=== PATIENT | male | born 1970 | race Two or more races ===

== ENCOUNTER 2019-05-13 14:01 | Inpatient (IN) | payer OTHER ==
[2019-05-13] MEDS ORDERED: VANCOMYCIN HCL INJ 1000 MG VIAL IV ONE (14:52)
[2019-05-13] MEDS ORDERED: AZTREONAM INJ 1 GM VIAL IV ONE (14:54)
--- NOTE | 2019-05-13 14:55 | ER Document Report ---
ED Medical Screen (RME) - General Chief Complaint: Foot Pain Stated Complaint: FOOT PAIN Notes: Patient is a 48-year-old male who presents to the emergency department with a chief complaint of right foot pain. He states that he has had pain for the past week. He is a diabetic and he has been walking on his foot. He noticed that he had black to his first and second digit of his right foot this morning. He is currently on not on any diabetic medications. Exam: Eschar noted to 1st and second digit I have greeted and performed a rapid initial assessment of this patient. A comprehensive ED assessment and evaluation of the patient, analysis of test results and completion of medical decision making process will be conducted by an additional ED providers. TRAVEL OUTSIDE OF THE [place] IN LAST 30 DAYS: No - Related Data Allergies/Adverse Reactions: No Known Allergies Allergy (Verified 05/13/19 14:40) Past Medical History - Social History Chew tobacco use (# tins/day): No Frequency of alcohol use: Heavy Drug Abuse: None Pulmonary Medical History: Reports: Hx Asthma, Hx Bronchitis Denies: Hx Tuberculosis Psychiatric Medical History: Reports: Hx Depression - no support system Traumatic Medical History: Reports: Hx Fractures Past Surgical History: Denies: Hx Pacemaker - Immunizations Hx Diphtheria, Pertussis, Tetanus Vaccination: Yes Physical Exam - Vital signs Vitals: Temp Pulse Resp BP Pulse Ox 98.0 F 115 H 18 158/110 H 96 05/13/19 14:17 05/13/19 14:17 05/13/19 14:17 05/13/19 14:17 05/13/19 14:17 Course - Vital Signs Vital signs: Temp Pulse Resp BP Pulse Ox 98.2 F 106 H 17 165/85 H 100 05/14/19 07:50 05/14/19 07:50 05/14/19 07:50 05/14/19 07:50 05/14/19 07:50 - Laboratory Result Diagrams: 05/14/19 04:46 05/13/19 18:00 Laboratory results interpreted by me: 05/13/19 05/13/19 15:00 15:00 WBC 16.0 H RBC 2.79 L Hgb 10.3 L Hct 29.0 L MCV 104 H MCH 37.0 H Plt Count 507 H Lymph % (Auto) 7.3 L Absolute Neuts (auto) 13.7 H Seg Neutrophils % 85.4 H Sodium 124.3 L Potassium 5.4 H Chloride 89 L Carbon Dioxide 20 L Glucose 216 H Albumin 3.4 L Doctor's Discharge - Discharge Clinical Impression: Diabetic ulcer of toe Condition: Stable Disposition: ADMITTED INPATIENT
--- NOTE | 2019-05-13 14:56 | ER Document Report ---
ED General - General Chief Complaint: Foot Pain Stated Complaint: FOOT PAIN Notes: Patient is a 48-year-old male who presents to the emergency department with a chief complaint of right foot pain. He states that he has had pain for the past week. He is a diabetic and he has been walking on his foot. He noticed that he had black to his first and second digit of his right foot this morning. He is currently on not on any diabetic medications. Denies any fevers, body aches, or chills. Patient has a history of a left BKA. TRAVEL OUTSIDE OF THE [place] IN LAST 30 DAYS: No - Related Data Allergies/Adverse Reactions: No Known Allergies Allergy (Verified 05/13/19 14:40) Past Medical History - Social History Smoking Status: Never Smoker Chew tobacco use (# tins/day): No Frequency of alcohol use: Heavy Drug Abuse: None Family History: Reviewed & Not Pertinent Patient has suicidal ideation: No Patient has homicidal ideation: No Pulmonary Medical History: Reports: Hx Asthma, Hx Bronchitis Denies: Hx Tuberculosis Psychiatric Medical History: Reports: Hx Depression - no support system Traumatic Medical History: Reports: Hx Fractures Past Surgical History: Denies: Hx Pacemaker - Immunizations Hx Diphtheria, Pertussis, Tetanus Vaccination: Yes Review of Systems - Review of Systems Notes: REVIEW OF SYSTEMS: CONSTITUTIONAL : Denies recent illness. Denies recent unintentional weight loss. Denies fever, chills, or sweats. EENT: Denies eye, ear, throat, or mouth pain, discharge, or symptoms. Denies nasal or sinus congestion. CARDIOVASCULAR: Denies chest pain. RESPIRATORY: Denies shortness of breath, cough, congestion, difficulty breathing, or wheezing. GASTROINTESTINAL: Denies nausea, vomiting, and diarrhea. Denies abdominal pain. Denies constipation. GENITOURINARY: Denies difficulty urinating, burning, blood in urine, urgency or frequency. MUSCULOSKELETAL: See HPI. SKIN: Denies rash, itchiness, or lesions HEMATOLOGIC : Denies easy bruising or bleeding. LYMPHATIC: Denies swollen, painful, enlarged glands. NEUROLOGICAL: Denies no numbness or tingling denies weakness. Denies headache. Denies altered mental status. Denies alteration in speech. PSYCHIATRIC: Denies stress, anxiety, alteration in sleep patterns, or depression. All other systems reviewed and negative. Physical Exam - Vital signs Vitals: Temp Pulse Resp BP Pulse Ox 98.0 F 115 H 18 158/110 H 96 05/13/19 14:17 05/13/19 14:17 05/13/19 14:17 05/13/19 14:17 05/13/19 14:17 - Notes Notes: PHYSICAL EXAMINATION: GENERAL: Appears older than stated age, well-nourished, no acute distress. HEAD: Normocephalic, atraumatic. EYES: PERRL, conjunctiva normal, all extraocular movements intact, sclera nonicteric ENT: Moist mucous membranes. NECK: Supple, no noticeable swelling, redness, rash. Normal range of motion. LUNGS: Equal breath sounds bilaterally and clear to auscultation. No wheezes rales or rhonchi. CARDIOVASCULAR: S1-S2, regular rate, regular rhythm. Radial pulses 2+, normal. ABDOMEN: Normoactive bowel sounds. Soft, nontender, no guarding, no rebound tenderness, and no masses palpated. EXTREMITIES: Normal strength and range of motion. 2+ pitting edema noted to right foot with eschar noted to first and second digits on right foot. Surrounding erythema noted. NEUROLOGICAL: Moves all extremities upon command. Strength 5/5 in all extremities. PSYCH: Normal mood, normal affect. SKIN: Warm, dry. No rash, lesions, ulcerations noted. Normal skin turgor. Course - Re-evaluation Re-evalutation: 05/13/19 16:57 X-ray of the foot shows soft tissue swelling as per the radiologist. I suspect there is more than just soft tissue swelling, as the patient has extra are noted to his first and second digits of his right toe. Patient's hematology shows a leukocytosis of 16,000. There is a shift to the left. He is mildly anemic with a hemoglobin of 10.3 and hematocrit of 29. Chemistries show hyponatremia with a sodium of 124. His potassium is 5.4. His glucose is 216. These will be treated with IV fluids. Patient also received antibiotics. I spoke with Dr. Sena, the surgicalist. He will evaluate the patient. 05/13/19 17:07 Spoke with SHAMEKA Bond. Patient will be admitted to the surgical floor. - Vital Signs Vital signs: Temp Pulse Resp BP Pulse Ox 98.2 F 106 H 17 165/85 H 100 05/14/19 07:50 05/14/19 07:50 05/14/19 07:50 05/14/19 07:50 05/14/19 07:50 - Laboratory Result Diagrams: 05/14/19 04:46 05/13/19 18:00 Laboratory results interpreted by me: 05/13/19 05/13/19 15:00 15:00 WBC 16.0 H RBC 2.79 L Hgb 10.3 L Hct 29.0 L MCV 104 H MCH 37.0 H Plt Count 507 H Lymph % (Auto) 7.3 L Absolute Neuts (auto) 13.7 H Seg Neutrophils % 85.4 H Sodium 124.3 L Potassium 5.4 H Chloride 89 L Carbon Dioxide 20 L Glucose 216 H Albumin 3.4 L Discharge - Discharge Clinical Impression: Patient noncompliance Diabetic ulcer of toe Qualifiers: Diabetes mellitus type: type 2 Laterality: right Non-pressure ulcer stage: with other severity Qualified Code(s): E11.621 - Type 2 diabetes mellitus with foot ulcer; L97.518 - Non-pressure chronic ulcer of other part of right foot with other specified severity Diabetes Qualifiers: Diabetes mellitus type: type 2 Diabetes mellitus senior care insulin use: without technician terminal and repeater use Diabetes mellitus complication status: with other specified complication Qualified Code(s): E11.69 - Type 2 diabetes mellitus with other specified complication Condition: Stable Disposition: ADMITTED INPATIENT Admitting Provider: Osmany (Hospitalist) Unit Admitted: Surgical Floor
[2019-05-13 15:37] LABS: ABSOLUTE BASOPHILS # (AUTO) 0.1 10^3/uL (0.0-0.2); ABSOLUTE EOSINOPHILS # (AUTO) 0.2 10^3/uL (0.0-0.6); ABSOLUTE LYMPHOCYTES (AUTO) 1.2 10^3/uL (0.5-4.7); ABSOLUTE MONOCYTES (AUTO) 0.9 10^3/uL (0.1-1.4); ABSOLUTE NEUT (AUTO) 13.7 10^3/uL (1.7-8.2); BASOPHILS % (AUTO) 0.8 % (0-2); EOSINOPHILS % (AUTO) 1.2 % (0-6); HEMOGLOBIN 10.3 g/dL (13.5-17.0); LYMPHOCYTES % (AUTO) 7.3 % (13-45); MEAN CORPUSCULAR HGB CONC 35.6 g/dL (32.0-36.0); MEAN CORPUSCULAR VOLUME 104 fl (80-97); MONOCYTES % (AUTO) 5.3 % (3-13); PLATELET COUNT 507 10^3/uL (150-450); RED BLOOD COUNT 2.79 10^6/uL (4.35-5.55); RED CELL DISTRIBUTION WIDTH 13.2 % (11.5-14.0); SEGMENTED NEUTROPHILS % (AUTO) 85.4 % (42-78); TOTAL CELLS COUNTED % (AUTO) 100 %
[2019-05-13 15:43] LABS: INTERNATIONAL RATION (INR) 0.99; PROTHROMBIN TIME 13.1 SEC (11.4-15.4)
[2019-05-13 15:44] LABS: PARTIAL THROMBOPLASTIN TIME 32.9 SEC (23.5-35.8)
--- NOTE | 2019-05-13 15:47 | RADIOLOGY REPORT (SQ) ---
EXAM DESCRIPTION: FOOT RIGHT COMPLETE COMPLETED DATE/TIME: 05/13/2019 3:29 pm REASON FOR STUDY: eval osteomylitis COMPARISON: None. EXAM PARAMETERS: NUMBER OF VIEWS: Three views. TECHNIQUE: AP, lateral and oblique radiographic images acquired of the right foot. LIMITATIONS: 2nd toe in flexion on all projections FINDINGS: MINERALIZATION: Normal. BONES: No acute fracture or dislocation. No worrisome bone lesions. JOINTS: No effusion. SOFT TISSUES: 1st and 2nd digit distal soft tissue swelling. No radiopaque foreign body. OTHER: No other significant finding. IMPRESSION: No acute fracture or dislocation. No worrisome bone lesions identified. TECHNICAL DOCUMENTATION: JOB ID: [id number] [place]-72 2010 [employer]- All Rights Reserved Reading location - IP/workstation name: [email or web address]
[2019-05-13 16:03] LABS: ALBUMIN 3.4 g/dL (3.5-5.0); ALKALINE PHOSPHATASE 123 U/L (38-126); ANION GAP 15 (5-19); ASPARTATE AMINO TRANSFERASE 35 U/L (17-59); BILIRUBIN,DIRECT 0.4 mg/dL (0.0-0.4); BILIRUBIN,TOTAL 0.6 mg/dL (0.2-1.3); BLOOD UREA NITROGEN 10 mg/dL (7-20); CALCIUM 8.7 mg/dL (8.4-10.2); CARBON DIOXIDE 20 mmol/L (22-30); CHLORIDE 89 mmol/L (98-107); GLUCOSE 216 mg/dL (75-110); POTASSIUM 5.4 mmol/L (3.6-5.0); TOTAL PROTEIN 7.6 g/dL (6.3-8.2)
[2019-05-13] MEDS ORDERED: NORMAL SALINE 1000 ML 1,000 ML IV ONE (16:06)
[2019-05-13] MEDS ORDERED: ONDANSETRON HCL INJ/PF 4 MG/2 ML SDV IV PRN (17:33)
[2019-05-13] MEDS ORDERED: MAG HYDROX/AL HYDROX/SIMETH SUSP 30 ML UDCUP PO PRN (17:33)
[2019-05-13] MEDS ORDERED: ONDANSETRON 4 MG TAB.RAPDIS PO PRN (17:33)
[2019-05-13] MEDS ORDERED: ZOLPIDEM TARTRATE 5 MG TABLET PO PRN (17:33)
[2019-05-13] MEDS ORDERED: DEXTROSE 50%-WATER 25 GM/50 ML DISP.SYRIN IV PRN ×2 (17:40)
[2019-05-13] MEDS ORDERED: DEXTROSE 40% GEL 15 GM TUBE PO PRN ×2 (17:40)
[2019-05-13] MEDS ORDERED: GLUCAGON,HUMAN RECOMB 1 MG INJ IM PRN (17:40)
[2019-05-13] MEDS ORDERED: VANCOMYCIN HCL 0 MG in DEXTROSE 5%-WATER 250 ML IV NR (17:45)
--- NOTE | 2019-05-13 18:02 | PDOC H&P ---
History of Present Illness Admission Date/PCP: 05/13/19 17:22 NO LOCALOH History of Present Illness: MELVI ABDALLA is a 48 year old male, [place] male comes in with pain in the right great toe. Patient is somewhat vague on his history but says for between 1 to 2 months now he has noticed that his right foot had an infection of the great toe. Over just in the last few days has the great toe turned black and become somewhat tender to walk on. Patient states that he has been out of his blood pressure medicine and his medicine for diabetes for several months.. Patient had a previous below the knee amputation on the left leg secondary to diabetes.. It was approximately 1 year ago when he is done well from that and has a prosthesis. 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 She states he has no other medical problems besides diabetes and high blood pressure.. Patient states he has been on insulin in the past as well as pills , he states he lives alone.. No known drug allergies. Plain film of the right foot shows no evidence of osteomyelitis.. General surgery, Dr. Sena, as recommended MRI scan of the right lower extremity with and without contrast. Making the patient n.p.o. after midnight. Starting broad-spectrum antibiotics. Even the right foot elevated.. She will be reevaluated following the MRI scan of the right lower extremity. Patient was told that a decision will be made concerning surgery following formerly [facility] later [facility] diagnostic studies. Past Medical History Cardiac Medical History: Reports: Hypertension Pulmonary Medical History: Reports: Asthma, Bronchitis Denies: Tuberculosis Endocrine Medical History: Reports: Diabetes Mellitus Type 1 Psychiatric Medical History: Reports: Depression - no support system Past Surgical History Past Surgical History: Reports: Other - Left below the knee amputation Denies: Pacemaker Social History Smoking Status: Never Smoker Electronic Cigarette use?: No Hx Recreational Drug Use: No Hx Prescription Drug Abuse: No - Advance Directive Resuscitation Status: Full Code Family History Parental Family History Reviewed: No Children Family History Reviewed: No Sibling(s) Family History Reviewed.: No Medication/Allergy Home Medications: No Home Medications 06/07/11 Cipro 500 mg Tablet 500 mg PO BID 06/14/11 Coumadin 10 mg PO DAILY 06/14/11 Coumadin 7.5 mg Tablet 7.5 mg PO DAILY 06/14/11 Humalog 1 unit ACHS 06/14/11 Novolin Inj 70-30 (100 Unit/1 ml) 10 ml Vial 25 unit SUBCUT BID 06/14/11 Allergies/Adverse Reactions: No Known Allergies Allergy (Verified 05/13/19 14:40) Review of Systems Constitutional: ABSENT: chills, fever(s), headache(s), weight gain, weight loss Respiratory: ABSENT: cough, hemoptysis Gastrointestinal: ABSENT: abdominal pain, constipation, diarrhea, hematemesis, hematochezia, nausea, vomiting Integumentary: PRESENT: wounds - First and second toe on the right foot Neurological: ABSENT: abnormal gait, abnormal speech, confusion, dizziness, focal weakness, syncope Psychiatric: ABSENT: anxiety, depression, homidical ideation, suicidal ideation Physical Exam Vital Signs: Temp Pulse Resp BP Pulse Ox 98.0 F 115 H 18 158/110 H 96 05/13/19 14:17 05/13/19 14:17 05/13/19 14:17 05/13/19 14:17 05/13/19 14:17 Intake & Output 05/12/19 05/13/19 05/14/19 06:59 06:59 06:59 Intake Total 1000 Balance 1000 Weight 79 kg General appearance: PRESENT: no acute distress, well-developed, well-nourished Respiratory exam: PRESENT: clear to auscultation clarke. ABSENT: rales, rhonchi, wheezes Cardiovascular exam: PRESENT: RRR. ABSENT: diastolic murmur, rubs, systolic murmur Vascular exam: PRESENT: other - Ulcers are difficult to locate in the right lower extremity, may be secondary to edema, or vascular disease Extremities exam: PRESENT: +1 edema, other - Right lower extremity from about the lim down to the right foot less edema as well as redness Great toe appears to be gangrenous with a black eschar on the pedal aspect of the great toe Also to a lesser degree on the second toe on the right foot Foot itself is pink to red. No obvious sign of decreased arterial flow to the foot superficially Results Laboratory Results: 05/13/19 15:00 05/13/19 15:00 05/13/19 05/13/19 05/13/19 15:00 15:00 15:00 WBC 16.0 H RBC 2.79 L Hgb 10.3 L Hct 29.0 L MCV 104 H MCH 37.0 H MCHC 35.6 RDW 13.2 Plt Count 507 H Seg Neutrophils % 85.4 H Sodium 124.3 L Potassium 5.4 H Chloride 89 L Carbon Dioxide 20 L Anion Gap 15 BUN 10 Creatinine 1.16 Est GFR ( Amer) > 60 Glucose 216 H Lactic Acid 1.4 Calcium 8.7 Total Bilirubin 0.6 AST 35 Alkaline Phosphatase 123 Total Protein 7.6 Albumin 3.4 L Impressions: Foot X-Ray 05/13/19 14:45 IMPRESSION: No acute fracture or dislocation. No worrisome bone lesions identified. Assessment and Plan - Diagnosis (1) Diabetes Is this a current diagnosis for this admission?: Yes (2) Hypertension Is this a current diagnosis for this admission?: Yes (3) Patient noncompliance Is this a current diagnosis for this admission?: Yes (4) Cellulitis Is this a current diagnosis for this admission?: Yes (5) Diabetic ulcer of toe Qualifiers: Diabetes mellitus type: type 2 Laterality: right Non-pressure ulcer stage: with other severity Qualified Code(s): E11.621 - Type 2 diabetes melli tus with foot ulcer; L97.518 - Non-pressure chronic ulcer of other part of right foot with other specified severity Is this a current diagnosis for this admission?: Yes - Plan Summary Summary: 05/13/2019 Will be admitted to the hospital for IV fluids, sliding scale of insulin, RI with and without IV contrast to the right lower extremity, patient will be n.p.o. after midnight, surgery will reevaluate the patient in the morning following review of studies. He will be put on broad-spectrum antibiotics as well He is medically stable for admission - Time Time Spent with patient: 35 or more minutes
[2019-05-13 18:24] LABS: ANION GAP 15 (5-19); BLOOD UREA NITROGEN 9 mg/dL (7-20); CALCIUM 8.1 mg/dL (8.4-10.2); CARBON DIOXIDE 19 mmol/L (22-30); CHLORIDE 91 mmol/L (98-107); CREATINE KINASE 164 U/L (55-170); GLUCOSE 216 mg/dL (75-110)
[2019-05-13] MEDS ORDERED: INFLUENZA QUAD (6MOS+) 2019-20 VAC 0.5 ML SYR IM ONE (18:34)
[2019-05-13 18:40] LABS: APPEARANCE,URINE CLEAR; BILIRUBIN,URINE NEGATIVE (NEGATIVE); COLOR,URINE STRAW; GLUCOSE, URINE 50 mg/dL (NEGATIVE); KETONES,URINE NEGATIVE (NEGATIVE); LEUKOCYTE ESTERASE,URINE NEGATIVE (NEGATIVE); NITRITE,URINE NEGATIVE (NEGATIVE); PROTEIN,URINE 30 mg/dL (NEGATIVE); URINE SPECIFIC GRAVITY 1.004; UROBILINOGEN,URINE NEGATIVE mg/dL (<2.0)
--- NOTE | 2019-05-13 18:40 | PDOC CONSULTATION ---
Consultation Consult Date: 05/13/19 Provider Consulted: ARMOND PAN Consult reason:: right great and second toe gangrene History of Present Illness Admission Date/PCP: 05/13/19 17:22 NO LOCALMD History of Present Illness: MELVI ABDALLA is a 48 year old male type 2 diabetes, with a history of left BKA, who presents to the hospital with a necrotic right distal great toe and right second toe. The patient states that he has been on taking his diabetic medications for nonspecific reason, most likely poor compliance. Past Medical History Pulmonary Medical History: Reports: Asthma, Bronchitis Denies: Tuberculosis Psychiatric Medical History: Reports: Depression - no support system Past Surgical History Past Surgical History: Denies: Pacemaker Social History Smoking Status: Never Smoker Electronic Cigarette use?: No Hx Recreational Drug Use: No Hx Prescription Drug Abuse: No Family History Parental Family History Reviewed: No Children Family History Reviewed: No Sibling(s) Family History Reviewed.: No Medication/Allergy Home Medications: No Home Medications 06/07/11 Cipro 500 mg Tablet 500 mg PO BID 06/14/11 Coumadin 10 mg PO DAILY 06/14/11 Coumadin 7.5 mg Tablet 7.5 mg PO DAILY 06/14/11 Humalog 1 unit ACHS 06/14/11 Novolin Inj 70-30 (100 Unit/1 ml) 10 ml Vial 25 unit SUBCUT BID 06/14/11 Allergies/Adverse Reactions: No Known Allergies Allergy (Verified 05/13/19 14:40) Physical Exam Vital Signs: Temp Pulse Resp BP Pulse Ox 98.0 F 115 H 18 158/110 H 96 05/13/19 14:17 05/13/19 14:17 05/13/19 14:17 05/13/19 14:17 05/13/19 14:17 Intake & Output 05/12/19 05/13/19 05/14/19 06:59 06:59 06:59 Weight 79 kg General appearance: PRESENT: no acute distress, obese, well-developed, well- nourished Eye exam: PRESENT: EOMI Mouth exam: PRESENT: moist, neck supple Teeth exam: PRESENT: poor dentation Respiratory exam: PRESENT: clear to auscultation clarke Cardiovascular exam: PRESENT: RRR GI/Abdominal exam: PRESENT: soft Rectal exam: PRESENT: deferred Extremities exam: PRESENT: full ROM, other - Right lower extremity = edema from calf down to toes, erythema covering the entire forefoot, black discoloration of distal great toe and entire second toe, skin warm, sensation maintained, normal motor function, nonpalpable pulses Left lower extremity = well-healed BKA Musculoskeletal exam: PRESENT: full ROM Neurological exam: PRESENT: alert, awake Skin exam: PRESENT: warm Results Laboratory Results: 05/13/19 15:00 05/13/19 15:00 05/13/19 05/13/19 05/13/19 15:00 15:00 15:00 WBC 16.0 H RBC 2.79 L Hgb 10.3 L Hct 29.0 L MCV 104 H MCH 37.0 H MCHC 35.6 RDW 13.2 Plt Count 507 H Seg Neutrophils % 85.4 H Sodium 124.3 L Potassium 5.4 H Chloride 89 L Carbon Dioxide 20 L Anion Gap 15 BUN 10 Creatinine 1.16 Est GFR ( Amer) > 60 Glucose 216 H Lactic Acid 1.4 Calcium 8.7 Total Bilirubin 0.6 AST 35 Alkaline Phosphatase 123 Total Protein 7.6 Albumin 3.4 L Impressions: Foot X-Ray 05/13/19 14:45 IMPRESSION: No acute fracture or dislocation. No worrisome bone lesions identified. Assessment & Plan - Diagnosis (1) Cellulitis Is this a current diagnosis for this admission?: Yes (2) Diabetes Is this a current diagnosis for this admission?: Yes (3) Diabetic ulcer of toe Qualifiers: Diabetes mellitus type: type 2 Laterality: right Non-pressure ulcer stage: with other severity Qualified Code(s): E11.621 - Type 2 diabetes mellitus with foot ulcer; L97.518 - Non-pressure chronic ulcer of other part of right foot with other specified severity Is this a current diagnosis for this admission?: Yes - Plan Summary Plan Summary: Assessment: Right foot great toe and second toe gangrene Edema, erythema of the right foot Nonpalpable dorsalis pedis posterior tibialis of the right foot Close post left BKA Type 2 diabetes, patient half his medications for the past 2 months most likely due to poor compliance Leukocytosis (white blood cell count of 16,000) Hyponatremia (sodium 124) Plan: I recommended to obtain an MRI with IV contrast of the right lower extremity N.p.o. after midnight IV fluids, use normal saline due to the patient hyponatremia Start the patient on broad-spectrum IV antibiotics such as Rocephin and clindamycin Strict bedrest with right lower extremity elevation to decrease the edema A decision on the type of surgery will be made after completion of the right lower extremity MRI: This this could be great and second toe amputations versus BKA; the patient's wishes will be also taken into account
--- NOTE | 2019-05-13 19:31 | EKG REPORT ---
SEVERITY:- OTHERWISE NORMAL ECG - SINUS TACHYCARDIA BORDERLINE LEFT AXIS DEVIATION : Confirmed by: Shyanne Almonte MD 13-May-2019 19:30:18
[2019-05-13] MEDS ORDERED: SODIUM POLYSTYRENE SULFONATE 15 GM/60 ML PO ONE (20:00)
[2019-05-13] MEDS: INSULIN LISPRO 100 UNIT/ML 3 ML VIAL SUBCUT SCH ×2 (20:22→21:05)
[2019-05-13] MEDS: ACETAMINOPHEN 325 MG TABLET PO PRN (21:04)
[2019-05-13] MEDS: FAMOTIDINE 20 MG TABLET PO SCH (21:04)
[2019-05-13] MEDS: HYDRALAZINE HCL INJ/PF 20 MG/1 ML SDV IV PRN (21:05)
[2019-05-13] MEDS: CEFTRIAXONE 2 GM/D5W RTU 2 GM/50 ML RTUPB IV SCH (21:05)
[2019-05-13] MEDS: NORMAL SALINE 1000 ML 1,000 ML IV PRN (21:05)
--- NOTE | 2019-05-13 21:25 | RADIOLOGY REPORT (SQ) ---
EXAM DESCRIPTION: MR LOWER EXTREMITY WITHOUT THEN WITH IV CONTRAST COMPLETED DATE/TME: 05/13/2019 00:00 CLINICAL HISTORY: gangrene toe, cellulitis, COMPARISON: None TECHNIQUE: Multiplanar images of the foot were obtained with and without the administration of intravenous contrast FINDINGS: Study is markedly degraded by patient motion There is skin thickening over the first and second digits as well as over the dorsal surface of the foot with subcutaneous edema. On the postcontrast imaging there is enhancement along the first and second digits as well as the lung segments of the dorsum of the foot suggesting cellulitis. There is an area of ulceration along the inferior margin of the great toe extending to the plantar surface of the distal phalanx. There is abnormal signal involving the first distal phalanx with areas of cortical destruction consistent with osteomyelitis. There also appears to be some involvement of the distal aspect of the proximal phalanx. There is also abnormal signal involving the proximal phalanx of the second digit. There appears to be a fluid collection extending along the second digit with enhancement suggesting abscess.. A component of the fluid collection appears to extend along the head of the first and second metatarsal as well as along the lateral margin of the second MTP joint. There is a small amount of abnormal signal also involving the head of the metatarsal of the second digit suspect that this may represent reactive marrow edema. Early osteomyelitis is not entirely excluded. IMPRESSION: OSTEOMYELITIS INVOLVING THE DISTAL PHALANX OF THE FIRST DIGIT AND THE ADJACENT DISTAL ASPECT OF THE FIRST PROXIMAL PHALANX CELLULITIS OVER THE DORSUM OF THE FOOT AND OVER THE SECOND AND FIRST DIGIT WITH ABSCESS FORMATION ALONG THE SECOND DIGIT WHICH ALSO EXTENDS ALONG THE MEDIAL AND LATERAL MARGINS OF THE head of the second METATARSAL ABNORMAL SIGNAL AND ENHANCEMENT INVOLVING THE SECOND PROXIMAL PHALANX CONCERNING FOR OSTEOMYELITIS SMALL AMOUNT OF ABNORMAL SIGNAL IN THE HEAD OF THE SECOND METATARSAL WHICH MAY BE REACTIVE IN NATURE. RECOMMEND CONTINUED FOLLOW-UP TO EXCLUDE EARLY OSTEOMYELITIS.
--- NOTE | 2019-05-14 01:42 | RADIOLOGY REPORT (SQ) ---
EXAM DESCRIPTION: XR CHEST 1 VIEW COMPLETED DATE/TME: 05/13/2019 17:38 CLINICAL HISTORY: 48 years, Male, htn COMPARISON: 06/07/2011 chest NUMBER OF VIEWS: 1 TECHNIQUE: Portable chest LIMITATIONS: None. FINDINGS: The heart size is normal. Mild atheromatous change of the thoracic aorta. Artifact projects over the upper abdomen. Chronic appearing interstitial change bilaterally. No pneumothorax IMPRESSION: Chronic interstitial changes. No acute cardiopulmonary process copyright 2010 [employer]- All Rights Reserved
[2019-05-14] MEDS: NORMAL SALINE 1000 ML 1,000 ML IV PRN ×2 (05:16→15:35)
[2019-05-14 05:33] LABS: ABSOLUTE BASOPHILS # (AUTO) 0.1 10^3/uL (0.0-0.2); ABSOLUTE EOSINOPHILS # (AUTO) 0.1 10^3/uL (0.0-0.6); ABSOLUTE LYMPHOCYTES (AUTO) 1.1 10^3/uL (0.5-4.7); ABSOLUTE MONOCYTES (AUTO) 1.1 10^3/uL (0.1-1.4); ABSOLUTE NEUT (AUTO) 11.9 10^3/uL (1.7-8.2); BASOPHILS % (AUTO) 0.7 % (0-2); HEMATOCRIT 29.4 % (37.9-51.0); HEMOGLOBIN 10.3 g/dL (13.5-17.0); LYMPHOCYTES % (AUTO) 7.4 % (13-45); MEAN CORPUSCULAR HEMOGLOBIN 36.3 pg (27.0-33.4); MEAN CORPUSCULAR VOLUME 104 fl (80-97); MONOCYTES % (AUTO) 7.4 % (3-13); PLATELET COUNT 474 10^3/uL (150-450); RED BLOOD COUNT 2.83 10^6/uL (4.35-5.55); RED CELL DISTRIBUTION WIDTH 13.3 % (11.5-14.0); SEGMENTED NEUTROPHILS % (AUTO) 83.5 % (42-78); TOTAL CELLS COUNTED % (AUTO) 100 %; WHITE BLOOD COUNT 14.2 10^3/uL (4.0-10.5)
[2019-05-14 05:45] LABS: INTERNATIONAL RATION (INR) 1.03; PROTHROMBIN TIME 13.5 SEC (11.4-15.4)
[2019-05-14] MEDS: INSULIN LISPRO 100 UNIT/ML 3 ML VIAL SUBCUT SCH ×3 (07:42→16:53)
[2019-05-14] MEDS: ACETAMINOPHEN 325 MG TABLET PO PRN ×2 (08:32→22:17)
[2019-05-14] MEDS: DOCUSATE SODIUM 100 MG CAPSULE PO SCH (09:03)
[2019-05-14] MEDS: FAMOTIDINE 20 MG TABLET PO SCH ×2 (09:04→22:19)
[2019-05-14] MEDS: VANCOMYCIN HCL 750 MG in DEXTROSE 5%-WATER 250 ML IV SCH ×2 (09:18→22:17)
--- NOTE | 2019-05-14 12:10 | PDOC PROGRESS REPORT ---
Subjective Progress Note for:: 05/14/19 Reason For Visit: DIABETES,HYPERTENSION,CELLULITIS, Patient complaining of right foot pain. Physical Exam Vital Signs: Temp Pulse Resp BP Pulse Ox 98.1 F 108 H 16 163/98 H 99 05/14/19 11:18 05/14/19 11:18 05/14/19 11:18 05/14/19 11:18 05/14/19 11:18 Intake & Output 05/13/19 05/14/19 05/15/19 06:59 06:59 06:59 Intake Total 2108 Output Total 1600 Balance 508 Weight 59.7 kg Musculoskeletal exam: PRESENT: other - Right leg examined. Strong readily palpable popliteal pulse. The right foot is swollen, but less so compared to yesterday. Toes 1 and 2 have dry eschar, focal edema, deformity with foul smell. Results Laboratory Results: 05/14/19 04:46 05/13/19 18:00 05/13/19 05/13/19 05/13/19 15:00 15:00 15:00 WBC 16.0 H RBC 2.79 L Hgb 10.3 L Hct 29.0 L MCV 104 H MCH 37.0 H MCHC 35.6 RDW 13.2 Plt Count 507 H Seg Neutrophils % 85.4 H Sodium 124.3 L Potassium 5.4 H Chloride 89 L Carbon Dioxide 20 L Anion Gap 15 BUN 10 Creatinine 1.16 Est GFR ( Amer) > 60 Glucose 216 H Lactic Acid 1.4 Calcium 8.7 Magnesium Total Bilirubin 0.6 AST 35 Alkaline Phosphatase 123 Total Protein 7.6 Albumin 3.4 L Urine Color Urine Appearance Urine pH Ur Specific [place] Urine Protein Urine Glucose (UA) Urine Ketones Urine Blood Urine Nitrite Ur Leukocyte Esterase Urine WBC (Auto) Urine RBC (Auto) 05/13/19 05/13/19 05/13/19 17:25 18:00 18:26 WBC RBC Hgb Hct MCV MCH MCHC RDW Plt Count Seg Neutrophils % Sodium 124.5 L Potassium 4.0 D Chloride 91 L Carbon Dioxide 19 L Anion Gap 15 BUN 9 Creatinine 1.06 Est GFR ( Amer) > 60 Glucose 216 H Lactic Acid 1.3 Calcium 8.1 L Magnesium Total Bilirubin AST Alkaline Phosphatase Total Protein Albumin Urine Color STRAW Urine Appearance CLEAR Urine pH 5.0 Ur Specific [place] 1.004 Urine Protein 30 H Urine Glucose (UA) 50 H Urine Ketones NEGATIVE Urine Blood MODERATE H Urine Nitrite NEGATIVE Ur Leukocyte Esterase NEGATIVE Urine WBC (Auto) 1 Urine RBC (Auto) 10 05/13/19 05/14/19 05/14/19 21:12 04:46 04:46 WBC 14.2 H RBC 2.83 L Hgb 10.3 L Hct 29.4 L MCV 104 H MCH 36.3 H MCHC 35.0 RDW 13.3 Plt Count 474 H Seg Neutrophils % 83.5 H Sodium Potassium Chloride Carbon Dioxide Anion Gap BUN Creatinine Est GFR ( Amer) Glucose Lactic Acid 1.0 Calcium Magnesium 1.7 Total Bilirubin AST Alkaline Phosphatase Total Protein Albumin Urine Color Urine Appearance Urine pH Ur Specific [place] Urine Protein Urine Glucose (UA) Urine Ketones Urine Blood Urine Nitrite Ur Leukocyte Esterase Urine WBC (Auto) Urine RBC (Auto) 05/13/19 18:00 Creatine Kinase 164 Impressions: Lower Extremity MRI 05/13/19 00:00 IMPRESSION: OSTEOMYELITIS INVOLVING THE DISTAL PHALANX OF THE FIRST DIGIT AND THE ADJACENT DISTAL ASPECT OF THE FIRST PROXIMAL PHALANX CELLULITIS OVER THE DORSUM OF THE FOOT AND OVER THE SECOND AND FIRST DIGIT WITH ABSCESS FORMATION ALONG THE SECOND DIGIT WHICH ALSO EXTENDS ALONG THE MEDIAL AND LATERAL MARGINS OF THE head of the second METATARSAL ABNORMAL SIGNAL AND ENHANCEMENT INVOLVING THE SECOND PROXIMAL PHALANX CONCERNING FOR OSTEOMYELITIS SMALL AMOUNT OF ABNORMAL SIGNAL IN THE HEAD OF THE SECOND METATARSAL WHICH MAY BE REACTIVE IN NATURE. RECOMMEND CONTINUED FOLLOW-UP TO EXCLUDE EARLY OSTEOMYELITIS. Foot X-Ray 05/13/19 14:45 IMPRESSION: No acute fracture or dislocation. No worrisome bone lesions identified. Chest X-Ray 05/13/19 17:38 IMPRESSION: Chronic interstitial changes. No acute cardiopulmonary process copyright 2011 [employer]- All Rights Reserved Assessment & Plan - Diagnosis (1) Osteomyelitis of right foot Is this a current diagnosis for this admission?: Yes Plan: Impression: Septic right foot with MRI evidence of osteomyelitis of the first and second phalanx and metatarsal heads with nonsalvageable toes in brittle diabetic with a previous left below the knee amputation Recommendations: 1. Patient needs to be taken to the operating room for damage control resection of right first and second toes including metatarsal heads. Intraoperative cultures will be obtained. 2. Pending sepsis source control, and tissue viability, patient may be able to salvage the remaining foot. This was explained to the patient today. He is quite tearful. (2) History of left below knee amputation Is this a current diagnosis for this admission?: Yes (3) Diabetes Qualifiers: Diabetes mellitus type: type 2 Diabetes mellitus supervisor intermediates insulin use: without shelter use Diabetes mellitus complication status: with other specified complication Qualified Code(s): E11.69 - Type 2 diabetes mellitus with other specified complication Is this a current diagnosis for this admission?: Yes - Time Time Spent with patient: 15-24 minutes Medications reviewed and adjusted accordingly: Yes Anticipated discharge: Home
[2019-05-14] MEDS ORDERED: LIDOCAINE 1% INJ-PF (10 MG/ML) 30 ML SDV ONE (15:38)
[2019-05-14] MEDS ORDERED: MIDAZOLAM 2 MG/2 ML INJ ONE (15:50)
[2019-05-14] MEDS ORDERED: LIDOCAINE 2% INJ-PF (20 MG/ML) 10 ML AMPUL ONE (15:50)
[2019-05-14] MEDS ORDERED: FENTANYL CITRATE INJ/PF 100 MCG/2 ML AMPUL ONE (15:50)
[2019-05-14] MEDS ORDERED: DEXMEDETOMIDINE INJ 80 MCG/20 ML VIAL IV ONE (15:50)
[2019-05-14] MEDS ORDERED: PROPOFOL INJ 200 MG/20 ML VIAL IV ONE (15:50)
[2019-05-14] MEDS ORDERED: FENTANYL CITRATE INJ/PF 100 MCG/2 ML AMPUL IV PRN ×3 (17:04)
[2019-05-14] MEDS ORDERED: PROMETHAZINE HCL INJ 25 MG/1 ML VIAL IV PRN ×2 (17:04)
[2019-05-14] MEDS ORDERED: DIPHENHYDRAMINE HCL 50 MG/ML VIAL IV PRN (17:04)
[2019-05-14] MEDS ORDERED: OXYCODONE-ACETAMINOPHEN 5-325 MG TABLET PO PRN ×2 (17:04)
[2019-05-14] MEDS ORDERED: MEPERIDINE HCL/PF INJ 25 MG/1 ML DISP.SYRIN IV PRN (17:04)
[2019-05-14] MEDS ORDERED: ONDANSETRON HCL INJ/PF 4 MG/2 ML SDV IV PRN (17:04)
--- NOTE | 2019-05-14 17:42 | Operative Report ---
Operative Report DATE OF SURGERY: 05/14/19 PREOPERATIVE DIAGNOSIS: Septic right foot with osteomyelitis involving first and second toes and metatarsal heads in diabetic male POSTOPERATIVE DIAGNOSIS: Same OPERATION: Open amputation of the first and second toes including metatarsal heads right foot SURGEON: MARIA GUADALUPE RECINOS ANESTHESIA: LMAC TISSUE REMOVED OR ALTERED: First and second toes, skin, metatarsal heads 1 and 2 COMPLICATIONS: None ESTIMATED BLOOD LOSS: 30 cc INTRAOPERATIVE FINDINGS: See below PROCEDURE: The patient was taken the preop holding her to the main operating room where LMAC anesthesia was induced. Right foot was prepped and draped in sterile fashion Surgical plan surgical timeout were conducted. The findings were significant for chronically infected right first and second toes with diabetic pressure ulcers multiple locations on the dorsal surfaces. Marking was made on the skin for first and second toe including metatarsal head amputation. A #10 blade was used to incise the skin, subcutaneous tissue divided with knife. Tendons divided with blade as well. First and second toes were amputated with rib cutters. Metatarsal heads were removed using a rongeur. 2 digital arteries were oversewed with a 3-0 Vicryl suture. Other small bleeding sites were cauterized. Wound culture sent for Gram stain, culture and sensitivity. There was no evidence of pus or ischemia to the foot at the point of transection of the first and second toes. Irrigated the wound copiously with saline, removed any residual soft tissue debrided with scissors, placed small pieces of bone wax in the exposed metatarsal heads, then placed Surgicel in the recesses of the wound, Betadine soaked gauze, 4 x 4's applied. Kerlix and Damian wrap applied. Patient tolerated the procedure well, the recovery room in stable condition. Plan: 1. Keep leg elevated 2. Check wound tomorrow. Wound may be considered for closure in 24 to 48 hours pending patient of tissue wound cultures etc.
[2019-05-14] MEDS: CEFTRIAXONE 2 GM/D5W RTU 2 GM/50 ML RTUPB IV SCH (22:17)
[2019-05-15] MEDS: INSULIN LISPRO 100 UNIT/ML 3 ML VIAL SUBCUT SCH ×5 (02:07→22:27)
[2019-05-15 05:07] LABS: ABSOLUTE BASOPHILS # (AUTO) 0.1 10^3/uL (0.0-0.2); ABSOLUTE EOSINOPHILS # (AUTO) 0.2 10^3/uL (0.0-0.6); ABSOLUTE LYMPHOCYTES (AUTO) 1.5 10^3/uL (0.5-4.7); ABSOLUTE MONOCYTES (AUTO) 0.8 10^3/uL (0.1-1.4); ABSOLUTE NEUT (AUTO) 8.5 10^3/uL (1.7-8.2); BASOPHILS % (AUTO) 0.7 % (0-2); EOSINOPHILS % (AUTO) 1.6 % (0-6); HEMATOCRIT 26.8 % (37.9-51.0); HEMOGLOBIN 9.6 g/dL (13.5-17.0); LYMPHOCYTES % (AUTO) 13.4 % (13-45); MEAN CORPUSCULAR HEMOGLOBIN 37.5 pg (27.0-33.4); MEAN CORPUSCULAR HGB CONC 35.7 g/dL (32.0-36.0); MEAN CORPUSCULAR VOLUME 105 fl (80-97); MONOCYTES % (AUTO) 7.2 % (3-13); PLATELET COUNT 457 10^3/uL (150-450); RED BLOOD COUNT 2.55 10^6/uL (4.35-5.55); RED CELL DISTRIBUTION WIDTH 13.3 % (11.5-14.0); SEGMENTED NEUTROPHILS % (AUTO) 77.1 % (42-78); TOTAL CELLS COUNTED % (AUTO) 100 %; WHITE BLOOD COUNT 11.1 10^3/uL (4.0-10.5)
[2019-05-15] MEDS: ACETAMINOPHEN 325 MG TABLET PO PRN (08:10)
--- NOTE | 2019-05-15 09:35 | PDOC PROGRESS REPORT ---
Subjective Progress Note for:: 05/15/19 Subjective:: feels ok Reason For Visit: DIABETES,HYPERTENSION,CELLULITIS, Physical Exam Vital Signs: Temp Pulse Resp BP Pulse Ox 98.2 F 114 H 15 160/85 H 100 05/15/19 08:04 05/15/19 08:04 05/15/19 08:04 05/15/19 08:04 05/15/19 08:04 Intake & Output 05/14/19 05/15/19 05/16/19 06:59 06:59 06:59 Intake Total 2108 4851 Output Total 1600 1645 Balance 508 3206 Weight 59.7 kg 59.7 kg General appearance: PRESENT: no acute distress Head exam: PRESENT: normocephalic Eye exam: PRESENT: EOMI Ear exam: PRESENT: normal external ear exam Mouth exam: PRESENT: moist Neck exam: PRESENT: full ROM Respiratory exam: PRESENT: clear to auscultation clarke Cardiovascular exam: PRESENT: RRR Pulses: PRESENT: normal radial pulses, normal femoral pulses Vascular exam: PRESENT: normal capillary refill GI/Abdominal exam: PRESENT: soft Rectal exam: PRESENT: deferred Extremities exam: PRESENT: full ROM Musculoskeletal exam: PRESENT: full ROM Neurological exam: PRESENT: alert, awake, oriented to person, oriented to place Psychiatric exam: PRESENT: appropriate affect Skin exam: PRESENT: dry Results Laboratory Results: 05/15/19 03:46 05/13/19 18:00 05/15/19 03:46 WBC 11.1 H RBC 2.55 L Hgb 9.6 L Hct 26.8 L MCV 105 H MCH 37.5 H MCHC 35.7 RDW 13.3 Plt Count 457 H Seg Neutrophils % 77.1 05/13/19 18:00 Creatine Kinase 164 Impressions: Lower Extremity MRI 05/13/19 00:00 IMPRESSION: OSTEOMYELITIS INVOLVING THE DISTAL PHALANX OF THE FIRST DIGIT AND THE ADJACENT DISTAL ASPECT OF THE FIRST PROXIMAL PHALANX CELLULITIS OVER THE DORSUM OF THE FOOT AND OVER THE SECOND AND FIRST DIGIT WITH ABSCESS FORMATION ALONG THE SECOND DIGIT WHICH ALSO EXTENDS ALONG THE MEDIAL AND LATERAL MARGINS OF THE head of the second METATARSAL ABNORMAL SIGNAL AND ENHANCEMENT INVOLVING THE SECOND PROXIMAL PHALANX CONCERNING FOR OSTEOMYELITIS SMALL AMOUNT OF ABNORMAL SIGNAL IN THE HEAD OF THE SECOND METATARSAL WHICH MAY BE REACTIVE IN NATURE. RECOMMEND CONTINUED FOLLOW-UP TO EXCLUDE EARLY OSTEOMYELITIS. Foot X-Ray 05/13/19 14:45 IMPRESSION: No acute fracture or dislocation. No worrisome bone lesions identified. Chest X-Ray 05/13/19 17:38 IMPRESSION: Chronic interstitial changes. No acute cardiopulmonary process copyright 2011 [employer]- All Rights Reserved Assessment & Plan - Time Time Spent with patient: 25-34 minutes - Plan Summary Plan Summary: rt foot wound clean, no evidence of residual necrosis or purulence will start tid drasssing changes.
[2019-05-15] MEDS: VANCOMYCIN HCL 750 MG in DEXTROSE 5%-WATER 250 ML IV SCH ×2 (10:16→22:27)
[2019-05-15] MEDS: FAMOTIDINE 20 MG TABLET PO SCH ×2 (10:16→22:27)
[2019-05-15] MEDS: DOCUSATE SODIUM 100 MG CAPSULE PO SCH (10:16)
[2019-05-15 12:40] LABS: ANION GAP 7 (5-19); BLOOD UREA NITROGEN 9 mg/dL (7-20); CALCIUM 8.5 mg/dL (8.4-10.2); CARBON DIOXIDE 24 mmol/L (22-30); CHLORIDE 100 mmol/L (98-107); GLUCOSE 202 mg/dL (75-110); POTASSIUM 4.3 mmol/L (3.6-5.0)
[2019-05-15] MEDS: OXYCODONE-ACETAMINOPHEN 5-325 MG TABLET PO PRN ×2 (14:24→23:24)
--- NOTE | 2019-05-15 17:27 | PDOC PROGRESS REPORT ---
Subjective Progress Note for:: 05/15/19 Subjective:: This is a 48-year-old male who was admitted with right foot osteomyelitis. Patient started on IV antibiotics. He underwent open amputation of the first and second toes yesterday 05/14/2019. No acute event overnight. He denies acute complaint aside from localized pain in the surgical site. Denies chest pain or shortness of breath. Reason For Visit: DIABETES,HYPERTENSION,CELLULITIS, Physical Exam Vital Signs: Temp Pulse Resp BP Pulse Ox 99.3 F 100 16 172/84 H 98 05/15/19 15:24 05/15/19 15:24 05/15/19 15:24 05/15/19 15:24 05/15/19 15:24 Intake & Output 05/14/19 05/15/19 05/16/19 06:59 06:59 06:59 Intake Total 2108 4851 610 Output Total 1600 1645 Balance 508 3206 610 Weight 131 lb 9.855 oz 131 lb 9.855 oz General appearance: PRESENT: no acute distress, well-developed, well-nourished Head exam: PRESENT: atraumatic, normocephalic Eye exam: PRESENT: conjunctiva pink, EOMI, PERRLA. ABSENT: scleral icterus Mouth exam: PRESENT: moist, tongue midline Neck exam: ABSENT: carotid bruit, JVD, lymphadenopathy, thyromegaly Respiratory exam: PRESENT: clear to auscultation clarke. ABSENT: rales, rhonchi, wheezes Cardiovascular exam: PRESENT: RRR. ABSENT: diastolic murmur, rubs, systolic murmur Pulses: PRESENT: normal dorsalis pedis pul GI/Abdominal exam: PRESENT: normal bowel sounds, soft. ABSENT: distended, guarding, mass, organolmegaly, rebound, tenderness Rectal exam: PRESENT: deferred Neurological exam: PRESENT: alert, awake, oriented to person, oriented to place, oriented to time, oriented to situation, CN II-XII grossly intact. ABSENT: motor sensory deficit Results Laboratory Results: 05/15/19 03:46 05/15/19 11:52 05/15/19 05/15/19 03:46 11:52 WBC 11.1 H RBC 2.55 L Hgb 9.6 L Hct 26.8 L MCV 105 H MCH 37.5 H MCHC 35.7 RDW 13.3 Plt Count 457 H Seg Neutrophils % 77.1 Sodium 131.4 L Potassium 4.3 Chloride 100 Carbon Dioxide 24 Anion Gap 7 BUN 9 Creatinine 0.96 Est GFR ( Amer) > 60 Glucose 202 H Calcium 8.5 05/13/19 18:00 Creatine Kinase 164 Impressions: Lower Extremity MRI 05/13/19 00:00 IMPRESSION: OSTEOMYELITIS INVOLVING THE DISTAL PHALANX OF THE FIRST DIGIT AND THE ADJACENT DISTAL ASPECT OF THE FIRST PROXIMAL PHALANX CELLULITIS OVER THE DORSUM OF THE FOOT AND OVER THE SECOND AND FIRST DIGIT WITH ABSCESS FORMATION ALONG THE SECOND DIGIT WHICH ALSO EXTENDS ALONG THE MEDIAL AND LATERAL MARGINS OF THE head of the second METATARSAL ABNORMAL SIGNAL AND ENHANCEMENT INVOLVING THE SECOND PROXIMAL PHALANX CONCERNING FOR OSTEOMYELITIS SMALL AMOUNT OF ABNORMAL SIGNAL IN THE HEAD OF THE SECOND METATARSAL WHICH MAY BE REACTIVE IN NATURE. RECOMMEND CONTINUED FOLLOW-UP TO EXCLUDE EARLY OSTEOMYELITIS. Foot X-Ray 05/13/19 14:45 IMPRESSION: No acute fracture or dislocation. No worrisome bone lesions identified. Chest X-Ray 05/13/19 17:38 IMPRESSION: Chronic interstitial changes. No acute cardiopulmonary process copyright 2011 [employer]- All Rights Reserved Assessment and Plan - Diagnosis (1) Osteomyelitis of right foot Is this a current diagnosis for this admission?: Yes Plan: He underwent open amputation of the first and second toes yesterday 05/14/2019. Wound cultures pending. Continue antibiotics. (2) Hypertension Is this a current diagnosis for this admission?: Yes Plan: He is not taking any antihypertensive at home. Continue IV hydralazine PRN. Will start patient on losartan 50 mg daily. Will adjust based on subsequent blood pressures. (3) DM type 2 (diabetes mellitus, type 2) Is this a current diagnosis for this admission?: Yes Plan: Check A1c. - Plan Summary Summary: 05/13/2019 Will be admitted to the hospital for IV fluids, sliding scale of insulin, RI with and without IV contrast to the right lower extremity, patient will be n.p.o. after midnight, surgery will reevaluate the patient in the morning following review of studies. He will be put on broad-spectrum antibiotics as well He is medically stable for admission
[2019-05-15] MEDS: LOSARTAN POTASSIUM 50 MG TABLET PO SCH (18:41)
[2019-05-15] MEDS: CEFTRIAXONE 2 GM/D5W RTU 2 GM/50 ML RTUPB IV SCH (22:26)
[2019-05-15] MEDS: NORMAL SALINE 1000 ML 1,000 ML IV PRN (22:30)
[2019-05-16 07:15] LABS: ABSOLUTE BASOPHILS # (AUTO) 0.1 10^3/uL (0.0-0.2); ABSOLUTE EOSINOPHILS # (AUTO) 0.3 10^3/uL (0.0-0.6); ABSOLUTE LYMPHOCYTES (AUTO) 1.3 10^3/uL (0.5-4.7); ABSOLUTE MONOCYTES (AUTO) 0.8 10^3/uL (0.1-1.4); ABSOLUTE NEUT (AUTO) 5.6 10^3/uL (1.7-8.2); EOSINOPHILS % (AUTO) 3.7 % (0-6); HEMATOCRIT 26.1 % (37.9-51.0); HEMOGLOBIN 9.3 g/dL (13.5-17.0); LYMPHOCYTES % (AUTO) 16.6 % (13-45); MEAN CORPUSCULAR HEMOGLOBIN 37.4 pg (27.0-33.4); MEAN CORPUSCULAR HGB CONC 35.8 g/dL (32.0-36.0); MEAN CORPUSCULAR VOLUME 104 fl (80-97); MONOCYTES % (AUTO) 9.3 % (3-13); PLATELET COUNT 398 10^3/uL (150-450); RED CELL DISTRIBUTION WIDTH 12.9 % (11.5-14.0); SEGMENTED NEUTROPHILS % (AUTO) 69.4 % (42-78); TOTAL CELLS COUNTED % (AUTO) 100 %; WHITE BLOOD COUNT 8.1 10^3/uL (4.0-10.5)
[2019-05-16] MEDS: INSULIN LISPRO 100 UNIT/ML 3 ML VIAL SUBCUT SCH ×4 (08:40→22:33)
[2019-05-16] MEDS: OXYCODONE-ACETAMINOPHEN 5-325 MG TABLET PO PRN (08:45)
[2019-05-16] MEDS: FAMOTIDINE 20 MG TABLET PO SCH ×2 (09:22→21:17)
[2019-05-16] MEDS: LOSARTAN POTASSIUM 50 MG TABLET PO SCH (09:22)
[2019-05-16] MEDS: DOCUSATE SODIUM 100 MG CAPSULE PO SCH (09:22)
[2019-05-16] MEDS: VANCOMYCIN HCL 750 MG in DEXTROSE 5%-WATER 250 ML IV SCH ×2 (09:22→22:36)
[2019-05-16 10:06] LABS: VANCOMYCIN,TROUGH 12.4 ug/mL (5.0-20.0)
--- NOTE | 2019-05-16 12:56 | PDOC PROGRESS REPORT ---
Subjective Progress Note for:: 05/16/19 Subjective:: Less pains Reason For Visit: DIABETES,HYPERTENSION,CELLULITIS, Physical Exam Vital Signs: Temp Pulse Resp BP Pulse Ox 98.0 F 100 17 158/83 H 100 05/16/19 12:00 05/16/19 12:00 05/16/19 12:00 05/16/19 12:00 05/16/19 12:00 Intake & Output 05/15/19 05/16/19 05/17/19 06:59 06:59 06:59 Intake Total 4851 1147 360 Output Total 1645 1675 1000 Balance 3206 -528 -640 Weight 59.7 kg 56.3 kg Exam: Amputation site on the right foot appears to be fairly clean and dry. There is a palpable right dorsalis pedis artery pulse and the right foot is warm. Results Laboratory Results: 05/16/19 06:34 05/16/19 09:22 05/16/19 05/16/19 06:34 09:22 WBC 8.1 RBC 2.50 L Hgb 9.3 L Hct 26.1 L MCV 104 H MCH 37.4 H MCHC 35.8 RDW 12.9 Plt Count 398 Seg Neutrophils % 69.4 Creatinine 1.08 Est GFR ( Amer) > 60 05/13/19 18:00 Creatine Kinase 164 Impressions: Lower Extremity MRI 05/13/19 00:00 IMPRESSION: OSTEOMYELITIS INVOLVING THE DISTAL PHALANX OF THE FIRST DIGIT AND THE ADJACENT DISTAL ASPECT OF THE FIRST PROXIMAL PHALANX CELLULITIS OVER THE DORSUM OF THE FOOT AND OVER THE SECOND AND FIRST DIGIT WITH ABSCESS FORMATION ALONG THE SECOND DIGIT WHICH ALSO EXTENDS ALONG THE MEDIAL AND LATERAL MARGINS OF THE head of the second METATARSAL ABNORMAL SIGNAL AND ENHANCEMENT INVOLVING THE SECOND PROXIMAL PHALANX CONCERNING FOR OSTEOMYELITIS SMALL AMOUNT OF ABNORMAL SIGNAL IN THE HEAD OF THE SECOND METATARSAL WHICH MAY BE REACTIVE IN NATURE. RECOMMEND CONTINUED FOLLOW-UP TO EXCLUDE EARLY OSTEOMYELITIS. Foot X-Ray 05/13/19 14:45 IMPRESSION: No acute fracture or dislocation. No worrisome bone lesions identified. Chest X-Ray 05/13/19 17:38 IMPRESSION: Chronic interstitial changes. No acute cardiopulmonary process copyright 2010 [employer]- All Rights Reserved Assessment & Plan - Diagnosis (1) DM type 2 (diabetes mellitus, type 2) Is this a current diagnosis for this admission?: Yes (2) Osteomyelitis of right foot Is this a current diagnosis for this admission?: Yes - Time Time Spent with patient: 15-24 minutes - Inpatient Certification Medical Necessity: Need for IV Antibiotics, Risk of Complication if Not Cared For in Hospital - Plan Summary Plan Summary: Postop day #2 for ray amputations of the right first and second toes. Is fairly good blood supply with a palpable right dorsalis pedis artery pulse. Plan is to start wound VAC today and possibly close the wound primarily after a few days with when there is better granulation tissue noted. Continue IV antibiotics
--- NOTE | 2019-05-16 16:00 | PDOC PROGRESS REPORT ---
Subjective Progress Note for:: 05/16/19 Subjective:: This is a 48-year-old male who was admitted with right foot osteomyelitis. Patient started on IV antibiotics. He underwent open amputation of the first and second toes yesterday 05/14/2019. 05/15: He denies acute complaint aside from localized pain in the surgical site. Denies chest pain or shortness of breath. 05/16: No acute event overnight. Denies acute complaints. Pain is well controlled. Blood pressures are a little better. Surgery is planning to place a wound VAC. Reason For Visit: DIABETES,HYPERTENSION,CELLULITIS, Physical Exam Vital Signs: Temp Pulse Resp BP Pulse Ox 98.0 F 100 17 158/83 H 100 05/16/19 12:00 05/16/19 12:00 05/16/19 12:00 05/16/19 12:00 05/16/19 12:00 Intake & Output 05/15/19 05/16/19 05/17/19 06:59 06:59 06:59 Intake Total 4851 1147 360 Output Total 1645 1675 1000 Balance 3206 -528 -640 Weight 131 lb 9.855 oz 124 lb 1.924 oz General appearance: PRESENT: no acute distress, well-developed, well-nourished Head exam: PRESENT: atraumatic, normocephalic Eye exam: PRESENT: conjunctiva pink, EOMI, PERRLA. ABSENT: scleral icterus Ear exam: PRESENT: normal external ear exam Mouth exam: PRESENT: moist, tongue midline Neck exam: ABSENT: carotid bruit, JVD, lymphadenopathy, thyromegaly Respiratory exam: PRESENT: clear to auscultation clarke. ABSENT: rales, rhonchi, wheezes Cardiovascular exam: PRESENT: RRR. ABSENT: diastolic murmur, rubs, systolic murmur Pulses: PRESENT: normal dorsalis pedis pul GI/Abdominal exam: PRESENT: normal bowel sounds, soft. ABSENT: distended, guarding, mass, organolmegaly, rebound, tenderness Rectal exam: PRESENT: deferred Musculoskeletal exam: PRESENT: other - note of left AKA stump Neurological exam: PRESENT: alert, awake, oriented to person, oriented to place, oriented to time, oriented to situation, CN II-XII grossly intact. ABSENT: motor sensory deficit Results Laboratory Results: 05/16/19 06:34 05/16/19 09:22 05/16/19 05/16/19 06:34 09:22 WBC 8.1 RBC 2.50 L Hgb 9.3 L Hct 26.1 L MCV 104 H MCH 37.4 H MCHC 35.8 RDW 12.9 Plt Count 398 Seg Neutrophils % 69.4 Creatinine 1.08 Est GFR ( Amer) > 60 05/13/19 18:00 Creatine Kinase 164 Impressions: Lower Extremity MRI 05/13/19 00:00 IMPRESSION: OSTEOMYELITIS INVOLVING THE DISTAL PHALANX OF THE FIRST DIGIT AND THE ADJACENT DISTAL ASPECT OF THE FIRST PROXIMAL PHALANX CELLULITIS OVER THE DORSUM OF THE FOOT AND OVER THE SECOND AND FIRST DIGIT WITH ABSCESS FORMATION ALONG THE SECOND DIGIT WHICH ALSO EXTENDS ALONG THE MEDIAL AND LATERAL MARGINS OF THE head of the second METATARSAL ABNORMAL SIGNAL AND ENHANCEMENT INVOLVING THE SECOND PROXIMAL PHALANX CONCERNING FOR OSTEOMYELITIS SMALL AMOUNT OF ABNORMAL SIGNAL IN THE HEAD OF THE SECOND METATARSAL WHICH MAY BE REACTIVE IN NATURE. RECOMMEND CONTINUED FOLLOW-UP TO EXCLUDE EARLY OSTEOMYELITIS. Foot X-Ray 05/13/19 14:45 IMPRESSION: No acute fracture or dislocation. No worrisome bone lesions identified. Chest X-Ray 05/13/19 17:38 IMPRESSION: Chronic interstitial changes. No acute cardiopulmonary process copyright 2011 [employer]- All Rights Reserved Assessment and Plan - Diagnosis (1) Osteomyelitis of right foot Is this a current diagnosis for this admission?: Yes Plan: 05/15: He underwent open amputation of the first and second toes on 05/14/2019. Wound cultures pending. Continue antibiotics. 05/16: Surgery is planning to place a wound VAC then primary closure later. (2) Hypertension Is this a current diagnosis for this admission?: Yes Plan: 05/15: He is not taking any antihypertensive at home. Continue IV hydralazine PRN. Will start patient on losartan 50 mg daily. Will adjust based on subsequent blood pressures. 05/16: Continue losartan. (3) DM type 2 (diabetes mellitus, type 2) Is this a current diagnosis for this admission?: Yes Plan: A1c at 7.1. He is unable to recall the diabetic medications he is supposed to be on. Will start him on metformin. - Plan Summary Summary: 05/13/2019 Will be admitted to the hospital for IV fluids, sliding scale of insulin, RI with and without IV contrast to the right lower extremity, patient will be n.p .o. after midnight, surgery will reevaluate the patient in the morning following review of studies. He will be put on broad-spectrum antibiotics as well He is medically stable for admission - Time Time Spent with patient: 25-34 minutes
[2019-05-16] MEDS: CEFTRIAXONE 2 GM/D5W RTU 2 GM/50 ML RTUPB IV SCH (21:17)
[2019-05-16] MEDS: NORMAL SALINE 1000 ML 1,000 ML IV PRN (21:21)
[2019-05-17] MEDS: OXYCODONE-ACETAMINOPHEN 5-325 MG TABLET PO PRN ×3 (06:15→22:20)
[2019-05-17] MEDS: INSULIN LISPRO 100 UNIT/ML 3 ML VIAL SUBCUT SCH ×4 (07:48→21:52)
[2019-05-17] MEDS: METFORMIN HCL 500 MG TABLET PO SCH ×2 (08:03→17:32)
[2019-05-17] MEDS: DOCUSATE SODIUM 100 MG CAPSULE PO SCH (09:08)
[2019-05-17] MEDS: LOSARTAN POTASSIUM 50 MG TABLET PO SCH (09:08)
[2019-05-17] MEDS: FAMOTIDINE 20 MG TABLET PO SCH ×2 (09:08→21:52)
[2019-05-17] MEDS: VANCOMYCIN HCL 750 MG in DEXTROSE 5%-WATER 250 ML IV SCH ×2 (09:09→22:21)
[2019-05-17] MEDS ORDERED: MAGNESIUM CITRATE 296 ML BOTTLE PO PRN (10:11)
[2019-05-17] MEDS: POLYETHYLENE GLYCOL 3350 POWDER 17 GM/1 PACKET PO SCH (13:31)
--- NOTE | 2019-05-17 14:42 | PDOC PROGRESS REPORT ---
Subjective Progress Note for:: 05/17/19 Subjective:: This is a 48-year-old male who was admitted with right foot osteomyelitis. Patient started on IV antibiotics. He underwent open amputation of the first and second toes yesterday 05/14/2019. 05/15: He denies acute complaint aside from localized pain in the surgical site. Denies chest pain or shortness of breath. 05/16: Denies acute complaints. Pain is well controlled. Blood pressures are a little better. Surgery is planning to place a wound VAC. 05/17: No acute event overnight. He had wound vac placement yesterday. He denies acute complaints. Pain remains well controlled. Blood pressures are close to goal. Surgery plans to replace wound VAC tomorrow and anticipate wound closure later. Reason For Visit: DIABETES,HYPERTENSION,CELLULITIS, Physical Exam Vital Signs: Temp Pulse Resp BP Pulse Ox 97.9 F 98 16 148/85 H 100 05/17/19 11:08 05/17/19 11:08 05/17/19 11:08 05/17/19 11:08 05/17/19 11:08 Intake & Output 05/16/19 05/17/19 05/18/19 06:59 06:59 06:59 Intake Total 1147 2810 2198 Output Total 1675 1950 Balance -888 443 3951 Weight 124 lb 1.924 oz 107 lb 12.897 oz General appearance: PRESENT: no acute distress, well-developed, well-nourished Head exam: PRESENT: atraumatic, normocephalic Eye exam: PRESENT: conjunctiva pink, EOMI, PERRLA. ABSENT: scleral icterus Ear exam: PRESENT: normal external ear exam Mouth exam: PRESENT: moist, tongue midline Neck exam: ABSENT: carotid bruit, JVD, lymphadenopathy, thyromegaly Respiratory exam: PRESENT: clear to auscultation clarke. ABSENT: rales, rhonchi, wheezes Cardiovascular exam: PRESENT: RRR. ABSENT: diastolic murmur, rubs, systolic murmur Pulses: PRESENT: normal dorsalis pedis pul GI/Abdominal exam: PRESENT: normal bowel sounds, soft. ABSENT: distended, guarding, mass, organolmegaly, rebound, tenderness Rectal exam: PRESENT: deferred Extremities exam: PRESENT: other - wound vac in place Neurological exam: PRESENT: alert, awake, oriented to person, oriented to place, oriented to time, oriented to situation, CN II-XII grossly intact. ABSENT: motor sensory deficit Results Laboratory Results: 05/16/19 06:34 05/16/19 09:22 05/13/19 18:00 Creatine Kinase 164 Impressions: Lower Extremity MRI 05/13/19 00:00 IMPRESSION: OSTEOMYELITIS INVOLVING THE DISTAL PHALANX OF THE FIRST DIGIT AND THE ADJACENT DISTAL ASPECT OF THE FIRST PROXIMAL PHALANX CELLULITIS OVER THE DORSUM OF THE FOOT AND OVER THE SECOND AND FIRST DIGIT WITH ABSCESS FORMATION ALONG THE SECOND DIGIT WHICH ALSO EXTENDS ALONG THE MEDIAL AND LATERAL MARGINS OF THE head of the second METATARSAL ABNORMAL SIGNAL AND ENHANCEMENT INVOLVING THE SECOND PROXIMAL PHALANX CONCERNING FOR OSTEOMYELITIS SMALL AMOUNT OF ABNORMAL SIGNAL IN THE HEAD OF THE SECOND METATARSAL WHICH MAY BE REACTIVE IN NATURE. RECOMMEND CONTINUED FOLLOW-UP TO EXCLUDE EARLY OSTEOMYELITIS. Foot X-Ray 05/13/19 14:45 IMPRESSION: No acute fracture or dislocation. No worrisome bone lesions identified. Chest X-Ray 05/13/19 17:38 IMPRESSION: Chronic interstitial changes. No acute cardiopulmonary process copyright 2011 [employer]- All Rights Reserved Assessment and Plan - Diagnosis (1) Osteomyelitis of right foot Is this a current diagnosis for this admission?: Yes Plan: 05/15: He underwent open amputation of the first and second toes on 05/14/2019. Wound cultures pending. Continue antibiotics. 05/16: Surgery is planning to place a wound VAC then primary closure later. 05/17: He had wound vac placement yesterday. Surgery plans to replace wound VAC tomorrow and anticipate wound closure later. Wound culture growing GPC and group C beta strep. (2) Hypertension Is this a current diagnosis for this admission?: Yes Plan: 05/15: He is not taking any antihypertensive at home. Continue IV hydralazine PRN. Will start patient on losartan 50 mg daily. Will adjust based on subsequent blood pressures. 2: BP close to goal. Continue losartan. (3) DM type 2 (diabetes mellitus, type 2) Is this a current diagnosis for this admission?: Yes Plan: A1c at 7.1. He is unable to recall the diabetic medications he is supposed to be on. Will start him on metformin. 05/17: Continue metformin. - Plan Summary Summary: 05/13/2019 Will be admitted to the hospital for IV fluids, sliding scale of insulin, RI with and without IV contrast to the right lower extremity, patient will be n.p.o. after midnight, surgery will reevaluate the patient in the morning following review of studies. He will be put on broad-spectrum antibiotics as well He is medically stable for admission - Time Time Spent with patient: 25-34 minutes
--- NOTE | 2019-05-17 16:58 | PDOC PROGRESS REPORT ---
Subjective Progress Note for:: 05/17/19 Subjective:: less pains right foot op site Reason For Visit: DIABETES,HYPERTENSION,CELLULITIS, Physical Exam Vital Signs: Temp Pulse Resp BP Pulse Ox 97.5 F 92 16 178/94 H 100 05/17/19 15:13 05/17/19 15:13 05/17/19 15:13 05/17/19 15:13 05/17/19 15:13 Intake & Output 05/16/19 05/17/19 05/18/19 06:59 06:59 06:59 Intake Total 1147 2810 2198 Output Total 1675 1950 Balance -131 057 4177 Weight 56.3 kg 48.9 kg Exam: wound vac to right foot in place. Mild edema of foot Results Laboratory Results: 05/16/19 06:34 05/16/19 09:22 05/13/19 18:00 Creatine Kinase 164 Impressions: Lower Extremity MRI 05/13/19 00:00 IMPRESSION: OSTEOMYELITIS INVOLVING THE DISTAL PHALANX OF THE FIRST DIGIT AND THE ADJACENT DISTAL ASPECT OF THE FIRST PROXIMAL PHALANX CELLULITIS OVER THE DORSUM OF THE FOOT AND OVER THE SECOND AND FIRST DIGIT WITH ABSCESS FORMATION ALONG THE SECOND DIGIT WHICH ALSO EXTENDS ALONG THE MEDIAL AND LATERAL MARGINS OF THE head of the second METATARSAL ABNORMAL SIGNAL AND ENHANCEMENT INVOLVING THE SECOND PROXIMAL PHALANX CONCERNING FOR OSTEOMYELITIS SMALL AMOUNT OF ABNORMAL SIGNAL IN THE HEAD OF THE SECOND METATARSAL WHICH MAY BE REACTIVE IN NATURE. RECOMMEND CONTINUED FOLLOW-UP TO EXCLUDE EARLY OSTEOMYELITIS. Foot X-Ray 05/13/19 14:45 IMPRESSION: No acute fracture or dislocation. No worrisome bone lesions identified. Chest X-Ray 05/13/19 17:38 IMPRESSION: Chronic interstitial changes. No acute cardiopulmonary process copyright 2011 [employer]- All Rights Reserved Assessment & Plan - Diagnosis (1) DM type 2 (diabetes mellitus, type 2) Is this a current diagnosis for this admission?: Yes (2) Osteomyelitis of right foot Is this a current diagnosis for this admission?: Yes - Time Time Spent with patient: Less than 15 minutes - Inpatient Certification Medical Necessity: Need for IV Antibiotics, Need for Surgery - Plan Summary Plan Summary: POD #5 post amputation right 1st and 2nd toes with MT heads.Wound left open Started wound vac placement yesterday For re-evaluation of wound with wound vac change in 24-48 htrs. Keep right foot elevated while on bed to keep edema down
[2019-05-17] MEDS: CEFTRIAXONE 2 GM/D5W RTU 2 GM/50 ML RTUPB IV SCH (21:52)
[2019-05-18] MEDS: INSULIN LISPRO 100 UNIT/ML 3 ML VIAL SUBCUT SCH ×4 (07:49→21:26)
[2019-05-18] MEDS: METFORMIN HCL 500 MG TABLET PO SCH ×2 (07:49→16:26)
[2019-05-18] MEDS: OXYCODONE-ACETAMINOPHEN 5-325 MG TABLET PO PRN ×2 (07:52→16:26)
[2019-05-18 08:49] LABS: ANION GAP 10 (5-19); BLOOD UREA NITROGEN 10 mg/dL (7-20); CALCIUM 9.1 mg/dL (8.4-10.2); CARBON DIOXIDE 20 mmol/L (22-30); CHLORIDE 103 mmol/L (98-107); GLUCOSE 138 mg/dL (75-110); POTASSIUM 4.8 mmol/L (3.6-5.0)
--- NOTE | 2019-05-18 08:59 | PDOC PROGRESS REPORT ---
Subjective Progress Note for:: 05/18/19 Reason For Visit: DIABETES,HYPERTENSION,CELLULITIS, Physical Exam Vital Signs: Temp Pulse Resp BP Pulse Ox 98.1 F 93 16 146/82 H 99 05/18/19 07:29 05/18/19 07:29 05/18/19 07:29 05/18/19 07:29 05/18/19 07:29 Intake & Output 05/17/19 05/18/19 05/19/19 06:59 06:59 06:59 Intake Total 2810 3874 Output Total 1950 Balance 860 3874 Weight 48.9 kg 57.9 kg General appearance: PRESENT: no acute distress Eye exam: PRESENT: EOMI Ear exam: PRESENT: normal external ear exam Mouth exam: PRESENT: moist Neck exam: PRESENT: full ROM Respiratory exam: PRESENT: clear to auscultation clarke Cardiovascular exam: PRESENT: RRR Pulses: PRESENT: normal radial pulses, normal femoral pulses Breast: PRESENT: Normal GI/Abdominal exam: PRESENT: soft Rectal exam: PRESENT: deferred Gentrourinary exam: PRESENT: other Extremities exam: PRESENT: other - right amputation site clean howerver pale when wound vac removed weak popliteal pulse, 2+ femoral pulse no pt or dp Neurological exam: PRESENT: alert Psychiatric exam: PRESENT: appropriate affect Skin exam: PRESENT: dry Results Laboratory Results: 05/16/19 06:34 05/13/19 18:00 Creatine Kinase 164 Impressions: Lower Extremity MRI 05/13/19 00:00 IMPRESSION: OSTEOMYELITIS INVOLVING THE DISTAL PHALANX OF THE FIRST DIGIT AND THE ADJACENT DISTAL ASPECT OF THE FIRST PROXIMAL PHALANX CELLULITIS OVER THE DORSUM OF THE FOOT AND OVER THE SECOND AND FIRST DIGIT WITH ABSCESS FORMATION ALONG THE SECOND DIGIT WHICH ALSO EXTENDS ALONG THE MEDIAL AND LATERAL MARGINS OF THE head of the second METATARSAL ABNORMAL SIGNAL AND ENHANCEMENT INVOLVING THE SECOND PROXIMAL PHALANX CONCERNING FOR OSTEOMYELITIS SMALL AMOUNT OF ABNORMAL SIGNAL IN THE HEAD OF THE SECOND METATARSAL WHICH MAY BE REACTIVE IN NATURE. RECOMMEND CONTINUED FOLLOW-UP TO EXCLUDE EARLY OSTEOMYELITIS. Foot X-Ray 05/13/19 14:45 IMPRESSION: No acute fracture or dislocation. No worrisome bone lesions identified. Chest X-Ray 05/13/19 17:38 IMPRESSION: Chronic interstitial changes. No acute cardiopulmonary process copyright 2011 [employer]- All Rights Reserved Assessment & Plan - Time Time Spent with patient: 35 or more minutes - Plan Summary Plan Summary: s/p amputation rt fist and second toes wound vac removed would clean but pale no dp or pt weak pop 2+ femoral pulse will order non invasive studies.
[2019-05-18] MEDS ORDERED: POLYETHYLENE GLYCOL 3350 POWDER 17 GM/1 PACKET PO SCH (10:00)
[2019-05-18] MEDS: VANCOMYCIN HCL 750 MG in DEXTROSE 5%-WATER 250 ML IV SCH (10:26)
[2019-05-18] MEDS: DOCUSATE SODIUM 100 MG CAPSULE PO SCH (10:26)
[2019-05-18] MEDS: LOSARTAN POTASSIUM 50 MG TABLET PO SCH (10:26)
[2019-05-18] MEDS: POLYETHYLENE GLYCOL 3350 POWDER 17 GM/1 PACKET PO SCH (10:27)
[2019-05-18] MEDS: FAMOTIDINE 20 MG TABLET PO SCH ×2 (10:27→21:26)
--- NOTE | 2019-05-18 15:42 | XCELERA REPORT ---
[address] [address] Lower Extremity Arterial Evaluation Name: MELVI ABDALLA Age: 48 yrs Gender: Male : 1970 Patient Status: Inpatient Patient Location: [address] [place] [address] Study Date: 05/18/2019 11:42 AM Procedure: A color flow and duplex scan of the lower extremity arteries was performed on the right with velocity and waveform anaylsis. Reason For Study: right leg Ordering Physician: CHALRIE DAVE Performed By: Crystal Carvalho Measurements and Calculations Right Left [employer] PSV 113.9 cm/sec Prox PFA PSV -77.7 cm/sec Prox Pop A PSV 92.3 cm/sec Dist Pop A PSV -171.3 cm/sec Prox STORM PSV 150.1 cm/sec Dist [employer]DER PSV 107.5 cm/sec Edwin Pedis PSV -207.2 cm/sec Right Side Arterial Evaluation Normal velocity and triphasic waveforms noted from the Common Femoral artery to the Femoral. Biphasic with normal velocity,mild spectral broadening from Popliteal to infrageniculate vessels . Ankle Brachial index not done. Interpretation Summary Mild hemodynamically significant lesions in the right lower extremity only, on duplex imaging, at rest. : CHARLIE DAVE > Jarred Gerardo
--- NOTE | 2019-05-18 16:40 | PDOC PROGRESS REPORT ---
Subjective Progress Note for:: 05/18/19 Subjective:: This is a 48-year-old male who was admitted with right foot osteomyelitis. Patient started on IV antibiotics. He underwent open amputation of the first and second toes yesterday 05/14/2019. 05/15: He denies acute complaint aside from localized pain in the surgical site. Denies chest pain or shortness of breath. 05/16: Denies acute complaints. Pain is well controlled. Blood pressures are a little better. Surgery is planning to place a wound VAC. 05/17: He had wound vac placement yesterday. He denies acute complaints. Pain remains well controlled. Blood pressures are close to goal. Surgery plans to replace wound VAC tomorrow and anticipate wound closure later. 05/18: No acute event overnight. Denies acute complaints. Denies pain. Wound VAC replaced today. Final culture results noted. Will de-escalate antibiotics. Reason For Visit: DIABETES,HYPERTENSION,CELLULITIS, Physical Exam Vital Signs: Temp Pulse Resp BP Pulse Ox 97.9 F 84 16 154/90 H 99 05/18/19 11:29 05/18/19 16:13 05/18/19 16:13 05/18/19 16:13 05/18/19 16:13 Intake & Output 05/17/19 05/18/19 05/19/19 06:59 06:59 06:59 Intake Total 2810 3874 430 Output Total 1950 900 Balance 860 3874 -470 Weight 107 lb 12.897 oz 127 lb 10.362 oz General appearance: PRESENT: no acute distress, well-developed, well-nourished Head exam: PRESENT: atraumatic, normocephalic Eye exam: PRESENT: conjunctiva pink, EOMI, PERRLA. ABSENT: scleral icterus Ear exam: PRESENT: normal external ear exam Mouth exam: PRESENT: moist, tongue midline Neck exam: ABSENT: carotid bruit, JVD, lymphadenopathy, thyromegaly Respiratory exam: PRESENT: clear to auscultation clarke. ABSENT: rales, rhonchi, wheezes Cardiovascular exam: PRESENT: RRR. ABSENT: diastolic murmur, rubs, systolic murmur Pulses: PRESENT: normal dorsalis pedis pul GI/Abdominal exam: PRESENT: normal bowel sounds, soft. ABSENT: distended, guarding, mass, organolmegaly, rebound, tenderness Rectal exam: PRESENT: deferred Neurological exam: PRESENT: alert, awake, oriented to person, oriented to place, oriented to time, oriented to situation, CN II-XII grossly intact. ABSENT: motor sensory deficit Results Laboratory Results: 05/16/19 06:34 05/18/19 07:52 05/18/19 07:52 Sodium 132.9 L Potassium 4.8 Chloride 103 Carbon Dioxide 20 L Anion Gap 10 BUN 10 Creatinine 1.14 Est GFR ( Amer) > 60 Glucose 138 H Calcium 9.1 05/13/19 15:00 Blood Blood Culture - Final NO GROWTH IN 5 DAYS 05/13/19 15:00 Blood Blood Culture - Final NO GROWTH IN 5 DAYS 05/14/19 17:22 Toe - Right Gram Stain - Final 05/14/19 17:22 Toe - Right Wound Culture - Final Enterococcus Faecalis(Group D) Group C Beta Streptococcus Prevotella Species 05/13/19 18:00 Creatine Kinase 164 Impressions: Lower Extremity MRI 05/13/19 00:00 IMPRESSION: OSTEOMYELITIS INVOLVING THE DISTAL PHALANX OF THE FIRST DIGIT AND THE ADJACENT DISTAL ASPECT OF THE FIRST PROXIMAL PHALANX CELLULITIS OVER THE DORSUM OF THE FOOT AND OVER THE SECOND AND FIRST DIGIT WITH ABSCESS FORMATION ALONG THE SECOND DIGIT WHICH ALSO EXTENDS ALONG THE MEDIAL AND LATERAL MARGINS OF THE head of the second METATARSAL ABNORMAL SIGNAL AND ENHANCEMENT INVOLVING THE SECOND PROXIMAL PHALANX CONCERNING FOR OSTEOMYELITIS SMALL AMOUNT OF ABNORMAL SIGNAL IN THE HEAD OF THE SECOND METATARSAL WHICH MAY BE REACTIVE IN NATURE. RECOMMEND CONTINUED FOLLOW-UP TO EXCLUDE EARLY OSTEOMYELITIS. Foot X-Ray 05/13/19 14:45 IMPRESSION: No acute fracture or dislocation. No worrisome bone lesions identified. Chest X-Ray 05/13/19 17:38 IMPRESSION: Chronic interstitial changes. No acute cardiopulmonary process copyright 2010 [employer]- All Rights Reserved Assessment and Plan - Diagnosis (1) Osteomyelitis of right foot Is this a current diagnosis for this admission?: Yes Plan: 05/15: He underwent open amputation of the first and second toes on 05/14/2019. Wound cultures pending. Continue antibiotics. 05/16: Surgery is planning to place a wound VAC then primary closure later. 05/17: He had wound vac placement yesterday. Surgery plans to replace wound VAC tomorrow and anticipate wound closure later. Wound culture growing GPC and group C beta strep. 05/18: Wound VAC replaced today. Final culture results noted. Will de-escalate antibiotics. (2) Hypertension Is this a current diagnosis for this admission?: Yes Plan: 05/15: He is not taking any antihypertensive at home. Continue IV hydralazine PRN. Will start patient on losartan 50 mg daily. Will adjust based on subsequent blood pressures. 05/17: BP close to goal. Continue losartan. 05/18: Increase losartan to 100 mg daily. (3) DM type 2 (diabetes mellitus, type 2) Is this a current diagnosis for this admission?: Yes Plan: A1c at 7.1. He is unable to recall the diabetic medications he is supposed to be on. Will start him on metformin. 05/17: Continue metformin. 05/18: Blood sugars at goal. - Plan Summary Summary: 05/13/2019 Will be admitted to the hospital for IV fluids, sliding scale of insulin, RI with and without IV contrast to the right lower extremity, patient will be n.p.o. after midnight, surgery will reevaluate the patient in the morning following review of studies. He will be put on broad-spectrum antibiotics as well He is medically stable for admission - Time Time Spent with patient: 25-34 minutes
[2019-05-18] MEDS ORDERED: AMPICILLIN SOD INJ 1 GM VIAL IV SCH (16:45)
[2019-05-18] MEDS: AMPICILLIN SODIUM 1 GM in NORMAL SALINE 50 ML IV SCH ×2 (17:42→23:25)
[2019-05-19] MEDS: AMPICILLIN SODIUM 1 GM in NORMAL SALINE 50 ML IV SCH ×3 (06:36→17:58)
[2019-05-19] MEDS: OXYCODONE-ACETAMINOPHEN 5-325 MG TABLET PO PRN ×2 (06:38→18:02)
[2019-05-19] MEDS: INSULIN LISPRO 100 UNIT/ML 3 ML VIAL SUBCUT SCH ×4 (08:48→22:00)
[2019-05-19] MEDS: METFORMIN HCL 500 MG TABLET PO SCH ×2 (08:51→18:03)
[2019-05-19] MEDS: POLYETHYLENE GLYCOL 3350 POWDER 17 GM/1 PACKET PO SCH (10:27)
[2019-05-19] MEDS: FAMOTIDINE 20 MG TABLET PO SCH (10:27)
[2019-05-19] MEDS: DOCUSATE SODIUM 100 MG CAPSULE PO SCH (10:27)
[2019-05-19] MEDS: LOSARTAN POTASSIUM 50 MG TABLET PO SCH (10:31)
--- NOTE | 2019-05-19 11:04 | PDOC PROGRESS REPORT ---
Subjective Progress Note for:: 05/19/19 Subjective:: minimal pains at amp site Reason For Visit: DIABETES,HYPERTENSION,CELLULITIS, Physical Exam Vital Signs: Temp Pulse Resp BP Pulse Ox 98.2 F 92 12 167/79 H 96 05/19/19 08:00 05/19/19 08:00 05/19/19 08:00 05/19/19 08:00 05/19/19 08:00 Intake & Output 05/18/19 05/19/19 05/20/19 06:59 06:59 06:59 Intake Total 3874 1260 50 Output Total 1400 Balance 3874 -140 50 Weight 57.9 kg 58.1 kg Exam: wound vac in place with less edema I could feel a faint dorsalis pedis artery pulse Results Laboratory Results: 05/16/19 06:34 05/18/19 07:52 05/13/19 15:00 Blood Blood Culture - Final NO GROWTH IN 5 DAYS 05/13/19 15:00 Blood Blood Culture - Final NO GROWTH IN 5 DAYS 05/14/19 17:22 Toe - Right Gram Stain - Final 05/14/19 17:22 Toe - Right Wound Culture - Final Enterococcus Faecalis(Group D) Group C Beta Streptococcus Prevotella Species 05/13/19 18:00 Creatine Kinase 164 Impressions: Lower Extremity MRI 05/13/19 00:00 IMPRESSION: OSTEOMYELITIS INVOLVING THE DISTAL PHALANX OF THE FIRST DIGIT AND THE ADJACENT DISTAL ASPECT OF THE FIRST PROXIMAL PHALANX CELLULITIS OVER THE DORSUM OF THE FOOT AND OVER THE SECOND AND FIRST DIGIT WITH ABSCESS FORMATION ALONG THE SECOND DIGIT WHICH ALSO EXTENDS ALONG THE MEDIAL AND LATERAL MARGINS OF THE head of the second METATARSAL ABNORMAL SIGNAL AND ENHANCEMENT INVOLVING THE SECOND PROXIMAL PHALANX CONCERNING FOR OSTEOMYELITIS SMALL AMOUNT OF ABNORMAL SIGNAL IN THE HEAD OF THE SECOND METATARSAL WHICH MAY BE REACTIVE IN NATURE. RECOMMEND CONTINUED FOLLOW-UP TO EXCLUDE EARLY OSTEOMYELITIS. Foot X-Ray 05/13/19 14:45 IMPRESSION: No acute fracture or dislocation. No worrisome bone lesions i dentified. Chest X-Ray 05/13/19 17:38 IMPRESSION: Chronic interstitial changes. 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 Patient started on wound VAC 3 days ago. The wound was examined by Dr. Kent yesterday after the wound VAC was removed and change the wound appears to have fair amount of blood flow. A arterial Doppler was ordered and showed mild significant arterial obstruction to the right foot. Patient has a faint right dorsalis pedis artery pulse on examination. Plans: Continue with wound VAC. Continue IV antibiotics. We will reevaluate the wound on Tuesday and discuss Doppler studies with Dr. Gerardo about the need for vascular intervention if the wound does not show any significant improvement
--- NOTE | 2019-05-19 15:21 | PDOC PROGRESS REPORT ---
Subjective Progress Note for:: 05/19/19 Subjective:: This is a 48-year-old male who was admitted with right foot osteomyelitis. Patient started on IV antibiotics. He underwent open amputation of the first and second toes yesterday 05/14/2019. 05/15: He denies acute complaint aside from localized pain in the surgical site. Denies chest pain or shortness of breath. 05/16: Denies acute complaints. Pain is well controlled. Blood pressures are a little better. Surgery is planning to place a wound VAC. 05/17: He had wound vac placement yesterday. He denies acute complaints. Pain remains well controlled. Blood pressures are close to goal. Surgery plans to replace wound VAC tomorrow and anticipate wound closure later. 05/18: Denies acute complaints. Denies pain. Wound VAC replaced today. Final culture results noted. Will de-escalate antibiotics. 05/19: No acute event overnight. No acute complaints. Arterial duplex showed a hemodynamically significant lesion in the right lower extremity. Surgery plans to discuss with Dr. Gerardo on Tuesday prior to considering wound closure. Reason For Visit: DIABETES,HYPERTENSION,CELLULITIS, Physical Exam Vital Signs: Temp Pulse Resp BP Pulse Ox 97.8 F 81 12 160/78 H 100 05/19/19 11:14 05/19/19 11:14 05/19/19 11:14 05/19/19 11:14 05/19/19 11:14 Intake & Output 05/18/19 05/19/19 05/20/19 06:59 06:59 06:59 Intake Total 3874 1260 440 Output Total 1400 Balance 3874 -140 440 Weight 127 lb 10.362 oz 128 lb 1.417 oz General appearance: PRESENT: no acute distress, well-developed, well-nourished Head exam: PRESENT: atraumatic, normocephalic Eye exam: PRESENT: conjunctiva pink, EOMI, PERRLA. ABSENT: scleral icterus Ear exam: PRESENT: normal external ear exam Mouth exam: PRESENT: moist, tongue midline Neck exam: ABSENT: carotid bruit, JVD, lymphadenopathy, thyromegaly Respiratory exam: PRESENT: clear to auscultation clarke. ABSENT: rales, rhonchi, wheezes Cardiovascular exam: PRESENT: RRR. ABSENT: diastolic murmur, rubs, systolic murmur Pulses: PRESENT: normal dorsalis pedis pul GI/Abdominal exam: PRESENT: normal bowel sounds, soft. ABSENT: distended, guarding, mass, organolmegaly, rebound, tenderness Rectal exam: PRESENT: deferred Neurological exam: PRESENT: alert, awake, oriented to person, oriented to place, oriented to time, oriented to situation, CN II-XII grossly intact. ABSENT: motor sensory deficit Results Laboratory Results: 05/16/19 06:34 05/18/19 07:52 05/13/19 15:00 Blood Blood Culture - Final NO GROWTH IN 5 DAYS 05/13/19 15:00 Blood Blood Culture - Final NO GROWTH IN 5 DAYS 05/14/19 17:22 Toe - Right Gram Stain - Final 05/14/19 17:22 Toe - Right Wound Culture - Final Enterococcus Faecalis(Group D) Group C Beta Streptococcus Prevotella Species 05/13/19 18:00 Creatine Kinase 164 Impressions: Lower Extremity MRI 05/13/19 00:00 IMPRESSION: OSTEOMYELITIS INVOLVING THE DISTAL PHALANX OF THE FIRST DIGIT AND THE ADJACENT DISTAL ASPECT OF THE FIRST PROXIMAL PHALANX CELLULITIS OVER THE DORSUM OF THE FOOT AND OVER THE SECOND AND FIRST DIGIT WITH ABSCESS FORMATION ALONG THE SECOND DIGIT WHICH ALSO EXTENDS ALONG THE MEDIAL AND LATERAL MARGINS OF THE head of the second METATARSAL ABNORMAL SIGNAL AND ENHANCEMENT INVOLVING THE SECOND PROXIMAL PHALANX CONCERNING FOR OSTEOMYELITIS SMALL AMOUNT OF ABNORMAL SIGNAL IN THE HEAD OF THE SECOND METATARSAL WHICH MAY BE REACTIVE IN NATURE. RECOMMEND CONTINUED FOLLOW-UP TO EXCLUDE EARLY OSTEOMYELITIS. Foot X-Ray 05/13/19 14:45 IMPRESSION: No acute fracture or dislocation. No worrisome bone lesions identified. Chest X-Ray 05/13/19 17:38 IMPRESSION: Chronic interstitial changes. No acute cardiopulmonary process copyright 2010 [employer]- All Rights Reserved Assessment and Plan - Diagnosis (1) Osteomyelitis of right foot Is this a current diagnosis for this admission?: Yes Plan: 05/15: He underwent open amputation of the first and second toes on 05/14/2019. Wound cultures pending. Continue antibiotics. 05/16: Surgery is planning to place a wound VAC then primary closure later. 05/17: He had wound vac placement yesterday. Surgery plans to replace wound VAC tomorrow and anticipate wound closure later. Wound culture growing GPC and group C beta strep. 05/18: Wound VAC replaced today. Final culture results noted. Will de-escalate antibiotics. 05/19: Arterial duplex showed a hemodynamically significant lesion in the right lower extremity. Surgery plans to discuss with Dr. Gerardo on Tuesday prior to considering wound closure. (2) Hypertension Is this a current diagnosis for this admission?: Yes Plan: 05/15: He is not taking any antihypertensive at home. Continue IV hydralazine PRN. Will start patient on losartan 50 mg daily. Will adjust based on subsequent blood pressures. 05/17: BP close to goal. Continue losartan. 05/18: Increase losartan to 100 mg daily. (3) DM type 2 (diabetes mellitus, type 2) Is this a current diagnosis for this admission?: Yes Plan: A1c at 7.1. He is unable to recall the diabetic medications he is supposed to be on. Will start him on metformin. 05/17: Continue metformin. 05/18: Blood sugars at goal. - Plan Summary Summary: 05/13/2019 Will be admitted to the hospital for IV fluids, sliding scale of insulin, RI with and without IV contrast to the right lower extremity, patient will be n.p.o. after midnight, surgery will reevaluate the patient in the morning following review of studies. He will be put on broad-spectrum antibiotics as well He is medically stable for admission - Time Time Spent with patient: 25-34 minutes
[2019-05-20] MEDS: FAMOTIDINE 20 MG TABLET PO SCH ×3 (00:16→21:30)
[2019-05-20] MEDS: OXYCODONE-ACETAMINOPHEN 5-325 MG TABLET PO PRN ×3 (00:16→21:30)
[2019-05-20] MEDS: AMPICILLIN SODIUM 1 GM in NORMAL SALINE 50 ML IV SCH ×5 (00:16→23:55)
[2019-05-20] MEDS: INSULIN LISPRO 100 UNIT/ML 3 ML VIAL SUBCUT SCH ×4 (08:37→21:31)
[2019-05-20] MEDS: METFORMIN HCL 500 MG TABLET PO SCH ×2 (08:38→16:31)
--- NOTE | 2019-05-20 10:14 | PDOC PROGRESS REPORT ---
Subjective Progress Note for:: 05/20/19 Subjective:: Patient has no complaints, getting about with his wound VAC on the right foot and left below the knee prosthesis Reason For Visit: DIABETES,HYPERTENSION,CELLULITIS, Physical Exam Vital Signs: Temp Pulse Resp BP Pulse Ox 98.5 F 85 16 143/93 H 99 05/20/19 00:09 05/20/19 07:30 05/20/19 07:30 05/20/19 07:30 05/20/19 07:30 Intake & Output 05/19/19 05/20/19 05/21/19 06:59 06:59 06:59 Intake Total 1260 2375 50 Output Total 1400 2170 Balance -140 205 50 Weight 58.1 kg 58.2 kg General appearance: PRESENT: no acute distress Musculoskeletal exam: PRESENT: other - VAC removed; surrounding skin medial side of the foot is somewhat macerated. Granulation tissue covering 50% of the open wound; no foul smell or drainage. Results Laboratory Results: 05/16/19 06:34 05/18/19 07:52 05/13/19 18:00 Creatine Kinase 164 Impressions: Lower Extremity MRI 05/13/19 00:00 IMPRESSION: OSTEOMYELITIS INVOLVING THE DISTAL PHALANX OF THE FIRST DIGIT AND THE ADJACENT DISTAL ASPECT OF THE FIRST PROXIMAL PHALANX CELLULITIS OVER THE DORSUM OF THE FOOT AND OVER THE SECOND AND FIRST DIGIT WITH ABSCESS FORMATION ALONG THE SECOND DIGIT WHICH ALSO EXTENDS ALONG THE MEDIAL AND LATERAL MARGINS OF THE head of the second METATARSAL ABNORMAL SIGNAL AND ENHANCEMENT INVOLVING THE SECOND PROXIMAL PHALANX CONCERNING FOR OSTEOMYELITIS SMALL AMOUNT OF ABNORMAL SIGNAL IN THE HEAD OF THE SECOND METATARSAL WHICH MAY BE REACTIVE IN NATURE. RECOMMEND CONTINUED FOLLOW-UP TO EXCLUDE EARLY OSTEOMYELITIS. Foot X-Ray 05/13/19 14:45 IMPRESSION: No acute fracture or dislocation. No worrisome bone lesions identified. Chest X-Ray 05/13/19 17:38 IMPRESSION: Chronic interstitial changes. No acute cardiopulmonary process copyright 2011 [employer]- All Rights Reserved Assessment & Plan - Diagnosis (1) Osteomyelitis of right foot Is this a current diagnosis for this admission?: Yes Plan: Impression: Patient is 6 days post right great toe in metatarsal head amputation, growing multiple organisms including Enterococcus faecalis, Pre votella group C beta hemolytic strep, sensitive to ampicillin, making satisfactory progress with wound granulating in with VAC therapy Recommendations: 1. No indication for further surgical debridement; suggest continuing current therapy 2. Foot is warm, and an intermittent dorsalis pedis pulse cannot be palpated. 3. If satisfactory progress continues, patient may be managed on an outpatient basis in the next few days. (2) History of left below knee amputation Is this a current diagnosis for this admission?: Yes (3) Diabetes Qualifiers: Diabetes mellitus type: type 2 Diabetes mellitus applications support specialist insulin use: without applications support specialist use Diabetes mellitus complication status: with other specified complication Qualified Code(s): E11.69 - Type 2 diabetes mellitus with other specified complication Is this a current diagnosis for this admission?: Yes - Time Time Spent with patient: 15-24 minutes Medications reviewed and adjusted accordingly: Yes Anticipated discharge: Home
[2019-05-20] MEDS: DOCUSATE SODIUM 100 MG CAPSULE PO SCH (10:54)
[2019-05-20] MEDS: POLYETHYLENE GLYCOL 3350 POWDER 17 GM/1 PACKET PO SCH (10:54)
[2019-05-20] MEDS: LOSARTAN POTASSIUM 50 MG TABLET PO SCH (10:54)
--- NOTE | 2019-05-20 14:10 | PDOC PROGRESS REPORT ---
Subjective Progress Note for:: 05/20/19 Subjective:: This is a 48-year-old male who was admitted with right foot osteomyelitis. Patient started on IV antibiotics. He underwent open amputation of the first and second toes yesterday 05/14/2019. 05/15: He denies acute complaint aside from localized pain in the surgical site. Denies chest pain or shortness of breath. 05/16: Denies acute complaints. Pain is well controlled. Blood pressures are a little better. Surgery is planning to place a wound VAC. 05/17: He had wound vac placement yesterday. He denies acute complaints. Pain remains well controlled. Blood pressures are close to goal. Surgery plans to replace wound VAC tomorrow and anticipate wound closure later. 05/18: Denies acute complaints. Denies pain. Wound VAC replaced today. Final culture results noted. Will de-escalate antibiotics. 05/19: No acute complaints. Arterial duplex showed a hemodynamically significant lesion in the right lower extremity. Surgery plans to discuss with Dr. Gerardo on Tuesday prior to considering wound closure. 05/20: No acute event overnight. Pain is well controlled. Wound vac replaced. Await final recommendations from surgery. Reason For Visit: DIABETES,HYPERTENSION,CELLULITIS, Physical Exam Vital Signs: Temp Pulse Resp BP Pulse Ox 97.8 F 87 16 174/82 H 97 05/20/19 12:00 05/20/19 12:00 05/20/19 12:00 05/20/19 12:00 05/20/19 12:00 Intake & Output 05/19/19 05/20/19 05/21/19 06:59 06:59 06:59 Intake Total 1260 2375 170 Output Total 1400 2170 Balance -140 205 170 Weight 128 lb 1.417 oz 128 lb 4.944 oz General appearance: PRESENT: no acute distress, well-developed, well-nourished Head exam: PRESENT: atraumatic, normocephalic Eye exam: PRESENT: conjunctiva pink, EOMI, PERRLA. ABSENT: scleral icterus Ear exam: PRESENT: normal external ear exam Mouth exam: PRESENT: moist, tongue midline Neck exam: ABSENT: carotid bruit, JVD, lymphadenopathy, thyromegaly Respiratory exam: PRESENT: clear to auscultation clarke. ABSENT: rales, rhonchi, wheezes Cardiovascular exam: PRESENT: RRR. ABSENT: diastolic murmur, rubs, systolic murmur Pulses: PRESENT: normal dorsalis pedis pul GI/Abdominal exam: PRESENT: normal bowel sounds, soft. ABSENT: distended, guarding, mass, organolmegaly, rebound, tenderness Rectal exam: PRESENT: deferred Extremities exam: PRESENT: other - wound vac in place Neurological exam: PRESENT: alert, awake, oriented to person, oriented to place, oriented to time, oriented to situation, CN II-XII grossly intact. ABSENT: motor sensory deficit Results Laboratory Results: 05/16/19 06:34 05/18/19 07:52 05/13/19 18:00 Creatine Kinase 164 Impressions: Lower Extremity MRI 05/13/19 00:00 IMPRESSION: OSTEOMYELITIS INVOLVING THE DISTAL PHALANX OF THE FIRST DIGIT AND THE ADJACENT DISTAL ASPECT OF THE FIRST PROXIMAL PHALANX CELLULITIS OVER THE DORSUM OF THE FOOT AND OVER THE SECOND AND FIRST DIGIT WITH ABSCESS FORMATION ALONG THE SECOND DIGIT WHICH ALSO EXTENDS ALONG THE MEDIAL AND LATERAL MARGINS OF THE head of the second METATARSAL ABNORMAL SIGNAL AND ENHANCEMENT INVOLVING THE SECOND PROXIMAL PHALANX CONCERNING FOR OSTEOMYELITIS SMALL AMOUNT OF ABNORMAL SIGNAL IN THE HEAD OF THE SECOND METATARSAL WHICH MAY BE REACTIVE IN NATURE. RECOMMEND CONTINUED FOLLOW-UP TO EXCLUDE EARLY OSTEOMYELITIS. Foot X-Ray 05/13/19 14:45 IMPRESSION: No acute fracture or dislocation. No worrisome bone lesions identified. Chest X-Ray 05/13/19 17:38 IMPRESSION: Chronic interstitial changes. No acute cardiopulmonary process copyright 2011 [employer]- All Rights Reserved Assessment and Plan - Diagnosis (1) Osteomyelitis of right foot Is this a current diagnosis for this admission?: Yes Plan: 05/15: He underwent open amputation of the first and second toes on 05/14/2019. Wound cultures pending. Continue antibiotics. 05/16: Surgery is planning to place a wound VAC then primary closure later. 05/17: He had wound vac placement yesterday. Surgery plans to replace wound VAC tomorrow and anticipate wound closure later. Wound culture growing GPC and group C beta strep. 05/18: Wound VAC replaced today. Final culture results noted. Will de-escalate antibiotics. 05/19: Arterial duplex showed a hemodynamically significant lesion in the right lower extremity. Surgery plans to discuss with Dr. Gerardo on Tuesday prior to considering wound closure. 05/20: Wound vac replaced. Await final recommendations from surgery. (2) Hypertension Is this a current diagnosis for this admission?: Yes Plan: 05/15: He is not taking any antihypertensive at home. Continue IV hydralazine PRN. Will start patient on losartan 50 mg daily. Will adjust based on subsequent blood pressures. 05/17: BP close to goal. Continue losartan. 05/18: Increase losartan to 100 mg daily. (3) DM type 2 (diabetes mellitus, type 2) Is this a current diagnosis for this admission?: Yes Plan: A1c at 7.1. He is unable to recall the diabetic medications he is supposed to be on. Will start him on metformin. 05/17: Continue metformin. 05/18: Blood sugars at goal. - Plan Summary Summary: 05/13/2019 Will be admitted to the hospital for IV fluids, sliding scale of insulin, RI with and without IV contrast to the right lower extremity, patient will be n.p.o. after midnight, surgery will reevaluate the patient in the morning following review of studies. He will be put on broad-spectrum antibiotics as well He is medically stable for admission - Time Time Spent with patient: 25-34 minutes
[2019-05-21] MEDS: AMPICILLIN SODIUM 1 GM in NORMAL SALINE 50 ML IV SCH ×3 (05:35→18:30)
[2019-05-21] MEDS: POLYETHYLENE GLYCOL 3350 POWDER 17 GM/1 PACKET PO SCH (09:24)
[2019-05-21] MEDS: FAMOTIDINE 20 MG TABLET PO SCH ×2 (09:25→22:04)
[2019-05-21] MEDS: LOSARTAN POTASSIUM 50 MG TABLET PO SCH (09:25)
[2019-05-21] MEDS: INSULIN LISPRO 100 UNIT/ML 3 ML VIAL SUBCUT SCH ×4 (09:25→21:57)
[2019-05-21] MEDS: DOCUSATE SODIUM 100 MG CAPSULE PO SCH (09:25)
[2019-05-21] MEDS: METFORMIN HCL 500 MG TABLET PO SCH ×2 (09:25→15:57)
[2019-05-21] MEDS: OXYCODONE-ACETAMINOPHEN 5-325 MG TABLET PO PRN ×2 (09:30→15:55)
--- NOTE | 2019-05-21 11:35 | PDOC PROGRESS REPORT ---
Subjective Progress Note for:: 05/21/19 Subjective:: less pains right foot amputation site Reason For Visit: DIABETES,HYPERTENSION,CELLULITIS, Physical Exam Vital Signs: Temp Pulse Resp BP Pulse Ox 98.5 F 94 12 137/85 H 99 05/21/19 08:00 05/21/19 08:00 05/21/19 08:00 05/21/19 08:00 05/21/19 08:00 Intake & Output 05/20/19 05/21/19 05/22/19 06:59 06:59 06:59 Intake Total 2375 800 Output Total 2170 Balance 205 800 Weight 58.2 kg 57.3 kg Exam: Wound VAC in place and the edema appears to have decreased. Wound was checked yesterday by Dr. Noriega with changes of dressing and appears to be slightly improving but suggested continuing the wound VAC Results Laboratory Results: 05/16/19 06:34 05/18/19 07:52 05/13/19 18:00 Creatine Kinase 164 Impressions: Lower Extremity MRI 05/13/19 00:00 IMPRESSION: OSTEOMYELITIS INVOLVING THE DISTAL PHALANX OF THE FIRST DIGIT AND THE ADJACENT DISTAL ASPECT OF THE FIRST PROXIMAL PHALANX CELLULITIS OVER THE DORSUM OF THE FOOT AND OVER THE SECOND AND FIRST DIGIT WITH ABSCESS FORMATION ALONG THE SECOND DIGIT WHICH ALSO EXTENDS ALONG THE MEDIAL AND LATERAL MARGINS OF THE head of the second METATARSAL ABNORMAL SIGNAL AND ENHANCEMENT INVOLVING THE SECOND PROXIMAL PHALANX CONCERNING FOR OSTEOMYELITIS SMALL AMOUNT OF ABNORMAL SIGNAL IN THE HEAD OF THE SECOND METATARSAL WHICH MAY BE REACTIVE IN NATURE. RECOMMEND CONTINUED FOLLOW-UP TO EXCLUDE EARLY OSTEOMYELITIS. Foot X-Ray 05/13/19 14:45 IMPRESSION: No acute fracture or dislocation. No worrisome bone lesions identified. Chest X-Ray 05/13/19 17:38 IMPRESSION: Chronic interstitial changes. No acute cardiopulmonary process copyright 2011 [employer]- All Rights Reserved Assessment & Plan - Diagnosis (1) DM type 2 (diabetes mellitus, type 2) Is this a current diagnosis for this admission?: Yes (2) Osteomyelitis of right foot Is this a current diagnosis for this admission?: Yes - Time Time Spent with patient: 15-24 minutes - Inpatient Certification Medical Necessity: Need for IV Antibiotics, Risk of Complication if Not Cared For in Hospital - Plan Summary Plan Summary: Plans: Continue with wound VAC. Continue IV antibiotics We will reevaluate wound with wound VAC change in 24 to 48 hours
[2019-05-21] MEDS ORDERED: ONDANSETRON HCL INJ/PF 4 MG/2 ML SDV IV PRN (14:30)
[2019-05-21] MEDS ORDERED: ONDANSETRON 4 MG TAB.RAPDIS PO PRN (14:30)
--- NOTE | 2019-05-21 15:12 | PDOC PROGRESS REPORT ---
Subjective Progress Note for:: 05/21/19 Subjective:: This is a 48-year-old male who was admitted with right foot osteomyelitis. Patient started on IV antibiotics. He underwent open amputation of the first and second toes yesterday 05/14/2019. 05/15: He denies acute complaint aside from localized pain in the surgical site. Denies chest pain or shortness of breath. 05/16: Denies acute complaints. Pain is well controlled. Blood pressures are a little better. Surgery is planning to place a wound VAC. 05/17: He had wound vac placement yesterday. He denies acute complaints. Pain remains well controlled. Blood pressures are close to goal. Surgery plans to replace wound VAC tomorrow and anticipate wound closure later. 05/18: Denies acute complaints. Denies pain. Wound VAC replaced today. Final culture results noted. Will de-escalate antibiotics. 05/19: No acute complaints. Arterial duplex showed a hemodynamically significant lesion in the right lower extremity. Surgery plans to discuss with Dr. Gerardo on Tuesday prior to considering wound closure. 05/20: Pain is well controlled. Wound vac replaced. Await final recommendations from surgery. 05/21: No acute event overnight. Denies acute complaints. Surgery recommends to continue wound vac and reassess wound in the next 24-48 hrs. Reason For Visit: DIABETES,HYPERTENSION,CELLULITIS, Physical Exam Vital Signs: Temp Pulse Resp BP Pulse Ox 98.0 F 91 12 143/86 H 98 05/21/19 11:02 05/21/19 11:02 05/21/19 11:02 05/21/19 11:02 05/21/19 11:02 Intake & Output 05/20/19 05/21/19 05/22/19 06:59 06:59 06:59 Intake Total 2375 850 Output Total 2170 Balance 205 850 Weight 128 lb 4.944 oz 126 lb 5.198 oz 126 lb 5.198 oz General appearance: PRESENT: no acute distress, well-developed, well-nourished Head exam: PRESENT: atraumatic, normocephalic Eye exam: PRESENT: conjunctiva pink, EOMI, PERRLA. ABSENT: scleral icterus Ear exam: PRESENT: normal external ear exam Mouth exam: PRESENT: moist, tongue midline Neck exam: ABSENT: carotid bruit, JVD, lymphadenopathy, thyromegaly Respiratory exam: PRESENT: clear to auscultation clarke. ABSENT: rales, rhonchi, wheezes Cardiovascular exam: PRESENT: RRR. ABSENT: diastolic murmur, rubs, systolic murmur Pulses: PRESENT: normal dorsalis pedis pul GI/Abdominal exam: PRESENT: normal bowel sounds, soft. ABSENT: distended, gu arding, mass, organolmegaly, rebound, tenderness Rectal exam: PRESENT: deferred Neurological exam: PRESENT: alert, awake, oriented to person, oriented to place, oriented to time, oriented to situation, CN II-XII grossly intact. ABSENT: motor sensory deficit Results Laboratory Results: 05/16/19 06:34 05/18/19 07:52 05/13/19 18:00 Creatine Kinase 164 Impressions: Lower Extremity MRI 05/13/19 00:00 IMPRESSION: OSTEOMYELITIS INVOLVING THE DISTAL PHALANX OF THE FIRST DIGIT AND THE ADJACENT DISTAL ASPECT OF THE FIRST PROXIMAL PHALANX CELLULITIS OVER THE DORSUM OF THE FOOT AND OVER THE SECOND AND FIRST DIGIT WITH ABSCESS FORMATION ALONG THE SECOND DIGIT WHICH ALSO EXTENDS ALONG THE MEDIAL AND LATERAL MARGINS OF THE head of the second METATARSAL ABNORMAL SIGNAL AND ENHANCEMENT INVOLVING THE SECOND PROXIMAL PHALANX CONCERNING FOR OSTEOMYELITIS SMALL AMOUNT OF ABNORMAL SIGNAL IN THE HEAD OF THE SECOND METATARSAL WHICH MAY BE REACTIVE IN NATURE. RECOMMEND CONTINUED FOLLOW-UP TO EXCLUDE EARLY OSTEOMYELITIS. Foot X-Ray 05/13/19 14:45 IMPRESSION: No acute fracture or dislocation. No worrisome bone lesions identified. Chest X-Ray 05/13/19 17:38 IMPRESSION: Chronic interstitial changes. No acute cardiopulmonary process copyright 2011 [employer]- All Rights Reserved Assessment and Plan - Diagnosis (1) Osteomyelitis of right foot Is this a current diagnosis for this admission?: Yes Plan: 05/15: He underwent open amputation of the first and second toes on 05/14/2019. Wound cultures pending. Continue antibiotics. 05/16: Surgery is planning to place a wound VAC then primary closure later. 05/17: He had wound vac placement yesterday. Surgery plans to replace wound VAC tomorrow and anticipate wound closure later. Wound culture growing GPC and group C beta strep. 05/18: Wound VAC replaced today. Final culture results noted. Will de-escalate antibiotics. 05/19: Arterial duplex showed a hemodynamically significant lesion in the right lower extremity. Surgery plans to discuss with Dr. Gerardo on Tuesday prior to considering wound closure. 05/20: Wound vac replaced. Await final recommendations from surgery. 05/21: Surgery recommends to continue wound vac and reassess wound in the next 24- 48 hrs. (2) Hypertension Is this a current diagnosis for this admission?: Yes Plan: 05/15: He is not taking any antihypertensive at home. Continue IV hydralazine PRN. Will start patient on losartan 50 mg daily. Will adjust based on subsequent blood pressures. 05/17: BP close to goal. Continue losartan. 05/18: Increase losartan to 100 mg daily. (3) DM type 2 (diabetes mellitus, type 2) Is this a current diagnosis for this admission?: Yes Plan: A1c at 7.1. He is unable to recall the diabetic medications he is supposed to be on. Will start him on metformin. 05/17: Continue metformin. 05/18: Blood sugars at goal. - Plan Summary Summary: 05/13/2019 Will be admitted to the hospital for IV fluids, sliding scale of insulin, RI with and without IV contrast to the right lower extremity, patient will be n.p.o. after midnight, surgery will reevaluate the patient in the morning follow ing review of studies. He will be put on broad-spectrum antibiotics as well He is medically stable for admission - Time Time Spent with patient: 25-34 minutes
[2019-05-22] MEDS: AMPICILLIN SODIUM 1 GM in NORMAL SALINE 50 ML IV SCH ×4 (00:11→18:51)
[2019-05-22] MEDS: OXYCODONE-ACETAMINOPHEN 5-325 MG TABLET PO PRN ×3 (05:34→18:53)
[2019-05-22] MEDS: METFORMIN HCL 500 MG TABLET PO SCH ×2 (08:58→18:47)
[2019-05-22] MEDS: POLYETHYLENE GLYCOL 3350 POWDER 17 GM/1 PACKET PO SCH (08:59)
[2019-05-22] MEDS: DOCUSATE SODIUM 100 MG CAPSULE PO SCH (09:00)
[2019-05-22] MEDS: LOSARTAN POTASSIUM 50 MG TABLET PO SCH (09:00)
[2019-05-22] MEDS: FAMOTIDINE 20 MG TABLET PO SCH ×2 (09:00→21:07)
[2019-05-22] MEDS: INSULIN LISPRO 100 UNIT/ML 3 ML VIAL SUBCUT SCH ×4 (09:01→21:07)
--- NOTE | 2019-05-22 11:45 | PDOC PROGRESS REPORT ---
Subjective Progress Note for:: 05/22/19 Subjective:: Mild pains along the amputation site Reason For Visit: DIABETES,HYPERTENSION,CELLULITIS, Physical Exam Vital Signs: Temp Pulse Resp BP Pulse Ox 98.8 F 94 17 158/87 H 97 05/22/19 07:45 05/22/19 07:45 05/22/19 07:45 05/22/19 07:45 05/22/19 07:45 Intake & Output 05/21/19 05/22/19 05/23/19 06:59 06:59 06:59 Intake Total 850 1352 50 Balance 850 1352 50 Weight 57.3 kg 57.3 kg Exam: Wound VAC removed and amputation site examined. There is starting to have granulation tissue on the anterior aspect of the amputation site. Posteriorly however appears to have minimal granulation tissue. Results Laboratory Results: 05/16/19 06:34 05/18/19 07:52 05/13/19 18:00 Creatine Kinase 164 Impressions: Lower Extremity MRI 05/13/19 00:00 IMPRESSION: OSTEOMYELITIS INVOLVING THE DISTAL PHALANX OF THE FIRST DIGIT AND THE ADJACENT DISTAL ASPECT OF THE FIRST PROXIMAL PHALANX CELLULITIS OVER THE DORSUM OF THE FOOT AND OVER THE SECOND AND FIRST DIGIT WITH ABSCESS FORMATION ALONG THE SECOND DIGIT WHICH ALSO EXTENDS ALONG THE MEDIAL AND LATERAL MARGINS OF THE head of the second METATARSAL ABNORMAL SIGNAL AND ENHANCEMENT INVOLVING THE SECOND PROXIMAL PHALANX CONCERNING FOR OSTEOMYELITIS SMALL AMOUNT OF ABNORMAL SIGNAL IN THE HEAD OF THE SECOND METATARSAL WHICH MAY BE REACTIVE IN NATURE. RECOMMEND CONTINUED FOLLOW-UP TO EXCLUDE EARLY OSTEOMYELITIS. Foot X-Ray 05/13/19 14:45 IMPRESSION: No acute fracture or dislocation. No worrisome bone lesions identified. Chest X-Ray 05/13/19 17:38 IMPRESSION: Chronic interstitial changes. No acute cardiopulmonary process copyright 2011 [employer]- All Rights Reserved Assessment & Plan - Diagnosis (1) DM type 2 (diabetes mellitus, type 2) Is this a current diagnosis for this admission?: Yes (2) Osteomyelitis of right foot Is this a current diagnosis for this admission?: Yes - Time Time Spent with patient: 15-24 minutes - Inpatient Certification Medical Necessity: Significant Comorbidiites Make Outpatient Treatment Too Risky, Need for IV Antibiotics - Plan Summary Plan Summary: Postop day #8 post amputation of the right big toe. Postop day 7 with wound VAC placement. Plans: Continue with IV antibiotics and wound VAC. Anticipate wound VAC placement for the next few days.
--- NOTE | 2019-05-22 19:46 | PDOC PROGRESS REPORT ---
Subjective Progress Note for:: 05/22/19 Subjective:: 48-year-old male being evaluated daily by general surgery service for lower extremity wound and right toe amputation due to diabetes mellitus. Reason For Visit: DIABETES,HYPERTENSION,CELLULITIS, Physical Exam Vital Signs: Temp Pulse Resp BP Pulse Ox 97.7 F 93 17 138/75 H 97 05/22/19 16:00 05/22/19 16:00 05/22/19 16:00 05/22/19 16:00 05/22/19 16:00 Intake & Output 05/21/19 05/22/19 05/23/19 06:59 06:59 06:59 Intake Total 850 1352 1346 Output Total 275 Balance 850 1352 1071 Weight 57.3 kg 57.3 kg General appearance: PRESENT: no acute distress, cooperative Head exam: PRESENT: atraumatic, normocephalic Eye exam: PRESENT: conjunctiva pink Mouth exam: PRESENT: moist Respiratory exam: PRESENT: clear to auscultation clarke, unlabored. ABSENT: crackles, decreased breath sounds, rales, wheezes Cardiovascular exam: PRESENT: RRR, +S1, +S2. ABSENT: diastolic murmur, gallop, rubs, systolic murmur GI/Abdominal exam: PRESENT: normal bowel sounds, soft. ABSENT: tenderness Extremities exam: PRESENT: other - Left BKA with prosthetic. Right great toe amputation with healing wound and wound VAC in place. Neurological exam: PRESENT: alert, awake, oriented to person, oriented to place, oriented to time, oriented to situation Psychiatric exam: PRESENT: appropriate affect, normal mood Results Laboratory Results: 05/16/19 06:34 05/18/19 07:52 05/13/19 18:00 Creatine Kinase 164 Impressions: Lower Extremity MRI 05/13/19 00:00 IMPRESSION: OSTEOMYELITIS INVOLVING THE DISTAL PHALANX OF THE FIRST DIGIT AND THE ADJACENT DISTAL ASPECT OF THE FIRST PROXIMAL PHALANX CELLULITIS OVER THE DORSUM OF THE FOOT AND OVER THE SECOND AND FIRST DIGIT WITH ABSCESS FORMATION ALONG THE SECOND DIGIT WHICH ALSO EXTENDS ALONG THE MEDIAL AND LATERAL MARGINS OF THE head of the second METATARSAL ABNORMAL SIGNAL AND ENHANCEMENT INVOLVING THE SECOND PROXIMAL PHALANX CONCERNING FOR OSTEOMYELITIS SMALL AMOUNT OF ABNORMAL SIGNAL IN THE HEAD OF THE SECOND METATARSAL WHICH MAY BE REACTIVE IN NATURE. RECOMMEND CONTINUED FOLLOW-UP TO EXCLUDE EARLY OSTEOMYELITIS. Foot X-Ray 05/13/19 14:45 IMPRESSION: No acute fracture or dislocation. No worrisome bone lesions identified. Chest X-Ray 05/13/19 17:38 IMPRESSION: Chronic interstitial changes. 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 He is unable to recall the diabetic medications he is supposed to be on. Will start him on metformin. 05/17: Continue metformin. 05/18: Blood sugars at goal. 05/22: Continue current diabetes medication regimen. Patient admits that he simply needs better compliance with his medications. (3) Diabetic ulcer of toe Qualifiers: Diabetes mellitus type: type 2 Laterality: right Non-pressure ulcer stage: with other severity Qualified Code(s): E11.621 - Type 2 diabetes mellitus with foot ulcer; L97.518 - Non-pressure chronic ulcer of other part of right foot with other specified severity Is this a current diagnosis for this admission?: Yes Plan: General surgery following for wound care. Wound VAC continued per them. Antibiotics. (4) Hypertension Is this a current diagnosis for this admission?: Yes Plan: Trend BP. Adjust medications as necessary. - Plan Summary Summary: 05/13/2019 Will be admitted to the hospital for IV fluids, sliding scale of insulin, RI with and without IV contrast to the right lower extremity, patient will be n.p.o. after midnight, surgery will reevaluate the patient in the morning following review of studies. He will be put on broad-spectrum antibiotics as well He is medically stable for admission - Time Time Spent with patient: 15-24 minutes Medications reviewed and adjusted accordingly: Yes Anticipated discharge: Home with Homehealth Within: within 72 hours - Inpatient Certification Medical Necessity: Need for IV Antibiotics, Risk of Diagnosis Which Will Require Inpatient Eval/Care/Monitoring
[2019-05-23] MEDS: AMPICILLIN SODIUM 1 GM in NORMAL SALINE 50 ML IV SCH ×4 (00:12→17:17)
[2019-05-23] MEDS: OXYCODONE-ACETAMINOPHEN 5-325 MG TABLET PO PRN (04:43)
[2019-05-23] MEDS: INSULIN LISPRO 100 UNIT/ML 3 ML VIAL SUBCUT SCH ×4 (08:00→21:57)
--- NOTE | 2019-05-23 08:11 | PDOC PROGRESS REPORT ---
Subjective Progress Note for:: 05/23/19 Subjective:: Denies any pains from the wound VAC area Reason For Visit: DIABETES,HYPERTENSION,CELLULITIS, Physical Exam Vital Signs: Temp Pulse Resp BP Pulse Ox 98.2 F 98 18 132/86 H 98 05/23/19 00:09 05/23/19 00:09 05/23/19 00:09 05/23/19 00:09 05/23/19 00:09 Intake & Output 05/22/19 05/23/19 05/24/19 06:59 06:59 06:59 Intake Total 1352 1766 Output Total 875 Balance 1352 891 Weight 57.3 kg 57.8 kg Exam: Wound VAC intact. Appears the posterior part of the wound is not encompassed by the phone and the wound VAC. We will replace the wound VAC dressing in a.m. Results Laboratory Results: 05/16/19 06:34 05/18/19 07:52 05/23/19 04:51 Vitamin B12 657.0 05/13/19 18:00 Creatine Kinase 164 Impressions: Lower Extremity MRI 05/13/19 00:00 IMPRESSION: OSTEOMYELITIS INVOLVING THE DISTAL PHALANX OF THE FIRST DIGIT AND THE ADJACENT DISTAL ASPECT OF THE FIRST PROXIMAL PHALANX CELLULITIS OVER THE DORSUM OF THE FOOT AND OVER THE SECOND AND FIRST DIGIT WITH ABSCESS FORMATION ALONG THE SECOND DIGIT WHICH ALSO EXTENDS ALONG THE MEDIAL AND LATERAL MARGINS OF THE head of the second METATARSAL ABNORMAL SIGNAL AND ENHANCEMENT INVOLVING THE SECOND PROXIMAL PHALANX CONCERNING FOR OSTEOMYELITIS SMALL AMOUNT OF ABNORMAL SIGNAL IN THE HEAD OF THE SECOND METATARSAL WHICH MAY BE REACTIVE IN NATURE. RECOMMEND CONTINUED FOLLOW-UP TO EXCLUDE EARLY OSTEOMYELITIS. Foot X-Ray 05/13/19 14:45 IMPRESSION: No acute fracture or dislocation. No worrisome bone lesions danie ntified. Chest X-Ray 05/13/19 17:38 IMPRESSION: Chronic interstitial changes. No acute cardiopulmonary process copyright 2011 [employer]- All Rights Reserved Assessment & Plan - Diagnosis (1) DM type 2 (diabetes mellitus, type 2) Qualifiers: Diabetes mellitus prison insulin use: with intermission coordinator use Diabetes mellitus complication status: with skin complications Diabetes mellitus complication detail: with foot ulcer Qualified Code(s): E11.621 - Type 2 diabetes mellitus with foot ulcer; L97.509 - Non-pressure chronic ulcer of other part of unspecified foot with unspecified severity; Z79.4 - alf (current) use of insulin Is this a current diagnosis for this admission?: Yes (2) Osteomyelitis of right foot Is this a current diagnosis for this admission?: Yes - Time Time Spent with patient: 15-24 minutes - Inpatient Certification Medical Necessity: Need for IV Antibiotics, Risk of Complication if Not Cared For in Hospital - Plan Summary Plan Summary: Nurses tells me that patient has been taking his Percocet almost every 46 hours. Of the foot itself is has diabetic neuropathy so he should not have as much pain. I told the patient to that I will stop giving the Percocet and just put him on Toradol on a as needed basis. Continue with with wound VAC. And IV antibiotics
[2019-05-23] MEDS: METFORMIN HCL 500 MG TABLET PO SCH ×2 (11:39→17:16)
[2019-05-23] MEDS: KETOROLAC TROMETHAMINE 10 MG TABLET PO PRN ×2 (11:40→18:41)
[2019-05-23] MEDS: POLYETHYLENE GLYCOL 3350 POWDER 17 GM/1 PACKET PO SCH (11:40)
[2019-05-23] MEDS: LOSARTAN POTASSIUM 50 MG TABLET PO SCH (11:40)
[2019-05-23] MEDS: FAMOTIDINE 20 MG TABLET PO SCH ×2 (11:40→21:59)
[2019-05-23] MEDS: DOCUSATE SODIUM 100 MG CAPSULE PO SCH (11:40)
--- NOTE | 2019-05-23 15:18 | PDOC PROGRESS REPORT ---
Subjective Progress Note for:: 05/23/19 Subjective:: 48-year-old male being evaluated daily by general surgery service for lower extremity wound and right toe amputation due to diabetes mellitus. 05/23: Surgery service stopped patient's narcotics as he was possibly misusing these. Patient states he is not in any significant pain today despite narcotics being stopped. He has no new complaints. Patient disposition when surgery feels wound is appropriate for outpatient care Reason For Visit: DIABETES,HYPERTENSION,CELLULITIS, Physical Exam Vital Signs: Temp Pulse Resp BP Pulse Ox 98.0 F 83 16 138/87 H 99 05/23/19 11:19 05/23/19 11:19 05/23/19 11:19 05/23/19 11:19 05/23/19 11:19 Intake & Output 05/22/19 05/23/19 05/24/19 06:59 06:59 06:59 Intake Total 1352 1816 1000 Output Total 875 Balance 6744 328 2996 Weight 57.3 kg 57.8 kg General appearance: PRESENT: no acute distress, well-developed, well-nourished Head exam: PRESENT: atraumatic, normocephalic Eye exam: PRESENT: conjunctiva pink Respiratory exam: PRESENT: clear to auscultation clarke. ABSENT: rales, rhonchi, wheezes Cardiovascular exam: PRESENT: RRR. ABSENT: diastolic murmur, rubs, systolic murmur GI/Abdominal exam: PRESENT: normal bowel sounds, soft. ABSENT: distended, guarding, mass, organolmegaly, rebound, tenderness Neurological exam: PRESENT: alert, awake Psychiatric exam: PRESENT: appropriate affect, normal mood Skin exam: PRESENT: other - Right great toe amputation site appears to be slowly healing, wound VAC in place Results Laboratory Results: 05/16/19 06:34 05/18/19 07:52 05/23/19 04:51 Vitamin B12 657.0 05/13/19 18:00 Creatine Kinase 164 Impressions: Lower Extremity MRI 05/13/19 00:00 IMPRESSION: OSTEOMYELITIS INVOLVING THE DISTAL PHALANX OF THE FIRST DIGIT AND THE ADJACENT DISTAL ASPECT OF THE FIRST PROXIMAL PHALANX CELLULITIS OVER THE DORSUM OF THE FOOT AND OVER THE SECOND AND FIRST DIGIT WITH ABSCESS FORMATION ALONG THE SECOND DIGIT WHICH ALSO EXTENDS ALONG THE MEDIAL AND LATERAL MARGINS OF THE head of the second METATARSAL ABNORMAL SIGNAL AND ENHANCEMENT INVOLVING THE SECOND PROXIMAL PHALANX CONCERNING FOR OSTEOMYELITIS SMALL AMOUNT OF ABNORMAL SIGNAL IN THE HEAD OF THE SECOND METATARSAL WHICH MAY BE REACTIVE IN NATURE. RECOMMEND CONTINUED FOLLOW-UP TO EXCLUDE EARLY OSTEOMYELITIS. Foot X-Ray 05/13/19 14:45 IMPRESSION: No acute fracture or dislocation. No worrisome bone lesions identified. Chest X-Ray 05/13/19 17:38 IMPRESSION: Chronic interstitial changes. No acute cardiopulmonary process copyright 2010 [employer]- All Rights Reserved Assessment and Plan - Diagnosis (1) Macrocytic anemia Is this a current diagnosis for this admission?: Yes Plan: -B12 level normal (2) DM type 2 (diabetes mellitus, type 2) Qualifiers: Diabetes mellitus fdc insulin use: with terminal gauger use Diabetes mellitus complication status: with skin complications Diabetes mellitus complication detail: with foot ulcer Qualified Code(s): E11.621 - Type 2 diabetes mellitus with foot ulcer; L97.509 - Non-pressure chronic ulcer of other part of unspecified foot with unspecified severity; Z79.4 - exterminator helper termite (current) use of insulin Is this a current diagnosis for this admission?: Yes (3) Diabetic ulcer of toe Qualifiers: Diabetes mellitus type: type 2 Laterality: right Non-pressure ulcer stage: with other severity Qualified Code(s): E11.621 - Type 2 diabetes mellitus with foot ulcer; L97.518 - Non-pressure chronic ulcer of other part of right foot with other specified severity Is this a current diagnosis for this admission?: Yes (4) Hypertension Is this a current diagnosis for this admission?: Yes - Plan Summary Summary: 05/13/2019 was admitted to the hospital for IV fluids, sliding scale of insulin, RI with and without IV contrast to the right lower extremity, patient will be n.p.o. after midnight, surgery will reevaluate the patient in the morning following review of studies. put on broad-spectrum antibiotics as well admission - Time Time Spent with patient: 15-24 minutes - Inpatient Certification Based on my medical assessment, after consideration of the patient's comorbidities, presenting symptoms, or acuity I expect that the services needed warrant INPATIENT care.: Yes I certify that my determination is in accordance with my understanding of Medicare's requirements for reasonable and necessary INPATIENT services [42 CFR 412.3e].: Yes Medical Necessity: Need for IV Antibiotics
[2019-05-23] MEDS: HYDRALAZINE HCL INJ/PF 20 MG/1 ML SDV IV PRN (19:34)
[2019-05-24] MEDS: AMPICILLIN SODIUM 1 GM in NORMAL SALINE 50 ML IV SCH ×4 (00:27→17:50)
[2019-05-24] MEDS: KETOROLAC TROMETHAMINE 10 MG TABLET PO PRN ×2 (06:44→14:13)
[2019-05-24] MEDS: INSULIN LISPRO 100 UNIT/ML 3 ML VIAL SUBCUT SCH ×4 (07:26→21:27)
[2019-05-24] MEDS: METFORMIN HCL 500 MG TABLET PO SCH ×2 (07:38→17:50)
[2019-05-24 11:06] LABS: ANION GAP 8 (5-19); BLOOD UREA NITROGEN 19 mg/dL (7-20); CALCIUM 9.3 mg/dL (8.4-10.2); CARBON DIOXIDE 24 mmol/L (22-30); CHLORIDE 106 mmol/L (98-107); GLUCOSE 124 mg/dL (75-110); POTASSIUM 5.1 mmol/L (3.6-5.0)
[2019-05-24] MEDS: DOCUSATE SODIUM 100 MG CAPSULE PO SCH (11:21)
[2019-05-24] MEDS: LOSARTAN POTASSIUM 50 MG TABLET PO SCH (11:21)
[2019-05-24] MEDS: FAMOTIDINE 20 MG TABLET PO SCH ×2 (11:21→21:27)
[2019-05-24] MEDS: POLYETHYLENE GLYCOL 3350 POWDER 17 GM/1 PACKET PO SCH (11:22)
[2019-05-24] MEDS: HEPARIN SOD (PORCINE) 5,000 UNIT/ML 1 ML VIAL SUBCUT SCH ×2 (11:22→21:26)
--- NOTE | 2019-05-24 14:40 | Operative Report ---
Operative Report DATE OF SURGERY: 05/24/19 PREOPERATIVE DIAGNOSIS: Small amount of necrotic tissue on the surface the post erior part of the wound POSTOPERATIVE DIAGNOSIS: Same OPERATION: Debridement of the posterior part of the wound SURGEON: OLAYINKA MUÑOZ TISSUE REMOVED OR ALTERED: Necrotic tissue COMPLICATIONS: None INTRAOPERATIVE FINDINGS: After the wound VAC was removed there appears to have some superficial necrotic tissue on the posterior aspect of the wound. There is also a small part of the form on the wound. PROCEDURE: The wound wound was inspected after removal of the wound VAC. The upper part of the wound appears to have fair granulation tissue but small area of granulation tissue in the posterior area. There was some superficial necrotic areas on the surface of the muscle that was then sharply debrided together with the part of the foam from the wound vac that was also removed with the use of scissors. A wound VAC will be replaced by the nurses. Patient tolerated procedure well.
--- NOTE | 2019-05-24 16:14 | PDOC PROGRESS REPORT ---
Subjective Progress Note for:: 05/24/19 Subjective:: 48-year-old male being evaluated daily by general surgery service for lower extremity wound and right toe amputation due to diabetes mellitus. 05/23: Surgery service stopped patient's narcotics as he was possibly misusing these. Patient states he is not in any significant pain today despite narcotics being stopped. He has no new complaints. Patient disposition when surgery feels wound is appropriate for outpatient care 05/24: Seems that patient has previously been taken off pharmacologic DVT prophylaxis. I presume this was due to a trip to the OR and just was not restarted. I have restarted subcu heparin today. Patient does not have any new complaints today only mild right foot pain. Reason For Visit: DIABETES,HYPERTENSION,CELLULITIS, Physical Exam Vital Signs: Temp Pulse Resp BP Pulse Ox 98.3 F 81 17 178/90 H 100 05/24/19 11:52 05/24/19 11:52 05/24/19 11:52 05/24/19 11:52 05/24/19 11:52 Intake & Output 05/23/19 05/24/19 05/25/19 06:59 06:59 06:59 Intake Total 1816 1720 Output Total 875 540 Balance 941 1180 Weight 57.8 kg 57.5 kg General appearance: PRESENT: no acute distress, well-developed, well-nourished Head exam: PRESENT: atraumatic, normocephalic Respiratory exam: PRESENT: clear to auscultation clarke. ABSENT: rales, rhonchi, wheezes Cardiovascular exam: PRESENT: RRR. ABSENT: diastolic murmur, rubs, systolic murmur GI/Abdominal exam: PRESENT: normal bowel sounds, soft. ABSENT: distended, guarding, mass, organolmegaly, rebound, tenderness Neurological exam: PRESENT: alert, awake Skin exam: PRESENT: warm. ABSENT: cyanosis, rash Additional comments: Right foot wound with wound VAC in place draining some serosanguineous fluid and to vacuum canister Results Laboratory Results: 05/16/19 06:34 05/24/19 10:18 05/24/19 10:18 Sodium 137.8 Potassium 5.1 H Chloride 106 Carbon Dioxide 24 Anion Gap 8 BUN 19 Creatinine 2.01 H Est GFR ( Amer) 43 L Glucose 124 H Calcium 9.3 05/13/19 18:00 Creatine Kinase 164 Impressions: Lower Extremity MRI 05/13/19 00:00 IMPRESSION: OSTEOMYELITIS INVOLVING THE DISTAL PHALANX OF THE FIRST DIGIT AND THE ADJACENT DISTAL ASPECT OF THE FIRST PROXIMAL PHALANX CELLULITIS OVER THE DORSUM OF THE FOOT AND OVER THE SECOND AND FIRST DIGIT WITH ABSCESS FORMATION ALONG THE SECOND DIGIT WHICH ALSO EXTENDS ALONG THE MEDIAL AND LATERAL MARGINS OF THE head of the second METATARSAL ABNORMAL SIGNAL AND ENHANCEMENT INVOLVING THE SECOND PROXIMAL PHALANX CONCERNING FOR OSTEOMYELITIS SMALL AMOUNT OF ABNORMAL SIGNAL IN THE HEAD OF THE SECOND METATARSAL WHICH MAY BE REACTIVE IN NATURE. RECOMMEND CONTINUED FOLLOW-UP TO EXCLUDE EARLY OSTEOMYELITIS. Foot X-Ray 05/13/19 14:45 IMPRESSION: No acute fracture or dislocation. No worrisome bone lesions identified. Chest X-Ray 05/13/19 17:38 IMPRESSION: Chronic interstitial changes. 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 He is unable to recall the diabetic medications he is supposed to be on. Will start him on metformin. 05/17: Continue metformin. 05/18: Blood sugars at goal. 05/22: Continue current diabetes medication regimen. Patient admits that he simply needs better compliance with his medications. 05/23: reiterated necessity of DM med compliance when he leaves (3) Diabetic ulcer of toe Qualifiers: Diabetes mellitus type: type 2 Laterality: right Non-pressure ulcer stage: with other severity Qualified Code(s): E11.621 - Type 2 diabetes mellitus with foot ulcer; L97.518 - Non-pressure chronic ulcer of other part of right foot with other specified severity Is this a current diagnosis for this admission?: Yes Plan: General surgery following for wound care. Wound VAC continued per them. Antibiotics. General surgery reevaluated wound in OR 05/24 and noted some granulation tissue and necrotic tissue, wound VAC replaced by nursing (4) Hypertension Is this a current diagnosis for this admission?: Yes - Plan Summary Summary: 05/13/2019 was admitted to the hospital for IV fluids, sliding scale of insulin, RI with and without IV contrast to the right lower extremity, patient will be n.p.o. after midnight, surgery will reevaluate the patient in the morning following review of studies. put on broad-spectrum antibiotics as well admission - Time Time Spent with patient: 15-24 minutes - Inpatient Certification Medical Necessity: Significant Comorbidiites Make Outpatient Treatment Too Risky, Need for Surgery
[2019-05-24] MEDS ORDERED: HYDRALAZINE HCL INJ/PF 20 MG/1 ML SDV IV PRN (20:56)
[2019-05-25] MEDS: AMPICILLIN SODIUM 1 GM in NORMAL SALINE 50 ML IV SCH ×3 (00:33→13:06)
[2019-05-25] MEDS: KETOROLAC TROMETHAMINE 10 MG TABLET PO PRN (05:54)
[2019-05-25] MEDS: INSULIN LISPRO 100 UNIT/ML 3 ML VIAL SUBCUT SCH ×4 (07:41→23:57)
[2019-05-25] MEDS: METFORMIN HCL 500 MG TABLET PO SCH ×2 (08:15→16:44)
[2019-05-25] MEDS: ACETAMINOPHEN 325 MG TABLET PO PRN ×2 (08:20→16:44)
[2019-05-25] MEDS: POLYETHYLENE GLYCOL 3350 POWDER 17 GM/1 PACKET PO SCH (09:53)
[2019-05-25] MEDS: NIFEDIPINE 30 MG TAB.ER.24 PO SCH (09:53)
[2019-05-25] MEDS: METOPROLOL TARTRATE 25 MG TABLET PO SCH (09:54)
[2019-05-25] MEDS: FAMOTIDINE 20 MG TABLET PO SCH ×2 (09:54→22:00)
[2019-05-25] MEDS: DOCUSATE SODIUM 100 MG CAPSULE PO SCH (09:54)
[2019-05-25] MEDS: HEPARIN SOD (PORCINE) 5,000 UNIT/ML 1 ML VIAL SUBCUT SCH ×2 (09:55→22:00)
--- NOTE | 2019-05-25 16:23 | PDOC PROGRESS REPORT ---
Subjective Progress Note for:: 05/25/19 Subjective:: Denies any pains Reason For Visit: DIABETES,HYPERTENSION,CELLULITIS, Physical Exam Vital Signs: Temp Pulse Resp BP Pulse Ox 97.6 F 83 17 128/73 H 100 05/25/19 12:24 05/25/19 12:24 05/25/19 12:24 05/25/19 12:24 05/25/19 12:24 Intake & Output 05/24/19 05/25/19 05/26/19 06:59 06:59 06:59 Intake Total 1720 1780 50 Output Total 540 1750 Balance 1180 30 50 Weight 57.5 kg 57.6 kg Exam: Wound VAC in place encompassing the whole wound. Results Laboratory Results: 05/16/19 06:34 05/24/19 10:18 05/13/19 18:00 Creatine Kinase 164 Impressions: Lower Extremity MRI 05/13/19 00:00 IMPRESSION: OSTEOMYELITIS INVOLVING THE DISTAL PHALANX OF THE FIRST DIGIT AND THE ADJACENT DISTAL ASPECT OF THE FIRST PROXIMAL PHALANX CELLULITIS OVER THE DORSUM OF THE FOOT AND OVER THE SECOND AND FIRST DIGIT WITH ABSCESS FORMATION ALONG THE SECOND DIGIT WHICH ALSO EXTENDS ALONG THE MEDIAL AND LATERAL MARGINS OF THE head of the second METATARSAL ABNORMAL SIGNAL AND ENHANCEMENT INVOLVING THE SECOND PROXIMAL PHALANX CONCERNING FOR OSTEOMYELITIS SMALL AMOUNT OF ABNORMAL SIGNAL IN THE HEAD OF THE SECOND METATARSAL WHICH MAY BE REACTIVE IN NATURE. RECOMMEND CONTINUED FOLLOW-UP TO EXCLUDE EARLY OSTEOMYELITIS. Foot X-Ray 05/13/19 14:45 IMPRESSION: No acute fracture or dislocation. No worrisome bone lesions i dentified. Chest X-Ray 05/13/19 17:38 IMPRESSION: Chronic interstitial changes. No acute cardiopulmonary process copyright 2011 [employer] All Rights Reserved Assessment & Plan - Diagnosis (1) DM type 2 (diabetes mellitus, type 2) Qualifiers: Diabetes mellitus retirement insulin use: with retirement use Diabetes mellitus complication status: with skin complications Diabetes mellitus complication detail: with foot ulcer Qualified Code(s): E11.621 - Type 2 diabetes mellitus with foot ulcer; L97.509 - Non-pressure chronic ulcer of other part of unspecified foot with unspecified severity; Z79.4 - terminal carman (current) use of insulin Is this a current diagnosis for this admission?: Yes (2) Osteomyelitis of right foot Is this a current diagnosis for this admission?: Yes - Time Time Spent with patient: Less than 15 minutes - Inpatient Certification Medical Necessity: Need for IV Antibiotics, Risk of Complication if Not Cared For in Hospital - Plan Summary Plan Summary: Continue wound VAC. Continue IV antibiotics next few days. Reevaluate in a few days to see if it could be close to primarily
[2019-05-25] MEDS: BUTALB/ACETAMINOPHEN/CAFFEINE 1 TAB EACH PO PRN (18:08)
--- NOTE | 2019-05-25 18:08 | PDOC PROGRESS REPORT ---
Subjective Progress Note for:: 05/25/19 Subjective:: 48-year-old male being evaluated daily by general surgery service for lower extremity wound and right toe amputation due to diabetes mellitus. 05/23: Surgery service stopped patient's narcotics as he was possibly misusing these. Patient states he is not in any significant pain today despite narcotics being stopped. He has no new complaints. Patient disposition when surgery feels wound is appropriate for outpatient care 05/24: Seems that patient has previously been taken off pharmacologic DVT prophylaxis. I presume this was due to a trip to the OR and just was not restarted. I have restarted subcu heparin today. Patient does not have any new complaints today only mild right foot pain. 05/25: Creatinine elevated to 2 from baseline of 1.1 today. Toradol stopped, Cozaar stopped. Started metoprolol and nifedipine instead. Patient having headache today otherwise no new complaints Reason For Visit: DIABETES,HYPERTENSION,CELLULITIS, Physical Exam Vital Signs: Temp Pulse Resp BP Pulse Ox 97.7 F 88 18 143/79 H 100 05/25/19 15:19 05/25/19 15:19 05/25/19 15:19 05/25/19 15:19 05/25/19 15:19 Intake & Output 05/24/19 05/25/19 05/26/19 06:59 06:59 06:59 Intake Total 1720 1780 50 Output Total 540 1750 Balance 1180 30 50 Weight 57.5 kg 57.6 kg General appearance: PRESENT: no acute distress, well-developed, well-nourished Head exam: PRESENT: atraumatic, normocephalic Eye exam: PRESENT: conjunctiva pink Respiratory exam: PRESENT: clear to auscultation clarke. ABSENT: rales, rhonchi, wheezes Cardiovascular exam: PRESENT: RRR. ABSENT: diastolic murmur, rubs, systolic murmur GI/Abdominal exam: PRESENT: normal bowel sounds, soft. ABSENT: distended, guarding, mass, organolmegaly, rebound, tenderness Musculoskeletal exam: PRESENT: ambulatory Neurological exam: PRESENT: alert, awake Skin exam: PRESENT: dry, warm Additional comments: Right foot with healing surgical wound with wound VAC in place Results Laboratory Results: 05/16/19 06:34 05/24/19 10:18 05/13/19 18:00 Creatine Kinase 164 Impressions: Lower Extremity MRI 05/13/19 00:00 IMPRESSION: OSTEOMYELITIS INVOLVING THE DISTAL PHALANX OF THE FIRST DIGIT AND THE ADJACENT DISTAL ASPECT OF THE FIRST PROXIMAL PHALANX CELLULITIS OVER THE DORSUM OF THE FOOT AND OVER THE SECOND AND FIRST DIGIT WITH ABSCESS FORMATION ALONG THE SECOND DIGIT WHICH ALSO EXTENDS ALONG THE MEDIAL AND LATERAL MARGINS OF THE head of the second METATARSAL ABNORMAL SIGNAL AND ENHANCEMENT INVOLVING THE SECOND PROXIMAL PHALANX CONCERNING FOR OSTEOMYELITIS SMALL AMOUNT OF ABNORMAL SIGNAL IN THE HEAD OF THE SECOND METATARSAL WHICH MAY BE REACTIVE IN NATURE. RECOMMEND CONTINUED FOLLOW-UP TO EXCLUDE EARLY OSTEOMYELITIS. Foot X-Ray 05/13/19 14:45 IMPRESSION: No acute fracture or dislocation. No worrisome bone lesions identified. Chest X-Ray 05/13/19 17:38 IMPRESSION: Chronic interstitial changes. 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 Diabetes mellitus complication status: with skin complications Diabetes mellitus complication detail: with foot ulcer Qualified Code(s): E11.621 - Type 2 diabetes mellitus with foot ulcer; L97.509 - Non-pressure chronic ulcer of other part of unspecified foot with unspecified severity; Z79.4 - continuous churn buttermaker (current) use of insulin Is this a current diagnosis for this admission?: Yes (3) Diabetic ulcer of toe Qualifiers: Diabetes mellitus type: type 2 Laterality: right Non-pressure ulcer stage: with other severity Qualified Code(s): E11.621 - Type 2 diabetes mellitus with foot ulcer; L97.518 - Non-pressure chronic ulcer of other part of right foot with other specified severity Is this a current diagnosis for this admission?: Yes (4) Hypertension Is this a current diagnosis for this admission?: Yes (5) Headache Is this a current diagnosis for this admission?: Yes Plan: Tylenol or Fioricet available - Plan Summary Summary: 05/13/2019 was admitted to the hospital for IV fluids, sliding scale of insulin, RI with and without IV contrast to the right lower extremity, patient will be n.p.o. after midnight, surgery will reevaluate the patient in the morning following review of studies. put on broad-spectrum antibiotics as well admission - Time Time Spent with patient: 25-34 minutes - Inpatient Certification Medical Necessity: Need for IV Antibiotics
[2019-05-26] MEDS: METOPROLOL TARTRATE 25 MG TABLET PO SCH ×3 (00:14→22:22)
[2019-05-26] MEDS: BUTALB/ACETAMINOPHEN/CAFFEINE 1 TAB EACH PO PRN ×3 (06:58→22:23)
[2019-05-26] MEDS: INSULIN LISPRO 100 UNIT/ML 3 ML VIAL SUBCUT SCH ×4 (08:35→22:23)
[2019-05-26] MEDS: METFORMIN HCL 500 MG TABLET PO SCH ×2 (08:37→16:57)
--- NOTE | 2019-05-26 09:19 | PDOC PROGRESS REPORT ---
Subjective Progress Note for:: 05/26/19 Subjective:: feels well Reason For Visit: DIABETES,HYPERTENSION,CELLULITIS, Physical Exam Vital Signs: Temp Pulse Resp BP Pulse Ox 98.2 F 90 18 146/81 H 100 05/26/19 08:05 05/26/19 08:05 05/26/19 08:05 05/26/19 08:05 05/26/19 08:05 Intake & Output 05/25/19 05/26/19 05/27/19 06:59 06:59 06:59 Intake Total 1780 1570 Output Total 1750 4 Balance 30 1566 Weight 57.6 kg 57.6 kg General appearance: PRESENT: no acute distress Head exam: PRESENT: normocephalic Eye exam: PRESENT: EOMI Ear exam: PRESENT: normal external ear exam Mouth exam: PRESENT: moist Neck exam: PRESENT: full ROM Respiratory exam: PRESENT: clear to auscultation clarke Cardiovascular exam: PRESENT: RRR Pulses: PRESENT: normal radial pulses, normal femoral pulses Vascular exam: PRESENT: pallor GI/Abdominal exam: PRESENT: soft Rectal exam: PRESENT: deferred Extremities exam: PRESENT: full ROM, other - rt foot 1,2 toes with wound vac in place, fair cap refill, no cellulitlis Neurological exam: PRESENT: alert, awake, oriented to person, oriented to place Psychiatric exam: PRESENT: appropriate affect Skin exam: PRESENT: dry Results Laboratory Results: 05/16/19 06:34 05/24/19 10:18 05/13/19 18:00 Creatine Kinase 164 Impressions: Lower Extremity MRI 05/13/19 00:00 IMPRESSION: OSTEOMYELITIS INVOLVING THE DISTAL PHALANX OF THE FIRST DIGIT AND THE ADJACENT DISTAL ASPECT OF THE FIRST PROXIMAL PHALANX CELLULITIS OVER THE DORSUM OF THE FOOT AND OVER THE SECOND AND FIRST DIGIT WITH ABSCESS FORMATION ALONG THE SECOND DIGIT WHICH ALSO EXTENDS ALONG THE MEDIAL AND LATERAL MARGINS OF THE head of the second METATARSAL ABNORMAL SIGNAL AND ENHANCEMENT INVOLVING THE SECOND PROXIMAL PHALANX CONCERNING FOR OSTEOMYELITIS SMALL AMOUNT OF ABNORMAL SIGNAL IN THE HEAD OF THE SECOND METATARSAL WHICH MAY BE REACTIVE IN NATURE. RECOMMEND CONTINUED FOLLOW-UP TO EXCLUDE EARLY OSTEOMYELITIS. Foot X-Ray 05/13/19 14:45 IMPRESSION: No acute fracture or dislocation. No worrisome bone lesions identified. Chest X-Ray 05/13/19 17:38 IMPRESSION: Chronic interstitial changes. No acute cardiopulmonary process copyright 2010 [employer]- All Rights Reserved Assessment & Plan - Time Time Spent with patient: 25-34 minutes - Plan Summary Plan Summary: rt foot infection s/p redebridement yesterdayt now with wound vac in place will change in am.
[2019-05-26] MEDS: NIFEDIPINE 30 MG TAB.ER.24 PO SCH (09:54)
[2019-05-26] MEDS: DOCUSATE SODIUM 100 MG CAPSULE PO SCH (09:54)
[2019-05-26] MEDS: HEPARIN SOD (PORCINE) 5,000 UNIT/ML 1 ML VIAL SUBCUT SCH ×2 (09:55→22:23)
[2019-05-26] MEDS: POLYETHYLENE GLYCOL 3350 POWDER 17 GM/1 PACKET PO SCH (09:55)
[2019-05-26] MEDS: FAMOTIDINE 20 MG TABLET PO SCH ×2 (09:55→22:24)
[2019-05-26 09:59] LABS: ANION GAP 13 (5-19); BLOOD UREA NITROGEN 15 mg/dL (7-20); CALCIUM 9.5 mg/dL (8.4-10.2); CARBON DIOXIDE 21 mmol/L (22-30); CHLORIDE 103 mmol/L (98-107); GLUCOSE 154 mg/dL (75-110); POTASSIUM 4.9 mmol/L (3.6-5.0)
[2019-05-26] MEDS: ACETAMINOPHEN 325 MG TABLET PO PRN (10:02)
--- NOTE | 2019-05-26 13:37 | PDOC PROGRESS REPORT ---
Subjective Subjective:: 48-year-old male being evaluated daily by general surgery service for lower extremity wound and right toe amputation due to diabetes mellitus. 05/23: Surgery service stopped patient's narcotics as he was possibly misusing these. Patient states he is not in any significant pain today despite narcotics being stopped. He has no new complaints. Patient disposition when surgery feels wound is appropriate for outpatient care 05/24: Seems that patient has previously been taken off pharmacologic DVT prophylaxis. I presume this was due to a trip to the OR and just was not restarted. I have restarted subcu heparin today. Patient does not have any new complaints today only mild right foot pain. 05/25: Creatinine elevated to 2 from baseline of 1.1 today. Toradol stopped, Cozaar stopped. Started metoprolol and nifedipine instead. Patient having headache today otherwise no new complaints 05/26: Patient complaining of increasing neuropathic pain in lower extremities not controlled by Tylenol, requesting increase in pain medication regimen. Intermittent headaches which are well controlled by Fioricet per patient. No other new complaints Reason For Visit: DIABETES,HYPERTENSION,CELLULITIS, Physical Exam Vital Signs: Temp Pulse Resp BP Pulse Ox 98.2 F 90 18 146/81 H 100 05/26/19 08:05 05/26/19 08:05 05/26/19 08:05 05/26/19 08:05 05/26/19 08:05 Intake & Output 05/25/19 05/26/19 05/27/19 06:59 06:59 06:59 Intake Total 1780 1570 Output Total 1750 4 Balance 30 1566 Weight 57.6 kg 57.6 kg General appearance: PRESENT: no acute distress, well-developed, well-nourished Head exam: PRESENT: atraumatic, normocephalic Eye exam: PRESENT: conjunctiva pink Respiratory exam: PRESENT: clear to auscultation clarke. ABSENT: rales, rhonchi, wheezes Cardiovascular exam: PRESENT: RRR. ABSENT: diastolic murmur, rubs, systolic murmur GI/Abdominal exam: PRESENT: normal bowel sounds, soft. ABSENT: distended, guarding, mass, organolmegaly, rebound, tenderness Musculoskeletal exam: PRESENT: ambulatory Neurological exam: PRESENT: alert, awake Psychiatric exam: PRESENT: appropriate affect, normal mood Skin exam: PRESENT: dry, warm, other - Right great toe amputation wound with wound VAC attached, healing slowly but steadily Results Laboratory Results: 05/16/19 06:34 05/26/19 09:14 05/26/19 09:14 Sodium 136.5 L Potassium 4.9 Chloride 103 Carbon Dioxide 21 L Anion Gap 13 BUN 15 Creatinine 1.54 H Est GFR ( Amer) 59 L Glucose 154 H Calcium 9.5 05/13/19 18:00 Creatine Kinase 164 Impressions: Lower Extremity MRI 05/13/19 00:00 IMPRESSION: OSTEOMYELITIS INVOLVING THE DISTAL PHALANX OF THE FIRST DIGIT AND THE ADJACENT DISTAL ASPECT OF THE FIRST PROXIMAL PHALANX CELLULITIS OVER THE DORSUM OF THE FOOT AND OVER THE SECOND AND FIRST DIGIT WITH ABSCESS FORMATION ALONG THE SECOND DIGIT WHICH ALSO EXTENDS ALONG THE MEDIAL AND LATERAL MARGINS OF THE head of the second METATARSAL ABNORMAL SIGNAL AND ENHANCEMENT INVOLVING THE SECOND PROXIMAL PHALANX CONCERNING FOR OSTEOMYELITIS SMALL AMOUNT OF ABNORMAL SIGNAL IN THE HEAD OF THE SECOND METATARSAL WHICH MAY BE REACTIVE IN NATURE. RECOMMEND CONTINUED FOLLOW-UP TO EXCLUDE EARLY OSTEOMYELITIS. Foot X-Ray 05/13/19 14:45 IMPRESSION: No acute fracture or dislocation. No worrisome bone lesions i dentified. Chest X-Ray 05/13/19 17:38 IMPRESSION: Chronic interstitial changes. No acute cardiopulmonary process copyright 2011 [employer]- All Rights Reserved Assessment and Plan - Diagnosis (1) Diabetic ulcer of toe Qualifiers: Diabetes mellitus type: type 2 Laterality: right Non-pressure ulcer stage: with other severity Qualified Code(s): E11.621 - Type 2 diabetes mellitus with foot ulcer; L97.518 - Non-pressure chronic ulcer of other part of right foot with other specified severity Is this a current diagnosis for this admission?: Yes Plan: General surgery following for wound care. Wound VAC continued per them. Antibiotics. 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 Diabetes mellitus complication status: with skin complications Diabetes mellitus complication detail: with foot ulcer Qualified Code(s): E11.621 - Type 2 diabetes mellitus with foot ulcer; L97.509 - Non-pressure chronic ulcer of other part of unspecified foot with unspecified severity; Z79.4 - [facility] (current) use of insulin Is this a current diagnosis for this admission?: Yes (4) Hypertension Is this a current diagnosis for this admission?: Yes (5) Headache Is this a current diagnosis for this admission?: Yes - Plan Summary Summary: 05/13/2019 was admitted to the hospital for IV fluids, sliding scale of insulin, RI with and without IV contrast to the right lower extremity, patient will be n.p.o. after midnight, surgery will reevaluate the patient in the morning following review of studies. put on broad-spectrum antibiotics as well admission - Time Time Spent with patient: 15-24 minutes - Inpatient Certification Medical Necessity: Need for IV Antibiotics, Risk of Complication if Not Cared For in Hospital
[2019-05-26] MEDS: GABAPENTIN 100 MG CAPSULE PO SCH ×2 (15:11→22:22)
[2019-05-27] MEDS: GABAPENTIN 100 MG CAPSULE PO SCH ×3 (05:32→22:17)
[2019-05-27] MEDS: BUTALB/ACETAMINOPHEN/CAFFEINE 1 TAB EACH PO PRN ×3 (05:34→22:59)
[2019-05-27] MEDS: INSULIN LISPRO 100 UNIT/ML 3 ML VIAL SUBCUT SCH ×4 (07:26→22:17)
[2019-05-27] MEDS: METFORMIN HCL 500 MG TABLET PO SCH ×2 (07:28→16:11)
--- NOTE | 2019-05-27 09:22 | PDOC PROGRESS REPORT ---
Subjective Progress Note for:: 05/27/19 Subjective:: feels ok, no pain Reason For Visit: DIABETES,HYPERTENSION,CELLULITIS, Physical Exam Vital Signs: Temp Pulse Resp BP Pulse Ox 97.4 F 93 15 133/76 H 100 05/27/19 07:59 05/27/19 07:59 05/27/19 07:59 05/27/19 07:59 05/27/19 07:59 Intake & Output 05/26/19 05/27/19 05/28/19 06:59 06:59 06:59 Intake Total 1570 720 Output Total 4 1120 Balance 1566 -400 Weight 57.6 kg 54.4 kg General appearance: PRESENT: no acute distress Head exam: PRESENT: normocephalic Eye exam: PRESENT: EOMI Ear exam: PRESENT: normal external ear exam Mouth exam: PRESENT: moist Neck exam: PRESENT: full ROM Respiratory exam: PRESENT: clear to auscultation clarke Cardiovascular exam: PRESENT: RRR Pulses: PRESENT: other - weak popliteal pulse, 2+ femoral pt and dp not palp good cap refill, rt foot. Breast: PRESENT: Normal GI/Abdominal exam: PRESENT: soft Rectal exam: PRESENT: deferred Extremities exam: PRESENT: other - wound vac removed post flap pale wound debrided at bedside with some bleeding. Neurological exam: PRESENT: alert, awake, oriented to person, oriented to place Psychiatric exam: PRESENT: appropriate affect Skin exam: PRESENT: dry Results Laboratory Results: 05/16/19 06:34 05/26/19 09:14 05/26/19 09:14 Sodium 136.5 L Potassium 4.9 Chloride 103 Carbon Dioxide 21 L Anion Gap 13 BUN 15 Creatinine 1.54 H Est GFR ( Amer) 59 L Glucose 154 H Calcium 9.5 05/13/19 18:00 Creatine Kinase 164 Impressions: Lower Extremity MRI 05/13/19 00:00 IMPRESSION: OSTEOMYELITIS INVOLVING THE DISTAL PHALANX OF THE FIRST DIGIT AND THE ADJACENT DISTAL ASPECT OF THE FIRST PROXIMAL PHALANX CELLULITIS OVER THE DORSUM OF THE FOOT AND OVER THE SECOND AND FIRST DIGIT WITH ABSCESS FORMATION ALONG THE SECOND DIGIT WHICH ALSO EXTENDS ALONG THE MEDIAL AND LATERAL MARGINS OF THE head of the second METATARSAL ABNORMAL SIGNAL AND ENHANCEMENT INVOLVING THE SECOND PROXIMAL PHALANX CONCERNING FOR OSTEOMYELITIS SMALL AMOUNT OF ABNORMAL SIGNAL IN THE HEAD OF THE SECOND METATARSAL WHICH MAY BE REACTIVE IN NATURE. RECOMMEND CONTINUED FOLLOW-UP TO EXCLUDE EARLY OSTEOMYELITIS. Foot X-Ray 05/13/19 14:45 IMPRESSION: No acute fracture or dislocation. No worrisome bone lesions iden tified. Chest X-Ray 05/13/19 17:38 IMPRESSION: Chronic interstitial changes. No acute cardiopulmonary process copyright 2011 [employer]- All Rights Reserved Assessment & Plan - Time Time Spent with patient: 35 or more minutes - Plan Summary Plan Summary: rt forefoot infection s/p 1 and second toe amputation had wound vac in place, now removed no pus, but poor blood flow will dc wound vac will review doppler studies with vascular.
[2019-05-27] MEDS: NIFEDIPINE 30 MG TAB.ER.24 PO SCH (09:39)
[2019-05-27] MEDS: POLYETHYLENE GLYCOL 3350 POWDER 17 GM/1 PACKET PO SCH (09:40)
[2019-05-27] MEDS: DOCUSATE SODIUM 100 MG CAPSULE PO SCH (09:40)
[2019-05-27] MEDS: HEPARIN SOD (PORCINE) 5,000 UNIT/ML 1 ML VIAL SUBCUT SCH ×2 (09:40→22:17)
[2019-05-27] MEDS: FAMOTIDINE 20 MG TABLET PO SCH ×2 (09:40→22:18)
[2019-05-27] MEDS: METOPROLOL TARTRATE 25 MG TABLET PO SCH ×2 (09:40→22:17)
--- NOTE | 2019-05-27 14:58 | PDOC PROGRESS REPORT ---
Subjective Subjective:: 48-year-old male being evaluated daily by general surgery service for lower extremity wound and right toe amputation due to diabetes mellitus. 05/23: Surgery service stopped patient's narcotics as he was possibly misusing these. Patient states he is not in any significant pain today despite narcotics being stopped. He has no new complaints. Patient disposition when surgery feels wound is appropriate for outpatient care 05/24: Seems that patient has previously been taken off pharmacologic DVT prophylaxis. I presume this was due to a trip to the OR and just was not restarted. I have restarted subcu heparin today. Patient does not have any new complaints today only mild right foot pain. 05/25: Creatinine elevated to 2 from baseline of 1.1 today. Toradol stopped, Cozaar stopped. Started metoprolol and nifedipine instead. Patient having headache today otherwise no new complaints 05/26: Patient complaining of increasing neuropathic pain in lower extremities not controlled by Tylenol, requesting increase in pain medication regimen. Intermittent headaches which are well controlled by Fioricet per patient. No other new complaints 05/27: Patient seen walk around the unit looking at the window. He seems upset today because he states the general surgeon told him he might need additional surgery if he has vascular insufficiency. He is worried that he would need to be transferred to another facility if this were the case. His pain is well controlled and he has no new complaints otherwise. Reason For Visit: DIABETES,HYPERTENSION,CELLULITIS, Physical Exam Vital Signs: Temp Pulse Resp BP Pulse Ox 97.7 F 80 19 129/82 H 100 05/27/19 11:45 05/27/19 11:45 05/27/19 11:45 05/27/19 11:45 05/27/19 11:45 Intake & Output 05/26/19 05/27/19 05/28/19 06:59 06:59 06:59 Intake Total 1570 720 938 Output Total 4 1120 Balance 1566 -400 938 Weight 57.6 kg 54.4 kg General appearance: PRESENT: no acute distress, well-developed, well-nourished Head exam: PRESENT: atraumatic, normocephalic Eye exam: PRESENT: conjunctiva pink Mouth exam: PRESENT: moist Respiratory exam: PRESENT: clear to auscultation clarke. ABSENT: rales, rhonchi, wheezes Cardiovascular exam: PRESENT: RRR. ABSENT: diastolic murmur, rubs, systolic murmur GI/Abdominal exam: PRESENT: normal bowel sounds, soft. ABSENT: distended, gu arding, mass, organolmegaly, rebound, tenderness Musculoskeletal exam: PRESENT: ambulatory Neurological exam: PRESENT: alert, awake Psychiatric exam: PRESENT: appropriate affect, normal mood Skin exam: PRESENT: warm, other - Wound healing very slowly, some additional serosanguineous fluid on bandages today Results Laboratory Results: 05/16/19 06:34 05/26/19 09:14 05/13/19 18:00 Creatine Kinase 164 Impressions: Lower Extremity MRI 05/13/19 00:00 IMPRESSION: OSTEOMYELITIS INVOLVING THE DISTAL PHALANX OF THE FIRST DIGIT AND THE ADJACENT DISTAL ASPECT OF THE FIRST PROXIMAL PHALANX CELLULITIS OVER THE DORSUM OF THE FOOT AND OVER THE SECOND AND FIRST DIGIT WITH ABSCESS FORMATION ALONG THE SECOND DIGIT WHICH ALSO EXTENDS ALONG THE MEDIAL AND LATERAL MARGINS OF THE head of the second METATARSAL ABNORMAL SIGNAL AND ENHANCEMENT INVOLVING THE SECOND PROXIMAL PHALANX CONCERNING FOR OSTEOMYELITIS SMALL AMOUNT OF ABNORMAL SIGNAL IN THE HEAD OF THE SECOND METATARSAL WHICH MAY BE REACTIVE IN NATURE. RECOMMEND CONTINUED FOLLOW-UP TO EXCLUDE EARLY OSTEOMYELITIS. Foot X-Ray 05/13/19 14:45 IMPRESSION: No acute fracture or dislocation. No worrisome bone lesions identified. Chest X-Ray 05/13/19 17:38 IMPRESSION: Chronic interstitial changes. No acute cardiopulmonary process copyright 2010 [employer]- All Rights Reserved Assessment and Plan - Diagnosis (1) Diabetic ulcer of toe Qualifiers: Diabetes mellitus type: type 2 Laterality: right Non-pressure ulcer stage: with other severity Qualified Code(s): E11.621 - Type 2 diabetes mellitus with foot ulcer; L97.518 - Non-pressure chronic ulcer of other part of right foot with other specified severity Is this a current diagnosis for this admission?: Yes Plan: General surgery following for wound care. Wound VAC continued per them. Antibiotics. 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 Diabetes mellitus complication status: with skin complications Diabetes mellitus complication detail: with foot ulcer Qualified Code(s): E11.621 - Type 2 diabetes mellitus with foot ulcer; L97.509 - Non-pressure chronic ulcer of other part of unspecified foot with unspecified severity; 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 after midnight, surgery will reevaluate the patient in the morning following review of studies. put on broad-spectrum antibiotics as well admission - Time Time Spent with patient: 15-24 minutes Anticipated discharge: Home - Inpatient Certification Medical Necessity: Significant Comorbidiites Make Outpatient Treatment Too Risky , Need Close Monitoring Due to Risk of Patient Decompensation, Need for IV Antibiotics
[2019-05-28] MEDS: GABAPENTIN 100 MG CAPSULE PO SCH (05:59)
[2019-05-28] MEDS: BUTALB/ACETAMINOPHEN/CAFFEINE 1 TAB EACH PO PRN (06:03)
[2019-05-28] MEDS: INSULIN LISPRO 100 UNIT/ML 3 ML VIAL SUBCUT SCH ×2 (07:40→11:39)
[2019-05-28] MEDS: METFORMIN HCL 500 MG TABLET PO SCH (07:54)
[2019-05-28] MEDS: FAMOTIDINE 20 MG TABLET PO SCH (09:38)
[2019-05-28] MEDS: NIFEDIPINE 30 MG TAB.ER.24 PO SCH (09:44)
[2019-05-28] MEDS: METOPROLOL TARTRATE 25 MG TABLET PO SCH (09:44)
[2019-05-28] MEDS: DOCUSATE SODIUM 100 MG CAPSULE PO SCH (09:45)
[2019-05-28] MEDS: HEPARIN SOD (PORCINE) 5,000 UNIT/ML 1 ML VIAL SUBCUT SCH (09:45)
[2019-05-28] MEDS: POLYETHYLENE GLYCOL 3350 POWDER 17 GM/1 PACKET PO SCH (09:45)
[2019-05-28 10:22] LABS: ABSOLUTE BASOPHILS # (AUTO) 0.1 10^3/uL (0.0-0.2); ABSOLUTE EOSINOPHILS # (AUTO) 0.3 10^3/uL (0.0-0.6); ABSOLUTE LYMPHOCYTES (AUTO) 1.5 10^3/uL (0.5-4.7); ABSOLUTE MONOCYTES (AUTO) 0.6 10^3/uL (0.1-1.4); ABSOLUTE NEUT (AUTO) 5.7 10^3/uL (1.7-8.2); BASOPHILS % (AUTO) 1.6 % (0-2); EOSINOPHILS % (AUTO) 3.5 % (0-6); HEMATOCRIT 29.3 % (37.9-51.0); HEMOGLOBIN 10.1 g/dL (13.5-17.0); LYMPHOCYTES % (AUTO) 18.6 % (13-45); MEAN CORPUSCULAR HEMOGLOBIN 35.9 pg (27.0-33.4); MEAN CORPUSCULAR HGB CONC 34.5 g/dL (32.0-36.0); MEAN CORPUSCULAR VOLUME 104 fl (80-97); MONOCYTES % (AUTO) 7.7 % (3-13); PLATELET COUNT 414 10^3/uL (150-450); RED BLOOD COUNT 2.82 10^6/uL (4.35-5.55); RED CELL DISTRIBUTION WIDTH 12.8 % (11.5-14.0); SEGMENTED NEUTROPHILS % (AUTO) 68.6 % (42-78); TOTAL CELLS COUNTED % (AUTO) 100 %; WHITE BLOOD COUNT 8.3 10^3/uL (4.0-10.5)
[2019-05-28 10:50] LABS: ANION GAP 9 (5-19); BLOOD UREA NITROGEN 18 mg/dL (7-20); CALCIUM 9.4 mg/dL (8.4-10.2); CARBON DIOXIDE 21 mmol/L (22-30); CHLORIDE 109 mmol/L (98-107); GLUCOSE 178 mg/dL (75-110); POTASSIUM 5.1 mmol/L (3.6-5.0)
--- NOTE | 2019-05-28 11:17 | PDOC PROGRESS REPORT ---
Subjective Progress Note for:: 05/28/19 Subjective:: Patient is no complaints; no drainage. Wound VAC discontinued; wet-to-dry dressings. Reason For Visit: DIABETES,HYPERTENSION,CELLULITIS, Physical Exam Vital Signs: Temp Pulse Resp BP Pulse Ox 98.1 F 88 18 151/83 H 100 05/28/19 07:54 05/28/19 07:54 05/28/19 07:54 05/28/19 07:54 05/28/19 07:54 Intake & Output 05/27/19 05/28/19 05/29/19 06:59 06:59 06:59 Intake Total 720 938 Output Total 1120 Balance -400 938 Weight 54.4 kg General appearance: PRESENT: no acute distress Extremities exam: PRESENT: other - Right foot examined. Wound granulating 70%. No foul smell, drainage; surrounding epithelium and tacked, edematous Results Laboratory Results: 05/28/19 10:04 05/28/19 10:04 05/28/19 05/28/19 10:04 10:04 WBC 8.3 RBC 2.82 L Hgb 10.1 L Hct 29.3 L MCV 104 H MCH 35.9 H MCHC 34.5 RDW 12.8 Plt Count 414 Seg Neutrophils % 68.6 Sodium 139.4 Potassium 5.1 H Chloride 109 H Carbon Dioxide 21 L Anion Gap 9 BUN 18 Creatinine 1.74 H Est GFR ( Amer) 51 L Glucose 178 H Calcium 9.4 05/13/19 18:00 Creatine Kinase 164 Impressions: Lower Extremity MRI 05/13/19 00:00 IMPRESSION: OSTEOMYELITIS INVOLVING THE DISTAL PHALANX OF THE FIRST DIGIT AND THE ADJACENT DISTAL ASPECT OF THE FIRST PROXIMAL PHALANX CELLULITIS OVER THE DORSUM OF THE FOOT AND OVER THE SECOND AND FIRST DIGIT WITH ABSCESS FORMATION ALONG THE SECOND DIGIT WHICH ALSO EXTENDS ALONG THE MEDIAL AND LATERAL MARGINS OF THE head of the second METATARSAL ABNORMAL SIGNAL AND ENHANCEMENT INVOLVING THE SECOND PROXIMAL PHALANX CONCERNING FOR OSTEOMYELITIS SMALL AMOUNT OF ABNORMAL SIGNAL IN THE HEAD OF THE SECOND METATARSAL WHICH MAY BE REACTIVE IN NATURE. RECOMMEND CONTINUED FOLLOW-UP TO EXCLUDE EARLY OSTEOMYELITIS. Foot X-Ray 05/13/19 14:45 IMPRESSION: No acute fracture or dislocation. No worrisome bone lesions identified. Chest X-Ray 05/13/19 17:38 IMPRESSION: Chronic interstitial changes. No acute cardiopulmonary process copyright 2011 [employer]- All Rights Reserved Assessment & Plan - Diagnosis (1) Osteomyelitis of right foot Is this a current diagnosis for this admission?: Yes Plan: Impression: Right open first ray amputation site granulating reasonably well. Occasion for further debridement. Off antibiotics. No residual infection. Wound healing likely delayed due to peripheral vascular disease diabetes mellitus Recommendations: 1. Can manage on an outpatient basis, local wound care with wet-to-dry dressings. 2. Leg elevation when at rest; no driving; limited ambulation only with surgical boot 3. Patient [facility] on , May [facility], and 330. 4. Discussed the above with hospitalist, and patient. 5. Will sign off at this time, reconsult surgery if indicated. (2) History of left below knee amputation Is this a current diagnosis for this admission?: Yes (3) Diabetes Qualifiers: Diabetes mellitus type: type 2 Diabetes mellitus terminal make up operator insulin use: without terminal make up operator use Diabetes mellitus complication status: with other specified complication Qualified Code(s): E11.69 - Type 2 diabetes mellitus with other specified complication Is this a current diagnosis for this admission?: Yes - Time Time Spent with patient: 15-24 minutes Medications reviewed and adjusted accordingly: Yes Anticipated discharge: Home
--- NOTE | 2019-05-28 12:21 | PDOC DISCHARGE SUMMARY ---
Impression - Admit/DC Date/PCP Admission Date/Primary Care Provider: 05/13/19 17:22 Discharge Date: 05/28/19 - Discharge Diagnosis (1) Osteomyelitis of right foot Is this a current diagnosis for this admission?: Yes (2) Diabetic ulcer of toe Is this a current diagnosis for this admission?: Yes (3) DM type 2 (diabetes mellitus, type 2) Is this a current diagnosis for this admission?: Yes (4) Hypertension Is this a current diagnosis for this admission?: Yes (5) Macrocytic anemia Is this a current diagnosis for this admission?: Yes - Assessment Summary: Patient has had an extended stay in the hospital. Patient had presented with worsening infection in his right lower extremity involving his right toes. MRI done in the ER revealed osteomyelitis of his right first toe as well as abscess extending into his right second toe. Patient was started on IV antibiotics for broad-spectrum coverage and surgery was consulted. On 05/14/2019, patient was taken to the OR for an amputation of his right first and second digits along with the metatarsal heads. Antibiotics were continued subsequently. Wound cultures grew enterococcus, group C streptococcus and Prevotella species. Wound VAC was placed for A few days. Further debridement was done on 05/24/2019. Antibiotics were later discontinued and surgery recommends that is okay for patient to stay off antibiotics at this point as source has been adequately controlled. Patient has been afebrile and off antibiotics for the past few days. Patient has been cleared for discharge from a surgical perspective regarding patient's wound and has been set up to follow-up in the surgical clinic for further wound care on , 05/31/2019 at 330 p.m. Patient also has significant history of noncompliance regarding his diabetes and hypertension. During this hospitalization he has been started on metformin with adequate blood sugar control and also nifedipine and Lopressor for his hypertension. As this has been patient's regimen for most of patient's stay, will discharge patient with prescriptions of these. Also given gabapentin for diabetic neuropathy. Patient has been instructed clearly to continue wet-to-dry dressings every day for his lower extremity wounds as recommended by surgery and to ensure follow-up with his wound care clinic. - Additional Information Resuscitation Status: Full Code Discharge Diet: As Tolerated Discharge Activity: Activity As Tolerated Referrals: MARIA GUADALUPE RECINOS MD [ACTIVE STAFF] - 06/04/19 1:00 pm (12/30 S/P AMPUTATION OF 1ST AND 2ND TOES RIGHT FOOT F/U IN 7-10 DAYS) [facility] [Provider Group] - 05/31/19 3:30 pm Prescriptions: Metformin HCl [Glucophage 500 mg Tablet] 500 mg PO BIDACBS #60 tablet Metoprolol Tartrate [Lopressor 25 mg Tablet] 12.5 mg PO Q12 #30 tablet Polyethylene Glycol 3350 [Miralax Powder 17 gm/Packet] 17 gm PO DAILYP PRN #500 g PRN Reason: Gabapentin [Neurontin 100 mg Capsule] 100 mg PO Q8 30 Days #90 capsule Nifedipine [Procardia XL 30 mg Tablet] 30 mg PO DAILY #30 tab.er.24 Home Medications: Acetaminophen [Tylenol 325 mg Tablet] 650 mg PO Q4HP PRN tablet 05/28/19 Gabapentin [Neurontin 100 mg Capsule] 100 mg PO Q8 30 Days #90 capsule 05/28/19 Metformin HCl [Glucophage 500 mg Tablet] 500 mg PO BIDACBS #60 tablet 05/28/19 Metoprolol Tartrate [Lopressor 25 mg Tablet] 12.5 mg PO Q12 #30 tablet 05/28/19 Nifedipine [Procardia XL 30 mg Tablet] 30 mg PO DAILY #30 tab.er.24 05/28/19 Polyethylene Glycol 3350 [Miralax Powder 17 gm/Packet] 17 gm PO DAILYP PRN #500 g 05/28/19 History of Present Illiness History of Present Illness: MELVI ABDALLA is a 48 year old male [place] male comes in with pain in the right great toe. Patient is somewhat vague on his history but says for between 1 to 2 months now he has noticed that his right foot had an infection of the great toe. Over just in the last few days has the great toe turned black and become somewhat tender to walk on. Patient states that he has been out of his blood pressure medicine and his medicine for diabetes for several months.. Patient had a previous below the knee amputation on the left leg secondary to diabetes.. It was approximately 1 year ago when he is done well from that and has a prosthesis. 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 She states he has no other medical problems besides diabetes and high blood pressure.. Patient states he has been on insulin in the past as well as pills , he states he lives alone.. No known drug allergies. Plain film of the right foot shows no evidence of osteomyelitis.. General surgery, Dr. Sena, as recommended MRI scan of the right lower extremity with and without contrast. Making the patient n.p.o. after midnight. Starting broad-spectrum antibiotics. Even the right foot elevated.. He will be reevaluated following the MRI scan of the right lower extremity. Patient was told that a decision will be made concerning surgery following further diagnostic studies. Physical Exam Vital Signs: Temp Pulse Resp BP Pulse Ox 98.1 F 88 18 151/83 H 100 05/28/19 07:54 05/28/19 07:54 05/28/19 07:54 05/28/19 07:54 05/28/19 07:54 Intake & Output 05/27/19 05/28/19 05/29/19 06:59 06:59 06:59 Intake Total 720 938 Output Total 1120 Balance -400 938 Weight 54.4 kg General appearance: PRESENT: no acute distress, cooperative Neck exam: ABSENT: JVD Respiratory exam: PRESENT: clear to auscultation clarke Cardiovascular exam: PRESENT: +S1, +S2 Extremities exam: PRESENT: other - Right first digit wound and second digit Results Laboratory Results: WBC 8.3 10^3/uL (4.0-10.5) 05/28/19 10:04 RBC 2.82 10^6/uL (4.35-5.55) L 05/28/19 10:04 Hgb 10.1 g/dL (13.5-17.0) L 05/28/19 10:04 Hct 29.3 % (37.9-51.0) L 05/28/19 10:04 MCV 104 fl (80-97) H 05/28/19 10:04 MCH 35.9 pg (27.0-33.4) H 05/28/19 10:04 MCHC 34.5 g/dL (32.0-36.0) 05/28/19 10:04 RDW 12.8 % (11.5-14.0) 05/28/19 10:04 Plt Count 414 10^3/uL (150-450) 05/28/19 10:04 Lymph % (Auto) 18.6 % (13-45) 05/28/19 10:04 [place] % (Auto) 7.7 % (3-13) 05/28/19 10:04 Eos % (Auto) 3.5 % (0-6) 05/28/19 10:04 Baso % (Auto) 1.6 % (0-2) 05/28/19 10:04 Absolute Neuts (auto) 5.7 10^3/uL (1.7-8.2) 05/28/19 10:04 Absolute Lymphs (auto) 1.5 10^3/uL (0.5-4.7) 05/28/19 10:04 Absolute Monos (auto) 0.6 10^3/uL (0.1-1.4) 05/28/19 10:04 Absolute Eos (auto) 0.3 10^3/uL (0.0-0.6) 05/28/19 10:04 Absolute Basos (auto) 0.1 10^3/uL (0.0-0.2) 05/28/19 10:04 Seg Neutrophils % 68.6 % (42-78) 05/28/19 10:04 PT 13.5 SEC (11.4-15.4) 05/14/19 04:46 INR 1.03 05/14/19 04:46 APTT 32.9 SEC (23.5-35.8) 05/13/19 15:00 Sodium 139.4 mmol/L (137-145) 05/28/19 10:04 Potassium 5.1 mmol/L (3.6-5.0) H 05/28/19 10:04 Chloride 109 mmol/L (98-107) H 05/28/19 10:04 Carbon Dioxide 21 mmol/L (22-30) L 05/28/19 10:04 Anion Gap 9 (5-19) 05/28/19 10:04 BUN 18 mg/dL (7-20) 05/28/19 10:04 Creatinine 1.74 mg/dL (0.52-1.25) H 05/28/19 10:04 Est GFR ( Amer) 51 (>60) L 05/28/19 10:04 Est GFR (MDRD) Non-Af 42 (>60) L 05/28/19 10:04 Glucose 178 mg/dL (75-110) H 05/28/19 10:04 POC Glucose 183 mg/dL (70-110) H 05/28/19 11:20 Hemoglobin A1c % 7.2 % (4.7-6.0) H 05/15/19 11:52 Lactic Acid 1.0 mmol/L (0.7-2.1) 05/13/19 21:12 Calcium 9.4 mg/dL (8.4-10.2) 05/28/19 10:04 Magnesium 1.7 mg/dL (1.6-2.3) 05/14/19 04:46 Total Bilirubin 0.6 mg/dL (0.2-1.3) 05/13/19 15:00 Direct Bilirubin 0.4 mg/dL (0.0-0.4) 05/13/19 15:00 Neonat Total Bilirubin Not Reportable 05/13/19 15:00 Neonat Direct Bilirubin Not Reportable 05/13/19 15:00 Neonat Indirect Bili Not Reportable 05/13/19 15:00 AST 35 U/L (17-59) 05/13/19 15:00 ALT 22 U/L (<50) 05/13/19 15:00 Alkaline Phosphatase 123 U/L (38-126) 05/13/19 15:00 Creatine Kinase 164 U/L (55-170) 05/13/19 18:00 Total Protein 7.6 g/dL (6.3-8.2) 05/13/19 15:00 Albumin 3.4 g/dL (3.5-5.0) L 05/13/19 15:00 Vitamin B12 657.0 pg/mL (239-931) 05/23/19 04:51 Urine Color STRAW 05/13/19 18:26 Urine Appearance CLEAR 05/13/19 18:26 Urine pH 5.0 (5.0-9.0) 05/13/19 18:26 Ur Specific [place] 1.004 05/13/19 18:26 Urine Protein 30 mg/dL (NEGATIVE) H 05/13/19 18:26 Urine Glucose (UA) 50 mg/dL (NEGATIVE) H 05/13/19 18:26 Urine Ketones NEGATIVE mg/dL (NEGATIVE) 05/13/19 18:26 Urine Blood MODERATE (NEGATIVE) H 05/13/19 18:26 Urine Nitrite NEGATIVE (NEGATIVE) 05/13/19 18:26 Urine Bilirubin NEGATIVE (NEGATIVE) 05/13/19 18:26 Urine Urobilinogen NEGATIVE mg/dL (<2.0) 05/13/19 18:26 Ur Leukocyte Esterase NEGATIVE (NEGATIVE) 05/13/19 18:26 Urine WBC (Auto) 1 /HPF 05/13/19 18:26 Urine RBC (Auto) 10 /HPF 05/13/19 18:26 Urine Mucus (Auto) RARE /LPF 05/13/19 18:26 Urine Ascorbic Acid NEGATIVE (NEGATIVE) 05/13/19 18:26 Time Trough Drawn 92105/16/19 09:22 Vancomycin Trough 12.4 ug/mL (5.0-20.0) 05/16/19 09:22 Impressions: Lower Extremity MRI 05/13/19 00:00 IMPRESSION: OSTEOMYELITIS INVOLVING THE DISTAL PHALANX OF THE FIRST DIGIT AND THE ADJACENT DISTAL ASPECT OF THE FIRST PROXIMAL PHALANX CELLULITIS OVER THE DORSUM OF THE FOOT AND OVER THE SECOND AND FIRST DIGIT WITH ABSCESS FORMATION ALONG THE SECOND DIGIT WHICH ALSO EXTENDS ALONG THE MEDIAL AND LATERAL MARGINS OF THE head of the second METATARSAL ABNORMAL SIGNAL AND ENHANCEMENT INVOLVING THE SECOND PROXIMAL PHALANX CONCERNING FOR OSTEOMYELITIS SMALL AMOUNT OF ABNORMAL SIGNAL IN THE HEAD OF THE SECOND METATARSAL WHICH MAY BE REACTIVE IN NATURE. RECOMMEND CONTINUED FOLLOW-UP TO EXCLUDE EARLY OSTEOMYELITIS. Foot X-Ray 05/13/19 14:45 IMPRESSION: No acute fracture or dislocation. No worrisome bone lesions identified. Chest X-Ray 05/13/19 17:38 IMPRESSION: Chronic interstitial changes. No acute cardiopulmonary process copyright 2011 [employer]- All Rights Reserved Plan Time Spent: Less than 30 Minutes Stroke Is this a Stroke Patient?: No Acute Heart Failure - Is this a Heart Failure Patient?: No
[2019-05-28 13:23] VITALS: BP 159/91
== END 2019-05-28 13:30 | disposition home or self-care (01) | DRG 617 ==
LOC: EDBD → ER 14:01 → EH 17:22 → 4N 18:10
PROVIDERS: ADMIT Surgery; ATTEND Hospitalist
PROC: 0Y6M0ZB Detachment at Right Foot, Partial 2nd Ray, Open Approach (ICD-10-PCS; 2019-05-14)
PROC: 0Y6M0Z9 Detachment at Right Foot, Partial 1st Ray, Open Approach (ICD-10-PCS; principal; 2019-05-14 16:45)
PROC: 0KBV0ZZ Excision of Right Foot Muscle, Open Approach (ICD-10-PCS; 2019-05-24)
DX: E11.621 Type 2 diabetes mellitus with foot ulcer (principal); M86.171 Other acute osteomyelitis, right ankle and foot; L97.518 Non-pressure chronic ulcer of other part of right foot with other specified severity; E87.1 Hypo-osmolality and hyponatremia; N17.9 Acute kidney failure, unspecified; E11.40 Type 2 diabetes mellitus with diabetic neuropathy, unspecified; B95.2 Enterococcus as the cause of diseases classified elsewhere; B95.4 Other streptococcus as the cause of diseases classified elsewhere; E11.69 Type 2 diabetes mellitus with other specified complication; I10 Essential (primary) hypertension; D53.9 Nutritional anemia, unspecified; B96.89 Other specified bacterial agents as the cause of diseases classified elsewhere; E87.5 Hyperkalemia; J45.909 Unspecified asthma, uncomplicated; F32.9 Major depressive disorder, single episode, unspecified; E66.9 Obesity, unspecified; R51 Headache; Z91.14 Patient's other noncompliance with medication regimen; Z79.84 Long term (current) use of oral hypoglycemic drugs; Z89.512 Acquired absence of left leg below knee; Z79.01 Long term (current) use of anticoagulants
CPT/HCPCS: 01480; 36415; 71045; 80048; 80053; 80202; 81001; 82550; 82565; 82607; 82962; 83036; 83605; 83735; 85025; 85610; 85730; 87040; 87070; 87075; 87077; 87186; 87205; 88305; 88311; 93005; 93010; 93926; 96361; 96365; 96368; 99285; A9576; J0290; J0360; J0696; J1644; J1815; J2250; J2704; J3010; J3370; J3490; J7030; J7060

== ENCOUNTER 2019-06-08 14:25 | Inpatient (IN) | payer OTHER ==
[2019-06-08] MEDS ORDERED: NORMAL SALINE 1000 ML 1,000 ML IV ONE (14:59)
[2019-06-08] MEDS ORDERED: ACETAMINOPHEN 325 MG TABLET PO ONE (15:01)
--- NOTE | 2019-06-08 15:01 | ER Document Report ---
ED Medical Screen (RME) - General Chief Complaint: Wound Infection Stated Complaint: TOE PAIN Time Seen by Provider: 06/08/19 14:53 Primary Care Provider: RANJAN ROSE [Primary Care Provider] - Follow up as needed Information source: Patient Notes: Patient was sent here from the wound care clinic for concern about infected surgical wound. Patient recently had his first and second toes of the right foot amputated. Patient reports that wound appeared to start getting infected yesterday. Patient with fever here today. Patient with malodorous drainage saturating his bandage to the right foot. Patient does have a history of a previous BKA on the left. I have greeted and performed a rapid initial assessment of this patient. A comprehensive ED assessment and evaluation of the patient, analysis of test results and completion of the medical decision making process will be conducted by additional ED providers. TRAVEL OUTSIDE OF THE [place] IN LAST 30 DAYS: No - Related Data Allergies/Adverse Reactions: No Known Allergies Allergy (Verified 06/08/19 14:59) Past Medical History - Past Medical History Cardiac Medical History: Reports: Hx Hypertension Denies: Hx Atrial Fibrillation, Hx Congestive Heart Failure, Hx Coronary Artery Disease, Hx Heart Attack, Hx Hypercholesterolemia, Hx Peripheral Vascular Disease, Hx Pulmonary Embolism, Hx Heart Murmur Pulmonary Medical History: Denies: Hx Asthma, Hx Bronchitis, Hx COPD, Hx Pneumonia, Hx Respiratory Failure, Hx Sleep Apnea, Hx Tuberculosis Neurological Medical History: Denies: Hx Cerebrovascular Accident, Hx Seizures, Hx Parkinson's Disease Endocrine Medical History: Reports: Hx Diabetes Mellitus Type 1, Hx Diabetes Mellitus Type 2. Denies: Hx Graves' Disease, Hx Hyperthyroidism, Hx Hypothyroidism Renal/ Medical History: Denies: Hx Benign Prostatic Hyperplasia, Hx End Stage Renal Disease, Hx Kidney Stones, Hx Peritoneal Dialysis Malignancy Medical History: Denies Hx Leukemia, Denies Hx Lung Cancer GI Medical History: Denies: Hx Crohn's Disease, Hx Gastroesophageal Reflux Disease, Hx Hiatal Hernia, Hx Irritable Bowel, Hx Liver Failure, Hx Pancreatitis, Hx Ulcer Musculoskeltal Medical History: Denies Hx Arthritis, Denies Hx Fibromyalgia, Denies Hx Multiple Sclerosis, Denies Hx Muscular Dystrophy, Denies Hx Systemic Lupus Erythematosus Psychiatric Medical History: Denies: Hx Dementia, Hx Depression Traumatic Medical History: Denies: Hx Fractures Infectious Medical History: Denies: Hx HIV Past Surgical History: Reports: Other - Left below the knee amputation. Denies: Hx Appendectomy, Hx Bowel Surgery, Hx Cholecystectomy, Hx Colostomy, Hx Coronary Artery Bypass Graft, Hx Gastric Bypass Surgery, Hx Herniorrhaphy, Hx Pacemaker, Hx Tonsillectomy - Immunizations Hx Diphtheria, Pertussis, Tetanus Vaccination: Yes Physical Exam - Vital signs Vitals: Temp Pulse Resp BP Pulse Ox 100.5 F H 113 H 16 128/66 H 97 06/08/19 14:47 06/08/19 14:47 06/08/19 14:47 06/08/19 14:47 06/08/19 14:47 - General General appearance: Alert Notes: Malodorous drainage saturating dressing to the right foot Course - Vital Signs Vital signs: Temp Pulse Resp BP Pulse Ox 100.5 F H 113 H 16 128/66 H 97 06/08/19 14:47 06/08/19 14:47 06/08/19 14:47 06/08/19 14:47 06/08/19 14:47 Doctor's Discharge - Discharge Referrals: LOCALMD,NO [Primary Care Provider] - Follow up as needed
[2019-06-08] MEDS ORDERED: ONDANSETRON HCL INJ/PF 4 MG/2 ML SDV IV ONE (15:25)
[2019-06-08 16:04] LABS: INTERNATIONAL RATION (INR) 1.11; PROTHROMBIN TIME 14.3 SEC (11.4-15.4)
[2019-06-08 16:05] LABS: VENOUS BLOOD HCO3 24.5 mmol/L (20-32); VENOUS BLOOD PCO2 38.9 mmHg (35-63); VENOUS BLOOD PH 7.42 (7.30-7.42)
--- NOTE | 2019-06-08 16:13 | RADIOLOGY REPORT (SQ) ---
EXAM DESCRIPTION: CHEST 2 VIEWS COMPLETED DATE/TIME: 06/08/2019 3:55 pm REASON FOR STUDY: fever COMPARISON: AP view of the chest from 05/13/2019 EXAM PARAMETERS: NUMBER OF VIEWS: two views TECHNIQUE: PA and lateral views of the chest were obtained. RADIATION DOSE: NA LIMITATIONS: none FINDINGS: LUNGS AND PLEURA: Chronic diffuse interstitial opacities without a superimposed consolidat ion, pleural effusion or pneumothorax. MEDIASTINUM AND HILAR STRUCTURES: No mediastinal or hilar contour abnormality. HEART AND VASCULAR STRUCTURES: The cardiac silhouette and pulmonary vasculature are within normal chavarria its. BONES: No acute findings. HARDWARE: None in the chest. OTHER: No other finding. IMPRESSION: Chronic diffuse interstitial opacities without a superimposed acute cardiopulmonary proc ess. TECHNICAL DOCUMENTATION: JOB ID: [id number] [employer]- All Rights Reserved Reading location - IP/workstation name: [email or web address]
--- NOTE | 2019-06-08 16:18 | RADIOLOGY REPORT (SQ) ---
EXAM DESCRIPTION: FOOT RIGHT COMPLETE COMPLETED DATE/TIME: 06/08/2019 3:55 pm REASON FOR STUDY: diabetic foot wound, recent amputation COMPARISON: AP, lateral, and oblique views of the right foot from 05/13/2019 NUMBER OF VIEWS: Three views. TECHNIQUE: AP, lateral and oblique views of the right foot were obtained. LIMITATIONS: None. FINDINGS: MINERALIZATION: Osteopenia. BONES: Status post transmetatarsal amputation of the 1st and 2nd toes. The margins of the amputated metatarsals are irregular. There are displaced fractures of the distal 3rd and 4th metatarsals. JOINTS: Soft tissue defect and subcutaneous emphysema in the forefoot. SOFT TISSUES: Soft tissue defect and subcutaneous emphysema in the forefoot. OTHER: Diffuse soft tissue swelling and vascular calcifications. IMPRESSION: Soft tissue defect and subcutaneous emphysema in the forefoot. The margins of the amput ated 1st and 2nd metatarsals are regular. There are displaced fractures of the distal 3rd and 4th me tatarsals. Consider correlation with MRI to exclude a superimposed osteomyelitis. TECHNICAL DOCUMENTATION: JOB ID: [id number] [employer]- All Rights Reserved Reading location - IP/workstation name: [email or web address]
[2019-06-08 16:22] LABS: ALBUMIN 3.3 g/dL (3.5-5.0); ALKALINE PHOSPHATASE 174 U/L (38-126); ANION GAP 18 (5-19); ASPARTATE AMINO TRANSFERASE 35 U/L (17-59); BILIRUBIN,DIRECT 0.5 mg/dL (0.0-0.4); BILIRUBIN,TOTAL 0.5 mg/dL (0.2-1.3); BLOOD UREA NITROGEN 57 mg/dL (7-20); CARBON DIOXIDE 24 mmol/L (22-30); CHLORIDE 86 mmol/L (98-107); GLUCOSE 248 mg/dL (75-110); POTASSIUM 4.9 mmol/L (3.6-5.0); TOTAL PROTEIN 7.5 g/dL (6.3-8.2)
[2019-06-08] MEDS ORDERED: VANCOMYCIN HCL INJ 1000 MG VIAL IV ONE (16:34)
[2019-06-08] MEDS ORDERED: RINGERS SOLUTION,LACTATED 1,000 ML IV ONE (17:20)
--- NOTE | 2019-06-08 17:44 | EKG REPORT ---
SEVERITY:- OTHERWISE NORMAL ECG - SINUS TACHYCARDIA BORDERLINE LEFT AXIS DEVIATION : Confirmed by: Cricket Cee MD 08-Jun-2019 17:43:02
[2019-06-08 19:25] LABS: HEMATOCRIT 21.2 % (37.9-51.0); MEAN CORPUSCULAR HEMOGLOBIN 34.5 pg (27.0-33.4); MEAN CORPUSCULAR HGB CONC 34.7 g/dL (32.0-36.0); PLATELET COUNT 241 10^3/uL (150-450); RED BLOOD COUNT 2.13 10^6/uL (4.35-5.55); RED CELL DISTRIBUTION WIDTH 13.8 % (11.5-14.0); WHITE BLOOD COUNT 17.9 10^3/uL (4.0-10.5)
[2019-06-08 19:33] LABS: HEMOGLOBIN 7.3 g/dL (13.5-17.0)
[2019-06-08 19:34] LABS: MEAN CORPUSCULAR VOLUME 100 fl (80-97)
[2019-06-08] MEDS ORDERED: PANTOPRAZOLE SODIUM 40 MG VIAL IV ONE (20:08)
[2019-06-08 20:23] LABS: ABSOLUTE LYMPHOCYTES# (MANUAL) 0.4 10^3/uL (0.5-4.7); ABSOLUTE MONOCYTES # (MANUAL) 0.9 10^3/uL (0.1-1.4); BASOPHILS % (MANUAL) 0 % (0-2); EOSINOPHILS % (MANUAL) 0 % (0-6); LYMPHOCYTES % (MANUAL) 2 % (13-45); MONOCYTES % (MANUAL) 5 % (3-13); RBC MORPHOLOGY COMMENT NORMO-CYTIC/CHROMIC; SEGMENTED NEUTROPHILS % (MAN) 93 % (42-78); TOTAL CELLS COUNTED 100
[2019-06-08] MEDS ORDERED: DIPHENHYDRAMINE HCL 50 MG/ML VIAL IV ONE (20:23)
[2019-06-08] MEDS ORDERED: METOCLOPRAMIDE HCL INJ/PF 10 MG/2 ML SDV IV ONE (20:23)
[2019-06-08] MEDS ORDERED: CEFEPIME 2 GM/D5W RTU 2 GM/50 ML RTUPB IV ONE (20:24)
[2019-06-08 20:25] LABS: PLATELET COMMENT ADEQUATE
--- NOTE | 2019-06-08 20:29 | ER Document Report ---
ED General - General Chief Complaint: Wound Infection Stated Complaint: TOE PAIN Time Seen by Provider: 06/08/19 14:53 Notes: Patient is a 48-year-old male that comes to the emergency department for chief complaint of fever, pain and purulent drainage from an open ulcer on his right foot, patient states he went to the wound care clinic today and they told him he was too sick so he was sent to the emergency department. Patient also admits th at he has been vomiting for the past 3 days persistently, he states that he has started to see dark in his vomit but he denies anna blood in his vomit. He denies bloody stools. Patient does have a history of alcoholism but denies alcohol over the past week. Patient also has a history of insulin-dependent type 2 diabetes, hypertension, left BKA. TRAVEL OUTSIDE OF THE [place] IN LAST 30 DAYS: No - Related Data Allergies/Adverse Reactions: No Known Allergies Allergy (Verified 06/08/19 14:59) Past Medical History - General Information source: Patient - Social History Smoking Status: Never Smoker Frequency of alcohol use: Heavy Drug Abuse: None Lives with: Alone Family History: Reviewed & Not Pertinent Patient has suicidal ideation: No Patient has homicidal ideation: No - Past Medical History Cardiac Medical History: Reports: Hx Hypertension Denies: Hx Atrial Fibrillation, Hx Congestive Heart Failure, Hx Coronary Artery Disease, Hx Heart Attack, Hx Hypercholesterolemia, Hx Peripheral Vascular Disease, Hx Pulmonary Embolism, Hx Heart Murmur Pulmonary Medical History: Denies: Hx Asthma, Hx Bronchitis, Hx COPD, Hx Pneumonia, Hx Respiratory Failure, Hx Sleep Apnea, Hx Tuberculosis Neurological Medical History: Denies: Hx Cerebrovascular Accident, Hx Seizures, Hx Parkinson's Disease Endocrine Medical History: Reports: Hx Diabetes Mellitus Type 2. Denies: Hx Graves' Disease, Hx Hyperthyroidism, Hx Hypothyroidism Renal/ Medical History: Denies: Hx Benign Prostatic Hyperplasia, Hx End Stage Renal Disease, Hx Kidney Stones, Hx Peritoneal Dialysis Malignancy Medical History: Denies Hx Leukemia, Denies Hx Lung Cancer GI Medical History: Denies: Hx Crohn's Disease, Hx Gastroesophageal Reflux Disease, Hx Hiatal Hernia, Hx Irritable Bowel, Hx Liver Failure, Hx Pa ncreatitis, Hx Ulcer Musculoskeletal Medical History: Denies Hx Arthritis, Denies Hx Fibromyalgia, Denies Hx Multiple Sclerosis, Denies Hx Muscular Dystrophy, Denies Hx Systemic Lupus Erythematosus Psychiatric Medical History: Denies: Hx Dementia, Hx Depression Traumatic Medical History: Denies: Hx Fractures Infectious Medical History: Denies: Hx HIV Past Surgical History: Reports: Other - Left below the knee amputation. Denies: Hx Appendectomy, Hx Bowel Surgery, Hx Cholecystectomy, Hx Colostomy, Hx Coronary Artery Bypass Graft, Hx Gastric Bypass Surgery, Hx Herniorrhaphy, Hx Pacemaker, Hx Tonsillectomy - Immunizations Hx Diphtheria, Pertussis, Tetanus Vaccination: Yes Review of Systems - Review of Systems Constitutional: See HPI EENT: No symptoms reported Cardiovascular: No symptoms reported Respiratory: No symptoms reported Gastrointestinal: See HPI Genitourinary: No symptoms reported Male Genitourinary: No symptoms reported Musculoskeletal: See HPI Skin: See HPI Hematologic/Lymphatic: No symptoms reported Neurological/Psychological: No symptoms reported Physical Exam - Vital signs Vitals: Temp Pulse Resp BP Pulse Ox 100.5 F H 113 H 16 128/66 H 97 06/08/19 14:47 06/08/19 14:47 06/08/19 14:47 06/08/19 14:47 06/08/19 14:47 - Notes Notes: GENERAL: Patient slightly pale, ill-appearing HEAD: Normocephalic, atraumatic. EYES: Pupils equal, round, and reactive to light. Extraocular movements intact. ENT: Oral mucosa dry, tongue midline. Oropharynx unremarkable. Airway patent. NECK: Full range of motion. Supple. Trachea midline. LUNGS: Clear to auscultation bilaterally, no wheezes, rales, or rhonchi. No respiratory distress. HEART: Regular rate and rhythm. No murmur ABDOMEN: Soft, non-tender. Non-distended. Bowel sounds present in all 4 quadrants. GENITOURINARY: No swelling, tenderness, or concerning findings noted RECTAL: Small amount of dark stool. Nontender. No other concerning findings. EXTREMITIES: Left BKA noted. Right foot with a wide area of excision with first and second toes missing over the end of the foot, the area of missing toes has a large open sore with tissue necrosis down to the bone, there is foul-smelling purulent drainage from the area, there is surrounding erythema and swelling. There is a dusky appearance to the third and fourth toes next to this. BACK: no cervical, thoracic, lumbar midline tenderness. No saddle anesthesia, normal distal neurovascular exam. Moves all extremities in full range of motion. NEUROLOGICAL: Alert and oriented x3. Normal speech. Cranial nerves II through XII grossly intact. PSYCH: Normal affect, normal mood. SKIN: Somewhat pale Course - Re-evaluation Re-evalutation: Patient ill-appearing, initially had a low-grade fever, has purulent drainage from large sore where first and second digits of the right foot are missing with foul odor and swelling to the area. Dusky appearance of third and fourth digits as well. There is subcutaneous air on x-ray as well. Patient is on vancomycin and cefepime, will consult general surgery. Patient had just vomited when I entered the room. This was not grossly bloody but was blood-tinged, Gastroccult is positive. I did check patient rectally and there was no gross bleeding but there was a small amount of dark stool which was also Hemoccult positive. Patient is on Protonix bolus and drip now, type and screen has been performed, blood transfusion will be given. Patient is a heavy alcoholic, last alcohol was 2 days ago. Patient is not tremulous or tachycardic at this time, he denies history of withdrawals. Because he is not vomiting gross blood I suspect this is alcoholic gastritis with upper GI bleed but lower suspicion of esophageal varices. Blood pressure is normal. CBC shows leukocytosis at greater than 17,000, hemoglobin is 7.6 with previous being around 10 just over a week ago. Acute renal failure noted with creatinine of 3.6 (previous 1.7). Initial lactic acid was 2.4 BUN is 57 which is suggestive of upper GI bleed but patient also has been vomiting and has dehydration. Patient has 2 [address]. Discussed with Dr. Myrick. I spoke with Dr. Noriega, general surgery, he evaluated the patient at bedside, he states he will be available for surgery for the foot and for endoscopy if needed but he recommends admission to the ICU/tabulating supervisor. I spoke with Dashawn Sarmiento NP telephone supervisor for the tabulating supervisor, he states that he will come evaluate the patient. 06/08/19 21:36 Patient had become mildly hypotensive and then we could not get any additional vascular access after losing the left-sided peripheral IV. Because he only had 1 good access and we need antibiotics, blood transfusion, Protonix, etc. central line will be placed. I placed a right IJ. 06/08/19 22:07 Spoke with Dashawn Sarmiento NP. He requests trended hemoglobin/CBC to help determine which inpatient unit patient should be in. 06/08/19 CBC down trended to hemoglobin of 6.7. Patient has been evaluated by Dashawn Sarmiento NP and is accepted to the ICU under Dr. Stafford. - Vital Signs Vital signs: Temp Pulse Resp BP Pulse Ox 98.2 F 98 23 H 113/71 98 06/09/19 01:25 06/09/19 01:24 06/09/19 04:00 06/09/19 03:50 06/09/19 04:00 - Laboratory Result Diagrams: 06/08/19 22:32 06/09/19 02:03 Laboratory results interpreted by me: 06/08/19 06/08/19 06/08/19 15:35 15:35 19:04 WBC 17.9 H RBC 2.13 L Hgb 7.3 L Hct 21.2 L MCV 100 H D MCH 34.5 H Lymph % (Auto) Absolute Neuts (auto) Absolute Monos (auto) Seg Neutrophils % Seg Neuts % (Manual) 93 H Lymphocytes % (Manual) 2 L Abs Neuts (Manual) 16.6 H Abs Lymphs (Manual) 0.4 L APTT Sodium 127.5 L Chloride 86 L BUN 57 H Creatinine 3.64 H Est GFR ( Amer) 22 L Est GFR (MDRD) Non-Af 18 L Glucose 248 H Lactic Acid 2.4 H Direct Bilirubin 0.5 H Alkaline Phosphatase 174 H Albumin 3.3 L Crossmatch 06/08/19 06/08/19 06/08/19 20:07 21:05 22:32 WBC 16.3 H RBC 1.96 L Hgb 6.7 L Hct 19.5 L MCV 100 H MCH 34.3 H Lymph % (Auto) 7.1 L Absolute Neuts (auto) 13.3 H Absolute Monos (auto) 1.7 H Seg Neutrophils % 81.7 H Seg Neuts % (Manual) Lymphocytes % (Manual) Abs Neuts (Manual) Abs Lymphs (Manual) APTT 40.5 H Sodium Chloride BUN Creatinine Est GFR ( Amer) Est GFR (MDRD) Non-Af Glucose Lactic Acid Direct Bilirubin Alkaline Phosphatase Albumin Crossmatch See Detail Procedures - Central Line right IJ Consent obtained: Yes - verbal Central line pre-insertion: Sterile PPE donned, Chloraprep applied, Sterile d rapes applied Central line lumen type: Triple Anesthetic type: 1% Lidocaine mL's of anesthesia: 4 Ultrasound guided: Yes Line secured with sutures: Yes Central line post-insertion: Blood return from lumens, Biopatch applied, Sutured, Sterile dressing applied, Position confirmed w/ CXR Number of attempts: 1 Complications: No Critical Care Note - Critical Care Note Total time excluding time spent on procedures (mins): 45 - Upper GI bleed, diabetic foot infection, anemia requiring transfusion Comments: Please allow 45 minutes of critical care time excluding time spent on procedures for evaluation and management of very ill patient requiring blood transfusion and Protonix for upper GI bleed, IV fluid resuscitation, and antibiotics for diabetic foot wound with suspected sepsis. Time spent consulting surgeon and discussing with tabulating supervisor services. Time spent admitting to the ICU. Discharge - Discharge Clinical Impression: Upper GI bleed, Anemia requiring transfusions, Alcohol abuse Diabetic foot ulcer Qualifiers: Diabetic foot ulcer location: unspecified part of foot Diabetes mellitus type: type 2 Laterality: right Non-pressure ulcer stage: with necrosis of muscle Qualified Code(s): E11.621 - Type 2 diabetes mellitus with foot ulcer Fever Qualifiers: Fever type: unspecified Qualified Code(s): R50.9 - Fever, unspecified Hypotension Qualifiers: Hypotension type: unspecified hypotension type Qualified Code(s): I95.9 - Hypotension, unspecified Acute renal failure Qualifiers: Acute renal failure type: unspecified Qualified Code(s): N17.9 - Acute kidney failure, unspecified Condition: Serious Disposition: ADMITTED INPATIENT Admitting Provider: Nydia (Administrative Aide) - Dashawn Sarmiento NP Unit Admitted: ICU
[2019-06-08] MEDS ORDERED: NORMAL SALINE 250 ML IV PRN ×2 (20:36)
[2019-06-08] MEDS: PANTOPRAZOLE SODIUM 40 MG VIAL IV PRN (20:38)
[2019-06-08 20:47] LABS: ALCOHOL < 10 mg/dL (NONE DETECTED)
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
--- NOTE | 2019-06-08 22:01 | RADIOLOGY REPORT (SQ) ---
EXAM DESCRIPTION: XR CHEST 1 VIEW COMPLETED DATE/TME: 06/08/2019 21:34 CLINICAL HISTORY: 48 years, Male, post central line COMPARISON: 05/13/2019 chest NUMBER OF VIEWS: 1 TECHNIQUE: Portable chest LIMITATIONS: None. FINDINGS: Heart size is stable. Central venous catheter with the tip likely in the cavoatrial junction, possibly proximal right atrium. No pneumothorax. Minor fibrotic change bilaterally IMPRESSION: Tip of the central line likely in the cavoatrial junction or proximal right atrium. copyright 2010 [employer]- All Rights Reserved
[2019-06-08 22:47] LABS: ABSOLUTE BASOPHILS # (AUTO) 0.1 10^3/uL (0.0-0.2); ABSOLUTE LYMPHOCYTES (AUTO) 1.2 10^3/uL (0.5-4.7); ABSOLUTE MONOCYTES (AUTO) 1.7 10^3/uL (0.1-1.4); ABSOLUTE NEUT (AUTO) 13.3 10^3/uL (1.7-8.2); BASOPHILS % (AUTO) 0.5 % (0-2); EOSINOPHILS % (AUTO) 0.1 % (0-6); HEMATOCRIT 19.5 % (37.9-51.0); LYMPHOCYTES % (AUTO) 7.1 % (13-45); MEAN CORPUSCULAR HEMOGLOBIN 34.3 pg (27.0-33.4); MEAN CORPUSCULAR HGB CONC 34.5 g/dL (32.0-36.0); MEAN CORPUSCULAR VOLUME 100 fl (80-97); MONOCYTES % (AUTO) 10.6 % (3-13); PLATELET COUNT 228 10^3/uL (150-450); RED BLOOD COUNT 1.96 10^6/uL (4.35-5.55); RED CELL DISTRIBUTION WIDTH 13.5 % (11.5-14.0); SEGMENTED NEUTROPHILS % (AUTO) 81.7 % (42-78); TOTAL CELLS COUNTED % (AUTO) 100 %; WHITE BLOOD COUNT 16.3 10^3/uL (4.0-10.5)
[2019-06-08 22:51] LABS: HEMOGLOBIN 6.7 g/dL (13.5-17.0)
[2019-06-08] MEDS ORDERED: DEXTROSE 40% GEL 15 GM TUBE PO PRN ×2 (23:08)
[2019-06-08] MEDS ORDERED: DEXTROSE 50%-WATER 25 GM/50 ML DISP.SYRIN IV PRN ×2 (23:08)
[2019-06-08] MEDS ORDERED: GLUCAGON,HUMAN RECOMB 1 MG INJ IM PRN (23:08)
[2019-06-08] MEDS ORDERED: NORMAL SALINE INJ/PF 0.9% 10 ML SDV IV PRN (23:33)
[2019-06-09] MEDS ORDERED: INFLUENZA QUAD (6MOS+) 2019-20 VAC 0.5 ML SYR IM ONE (01:58)
[2019-06-09] MEDS: NORMAL SALINE 1000 ML 1,000 ML IV PRN ×2 (02:14→11:47)
[2019-06-09 02:27] LABS: ANION GAP 10 (5-19); BLOOD UREA NITROGEN 57 mg/dL (7-20); CARBON DIOXIDE 23 mmol/L (22-30); CHLORIDE 96 mmol/L (98-107); CREATINE KINASE 36 U/L (55-170); GLUCOSE 160 mg/dL (75-110); PHOSPHORUS 4.4 mg/dL (2.5-4.5)
[2019-06-09] MEDS: INSULIN REG, HUMAN 100 UNIT/ML 3 ML VIAL (PYX) SUBCUT SCH ×7 (02:54→21:45)
[2019-06-09] MEDS: PANTOPRAZOLE SODIUM 40 MG VIAL IV PRN ×2 (04:00→17:36)
[2019-06-09] MEDS ORDERED: CEFEPIME 1 GM/D5W RTU 1 GM/50 ML RTUPB IV ONE (04:30)
[2019-06-09] MEDS: CLINDAMYCIN 900 MG/D5W RTU 900 MG/50 ML RTUPB IV SCH ×3 (06:48→21:44)
[2019-06-09 07:07] LABS: HEMATOCRIT 26.8 % (37.9-51.0); MEAN CORPUSCULAR HEMOGLOBIN 32.2 pg (27.0-33.4); MEAN CORPUSCULAR HGB CONC 34.6 g/dL (32.0-36.0); PLATELET COUNT 247 10^3/uL (150-450); RED BLOOD COUNT 2.88 10^6/uL (4.35-5.55); RED CELL DISTRIBUTION WIDTH 18.9 % (11.5-14.0); WHITE BLOOD COUNT 18.1 10^3/uL (4.0-10.5)
[2019-06-09 07:10] LABS: HEMOGLOBIN 9.3 g/dL (13.5-17.0); MEAN CORPUSCULAR VOLUME 93 fl (80-97)
[2019-06-09] MEDS ORDERED: BUPIVACAINE HCL 0.25 % INJ/PF (2.5 MG/1 ML) 30 ML VIAL ONE (09:14)
[2019-06-09] MEDS ORDERED: KETAMINE HCL INJ 500 MG/10 ML VIAL ONE (09:14)
[2019-06-09] MEDS ORDERED: FENTANYL CITRATE INJ/PF 100 MCG/2 ML AMPUL ONE (09:14)
[2019-06-09] MEDS ORDERED: PROPOFOL INJ 200 MG/20 ML VIAL IV ONE (09:15)
[2019-06-09] MEDS ORDERED: MIDAZOLAM 2 MG/2 ML INJ ONE (09:15)
--- NOTE | 2019-06-09 09:23 | PDOC PROGRESS REPORT ---
Subjective Progress Note for:: 06/09/19 Subjective:: This is a 48-year-old male with a severe diabetic foot infection of the right foot. He has a history of alcoholism, and anemia. Patient has persistent elevation of his white count. He has necrotic tissue extending from the midfoot, to approximately the heel. There is purulent material emanating from the foot.. The patient is febrile, and complains of pain in the foot. He denies chest pain, shortness of breath. Currently he is experiencing acute renal insufficiency, likely due to his sepsis. His glucose appears to be under control. He is hyponatremic as well. Reason For Visit: GASTROINTESTINAL BLEEDING, SEPSIS Physical Exam Vital Signs: Temp Pulse Resp BP Pulse Ox 101.2 F H 108 H 20 126/61 H 99 06/09/19 08:52 06/09/19 08:52 06/09/19 08:52 06/09/19 08:52 06/09/19 08:52 Intake & Output 06/08/19 06/09/19 06/10/19 06:59 06:59 06:59 Intake Total 2820 Output Total 800 120 Balance 2019 Weight 75.6 kg General appearance: PRESENT: cooperative, disheveled Head exam: PRESENT: atraumatic, normocephalic Eye exam: PRESENT: EOMI, PERRLA. ABSENT: scleral icterus Mouth exam: PRESENT: neck supple Neck exam: ABSENT: meningismus, tenderness, thyromegaly, tracheal deviation Respiratory exam: PRESENT: unlabored. ABSENT: tachypnea, wheezes Cardiovascular exam: PRESENT: tachycardia GI/Abdominal exam: PRESENT: soft. ABSENT: distended, firm, rebound, tenderness Rectal exam: PRESENT: deferred Extremities exam: PRESENT: other - Left BKA present. Right foot with necrotic tissue, open wound, purulent material emanating from the wound, and necrosis of the skin of the plantar aspect of the foot, to the heel. Neurological exam: PRESENT: alert, awake, oriented to person, oriented to place, oriented to time, oriented to situation Psychiatric exam: PRESENT: anxious. ABSENT: agitated, depressed Focused psych exam: ABSENT: delusional Skin exam: ABSENT: cyanosis, erythema, jaundice Results Laboratory Results: 06/09/19 06:08 06/08/19 06/08/19 06/08/19 15:35 15:35 15:35 WBC Cancelled RBC Cancelled Hgb Cancelled Hct Cancelled MCV Cancelled MCH Cancelled MCHC Cancelled RDW Cancelled Plt Count Cancelled Seg Neutrophils % Cancelled VBG pH 7.42 VBG pCO2 38.9 VBG HCO3 24.5 VBG Base Excess 0 Sodium 127.5 L Potassium 4.9 Chloride 86 L Carbon Dioxide 24 Anion Gap 18 BUN 57 H Creatinine 3.64 H Est GFR ( Amer) 22 L Glucose 248 H Lactic Acid Calcium 9.0 Phosphorus Magnesium Total Bilirubin 0.5 AST 35 Alkaline Phosphatase 174 H Total Protein 7.5 Albumin 3.3 L Lipase Blood Type Antibody Screen 06/08/19 06/08/19 06/08/19 15:35 19:04 19:04 WBC 17.9 H RBC 2.13 L Hgb 7.3 L Hct 21.2 L MCV 100 H D MCH 34.5 H MCHC 34.7 RDW 13.8 Plt Count 241 Seg Neutrophils % Not Reportable VBG pH VBG pCO2 VBG HCO3 VBG Base Excess Sodium Potassium Chloride Carbon Dioxide Anion Gap BUN Creatinine Est GFR ( Amer) Glucose Lactic Acid 2.4 H 1.0 Calcium Phosphorus Magnesium Total Bilirubin AST Alkaline Phosphatase Total Protein Albumin Lipase Blood Type Antibody Screen 06/08/19 06/08/19 06/08/19 19:54 20:07 21:05 WBC RBC Hgb Hct MCV MCH MCHC RDW Plt Count Seg Neutrophils % VBG pH VBG pCO2 VBG HCO3 VBG Base Excess Sodium Potassium Chloride Carbon Dioxide Anion Gap BUN Creatinine Est GFR ( Amer) Glucose Lactic Acid 1.0 Calcium Phosphorus Magnesium Total Bilirubin AST Alkaline Phosphatase Total Protein Albumin Lipase 113.3 Blood Type O POSITIVE Antibody Screen NEGATIVE 06/08/19 06/09/19 06/09/19 22:32 02:03 06:08 WBC 16.3 H 18.1 H RBC 1.96 L 2.88 L Hgb 6.7 L 9.3 L D Hct 19.5 L 26.8 L MCV 100 H 93 D MCH 34.3 H 32.2 MCHC 34.5 34.6 RDW 13.5 18.9 H Plt Count 228 247 Seg Neutrophils % 81.7 H VBG pH VBG pCO2 VBG HCO3 VBG Base Excess Sodium 128.9 L Potassium 4.0 Chloride 96 L Carbon Dioxide 23 Anion Gap 10 BUN 57 H Creatinine 3.32 H Est GFR ( Amer) 24 L Glucose 160 H Lactic Acid Calcium 8.0 L Phosphorus 4.4 Magnesium 2.2 Total Bilirubin AST Alkaline Phosphatase Total Protein Albumin Lipase Blood Type Antibody Screen 06/08/19 15:35 Blood Blood Culture (PCR) - Final Streptococcus Species Staphylococcus Aureus 06/09/19 02:03 Creatine Kinase 36 L Impressions: Foot X-Ray 06/08/19 14:59 IMPRESSION: Soft tissue defect and subcutaneous emphysema in the forefoot. The margins of the amputated 1st and 2nd metatarsals are regular. There are displaced fractures of the distal 3rd and 4th metatarsals. Consider correlation with MRI to exclude a superimposed osteomyelitis. Chest X-Ray 06/08/19 21:34 IMPRESSION: Tip of the central line likely in the cavoatrial junction or proximal right atrium. copyright 2011 [employer]- All Rights Reserved Assessment & Plan - Diagnosis (1) Foot abscess, right Is this a current diagnosis for this admission?: Yes (2) Sepsis due to undetermined organism Is this a current diagnosis for this admission?: Yes (3) Uncontrolled diabetes mellitus Qualifiers: Diabetes mellitus type: type 2 Is this a current diagnosis for this admission?: Yes - Time Time Spent with patient: Less than 15 minutes - Plan Summary Plan Summary: This is a 48-year-old male with a severe diabetic foot infection, history of alcoholism, acute renal insufficiency (likely due to sepsis), hyponatremia, acute on chronic anemia. The patient has a severely septic foot, causing systemic sepsis. I do not believe there is any way to salvage the foot. I have recommended amputation of the foot for source control. After source control has been obtained, and his medical status has improved, he will require formalization of his below-knee amputation. This has been discussed with the patient. I have given him several options, including medical treatment with antibiotics and watchful waiting. I discussed the risks and benefits of all of these options. The patient is requesting amputation be performed, to relieve his sepsis, and improve his overall clinical status. Informed consent was obtained from the patient, and all of his questions were answered. Patient was offered a pharmacy intake coordinator, but declined.
[2019-06-09 09:24] LABS: ANION GAP 15 (5-19); BLOOD UREA NITROGEN 52 mg/dL (7-20); CALCIUM 7.9 mg/dL (8.4-10.2); CARBON DIOXIDE 20 mmol/L (22-30); CHLORIDE 98 mmol/L (98-107); GLUCOSE 130 mg/dL (75-110); POTASSIUM 4.3 mmol/L (3.6-5.0)
[2019-06-09] MEDS ORDERED: METOCLOPRAMIDE HCL INJ/PF 10 MG/2 ML SDV ONE (09:27)
--- NOTE | 2019-06-09 09:27 | CRITICAL CARE ADMISSION REPORT ---
HPI Date:: 06/08/19 Time:: 21:50 Reason for ICU Reason:: Sepsis, Gastrointestinal bleeding HPI: Mr Hendrix is a 48 year-old male with a past medical history of hypert ension, type 2 diabetes, left BKA last year, and a right diabetic foot wound for which she is 1 month status post debridement noting polymicrobial infection and osteomyelitis which was reportedly managed on an outpatient basis. Patient presented to [facility] complaining of fever, pain, and malodorous purulent drainage from his right foot wound for which he was referred to the hospital from his wound care clinic today. Patient endorses that he has had nausea with vomiting during the daytime for the past 3 days, denying any bloody or coffee-ground appearance, making it a point to inform me that he was able to sleep at night. He reports he vomits any food or liquids he attempts to drink. He denies dark tarry stools or bright red blood per rectum, also denying a change in bowel habits. To note, patient has a history of alcoholism and reports his last drink being 2 days prior to being seen in the ER overnight. Mr. Hendrix was started on a Protonix infusion in the emergency department as he was witnessed to have an episode of blood-tinged emesis by the ER physician with a positive Gastroccult, as well as being Hemoccult positive. Notable labs indicate leukocytosis with a lactatemia, anemia, and CAROLIN on CKD. Patient will be admitted to the ICU monitoring for ongoing gastrointestinal bleeding, receive a blood transfusion and IV fluids for hydration in attempt to improve CAROLIN, and will likely go for surgery later today for right BKA +/- endoscopy per surgery consultation. History obtained from:: Patient, ER physician, medical record - Diagnosis/Plan (1) Sepsis due to undetermined organism Is this a current diagnosis for this admission?: Yes Plan: Start empiric antibiotics to include vancomycin, cefepime, clindamycin for right diabetic foot wound with gangrene, cellulitis, and possible osteomyelitis. F/U blood Cx's; narrow Abx as able based on Cx's obtained intraop as well as BC's. Hydration with IV fluids. (2) Diabetic foot ulcer associated with type 2 diabetes mellitus Qualifiers: Diabetic foot ulcer location: unspecified part of foot Laterality: right Is this a current diagnosis for this admission?: Yes Plan: OR later today for BKA. Empiric Abx as above for now. (3) Uncontrolled diabetes mellitus with hyperglycemia Qualifiers: Diabetes mellitus type: type 2 Qualified Code(s): E11.65 - Type 2 diabetes mellitus with hyperglycemia Is this a current diagnosis for this admission?: Yes Plan: Start ISS to keep capillary glucose <180. Check HgbA1c (4) Acute kidney injury superimposed on CKD Is this a current diagnosis for this admission?: Yes Plan: Likely due to ATN from nausea/vomiting and poor PO intake for several days. Hydration with IV fluids and 2 PRBC's. Trend serum BUN/Cr prn; monitor UOP. Will place indwelling urinary catheter if markers continue to increase; will likely return from OR with escalante later otherwise. Strict I&O (5) Alcoholism /alcohol abuse Is this a current diagnosis for this admission?: Yes Plan: Start Thiamine/Folate; monitor for Wernicke's encephalopathy. Monitor need for CIWA. Provide cessation counseling prior to discharge. (6) Anemia Qualifiers: Anemia type: unspecified type Qualified Code(s): D64.9 - Anemia, unspecified Plan: Repeat H&H post transfusion; check Hgb prn monitoring for ongoing GI bleeding. (7) Hyponatremia Is this a current diagnosis for this admission?: Yes Plan: Multifactorial from alcoholism, dehydration, as well as bacterial infection of right foot with subcutaneous gas on x-ray. Slowly correct with hydration, monitor serum Na+ to ensure hyponatremia not worsening which could indicate a worsening/ascending bacterial infection of the foot. (8) Hypochloremia Is this a current diagnosis for this admission?: Yes Plan: Likely from dehydration. (9) Leukocytosis Qualifiers: Leukocytosis type: bandemia Qualified Code(s): D72.825 - Bandemia Is this a current diagnosis for this admission?: Yes Plan: as above (10) Fever Qualifiers: Fever type: unspecified Qualified Code(s): R50.9 - Fever, unspecified Is this a current diagnosis for this admission?: Yes Past Medical History Cardiac Medical History: Reports: Hypertension Denies: Atrial Fibrillation, Congestive Heart Failure, Coronary Artery Disease, Myocardial Infarction, Hyperlipidema, Peripheral Vascular Disease, Pulmonary Embolism, Heart Murmur Pulmonary Medical History: Denies: Asthma, Bronchitis, Chronic Obstructive Pulmonary Disease (COPD), Pneumonia, Respiratory Failure, Sleep Apnea, Tuberculosis EENT Medical History: Reports: None Neurological Medical History: Reports: None Endocrine Medical History: Reports: Diabetes Mellitus Type 2 Denies: Hyperthyroidism, Hypothyroidism Renal/ Medical History: Reports: Chronic Kidney Disease Denies: End Stage Renal Disease Malignancy Medical History: Reports: None GI Medical History: Denies: Cirrhosis, Crohn's Disease, Diverticulitis, Gastroesophageal Reflux Disease, Hepatitis, Hiatal Hernia, Peptic Ulcer Disease, Ulcerative Colitis Musculoskeltal Medical History: Denies: Arthritis, Fibromyalgia Skin Medical History: Reports: Other - diabetic foot ulcers Psychiatric Medical History: Reports: Alcohol Dependency Denies: Dementia, Depression Traumatic Medical History: Reports: None Hematology: Reports: Anemia Denies: Hemophilia, Sickle Cell Disease Infectious Medical History: Denies: Hepatitis B, Hepatitis C, HIV Past Surgical History Past Surgical History: Reports: Other - Left BKA. Right foot debridement with 1st/2nd toe amputation. Denies: Appendectomy, Cholecystectomy, Colostomy, Coronary Artery Bypass Graft, Gastric Bypass Surgery, Herniorrhaphy, Pacemaker, Tonsillectomy Social/Family History - Social History Occupation: Drives a tractor Lives with: Alone Smoking Status: Unknown if Ever Smoked Frequency of Alcohol Use: Heavy - drinks beer daily but somehow thinks he is not an alcoholic given he no longer drinks liquor. Last Alcohol Use: 06/07/19 Hx Recreational Drug Use: No Drugs: None Hx Prescription Drug Abuse: No - Family History Family History: DM, Hypertension - Medication/Allergies Allergies/Adverse Reactions: No Known Allergies Allergy (Verified 06/08/19 14:59) Review of Systems Constitutional: PRESENT: fever(s), other - "just don't feel well". ABSENT: chills, fatigue, headache(s) Eyes: ABSENT: visual disturbances Ears: ABSENT: hearing changes Nose, Mouth, and Throat: ABSENT: mouth pain, sore throat Cardiovascular: ABSENT: chest pain, dyspnea on exertion, palpitations Respiratory: ABSENT: cough, dyspnea, hemoptysis, sputum Gastrointestinal: PRESENT: as per HPI Genitourinary: ABSENT: dysuria, hematuria Integumentary: PRESENT: wounds - "right foot pain and smells" Neurological: ABSENT: confusion, dizziness, syncope, vertigo Psychiatric: ABSENT: anxiety, depression, hallucinations Endocrine: ABSENT: cold intolerance, heat intolerance Hematologic/Lymphatic: ABSENT: lymphadenopathy Physical Exam Vital Signs: Temp Pulse Resp BP Pulse Ox 98.4 F 113 H 20 99/62 L 97 06/08/19 20:13 06/08/19 14:47 06/08/19 19:00 06/08/19 21:00 06/08/19 21:01 Intake & Output 06/07/19 06/08/19 06/09/19 06:59 06:59 06:59 Intake Total 2049 Balance 2049 Weight 76.1 kg Weight/Height Weight 76.1 kg Height 5 ft 3 in General appearance: PRESENT: no acute distress, cooperative, well-nourished Head exam: PRESENT: atraumatic, normocephalic Eye exam: PRESENT: conjunctiva pink, EOMI, PERRLA. ABSENT: scleral icterus Ear exam: PRESENT: normal external ear exam. ABSENT: drainage Mouth exam: PRESENT: moist, neck supple, tongue midline Throat exam: ABSENT: post pharyngeal erythema Neck exam: PRESENT: full ROM. ABSENT: JVD, lymphadenopathy, tenderness, tracheal deviation Respiratory exam: PRESENT: clear to auscultation clarke, unlabored. ABSENT: accessory muscle use, wheezes Cardiovascular exam: PRESENT: RRR, +S1, +S2. ABSENT: gallop, rubs, systolic murmur Pulses: PRESENT: normal carotid pulses, normal radial pulses, normal femoral pulses Vascular exam: PRESENT: normal capillary refill - with exception of gangrenous R 3rd/4th toes GI/Abdominal exam: PRESENT: normal bowel sounds, soft. ABSENT: distended, guarding, Bautista's sign, rebound, tenderness Rectal exam: PRESENT: deferred Extremities exam: PRESENT: joint swelling - right foot, pedal edema - right foot, tenderness - right foot, other - right foot erythematous. ABSENT: clubbing Neurological exam: PRESENT: alert, awake, oriented to person, oriented to place, oriented to time, oriented to situation, CN II-XII grossly intact Psychiatric exam: PRESENT: appropriate affect Skin exam: PRESENT: warm, other - normal skin with exception of R foot which is erythematous with wet gangrene to foot wound and dry gangrene to 3rd/4th digits Tubes/Lines: PRESENT: Central Line - placed 06/08/2019 in ED Laboratory/Radiographs Laboratory Results: 06/08/19 22:32 06/08/19 15:35 06/08/19 06/08/19 06/08/19 15:35 15:35 15:35 WBC Cancelled RBC Cancelled Hgb Cancelled Hct Cancelled MCV Cancelled MCH Cancelled MCHC Cancelled RDW Cancelled Plt Count Cancelled Seg Neutrophils % Cancelled VBG pH 7.42 VBG pCO2 38.9 VBG HCO3 24.5 VBG Base Excess 0 Sodium 127.5 L Potassium 4.9 Chloride 86 L Carbon Dioxide 24 Anion Gap 18 BUN 57 H Creatinine 3.64 H Est GFR ( Amer) 22 L Glucose 248 H Lactic Acid Calcium 9.0 Total Bilirubin 0.5 AST 35 Alkaline Phosphatase 174 H Total Protein 7.5 Albumin 3.3 L Lipase Blood Type Antibody Screen 06/08/19 06/08/19 06/08/19 15:35 19:04 19:04 WBC 17.9 H RBC 2.13 L Hgb 7.3 L Hct 21.2 L MCV 100 H D MCH 34.5 H MCHC 34.7 RDW 13.8 Plt Count 241 Seg Neutrophils % Not Reportable VBG pH VBG pCO2 VBG HCO3 VBG Base Excess Sodium Potassium Chloride Carbon Dioxide Anion Gap BUN Creatinine Est GFR ( Amer) Glucose Lactic Acid 2.4 H 1.0 Calcium Total Bilirubin AST Alkaline Phosphatase Total Protein Albumin Lipase Blood Type Antibody Screen 06/08/19 06/08/19 06/08/19 19:54 20:07 21:05 WBC RBC Hgb Hct MCV MCH MCHC RDW Plt Count Seg Neutrophils % VBG pH VBG pCO2 VBG HCO3 VBG Base Excess Sodium Potassium Chloride Carbon Dioxide Anion Gap BUN Creatinine Est GFR ( Amer) Glucose Lactic Acid 1.0 Calcium Total Bilirubin AST Alkaline Phosphatase Total Protein Albumin Lipase 113.3 Blood Type O POSITIVE Antibody Screen NEGATIVE 06/08/19 22:32 WBC 16.3 H RBC 1.96 L Hgb 6.7 L Hct 19.5 L MCV 100 H MCH 34.3 H MCHC 34.5 RDW 13.5 Plt Count 228 Seg Neutrophils % 81.7 H VBG pH VBG pCO2 VBG HCO3 VBG Base Excess Sodium Potassium Chloride Carbon Dioxide Anion Gap BUN Creatinine Est GFR ( Amer) Glucose Lactic Acid Calcium Total Bilirubin AST Alkaline Phosphatase Total Protein Albumin Lipase Blood Type Antibody Screen Impressions: Foot X-Ray 06/08/19 14:59 IMPRESSION: Soft tissue defect and subcutaneous emphysema in the forefoot. The margins of the amputated 1st and 2nd metatarsals are regular. There are displaced fractures of the distal 3rd and 4th metatarsals. Consider correlation with MRI to exclude a superimposed osteomyelitis. Chest X-Ray 06/08/19 21:34 IMPRESSION: Tip of the central line likely in the cavoatrial junction or proximal right atrium. copyright 2011 [employer]- All Rights Reserved EKG: sinus tachycardia without evidence of cardiac ischemia/infarction All labs, radiographs, diagnostic studies and EKGs were personally reviewed: Yes Critical Time Critical Time (minutes): 60 -: The care of a critically ill patient is dynamic. This note represents a static moment in the admission process. Orders and treatments may be given simultaneously and urgently, and time is not sales representative womens health of the treatment process. This patient requires Critical Care secondary to life threatening organ or limb dysfunction. Without Critical Care services, the patient is at risk for increased mortality and morbidity.
[2019-06-09] MEDS ORDERED: FENTANYL CITRATE INJ/PF 100 MCG/2 ML AMPUL IV PRN ×3 (09:43)
[2019-06-09] MEDS ORDERED: MEPERIDINE HCL/PF INJ 25 MG/1 ML DISP.SYRIN IV PRN (09:43)
[2019-06-09] MEDS ORDERED: DIPHENHYDRAMINE HCL 50 MG/ML VIAL IV PRN (09:43)
[2019-06-09] MEDS ORDERED: PROMETHAZINE HCL INJ 25 MG/1 ML VIAL IV PRN (09:43)
[2019-06-09] MEDS ORDERED: MORPHINE SULFATE 10 MG/ML INJ IV PRN (09:43)
[2019-06-09] MEDS ORDERED: FOLIC ACID INJ 5 MG/1 ML 10 ML VIAL IV SCH (10:00)
[2019-06-09] MEDS ORDERED: ACETAMINOPHEN 1,000 MG/100 ML RTUPB IV ONE (10:28)
[2019-06-09] MEDS ORDERED: POLYETHYLENE GLYCOL 119 GM PO PRN (10:56)
[2019-06-09] MEDS: CEFEPIME 1 GM/D5W RTU 1 GM/50 ML RTUPB IV SCH ×3 (11:45→20:23)
[2019-06-09] MEDS ORDERED: POLYETHYLENE GLYCOL 3350 POWDER 17 GM/1 PACKET PO PRN (12:00)
[2019-06-09] MEDS: FOLIC ACID 1 MG in NORMAL SALINE 50 ML IV SCH (12:51)
[2019-06-09] MEDS: THIAMINE HCL 100 MG in NORMAL SALINE 50 ML IV SCH ×2 (12:51→17:15)
[2019-06-09 13:07] LABS: HEMATOCRIT 23.6 % (37.9-51.0); HEMOGLOBIN 8.1 g/dL (13.5-17.0); MEAN CORPUSCULAR HEMOGLOBIN 31.9 pg (27.0-33.4); MEAN CORPUSCULAR HGB CONC 34.3 g/dL (32.0-36.0); MEAN CORPUSCULAR VOLUME 93 fl (80-97); PLATELET COUNT 230 10^3/uL (150-450); RED BLOOD COUNT 2.53 10^6/uL (4.35-5.55); RED CELL DISTRIBUTION WIDTH 18.7 % (11.5-14.0); WHITE BLOOD COUNT 14.6 10^3/uL (4.0-10.5)
--- NOTE | 2019-06-09 13:36 | PDOC CRITICAL CARE PROG REPORT ---
General Date:: 06/09/19 ICU Day:: 2 Hospital Day:: 2 Resuscitation Status: Full Code Events in the past 12 to 24 Hours:: Taken to OR for guillotin amputation of R foot. Review of systems relevant to events:: CV, GI Reason for ICU Addmission:: Sepsis, Gastrointestinal bleeding - Medications: Medications reviewed and adjusted accordingly: Yes Vasopressors:: None Sedation:: None Physical Exam Vital Signs: Temp Pulse Resp BP Pulse Ox 98.1 F 93 17 105/65 99 06/09/19 12:00 06/09/19 12:00 06/09/19 12:00 06/09/19 12:00 06/09/19 12:00 Intake & Output 06/08/19 06/09/19 06/10/19 06:59 06:59 06:59 Intake Total 2820 1500 Output Total 800 120 Balance 2019 1380 Weight 75.6 kg Weight/Height Weight 75.6 kg Height 5 ft 6 in General appearance: PRESENT: cooperative Head exam: PRESENT: atraumatic, normocephalic Eye exam: PRESENT: conjunctiva pink, EOMI, PERRLA. ABSENT: scleral icterus Ear exam: PRESENT: normal external ear exam Mouth exam: PRESENT: moist, tongue midline Respiratory exam: PRESENT: clear to auscultation clarke. ABSENT: rales, rhonchi, wheezes Cardiovascular exam: PRESENT: tachycardia GI/Abdominal exam: PRESENT: normal bowel sounds, soft. ABSENT: distended, guarding, mass, organolmegaly, rebound, tenderness Rectal exam: PRESENT: deferred Extremities exam: PRESENT: other - L old BKA. R with obviously infected toes. Great toe missing, base draining. Erythema on sole and up 50% of side of foot. Neurological exam: PRESENT: alert, awake, oriented to person, oriented to place, oriented to time, oriented to situation, CN II-XII grossly intact. ABSENT: motor sensory deficit Skin exam: PRESENT: dry, intact, warm. ABSENT: cyanosis, rash Laboratory/Radiographs Laboratory Results: 06/09/19 06:08 06/09/19 08:43 06/08/19 06/08/19 06/08/19 15:35 15:35 15:35 WBC Cancelled RBC Cancelled Hgb Cancelled Hct Cancelled MCV Cancelled MCH Cancelled MCHC Cancelled RDW Cancelled Plt Count Cancelled Seg Neutrophils % Cancelled VBG pH 7.42 VBG pCO2 38.9 VBG HCO3 24.5 VBG Base Excess 0 Sodium 127.5 L Potassium 4.9 Chloride 86 L Carbon Dioxide 24 Anion Gap 18 BUN 57 H Creatinine 3.64 H Est GFR ( Amer) 22 L Glucose 248 H Lactic Acid Calcium 9.0 Phosphorus Magnesium Total Bilirubin 0.5 AST 35 Alkaline Phosphatase 174 H Total Protein 7.5 Albumin 3.3 L Lipase Blood Type Antibody Screen 06/08/19 06/08/19 06/08/19 15:35 19:04 19:04 WBC 17.9 H RBC 2.13 L Hgb 7.3 L Hct 21.2 L MCV 100 H D MCH 34.5 H MCHC 34.7 RDW 13.8 Plt Count 241 Seg Neutrophils % Not Reportable VBG pH VBG pCO2 VBG HCO3 VBG Base Excess Sodium Potassium Chloride Carbon Dioxide Anion Gap BUN Creatinine Est GFR ( Amer) Glucose Lactic Acid 2.4 H 1.0 Calcium Phosphorus Magnesium Total Bilirubin AST Alkaline Phosphatase Total Protein Albumin Lipase Blood Type Antibody Screen 06/08/19 06/08/19 06/08/19 19:54 20:07 21:05 WBC RBC Hgb Hct MCV MCH MCHC RDW Plt Count Seg Neutrophils % VBG pH VBG pCO2 VBG HCO3 VBG Base Excess Sodium Potassium Chloride Carbon Dioxide Anion Gap BUN Creatinine Est GFR ( Amer) Glucose Lactic Acid 1.0 Calcium Phosphorus Magnesium Total Bilirubin AST Alkaline Phosphatase Total Protein Albumin Lipase 113.3 Blood Type O POSITIVE Antibody Screen NEGATIVE 06/08/19 06/09/19 06/09/19 22:32 02:03 06:08 WBC 16.3 H 18.1 H RBC 1.96 L 2.88 L Hgb 6.7 L 9.3 L D Hct 19.5 L 26.8 L MCV 100 H 93 D MCH 34.3 H 32.2 MCHC 34.5 34.6 RDW 13.5 18.9 H Plt Count 228 247 Seg Neutrophils % 81.7 H VBG pH VBG pCO2 VBG HCO3 VBG Base Excess Sodium 128.9 L Potassium 4.0 Chloride 96 L Carbon Dioxide 23 Anion Gap 10 BUN 57 H Creatinine 3.32 H Est GFR ( Amer) 24 L Glucose 160 H Lactic Acid Calcium 8.0 L Phosphorus 4.4 Magnesium 2.2 Total Bilirubin AST Alkaline Phosphatase Total Protein Albumin Lipase Blood Type Antibody Screen 06/09/19 08:43 WBC RBC Hgb Hct MCV MCH MCHC RDW Plt Count Seg Neutrophils % VBG pH VBG pCO2 VBG HCO3 VBG Base Excess Sodium 132.5 L Potassium 4.3 Chloride 98 Carbon Dioxide 20 L Anion Gap 15 BUN 52 H Creatinine 3.30 H Est GFR ( Amer) 24 L Glucose 130 H Lactic Acid Calcium 7.9 L Phosphorus Magnesium Total Bilirubin AST Alkaline Phosphatase Total Protein Albumin Lipase Blood Type Antibody Screen 06/08/19 15:35 Blood Blood Culture (PCR) - Final Streptococcus Species Staphylococcus Aureus 06/09/19 02:03 Creatine Kinase 36 L Impressions: Foot X-Ray 06/08/19 14:59 IMPRESSION: Soft tissue defect and subcutaneous emphysema in the forefoot. The margins of the amputated 1st and 2nd metatarsals are regular. There are displaced fractures of the distal 3rd and 4th metatarsals. Consider correlation with MRI to exclude a superimposed osteomyelitis. Chest X-Ray 06/08/19 21:34 IMPRESSION: Tip of the central line likely in the cavoatrial junction or proximal right atrium. copyright 2011 [employer]- All Rights Reserved All labs, radiographs, diagnostic studies and EKGs were personally reviewed: Yes In addition, reports of radiographic and diagnostic studies were read: Yes Assessment and Plan - Diagnosis (1) Diabetic foot ulcer associated with type 2 diabetes mellitus Qualifiers: Diabetic foot ulcer location: unspecified part of foot Laterality: right Is this a current diagnosis for this admission?: Yes Plan: Large, non healing, infected and needs deridement and amputation in OR. Dr. German to take this AM. (2) Fever Qualifiers: Fever type: unspecified Qualified Code(s): R50.9 - Fever, unspecified Is this a current diagnosis for this admission?: Yes Plan: Secondary to foot infection, bacteremia and sepsis. (3) Upper GI bleed Is this a current diagnosis for this admission?: Yes Plan: Hemoglobin still dropping even after 2 units of RBCs. no obvious bleeding, pt on a protonix drip. Re check CBC at 4P today. (4) CAROLIN (acute kidney injury) Is this a current diagnosis for this admission?: Yes Plan: Continue hydration. Cr 3.3. Baseline about 1. Sepsis, anemia and infection also likely contributor. Treat infection and rehydrate. Avoid nephrotoxic medications and recheck labs in AM (5) Anemia Qualifiers: Anemia type: unspecified type Qualified Code(s): D64.9 - Anemia, unspecified Is this a current diagnosis for this admission?: Yes Plan: Seems to be blood loss possibly from a GI bleed. (6) History of left below knee amputation Is this a current diagnosis for this admission?: Yes Plan: With an amputation now on the R his ability to drive, his job, is definitely in question. (7) Osteomyelitis of right foot Qualifiers: Osteomyelitis type: other chronic Qualified Code(s): M86.671 - Other chronic osteomyelitis, right ankle and foot Is this a current diagnosis for this admission?: Yes Plan: From his diabetes. (8) Sepsis Qualifiers: Sepsis type: methicillin resistant Staphylococcus aureus Sepsis acute organ dysfunction status: with acute organ dysfunction Severe sepsis acute organ dysfunction type: acute renal failure Acute renal failure type: with acute renal cortical necrosis Severe sepsis shock status: without septic shock Qualified Code(s): A41.02 - Sepsis due to Methicillin resistant Staphylococcus aureus; R65.20 - Severe sepsis without septic shock; N17.1 - Acute kidney failure with acute cortical necrosis Is this a current diagnosis for this admission?: Yes Plan: With HR 113 and temp of 100.8, WBC of 17 on admission he qualifies for SIRS. With an obvious infection in R foot this is sepsis. Organ dysfunction with Cr 3.3, lactate over 2.0, is severe sepsis. Treat with debridement/amputation and antibiotics and fluid (9) Bacteremia Is this a current diagnosis for this admission?: Yes Plan: Same as for sepsis. Plan Summary: To OR for debridement/amputation. Critical Time Critical Time (minutes): 40 Level of Care: ICU Anticipated discharge: Home Within: Other - Too soon to say. -: 1. The care of a critical patient is a dynamic process. This note is a sales development representative synopsis but static in nature. The timeframe for treatments given in order is not necessarily the actual time these treatments may have been done. 2. This patient requires critical care secondary to ongoing requirements for therapy not offered or safe outside the critical care environment. Transfer to a lower level of care will result in altered life or limb morbidity and mortality. 3. Multidisciplinary rounds completed. 4. ABCDE bundle addressed.
[2019-06-09] MEDS: GABAPENTIN 300 MG CAPSULE PO SCH ×2 (14:08→21:45)
[2019-06-09] MEDS: MORPHINE SULFATE 10 MG/ML INJ IV PRN ×2 (14:09→20:23)
--- NOTE | 2019-06-09 14:46 | Operative Report ---
Nonrecallable Operative Report DATE OF SURGERY: 06/09/19 PREOPERATIVE DIAGNOSIS: 1. severe diabetic foot infection on right. 2. uncontrolled diabetes. 3. severe sepsis POSTOPERATIVE DIAGNOSIS: same as above OPERATION: Guillotine amputation of the right foot and ankle SURGEON: NATHALIA ANTONIO ANESTHESIA: LMAC TISSUE REMOVED OR ALTERED: Right foot and ankle COMPLICATIONS: None apparent ESTIMATED BLOOD LOSS: 200 cc PROCEDURE: Drains/implants: 4 x 4 gauze soaked in Betadine packed into the distal wound. Procedure in detail: After informed consent was obtained, the patient was brought to the operating room and laid in the supine position. The area of the right foot, ankle, and calf were prepped and draped in a normal sterile fashion. An incision was created over the dorsum of the right foot. Dissection was carried all the way down to the bone, sharply. The dorsalis pedis artery was transected. It was suture ligated using 0 silk suture. Skin flap was then created proximally to expose the distal tibia and fibula, above the ankle. A similar posterior flap was also created. The posterior tibial artery was encountered during this dissection, and ligated with 0 silk suture. Once the skin flaps were raised, the distal tibia and fibula, above the ankle was transected using a reciprocating bone saw. The foot and ankle were then passed off the field. Hemostasis was ensured using electrocautery. A 4 x 4 soaked in Betadine was then packed into the wound. The skin was loosely approximated over the 4 x 4 gauze using 0 silk suture in [id number] fashion. Next, a pressure dressing was created using gauze, Kerlix, and Coban. At this time, the procedure was concluded. All sponge, instrument, and needle counts were correct X2. Condition: Fair.
[2019-06-09] MEDS ORDERED: VANCOMYCIN HCL 1,500 MG in DEXTROSE 5%-WATER 250 ML IV SCH (18:00)
[2019-06-09 19:00] LABS: HEMATOCRIT 21.5 % (37.9-51.0); MEAN CORPUSCULAR HEMOGLOBIN 32.1 pg (27.0-33.4); MEAN CORPUSCULAR HGB CONC 34.2 g/dL (32.0-36.0); MEAN CORPUSCULAR VOLUME 94 fl (80-97); PLATELET COUNT 225 10^3/uL (150-450); RED BLOOD COUNT 2.29 10^6/uL (4.35-5.55); WHITE BLOOD COUNT 12.2 10^3/uL (4.0-10.5)
[2019-06-09 19:03] LABS: HEMOGLOBIN 7.4 g/dL (13.5-17.0)
[2019-06-09] MEDS ORDERED: NORMAL SALINE 1000 ML 1,000 ML IV PRN (20:10)
[2019-06-10] MEDS: INSULIN REG, HUMAN 100 UNIT/ML 3 ML VIAL (PYX) SUBCUT SCH ×6 (01:34→22:06)
[2019-06-10] MEDS: THIAMINE HCL 100 MG in NORMAL SALINE 50 ML IV SCH ×3 (01:34→19:51)
[2019-06-10] MEDS: CEFEPIME 1 GM/D5W RTU 1 GM/50 ML RTUPB IV SCH ×4 (02:44→22:05)
[2019-06-10] MEDS: PANTOPRAZOLE SODIUM 40 MG VIAL IV PRN (02:45)
[2019-06-10] MEDS ORDERED: PANTOPRAZOLE SODIUM 40 MG VIAL IV PRN (03:00)
[2019-06-10 03:03] LABS: ABSOLUTE EOSINOPHILS # (AUTO) 0.3 10^3/uL (0.0-0.6); ABSOLUTE LYMPHOCYTES (AUTO) 0.9 10^3/uL (0.5-4.7); ABSOLUTE MONOCYTES (AUTO) 1.2 10^3/uL (0.1-1.4); ABSOLUTE NEUT (AUTO) 9.1 10^3/uL (1.7-8.2); BASOPHILS % (AUTO) 0.3 % (0-2); EOSINOPHILS % (AUTO) 2.3 % (0-6); HEMATOCRIT 21.5 % (37.9-51.0); LYMPHOCYTES % (AUTO) 7.7 % (13-45); MEAN CORPUSCULAR HGB CONC 34.1 g/dL (32.0-36.0); MEAN CORPUSCULAR VOLUME 94 fl (80-97); MONOCYTES % (AUTO) 10.2 % (3-13); PLATELET COUNT 224 10^3/uL (150-450); RED BLOOD COUNT 2.29 10^6/uL (4.35-5.55); RED CELL DISTRIBUTION WIDTH 19.1 % (11.5-14.0); SEGMENTED NEUTROPHILS % (AUTO) 79.5 % (42-78); TOTAL CELLS COUNTED % (AUTO) 100 %; WHITE BLOOD COUNT 11.4 10^3/uL (4.0-10.5)
[2019-06-10 03:07] LABS: HEMOGLOBIN 7.3 g/dL (13.5-17.0)
[2019-06-10 03:17] LABS: ANION GAP 8 (5-19); BLOOD UREA NITROGEN 44 mg/dL (7-20); CALCIUM 7.4 mg/dL (8.4-10.2); CARBON DIOXIDE 22 mmol/L (22-30); CHLORIDE 105 mmol/L (98-107); GLUCOSE 106 mg/dL (75-110)
[2019-06-10] MEDS ORDERED: NORMAL SALINE 100 ML with PANTOPRAZOLE SODIUM 80 MG IV PRN ×2 (03:20)
[2019-06-10] MEDS: GABAPENTIN 300 MG CAPSULE PO SCH ×3 (05:52→22:06)
[2019-06-10] MEDS: CLINDAMYCIN 900 MG/D5W RTU 900 MG/50 ML RTUPB IV SCH ×3 (05:53→22:05)
[2019-06-10] MEDS: RINGERS SOLUTION,LACTATED 1,000 ML IV PRN ×2 (05:54→19:35)
[2019-06-10] MEDS: HYDROCODONE/ACETAMINOPHEN 10-325 MG TABLET PO PRN ×4 (07:30→23:33)
[2019-06-10] MEDS: FOLIC ACID 1 MG in NORMAL SALINE 50 ML IV SCH (07:31)
--- NOTE | 2019-06-10 09:47 | PDOC PROGRESS REPORT ---
Subjective Progress Note for:: 06/10/19 Reason For Visit: GASTROINTESTINAL BLEEDING, SEPSIS Physical Exam Vital Signs: Temp Pulse Resp BP Pulse Ox 98.1 F 89 18 124/80 100 06/10/19 08:00 06/10/19 08:00 06/10/19 08:00 06/10/19 08:00 06/10/19 08:00 Intake & Output 06/09/19 06/10/19 06/11/19 06:59 06:59 06:59 Intake Total 2820 4280.2 100 Output Total 800 1895 300 Balance 2019 2385.2 -200 Weight 75.6 kg 74.5 kg Results Laboratory Results: 06/10/19 02:50 06/10/19 02:50 06/09/19 06/09/19 06/10/19 12:45 18:15 02:50 WBC 14.6 H 12.2 H RBC 2.53 L 2.29 L Hgb 8.1 L 7.4 L Hct 23.6 L 21.5 L MCV 93 94 MCH 31.9 32.1 MCHC 34.3 34.2 RDW 18.7 H 19.0 H Plt Count 230 225 Seg Neutrophils % Sodium 135.3 L Potassium 4.0 Chloride 105 Carbon Dioxide 22 Anion Gap 8 BUN 44 H Creatinine 2.78 H Est GFR ( Amer) 30 L Glucose 106 Calcium 7.4 L 06/10/19 02:50 WBC 11.4 H RBC 2.29 L Hgb 7.3 L Hct 21.5 L MCV 94 MCH 32.0 MCHC 34.1 RDW 19.1 H Plt Count 224 Seg Neutrophils % 79.5 H Sodium Potassium Chloride Carbon Dioxide Anion Gap BUN Creatinine Est GFR ( Amer) Glucose Calcium 06/08/19 15:35 Blood Blood Culture (PCR) - Final Streptococcus Species Staphylococcus Aureus 06/09/19 02:03 Creatine Kinase 36 L Impressions: Foot X-Ray 06/08/19 14:59 IMPRESSION: Soft tissue defect and subcutaneous emphysema in the forefoot. The margins of the amputated 1st and 2nd metatarsals are regular. There are displaced fractures of the distal 3rd and 4th metatarsals. Consider correlation with MRI to exclude a superimposed osteomyelitis. Chest X-Ray 06/08/19 21:34 IMPRESSION: Tip of the central line likely in the cavoatrial junction or proximal right atrium. copyright 2011 [employer]- All Rights Reserved Assessment & Plan - Diagnosis (1) Foot abscess, right Is this a current diagnosis for this admission?: Yes (2) Sepsis due to undetermined organism Is this a current diagnosis for this admission?: Yes (3) Uncontrolled diabetes mellitus Qualifiers: Diabetes mellitus type: type 2 Is this a current diagnosis for this admission?: Yes - Time Time Spent with patient: Less than 15 minutes - Plan Summary Plan Summary: This is a 48-year-old male status post guillotine amputation of the right foot and ankle. The patient's overall clinical status has improved significantly. He is no longer febrile, he is no longer tachycardic, and he is feeling better. Plan for formalization of his right below-knee amputation tomorrow. Risks/benefits discussed, informed consent obtained, and all questions answered.
--- NOTE | 2019-06-10 12:18 | PDOC CRITICAL CARE PROG REPORT ---
General Date:: 06/10/19 ICU Day:: 2 Hospital Day:: 2 Resuscitation Status: Full Code Events in the past 12 to 24 Hours:: To OR for guillotine amputation of foot. Fever down. Review of systems relevant to events:: Endocrine, GI Reason for ICU Addmission:: Sepsis, Gastrointestinal bleeding - Medications: Medications reviewed and adjusted accordingly: Yes Vasopressors:: None Sedation:: None Physical Exam Vital Signs: Temp Pulse Resp BP Pulse Ox 98.1 F 89 15 124/80 97 06/10/19 08:00 06/10/19 08:00 06/10/19 10:00 06/10/19 08:36 06/10/19 10:00 Intake & Output 06/09/19 06/10/19 06/11/19 06:59 06:59 06:59 Intake Total 2820 4280.2 400 Output Total 800 1895 700 Balance 2019 2385.2 -300 Weight 75.6 kg 74.5 kg Weight/Height Weight 74.5 kg Height 5 ft 6 in General appearance: PRESENT: no acute distress, well-developed, well-nourished Head exam: PRESENT: atraumatic, normocephalic Eye exam: PRESENT: conjunctiva pink, EOMI, PERRLA. ABSENT: scleral icterus Ear exam: PRESENT: normal external ear exam Mouth exam: PRESENT: moist, tongue midline Respiratory exam: PRESENT: clear to auscultation clarke. ABSENT: rales, rhonchi, w heezes Cardiovascular exam: PRESENT: RRR. ABSENT: diastolic murmur, rubs, systolic murmur GI/Abdominal exam: PRESENT: normal bowel sounds, soft. ABSENT: distended, guarding, mass, organolmegaly, rebound, tenderness Rectal exam: PRESENT: deferred Extremities exam: PRESENT: other - Old BKA on L side. New amputation of foot on R. Non skin erythema, wound dressed. Neurological exam: PRESENT: alert, awake, oriented to person, oriented to place, oriented to time, oriented to situation, CN II-XII grossly intact. ABSENT: motor sensory deficit Skin exam: PRESENT: dry, intact, warm. ABSENT: cyanosis, rash Laboratory/Radiographs Laboratory Results: 06/10/19 02:50 06/10/19 02:50 06/09/19 06/09/19 06/10/19 12:45 18:15 02:50 WBC 14.6 H 12.2 H RBC 2.53 L 2.29 L Hgb 8.1 L 7.4 L Hct 23.6 L 21.5 L MCV 93 94 MCH 31.9 32.1 MCHC 34.3 34.2 RDW 18.7 H 19.0 H Plt Count 230 225 Seg Neutrophils % Sodium 135.3 L Potassium 4.0 Chloride 105 Carbon Dioxide 22 Anion Gap 8 BUN 44 H Creatinine 2.78 H Est GFR ( Amer) 30 L Glucose 106 Calcium 7.4 L 06/10/19 02:50 WBC 11.4 H RBC 2.29 L Hgb 7.3 L Hct 21.5 L MCV 94 MCH 32.0 MCHC 34.1 RDW 19.1 H Plt Count 224 Seg Neutrophils % 79.5 H Sodium Potassium Chloride Carbon Dioxide Anion Gap BUN Creatinine Est GFR ( Amer) Glucose Calcium 06/08/19 15:35 Blood Blood Culture (PCR) - Final Streptococcus Species Staphylococcus Aureus 06/09/19 02:03 Creatine Kinase 36 L Impressions: Foot X-Ray 06/08/19 14:59 IMPRESSION: Soft tissue defect and subcutaneous emphysema in the forefoot. The margins of the amputated 1st and 2nd metatarsals are regular. There are d isplaced fractures of the distal 3rd and 4th metatarsals. Consider correlation with MRI to exclude a superimposed osteomyelitis. Chest X-Ray 06/08/19 21:34 IMPRESSION: Tip of the central line likely in the cavoatrial junction or proximal right atrium. copyright 2010 [employer]- All Rights Reserved All labs, radiographs, diagnostic studies and EKGs were personally reviewed: Yes In addition, reports of radiographic and diagnostic studies were read: Yes Assessment and Plan - Diagnosis (1) Diabetic foot ulcer associated with type 2 diabetes mellitus Qualifiers: Diabetic foot ulcer location: unspecified part of foot Laterality: right Is this a current diagnosis for this admission?: Yes Plan: Treated now by guillotine amputation. he will likely need closure perhaps formal BKA later. (2) Fever Qualifiers: Fever type: unspecified Qualified Code(s): R50.9 - Fever, unspecified Is this a current diagnosis for this admission?: Yes Plan: Resolved (3) Upper GI bleed Is this a current diagnosis for this admission?: Yes Plan: I see no evidence H/H is down post op but likely due to surgery. Patient on diabetic diet. No bleeding. (4) CAROLIN (acute kidney injury) Is this a current diagnosis for this admission?: Yes Plan: Improved but not resolved with Cr now 2.8. (5) Anemia Qualifiers: Anemia type: unspecified type Qualified Code(s): D64.9 - Anemia, unspecified Is this a current diagnosis for this admission?: Yes Plan: Hgb low at 7.3 but no need to transfuse. (6) History of left below knee amputation Is this a current diagnosis for this admission?: Yes Plan: Chronic (7) Osteomyelitis of right foot Qualifiers: Osteomyelitis type: other chronic Qualified Code(s): M86.671 - Other chronic osteomyelitis, right ankle and foot Is this a current diagnosis for this admission?: Yes Plan: Resolved with surgery. (8) Sepsis Qualifiers: Sepsis type: methicillin resistant Staphylococcus aureus Sepsis acute organ dysfunction status: with acute organ dysfunction Severe sepsis acute organ dysfunction type: acute renal failure Acute renal failure type: with acute renal cortical necrosis Severe sepsis shock status: without septic shock Qualified Code(s): A41.02 - Sepsis due to Methicillin resistant Staphylococcus aureus; R65.20 - Severe sepsis without septic shock; N17.1 - Acute kidney failure with acute cortical necrosis Is this a current diagnosis for this admission?: Yes Plan: Resolved. (9) Bacteremia Is this a current diagnosis for this admission?: Yes Plan: Bacteremia commits him to 7 days of IV antibiotics. Plan Summary: Continue antibiotics. Post op care and further surgery per Dr. German and surgical team. Transfer to floor. Critical Time Critical Time (minutes): 30 Level of Care: MEDICAL Anticipated discharge: Home with Homehealth Within: Other - Too soon to tell. -: 1. The care of a critical patient is a dynamic process. This note is a re presentative synopsis but static in nature. The timeframe for treatments given in order is not necessarily the actual time these treatments may have been done. 2. This patient requires critical care secondary to ongoing requirements for therapy not offered or safe outside the critical care environment. Transfer to a lower level of care will result in altered life or limb morbidity and mortalit y. 3. Multidisciplinary rounds completed. 4. ABCDE bundle addressed.
[2019-06-10] MEDS: PANTOPRAZOLE SODIUM 40 MG TABLET.DR PO SCH (16:30)
[2019-06-10] MEDS ORDERED: VANCOMYCIN HCL INJ 500 MG VIAL IV SCH (17:00)
--- NOTE | 2019-06-10 18:59 | Progress Note ---
Provider Note Provider Note: 06/10/2019 Hospitalist were asked to assume the care of a patient, long with general surgery , transferred from ICU. Patient was admitted to the ICU on 06/08/2019 diagnosis of sepsis and possible GI bleeding. No evidence of active GI bleeding. Appears as though the patient however had a surgical problem secondary to uptake right foot. On 06/09/2019 the patient went to the OR where a guillotine amputation of the right foot and ankle was performed. Probably occurred primarily from severe diabetes. Patient was transferred to the floor today from the ICU in stable condition This afternoon patient's temperature is 98.1 pulse is 93 blood pressure 135/66 O2 sat 100% on room air On admission WBCs were 17.9 today they were 11.4 Hemoglobin is stable at 7.3 BUN on admission was 57 today is down to 44 Creatinine on admission was 3.64 today is down to 2.78 Hemoglobin A1c on admission was 6.9, glucose numbers are running around 150 Blood cultures are growing out a strep and staph however methacillin resistant gene is negative Patient is currently on clindamycin and cefepime and vancomycin was ordered today Sensitivities will be completed tomorrow according to micro. Patient appears hemodynamically stable
[2019-06-10] MEDS ORDERED: VANCOMYCIN HCL 750 MG in DEXTROSE 5%-WATER 250 ML IV SCH (22:00)
[2019-06-10 22:57] LABS: VANCOMYCIN,TROUGH 16.7 ug/mL (5.0-20.0)
[2019-06-11] MEDS: THIAMINE HCL 100 MG in NORMAL SALINE 50 ML IV SCH ×3 (02:26→18:01)
[2019-06-11] MEDS: CEFEPIME 1 GM/D5W RTU 1 GM/50 ML RTUPB IV SCH (03:46)
[2019-06-11] MEDS: HYDROCODONE/ACETAMINOPHEN 10-325 MG TABLET PO PRN ×3 (05:13→18:00)
[2019-06-11] MEDS: GABAPENTIN 300 MG CAPSULE PO SCH ×3 (05:15→21:32)
[2019-06-11] MEDS: CLINDAMYCIN 900 MG/D5W RTU 900 MG/50 ML RTUPB IV SCH ×3 (05:15→21:31)
[2019-06-11] MEDS: PANTOPRAZOLE SODIUM 40 MG TABLET.DR PO SCH ×2 (05:15→16:22)
[2019-06-11 05:54] LABS: ABSOLUTE EOSINOPHILS # (AUTO) 0.3 10^3/uL (0.0-0.6); ABSOLUTE LYMPHOCYTES (AUTO) 1.4 10^3/uL (0.5-4.7); ABSOLUTE MONOCYTES (AUTO) 0.9 10^3/uL (0.1-1.4); ABSOLUTE NEUT (AUTO) 8.4 10^3/uL (1.7-8.2); BASOPHILS % (AUTO) 0.4 % (0-2); EOSINOPHILS % (AUTO) 3.1 % (0-6); HEMATOCRIT 22.7 % (37.9-51.0); LYMPHOCYTES % (AUTO) 12.4 % (13-45); MEAN CORPUSCULAR HEMOGLOBIN 32.2 pg (27.0-33.4); MEAN CORPUSCULAR HGB CONC 34.2 g/dL (32.0-36.0); MEAN CORPUSCULAR VOLUME 94 fl (80-97); MONOCYTES % (AUTO) 7.9 % (3-13); PLATELET COUNT 288 10^3/uL (150-450); RED BLOOD COUNT 2.41 10^6/uL (4.35-5.55); RED CELL DISTRIBUTION WIDTH 18.9 % (11.5-14.0); SEGMENTED NEUTROPHILS % (AUTO) 76.2 % (42-78); TOTAL CELLS COUNTED % (AUTO) 100 %; WHITE BLOOD COUNT 11.1 10^3/uL (4.0-10.5)
[2019-06-11 05:55] LABS: HEMOGLOBIN 7.8 g/dL (13.5-17.0)
[2019-06-11 06:37] LABS: ANION GAP 6 (5-19); BLOOD UREA NITROGEN 30 mg/dL (7-20); CALCIUM 7.7 mg/dL (8.4-10.2); CARBON DIOXIDE 22 mmol/L (22-30); CHLORIDE 108 mmol/L (98-107); GLUCOSE 143 mg/dL (75-110); POTASSIUM 4.2 mmol/L (3.6-5.0)
[2019-06-11] MEDS: INSULIN REG, HUMAN 100 UNIT/ML 3 ML VIAL (PYX) SUBCUT SCH ×4 (07:34→21:30)
[2019-06-11] MEDS ORDERED: SUCCINYLCHOLINE CHLORIDE INJ 200 MG/10 ML VIAL ONE (09:40)
[2019-06-11] MEDS: FOLIC ACID 1 MG in NORMAL SALINE 50 ML IV SCH (09:52)
[2019-06-11] MEDS ORDERED: CEFEPIME 1 GM/D5W RTU 1 GM/50 ML RTUPB IV SCH (10:00)
[2019-06-11] MEDS: RINGERS SOLUTION,LACTATED 1,000 ML IV PRN ×2 (10:17→23:53)
[2019-06-11 12:17] LABS: INTERNATIONAL RATION (INR) 1.06; PROTHROMBIN TIME 13.8 SEC (11.4-15.4)
[2019-06-11 12:18] LABS: PARTIAL THROMBOPLASTIN TIME 31.8 SEC (23.5-35.8)
[2019-06-11] MEDS ORDERED: KETAMINE HCL INJ 500 MG/10 ML VIAL ONE (12:24)
[2019-06-11] MEDS ORDERED: FENTANYL CITRATE INJ/PF 100 MCG/2 ML AMPUL ONE (12:24)
[2019-06-11] MEDS ORDERED: ONDANSETRON HCL INJ/PF 4 MG/2 ML SDV ONE (12:25)
[2019-06-11] MEDS ORDERED: MIDAZOLAM 2 MG/2 ML INJ ONE (12:25)
[2019-06-11] MEDS ORDERED: PROPOFOL INJ 200 MG/20 ML VIAL IV ONE (12:25)
[2019-06-11] MEDS ORDERED: FENTANYL CITRATE INJ/PF 100 MCG/2 ML AMPUL IV PRN ×3 (13:20)
[2019-06-11] MEDS ORDERED: MORPHINE SULFATE 10 MG/ML INJ IV PRN (13:20)
[2019-06-11] MEDS ORDERED: PROMETHAZINE HCL INJ 25 MG/1 ML VIAL IV PRN ×2 (13:20)
[2019-06-11] MEDS ORDERED: MEPERIDINE HCL/PF INJ 25 MG/1 ML DISP.SYRIN IV PRN (13:20)
[2019-06-11] MEDS ORDERED: ONDANSETRON HCL INJ/PF 4 MG/2 ML SDV IV PRN (13:20)
[2019-06-11] MEDS ORDERED: DIPHENHYDRAMINE HCL 50 MG/ML VIAL IV PRN (13:20)
--- NOTE | 2019-06-11 14:39 | PDOC PROGRESS REPORT ---
Subjective Progress Note for:: 06/11/19 Reason For Visit: GASTROINTESTINAL BLEEDING, SEPSIS Physical Exam Vital Signs: Temp Pulse Resp BP Pulse Ox 98.3 F 85 18 146/78 H 95 06/11/19 10:38 06/11/19 10:38 06/11/19 10:38 06/11/19 10:38 06/11/19 10:38 Intake & Output 06/10/19 06/11/19 06/12/19 06:59 06:59 06:59 Intake Total 4280.2 3553.2 450 Output Total 1895 3000 450 Balance 2385.2 553.2 0 Weight 74.5 kg 74.5 kg Results Laboratory Results: 06/11/19 05:30 06/11/19 05:30 06/08/19 06/11/19 06/11/19 20:07 05:30 05:30 WBC 11.1 H RBC 2.41 L Hgb 7.8 L Hct 22.7 L MCV 94 MCH 32.2 MCHC 34.2 RDW 18.9 H Plt Count 288 Seg Neutrophils % 76.2 Sodium 136.1 L Potassium 4.2 Chloride 108 H Carbon Dioxide 22 Anion Gap 6 BUN 30 H Creatinine 2.52 H Est GFR ( Amer) 33 L Glucose 143 H Calcium 7.7 L Blood Type O POSITIVE Antibody Screen NEGATIVE 06/08/19 15:35 Blood Blood Culture (PCR) - Final Streptococcus Species Staphylococcus Aureus 06/08/19 17:53 Blood Blood Culture (PCR) - Final Staphylococcus Aureus 06/09/19 02:03 Creatine Kinase 36 L Impressions: Foot X-Ray 06/08/19 14:59 IMPRESSION: Soft tissue defect and subcutaneous emphysema in the forefoot. The margins of the amputated 1st and 2nd metatarsals are regular. There are displaced fractures of the distal 3rd and 4th metatarsals. Consider correlation with MRI to exclude a superimposed osteomyelitis. Chest X-Ray 06/08/19 21:34 IMPRESSION: Tip of the central line likely in the cavoatrial junction or proximal right atrium. copyright 2011 [employer]- All Rights Reserved Assessment & Plan - Diagnosis (1) Foot abscess, right Is this a current diagnosis for this admission?: Yes (2) Sepsis due to undetermined organism Is this a current diagnosis for this admission?: Yes (3) Uncontrolled diabetes mellitus Qualifiers: Diabetes mellitus type: type 2 Is this a current diagnosis for this admission?: Yes - Time Time Spent with patient: Less than 15 minutes - Plan Summary Plan Summary: This is a 48-year-old male status post guillotine amputation of the right foot and ankle. The patient's overall clinical status has improved significantly. He is no longer febrile, he is no longer tachycardic, and he is feeling better. Plan for formalization of his right below-knee amputation today. Risks/benefits discussed, informed consent obtained, and all questions answered.
--- NOTE | 2019-06-11 14:51 | Operative Report ---
Nonrecallable Operative Report DATE OF SURGERY: 06/11/19 PREOPERATIVE DIAGNOSIS: 1. Septic right foot. 2. Severe sepsis POSTOPERATIVE DIAGNOSIS: Same as above. OPERATION: Right below-knee amputation SURGEON: NATHALIA ANTONIO ANESTHESIA: Spinal TISSUE REMOVED OR ALTERED: Right lower leg COMPLICATIONS: None apparent ESTIMATED BLOOD LOSS: 100 cc PROCEDURE: Indication for the procedure: This is a 48-year-old uncontrolled diabetic who presented with severe sepsis due to an overwhelming diabetic foot infection on the right. The patient underwent guillotine amputation of the right foot, above the ankle, approximately 48 hours ago. The patient now presents with improved hemodynamics and overall medical condition. He is in need of formalization to a below-knee amputation. Drains/implants: 15 Ethiopian round Nickolas drain. Procedure in detail: After informed consent was obtained, the patient was brought into the operating room and laid in the supine position. The area of the right lower extremity was prepped and draped in a normal sterile fashion. The leg was then marked. The anterior marking was performed 4 fingerbreadths inferior to the tibial tuberosity, the posterior rory was made two handbreadths below the tibial tuberosity. An incision was then created with a 10 blade scalpel. Dissection was carried to the tibia anteriorly using Bovie electrocautery. The tibia was then cleared, and the fascia was raised superiorly. The anterior compartment was divided with electrocautery. A Keerthi clamp was passed posterior to the tibia, to facilitate placement of a lap sponge. Once the lap sponge was placed posteriorly, a 45 degrees bevel was cut into the tibia, and then the tibia was cut straight through. This was done with the reciprocating bone saw. After this was completed, the fibula was cleared and visualized. This was done with electrocautery, cutting through the remainder of the anterior and lateral compartment. Once the fibula was identified, dissection was carried proximally 3 cm. The fibula was divided using a large bone cutter. Next the tibia and fibula were rotated anteriorly, and the posterior compartment was entered. The posterior compartment was freed from the tibia and fibula. The neurovascular bundle was identified. The vasculature was ligated using 0 Vicryl ties. The tibial nerve was retracted, on stretch, and divided proximally. Next the posterior flap was completed using electrocautery. After this was performed, attention was turned to coverage of the bone. The muscles of the anterior compartment were used to flap over the fibula. The posterior compartment was then approximated over the tibia. The fascia of the gastrocnemius was sutured to the fascia of the anterior leg using 0 Vicryl suture in etjgha-op-hibac fashion. A 15 Ethiopian round Nickolas drain was placed in the subfascial space. Once this was completed, the subcutaneous tissues were closed using 2-0 Vicryl suture in simple running fashion. The skin was then closed using skin hansa. A dressing was placed, and the procedure was concluded. All sponge, instrument, and needle counts were correct x2. Condition: Stable.
[2019-06-11] MEDS: MORPHINE SULFATE 10 MG/ML INJ ONE ×2 (14:59→15:05)
--- NOTE | 2019-06-11 16:12 | PDOC PROGRESS REPORT ---
Subjective Progress Note for:: 06/11/19 Reason For Visit: GASTROINTESTINAL BLEEDING, SEPSIS 06/11/2019 Sepsis, abscess right foot, uncontrolled diabetes, amputation of right foot and ankle. Physical Exam Vital Signs: Temp Pulse Resp BP Pulse Ox 97.6 F 82 14 143/93 H 95 06/11/19 14:58 06/11/19 15:08 06/11/19 15:08 06/11/19 15:08 06/11/19 15:08 Intake & Output 06/10/19 06/11/19 06/12/19 06:59 06:59 06:59 Intake Total 4280.2 3553.2 2250 Output Total 1895 3000 850 Balance 2385.2 553.2 1400 Weight 74.5 kg 74.5 kg General appearance: PRESENT: no acute distress Respiratory exam: PRESENT: clear to auscultation clarke. ABSENT: rales, rhonchi, wheezes Cardiovascular exam: PRESENT: RRR. ABSENT: diastolic murmur, rubs, systolic murmur Neurological exam: PRESENT: alert, awake, oriented to person, oriented to place, oriented to time, oriented to situation, CN II-XII grossly intact. ABSENT: motor sensory deficit Psychiatric exam: PRESENT: depressed, other - Patient is clearly depressed over his situation of having his foot amputated Results Laboratory Results: 06/11/19 05:30 06/11/19 05:30 06/08/19 06/11/19 06/11/19 20:07 05:30 05:30 WBC 11.1 H RBC 2.41 L Hgb 7.8 L Hct 22.7 L MCV 94 MCH 32.2 MCHC 34.2 RDW 18.9 H Plt Count 288 Seg Neutrophils % 76.2 Sodium 136.1 L Potassium 4.2 Chloride 108 H Carbon Dioxide 22 Anion Gap 6 BUN 30 H Creatinine 2.52 H Est GFR ( Amer) 33 L Glucose 143 H Calcium 7.7 L Blood Type O POSITIVE Antibody Screen NEGATIVE 06/08/19 15:35 Blood Blood Culture (PCR) - Final Streptococcus Species Staphylococcus Aureus 06/08/19 17:53 Blood Blood Culture (PCR) - Final Staphylococcus Aureus 06/09/19 02:03 Creatine Kinase 36 L Impressions: Foot X-Ray 06/08/19 14:59 IMPRESSION: Soft tissue defect and subcutaneous emphysema in the forefoot. The margins of the amputated 1st and 2nd metatarsals are regular. There are displaced fractures of the distal 3rd and 4th metatarsals. Consider correlation with MRI to exclude a superimposed osteomyelitis. Chest X-Ray 06/08/19 21:34 IMPRESSION: Tip of the central line likely in the cavoatrial junction or proximal right atrium. copyright 2010 [employer]- All Rights Reserved Assessment and Plan - Diagnosis (1) Acute kidney injury superimposed on CKD Is this a current diagnosis for this admission?: Yes (2) Bacteremia Is this a current diagnosis for this admission?: Yes (3) Diabetic foot ulcer Qualifiers: Diabetic foot ulcer location: unspecified part of foot Diabetes mellitus type: type 2 Laterality: right Non-pressure ulcer stage: with necrosis of muscle Qualified Code(s): E11.621 - Type 2 diabetes mellitus with foot ulcer; L97.513 - Non-pressure chronic ulcer of other part of right foot with necrosis of muscle Is this a current diagnosis for this admission?: Yes (4) Foot abscess, right Is this a current diagnosis for this admission?: Yes (5) Hypotension Qualifiers: Hypotension type: unspecified hypotension type Qualified Code(s): I95.9 - Hypotension, unspecified Is this a current diagnosis for this admission?: Yes (6) Sepsis Qualifiers: Sepsis type: methicillin resistant Staphylococcus aureus Sepsis acute organ dysfunction status: with acute organ dysfunction Severe sepsis acute organ dysfunction type: acute renal failure Acute renal failure type: with acute renal cortical necrosis Severe sepsis shock status: without septic shock Qualified Code(s): A41.02 - Sepsis due to Methicillin resistant Staphylococcus aureus; R65.20 - Severe sepsis without septic shock; N17.1 - Acute kidney failure with acute cortical necrosis Is this a current diagnosis for this admission?: Yes Plan: Resolved. - Plan Summary Summary: 06/11/2019 Patient was admitted from the emergency room to the ICU on 06/08/2019 for apparent sepsis and at first was thought to have a GI bleed. There was no indication that the patient was actively bleeding. Patient was seen by general surgery and felt that the patient was septic due to abscess on his right foot. 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 Now that patient has stabilized he went back to the OR today on June 11 and had a right below the knee amputation. He is currently being seen by the hospitalist service for his diabetes and to assist with his other medical conditions Today is white count is stable at 11,000 H&H is actually up slightly 7.8 and 22.7 Renal function is continuing to improve with hydration Blood cultures are positive for staph aureus, sensitivities so far show that it is sensitive to all antibiotics. He is currently on clindamycin and vancomycin as well as Maxipime. Currently blood cultures are not reporting out MRSA. No wound cultures are pending. I will DC the vancomycin and Maxipime leave him on the IV clindamycin while he is here and then discharge him home on a p.o. dose of clindamycin. Patient was only on Glucophage for his diabetes prior to coming in the hospital, and with a hemoglobin A1c of 6.9 was doing well. Indications to put him on insulin now. We will resume his Glucophage and his nifedipine for his blood pressure - Time Time Spent with patient: 35 or more minutes
[2019-06-11] MEDS: MORPHINE SULFATE 10 MG/ML INJ IV PRN ×2 (16:22→21:32)
[2019-06-11] MEDS: METFORMIN HCL 500 MG TABLET PO SCH (17:58)
[2019-06-12] MEDS: HYDROCODONE/ACETAMINOPHEN 10-325 MG TABLET PO PRN ×5 (00:27→21:38)
[2019-06-12] MEDS ORDERED: THIAMINE HCL INJ 200 MG/2 ML VIAL ONE (02:50)
[2019-06-12] MEDS: THIAMINE HCL 100 MG in NORMAL SALINE 50 ML IV SCH ×3 (02:55→17:31)
[2019-06-12] MEDS: CLINDAMYCIN 900 MG/D5W RTU 900 MG/50 ML RTUPB IV SCH ×3 (05:16→21:38)
[2019-06-12] MEDS: GABAPENTIN 300 MG CAPSULE PO SCH ×3 (05:17→21:40)
[2019-06-12] MEDS: PANTOPRAZOLE SODIUM 40 MG TABLET.DR PO SCH ×2 (05:17→16:53)
[2019-06-12] MEDS: FOLIC ACID 1 MG in NORMAL SALINE 50 ML IV SCH (08:07)
[2019-06-12] MEDS: INSULIN REG, HUMAN 100 UNIT/ML 3 ML VIAL (PYX) SUBCUT SCH ×4 (08:08→21:39)
[2019-06-12] MEDS: NIFEDIPINE 30 MG TAB.ER.24 PO SCH (09:53)
[2019-06-12] MEDS: RINGERS SOLUTION,LACTATED 1,000 ML IV PRN (09:54)
[2019-06-12] MEDS ORDERED: (PENDING PHARMACY ID) (Nifedipine [Nifedipine Er] 30 MG) PO SCH (10:00)
--- NOTE | 2019-06-12 10:13 | PDOC PROGRESS REPORT ---
Subjective Progress Note for:: 06/12/19 Subjective:: No complaints. Feels well. Reason For Visit: GASTROINTESTINAL BLEEDING, SEPSIS Physical Exam Vital Signs: Temp Pulse Resp BP Pulse Ox 98.7 F 83 16 158/84 H 100 06/12/19 07:11 06/12/19 07:11 06/12/19 07:11 06/12/19 07:11 06/12/19 07:11 Intake & Output 06/11/19 06/12/19 06/13/19 06:59 06:59 06:59 Intake Total 3553.2 7093.2 50.2 Output Total 3000 2375 Balance 553.2 4718.2 50.2 Weight 74.5 kg 74.4 kg Extremities exam: PRESENT: other - Stump wound with dressings intact. Drain in place with a small amount of bloody drainage. Results Laboratory Results: 06/11/19 05:30 06/11/19 05:30 06/08/19 20:07 Blood Type O POSITIVE Antibody Screen NEGATIVE 06/08/19 15:35 Blood Blood Culture (PCR) - Final Streptococcus Species Staphylococcus Aureus 06/08/19 17:53 Blood Blood Culture (PCR) - Final Staphylococcus Aureus 06/09/19 02:03 Creatine Kinase 36 L Impressions: Foot X-Ray 06/08/19 14:59 IMPRESSION: Soft tissue defect and subcutaneous emphysema in the forefoot. The margins of the amputated 1st and 2nd metatarsals are regular. There are displaced fractures of the distal 3rd and 4th metatarsals. Consider correlation with MRI to exclude a superimposed osteomyelitis. Chest X-Ray 06/08/19 21:34 IMPRESSION: Tip of the central line likely in the cavoatrial junction or proximal right atrium. copyright 2011 [employer]- All Rights Reserved Assessment & Plan - Diagnosis (1) Foot abscess, right Is this a current diagnosis for this admission?: Yes Plan: Status post right below the knee amputation for septic right foot. Patient stable. Will remove dressings tomorrow. - Time Time Spent with patient: Less than 15 minutes
[2019-06-12 14:57] LABS: HEMATOCRIT 27.7 % (37.9-51.0); HEMOGLOBIN 9.5 g/dL (13.5-17.0); MEAN CORPUSCULAR HEMOGLOBIN 31.3 pg (27.0-33.4); MEAN CORPUSCULAR HGB CONC 34.3 g/dL (32.0-36.0); MEAN CORPUSCULAR VOLUME 91 fl (80-97); PLATELET COUNT 272 10^3/uL (150-450); RED BLOOD COUNT 3.04 10^6/uL (4.35-5.55); RED CELL DISTRIBUTION WIDTH 18.5 % (11.5-14.0)
[2019-06-12 15:01] LABS: ANION GAP 10 (5-19); BLOOD UREA NITROGEN 23 mg/dL (7-20); CARBON DIOXIDE 22 mmol/L (22-30); CHLORIDE 102 mmol/L (98-107); GLUCOSE 129 mg/dL (75-110); POTASSIUM 4.7 mmol/L (3.6-5.0)
[2019-06-12 15:17] LABS: ABSOLUTE LYMPHOCYTES# (MANUAL) 1.3 10^3/uL (0.5-4.7); ABSOLUTE MONOCYTES # (MANUAL) 0.4 10^3/uL (0.1-1.4); BASOPHILS % (MANUAL) 0 % (0-2); EOSINOPHILS % (MANUAL) 1 % (0-6); LYMPHOCYTES % (MANUAL) 8 % (13-45); MONOCYTES % (MANUAL) 3 % (3-13); SEGMENTED NEUTROPHILS % (MAN) 85 % (42-78); TOTAL CELLS COUNTED 100
[2019-06-12 15:18] LABS: ANISOCYTOSIS 2+; PLATELET LARGE PRESENT; POLYCHROMASIA SLIGHT; TOXIC GRANULATION 2+
[2019-06-12 15:19] LABS: PLATELET COMMENT ADEQUATE
--- NOTE | 2019-06-12 17:19 | PDOC PROGRESS REPORT ---
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 Patient was initially admitted to the ICU as there was suspicion initially for possible upper GI bleed as ER provider witnessed an episode of blood tinged emesis. Patient was evaluated by surgery. He was in the ICU for 3 days for sepsis and was also on Protonix drip. He did receive blood transfusion as well. Surgery and previous medical team later deemed that patient was not having active GI bleeding and he was treated for osteomyelitis. 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 He subsequently underwent formal BKA on 06/08/2019. No acute event overnight. Upon encounter, he appears comfortable. Denies acute complaints. Denies chest pain or shortness of breath. No melena, hematochezia or hematemesis. Reason For Visit: GASTROINTESTINAL BLEEDING, SEPSIS Physical Exam Vital Signs: Temp Pulse Resp BP Pulse Ox 98.6 F 90 16 147/75 H 100 06/12/19 14:59 06/12/19 14:59 06/12/19 14:59 06/12/19 14:59 06/12/19 14:59 Intake & Output 06/11/19 06/12/19 06/13/19 06:59 06:59 06:59 Intake Total 3553.2 7093.2 799.2 Output Total 3000 2375 850 Balance 553.2 4718.2 -50.8 Weight 164 lb 3.91 oz 164 lb 0.383 oz General appearance: PRESENT: no acute distress, well-developed, well-nourished Head exam: PRESENT: atraumatic, normocephalic Eye exam: PRESENT: conjunctiva pink, EOMI, PERRLA. ABSENT: scleral icterus Ear exam: PRESENT: normal external ear exam Mouth exam: PRESENT: moist, tongue midline Neck exam: ABSENT: carotid bruit, JVD, lymphadenopathy, thyromegaly Respiratory exam: PRESENT: clear to auscultation clarke. ABSENT: rales, rhonchi, wheezes Cardiovascular exam: PRESENT: RRR. ABSENT: diastolic murmur, rubs, systolic murmur Pulses: PRESENT: normal dorsalis pedis pul GI/Abdominal exam: PRESENT: normal bowel sounds, soft. ABSENT: distended, guarding, mass, organolmegaly, rebound, tenderness Rectal exam: PRESENT: deferred Extremities exam: PRESENT: other - +left BKA and right BKA stumps Neurological exam: PRESENT: alert, awake, oriented to person, oriented to place, oriented to time, oriented to situation, CN II-XII grossly intact. ABSENT: motor sensory deficit Results Laboratory Results: 06/12/19 10:05 06/12/19 10:05 06/08/19 06/12/19 06/12/19 20:07 10:05 10:05 WBC 12.0 H RBC 3.04 L Hgb 9.5 L Hct 27.7 L MCV 91 MCH 31.3 MCHC 34.3 RDW 18.5 H Plt Count 272 Seg Neutrophils % Not Reportable Sodium 134.0 L Potassium 4.7 Chloride 102 Carbon Dioxide 22 Anion Gap 10 BUN 23 H Creatinine 2.00 H Est GFR ( Amer) 43 L Glucose 129 H Calcium 8.0 L Blood Type O POSITIVE Antibody Screen NEGATIVE 06/08/19 15:35 Blood Blood Culture (PCR) - Final Streptococcus Species Staphylococcus Aureus 06/08/19 17:53 Blood Blood Culture (PCR) - Final Staphylococcus Aureus 06/09/19 02:03 Creatine Kinase 36 L Impressions: Foot X-Ray 06/08/19 14:59 IMPRESSION: Soft tissue defect and subcutaneous emphysema in the forefoot. The margins of the amputated 1st and 2nd metatarsals are regular. There are displaced fractures of the distal 3rd and 4th metatarsals. Consider correlation with MRI to exclude a superimposed osteomyelitis. Chest X-Ray 06/08/19 21:34 IMPRESSION: Tip of the central line likely in the cavoatrial junction or proximal right atrium. copyright 2010 [employer] All Rights Reserved Assessment and Plan - Diagnosis (1) Sepsis Qualifiers: Sepsis type: methicillin resistant Staphylococcus aureus Sepsis acute organ dysfunction status: with acute organ dysfunction Severe sepsis acute organ dysfunction type: acute renal failure Acute renal failure type: with acute renal cortical necrosis Severe sepsis shock status: without septic shock Qu alified Code(s): A41.02 - Sepsis due to Methicillin resistant Staphylococcus aureus; R65.20 - Severe sepsis without septic shock; N17.1 - Acute kidney failure with acute cortical necrosis Is this a current diagnosis for this admission?: Yes Plan: Secondary to septic right foot. Status post amputation. Blood culture growing Staphylococcus aureus. Continue clindamycin. Repeat blood cultures. (2) Bacteremia Is this a current diagnosis for this admission?: Yes Plan: As per #1. (3) Acute renal failure Qualifiers: Acute renal failure type: unspecified Qualified Code(s): N17.9 - Acute ki dney failure, unspecified Is this a current diagnosis for this admission?: Yes Plan: Likely related to septic ATN. Creatinine improving with IV fluids. (4) Anemia requiring transfusions Is this a current diagnosis for this admission?: Yes Plan: Status post 4 units of packed RBCs. (5) Diabetic foot ulcer Qualifiers: Diabetic foot ulcer location: unspecified part of foot Diabetes mellitus type: type 2 Laterality: right Non-pressure ulcer stage: with necrosis of muscle Qualified Code(s): E11.621 - Type 2 diabetes mellitus with foot ulcer; L97.513 - Non-pressure chronic ulcer of other part of right foot with necrosis of muscle Is this a current diagnosis for this admission?: Yes (6) Uncontrolled diabetes mellitus with hyperglycemia Qualifiers: Diabetes mellitus type: type 2 Qualified Code(s): E11.65 - Type 2 diabetes mellitus with hyperglycemia Is this a current diagnosis for this admission?: Yes Plan: Hold metformin for now until creatinine recovers. (7) Hypertension Is this a current diagnosis for this admission?: Yes - Plan Summary Summary: 06/11/2019 Patient was admitted from the emergency room to the ICU on 06/08/2019 for apparent sepsis and at first was thought to have a GI bleed. There was no indication that the patient was actively bleeding. Patient was seen by general surgery and felt that the patient was septic due to abscess on his right foot. 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 Now that patient has stabilized he went back to the OR today on June 11 and had a right below the knee amputation. He is currently being seen by the hospitalist service for his diabetes and to assist with his other medical conditions Today is white count is stable at 11,000 H&H is actually up slightly 7.8 and 22.7 Renal function is continuing to improve with hydration Blood cultures are positive for staph aureus, sensitivities so far show that it is sensitive to all antibiotics. He is currently on clindamycin and vancomycin as well as Maxipime. Currently blood cultures are not reporting out MRSA. No wound cultures are pending. I will DC the vancomycin and Maxipime leave him on the IV clindamycin while he is here and then discharge him home on a p.o. dose of clindamycin. Patient was only on Glucophage for his diabetes prior to coming in the hospital, and with a hemoglobin A1c of 6.9 was doing well. Indications to put him on insulin now. We will resume his Glucophage and his nifedipine for his blood pressure - Time Time Spent with patient: 25-34 minutes
[2019-06-13] MEDS: HYDROCODONE/ACETAMINOPHEN 10-325 MG TABLET PO PRN ×5 (03:07→21:25)
[2019-06-13] MEDS: THIAMINE HCL 100 MG in NORMAL SALINE 50 ML IV SCH ×3 (03:08→17:01)
[2019-06-13] MEDS: RINGERS SOLUTION,LACTATED 1,000 ML IV PRN ×3 (03:10→21:32)
[2019-06-13] MEDS: CLINDAMYCIN 900 MG/D5W RTU 900 MG/50 ML RTUPB IV SCH ×3 (05:52→21:30)
[2019-06-13] MEDS: PANTOPRAZOLE SODIUM 40 MG TABLET.DR PO SCH ×2 (05:53→16:56)
[2019-06-13] MEDS: GABAPENTIN 300 MG CAPSULE PO SCH ×3 (05:53→21:25)
[2019-06-13] MEDS: INSULIN REG, HUMAN 100 UNIT/ML 3 ML VIAL (PYX) SUBCUT SCH ×4 (07:56→21:31)
[2019-06-13] MEDS: FOLIC ACID 1 MG in NORMAL SALINE 50 ML IV SCH (07:57)
[2019-06-13] MEDS: NIFEDIPINE 30 MG TAB.ER.24 PO SCH (09:58)
--- NOTE | 2019-06-13 15:17 | PDOC PROGRESS REPORT ---
Subjective Progress Note for:: 06/13/19 Subjective:: This is a 48-year-old male with a severe diabetic foot infection of the right foot. He has a history of alcoholism, and anemia. The patient is status post right below-knee amputation. He reports pain in his BKA stump. He denies fevers, chills, nausea, vomiting, chest pain, shortness of breath, dizziness, orthostasis, malaise, or fatigue. Reason For Visit: GASTROINTESTINAL BLEEDING, SEPSIS Physical Exam Vital Signs: Temp Pulse Resp BP Pulse Ox 98.4 F 87 16 128/64 H 99 06/13/19 10:41 06/13/19 10:41 06/13/19 10:41 06/13/19 10:41 06/13/19 10:41 Intake & Output 06/12/19 06/13/19 06/14/19 06:59 06:59 06:59 Intake Total 7093.2 4377.2 1681.2 Output Total 2375 3150 875 Balance 4718.2 1227.2 806.2 Weight 74.4 kg 76.7 kg Results Laboratory Results: 06/12/19 10:05 06/12/19 10:05 06/12/19 10:05 WBC 12.0 H RBC 3.04 L Hgb 9.5 L Hct 27.7 L MCV 91 MCH 31.3 MCHC 34.3 RDW 18.5 H Plt Count 272 06/08/19 15:35 Blood Blood Culture (PCR) - Final Streptococcus Species Staphylococcus Aureus 06/08/19 17:53 Blood Blood Culture (PCR) - Final Staphylococcus Aureus 06/08/19 17:53 Blood Blood Culture - Final Staphylococcus Aureus 06/09/19 02:03 Creatine Kinase 36 L Impressions: Foot X-Ray 06/08/19 14:59 IMPRESSION: Soft tissue defect and subcutaneous emphysema in the forefoot. The margins of the amputated 1st and 2nd metatarsals are regular. There are displaced fractures of the distal 3rd and 4th metatarsals. Consider correlation with MRI to exclude a superimposed osteomyelitis. Chest X-Ray 06/08/19 21:34 IMPRESSION: Tip of the central line likely in the cavoatrial junction or proximal right atrium. copyright 2010 [employer]- All Rights Reserved Assessment & Plan - Diagnosis (1) Foot abscess, right Is this a current diagnosis for this admission?: Yes (2) Sepsis due to undetermined organism Is this a current diagnosis for this admission?: Yes (3) Uncontrolled diabetes mellitus Qualifiers: Diabetes mellitus type: type 2 Is this a current diagnosis for this admission?: Yes - Time Time Spent with patient: Less than 15 minutes - Plan Summary Plan Summary: This is a 48-year-old male status post right BKA. The patient is doing well today. I have removed his dressing. His incision is clean, dry, and intact. The nurses have not been recording the JOSUÉ drain output. I have instructed the nurses to keep strict track of the JOSUÉ output. If his output is low, I will remove his drain tomorrow. Continue with physical therapy. Patient may benefit from rehab/long term placement. Will follow.
--- NOTE | 2019-06-13 15:52 | PDOC PROGRESS REPORT ---
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 Patient was initially admitted to the ICU as there was suspicion initially for possible upper GI bleed as ER provider witnessed an episode of blood tinged emesis. Patient was evaluated by surgery. He was in the ICU for 3 days for sepsis and was also on Protonix drip. He did receive blood transfusion as well. Surgery and previous medical team later deemed that patient was not having active GI bleeding and he was treated for osteomyelitis. 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 He subsequently underwent formal BKA on 06/08/2019. 06/12: No acute event overnight. Upon encounter, he appears comfortable. Denies acute complaints. Denies chest pain or shortness of breath. No melena, hematochezia or hematemesis. 06/13: No acute issues. He reports mild pain on surgical site this morning. Otherwise denies chest pain or shortness of breath. PT has recommended rehab placement. Surgery is considering possible JOSUÉ drain removal tomorrow if drain output is low. Reason For Visit: GASTROINTESTINAL BLEEDING, SEPSIS Physical Exam Vital Signs: Temp Pulse Resp BP Pulse Ox 98.2 F 89 16 140/82 H 100 06/13/19 14:49 06/13/19 14:49 06/13/19 14:49 06/13/19 14:49 06/13/19 14:49 Intake & Output 06/12/19 06/13/19 06/14/19 06:59 06:59 06:59 Intake Total 7093.2 4377.2 1681.2 Output Total 2375 3150 875 Balance 4718.2 1227.2 806.2 Weight 164 lb 0.383 oz 169 lb 1.513 oz General appearance: PRESENT: no acute distress, well-developed, well-nourished Head exam: PRESENT: atraumatic, normocephalic Eye exam: PRESENT: conjunctiva pink, EOMI, PERRLA. ABSENT: scleral icterus Ear exam: PRESENT: normal external ear exam Mouth exam: PRESENT: moist, tongue midline Neck exam: ABSENT: carotid bruit, JVD, lymphadenopathy, thyromegaly Respiratory exam: PRESENT: clear to auscultation clarke. ABSENT: rales, rhonchi, wheezes Cardiovascular exam: PRESENT: RRR. ABSENT: diastolic murmur, rubs, systolic murmur Pulses: PRESENT: normal dorsalis pedis pul GI/Abdominal exam: PRESENT: normal bowel sounds, soft. ABSENT: distended, guarding, mass, organolmegaly, rebound, tenderness Rectal exam: PRESENT: deferred Extremities exam: PRESENT: other - +bka stumps Neurological exam: PRESENT: alert, awake, oriented to person, oriented to place, oriented to time, oriented to situation, CN II-XII grossly intact. ABSENT: motor sensory deficit Results Laboratory Results: 06/12/19 10:05 06/12/19 10:05 06/08/19 15:35 Blood Blood Culture (PCR) - Final Streptococcus Species Staphylococcus Aureus 06/08/19 17:53 Blood Blood Culture (PCR) - Final Staphylococcus Aureus 06/08/19 17:53 Blood Blood Culture - Final Staphylococcus Aureus 06/09/19 02:03 Creatine Kinase 36 L Impressions: Foot X-Ray 06/08/19 14:59 IMPRESSION: Soft tissue defect and subcutaneous emphysema in the forefoot. The margins of the amputated 1st and 2nd metatarsals are regular. There are displac ed fractures of the distal 3rd and 4th metatarsals. Consider correlation with MRI to exclude a superimposed osteomyelitis. Chest X-Ray 06/08/19 21:34 IMPRESSION: Tip of the central line likely in the cavoatrial junction or proximal right atrium. copyright 2011 [employer] [facility]- All Rights Reserved Assessment and Plan - Diagnosis (1) Sepsis Qualifiers: Sepsis type: methicillin resistant Staphylococcus aureus Sepsis acute organ dysfunction status: with acute organ dysfunction Severe sepsis acute organ dysfunction type: acute renal failure Acute renal failure type: with acute re nal cortical necrosis Severe sepsis shock status: without septic shock Qualified Code(s): A41.02 - Sepsis due to Methicillin resistant Staphylococcus aureus; R65.20 - Severe sepsis without septic shock; N17.1 - Acute kidney failure with acute cortical necrosis Is this a current diagnosis for this admission?: Yes Plan: Sepsis resolved. Secondary to septic right foot. Status post amputation. First set of blood cultures grew Staphylococcus aureus. Continue clindamycin. Repeat blood cultures pending. (2) Bacteremia Is this a current diagnosis for this admission?: Yes Plan: As per #1. (3) Diabetic foot ulcer Qualifiers: Diabetic foot ulcer location: unspecified part of foot Diabetes mellitus type: type 2 Laterality: right Non-pressure ulcer stage: with necrosis of muscle Qualified Code(s): E11.621 - Type 2 diabetes mellitus with foot ulcer; L97.513 - Non-pressure chronic ulcer of other part of right foot with necrosis of muscle Is this a current diagnosis for this admission?: Yes (4) Acute renal failure Qualifiers: Acute renal failure type: unspecified Qualified Code(s): N17.9 - Acute kidney failure, unspecified Is this a current diagnosis for this admission?: Yes Plan: Likely related to septic ATN. Creatinine improving with IV fluids. (5) Anemia requiring transfusions Is this a current diagnosis for this admission?: Yes Plan: Status post 4 units of packed RBCs. (6) Uncontrolled diabetes mellitus with hyperglycemia Qualifiers: Diabetes mellitus type: type 2 Qualified Code(s): E11.65 - Type 2 diabetes mellitus with hyperglycemia Is this a current diagnosis for this admission?: Yes Plan: Hold metformin for now until creatinine recovers. (7) Hypertension Is this a current diagnosis for this admission?: Yes - Plan Summary Summary: 06/11/2019 Patient was admitted from the emergency room to the ICU on 06/08/2019 for apparent sepsis and at first was thought to have a GI bleed. There was no indication that the patient was actively bleeding. Patient was seen by general surgery and felt that the patient was septic due to abscess on his right foot. 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 Now that patient has stabilized he went back to the OR today on June 11 and had a right below the knee amputation. He is currently being seen by the hospitalist service for his diabetes and to assist with his other medical conditions Today is white count is stable at 11,000 H&H is actually up slightly 7.8 and 22.7 Renal function is continuing to improve with hydration Blood cultures are positive for staph aureus, sensitivities so far show that it is sensitive to all antibiotics. He is currently on clindamycin and vancomycin as well as Maxipime. Currently blood cultures are not reporting out MRSA. No wound cultures are pending. I will DC the vancomycin and Maxipime leave him on the IV clindamycin while he is here and then discharge him home on a p.o. dose of clindamycin. Patient was only on Glucophage for his diabetes prior to coming in the hospital, and with a hemoglobin A1c of 6.9 was doing well. Indications to put him on insulin now. We will resume his Glucophage and his nifedipine for his blood pressure - Time Time Spent with patient: 25-34 minutes
[2019-06-14] MEDS: HYDROCODONE/ACETAMINOPHEN 10-325 MG TABLET PO PRN ×5 (02:13→21:43)
[2019-06-14] MEDS: THIAMINE HCL 100 MG in NORMAL SALINE 50 ML IV SCH ×2 (02:14→09:10)
[2019-06-14] MEDS: CLINDAMYCIN 900 MG/D5W RTU 900 MG/50 ML RTUPB IV SCH ×3 (05:32→21:43)
[2019-06-14] MEDS: GABAPENTIN 300 MG CAPSULE PO SCH ×3 (05:33→21:43)
[2019-06-14] MEDS: PANTOPRAZOLE SODIUM 40 MG TABLET.DR PO SCH ×2 (05:33→17:04)
[2019-06-14 07:09] LABS: ABSOLUTE BASOPHILS # (AUTO) 0.1 10^3/uL (0.0-0.2); ABSOLUTE EOSINOPHILS # (AUTO) 0.2 10^3/uL (0.0-0.6); ABSOLUTE LYMPHOCYTES (AUTO) 1.4 10^3/uL (0.5-4.7); ABSOLUTE MONOCYTES (AUTO) 0.9 10^3/uL (0.1-1.4); ABSOLUTE NEUT (AUTO) 9.2 10^3/uL (1.7-8.2); BASOPHILS % (AUTO) 0.8 % (0-2); EOSINOPHILS % (AUTO) 1.4 % (0-6); HEMATOCRIT 23.6 % (37.9-51.0); LYMPHOCYTES % (AUTO) 12.1 % (13-45); MEAN CORPUSCULAR HEMOGLOBIN 30.6 pg (27.0-33.4); MEAN CORPUSCULAR HGB CONC 33.5 g/dL (32.0-36.0); MEAN CORPUSCULAR VOLUME 92 fl (80-97); MONOCYTES % (AUTO) 7.5 % (3-13); PLATELET COUNT 300 10^3/uL (150-450); RED BLOOD COUNT 2.58 10^6/uL (4.35-5.55); RED CELL DISTRIBUTION WIDTH 17.9 % (11.5-14.0); SEGMENTED NEUTROPHILS % (AUTO) 78.2 % (42-78); TOTAL CELLS COUNTED % (AUTO) 100 %; WHITE BLOOD COUNT 11.7 10^3/uL (4.0-10.5)
[2019-06-14 07:14] LABS: HEMOGLOBIN 7.9 g/dL (13.5-17.0)
[2019-06-14 07:25] LABS: ANION GAP 9 (5-19); BLOOD UREA NITROGEN 20 mg/dL (7-20); CALCIUM 7.8 mg/dL (8.4-10.2); CARBON DIOXIDE 21 mmol/L (22-30); CHLORIDE 103 mmol/L (98-107); GLUCOSE 127 mg/dL (75-110); POTASSIUM 5.1 mmol/L (3.6-5.0)
[2019-06-14] MEDS: INSULIN REG, HUMAN 100 UNIT/ML 3 ML VIAL (PYX) SUBCUT SCH ×4 (07:34→21:40)
[2019-06-14] MEDS: NIFEDIPINE 30 MG TAB.ER.24 PO SCH (09:10)
[2019-06-14] MEDS: FOLIC ACID 1 MG in NORMAL SALINE 50 ML IV SCH (09:10)
[2019-06-14] MEDS: RINGERS SOLUTION,LACTATED 1,000 ML IV PRN (09:11)
--- NOTE | 2019-06-14 09:48 | PDOC PROGRESS REPORT ---
Subjective Progress Note for:: 06/14/19 Subjective:: Feels well. No complaints. Reason For Visit: GASTROINTESTINAL BLEEDING, SEPSIS Physical Exam Vital Signs: Temp Pulse Resp BP Pulse Ox 99.0 F 86 16 122/61 99 06/14/19 07:25 06/14/19 07:25 06/14/19 07:25 06/14/19 07:25 06/14/19 07:25 Intake & Output 06/13/19 06/14/19 06/15/19 06:59 06:59 06:59 Intake Total 4377.2 4627.2 Output Total 3150 2495 Balance 1227.2 2132.2 Weight 76.7 kg 79.8 kg General appearance: PRESENT: no acute distress, cooperative Extremities exam: PRESENT: other - Stump is clean dry and intact. No erythema. Drain output overnight is about 5 cc. And therefore was pulled. Results Laboratory Results: 06/14/19 06:45 06/14/19 06:45 06/14/19 06/14/19 06:45 06:45 WBC 11.7 H RBC 2.58 L Hgb 7.9 L Hct 23.6 L MCV 92 MCH 30.6 MCHC 33.5 RDW 17.9 H Plt Count 300 Seg Neutrophils % 78.2 H Sodium 132.9 L Potassium 5.1 H Chloride 103 Carbon Dioxide 21 L Anion Gap 9 BUN 20 Creatinine 2.07 H Est GFR ( Amer) 42 L Glucose 127 H Calcium 7.8 L 06/08/19 15:35 Blood Blood Culture (PCR) - Final Streptococcus Species Staphylococcus Aureus 06/08/19 17:53 Blood Blood Culture (PCR) - Final Staphylococcus Aureus 06/08/19 17:53 Blood Blood Culture - Final Staphylococcus Aureus 06/09/19 02:03 Creatine Kinase 36 L Impressions: Foot X-Ray 06/08/19 14:59 IMPRESSION: Soft tissue defect and subcutaneous emphysema in the forefoot. The margins of the amputated 1st and 2nd metatarsals are regular. There are displaced fractures of the distal 3rd and 4th metatarsals. Consider correlation with MRI to exclude a superimposed osteomyelitis. Chest X-Ray 06/08/19 21:34 IMPRESSION: Tip of the central line likely in the cavoatrial junction or proximal right atrium. copyright 2010 [employer]- All Rights Reserved Assessment & Plan - Diagnosis (1) Foot abscess, right Is this a current diagnosis for this admission?: Yes Plan: Status post right below knee amputation. The stump looks good. Drain was pulled today. Will have PT place knee immobilizer. May discharge home when okay with hospitalist. Follow-up at [facility] in 2 weeks. - Time Time Spent with patient: Less than 15 minutes
[2019-06-14] MEDS: NORMAL SALINE 1000 ML 1,000 ML IV PRN ×2 (11:13→21:47)
[2019-06-14] MEDS: THIAMINE HCL 100 MG TABLET PO SCH ×2 (13:57→21:43)
--- NOTE | 2019-06-14 15:33 | PDOC PROGRESS REPORT ---
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 Patient was initially admitted to the ICU as there was suspicion initially for possible upper GI bleed as ER provider witnessed an episode of blood tinged emesis. Patient was evaluated by surgery. He was in the ICU for 3 days for sepsis and was also on Protonix drip. He did receive blood transfusion as well. Surgery and previous medical team later deemed that patient was not having active GI bleeding and he was treated for osteomyelitis. 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 He subsequently underwent formal BKA on 06/08/2019. 06/12: No acute event overnight. Upon encounter, he appears comfortable. Denies acute complaints. Denies chest pain or shortness of breath. No melena, hematochezia or hematemesis. 06/13: No acute issues. He reports mild pain on surgical site this morning. Otherwise denies chest pain or shortness of breath. PT has recommended rehab placement. Surgery is considering possible JOSUÉ drain removal tomorrow if drain output is low. 06/14: No acute event overnight. His hemoglobin did trend down to 7.9 this morning. No gross clinical signs of bleeding so far. Creatinine remains at 2. We will give him 1 more day of IV fluids and repeat a BMP tomorrow. Will recheck another H&H overnight. Reason For Visit: GASTROINTESTINAL BLEEDING, SEPSIS Physical Exam Vital Signs: Temp Pulse Resp BP Pulse Ox 97.6 F 90 16 139/78 H 100 06/14/19 11:10 06/14/19 11:10 06/14/19 11:10 06/14/19 11:10 06/14/19 11:10 Intake & Output 06/13/19 06/14/19 06/15/19 06:59 06:59 06:59 Intake Total 4377.2 4627.2 756.2 Output Total 3150 2495 300 Balance 1227.2 2132.2 456.2 Weight 169 lb 1.513 oz 175 lb 14.862 oz General appearance: PRESENT: no acute distress, well-developed, well-nourished Head exam: PRESENT: atraumatic, normocephalic Eye exam: PRESENT: conjunctiva pink, EOMI, PERRLA. ABSENT: scleral icterus Ear exam: PRESENT: normal external ear exam Mouth exam: PRESENT: moist, tongue midline Neck exam: ABSENT: carotid bruit, JVD, lymphadenopathy, thyromegaly Respiratory exam: PRESENT: clear to auscultation clarke. ABSENT: rales, rhonchi, wheezes Cardiovascular exam: PRESENT: RRR. ABSENT: diastolic murmur, rubs, systolic murmur Pulses: PRESENT: normal dorsalis pedis pul GI/Abdominal exam: PRESENT: normal bowel sounds, soft. ABSENT: distended, guarding, mass, organolmegaly, rebound, tenderness Rectal exam: PRESENT: deferred Neurological exam: PRESENT: alert, awake, oriented to person, oriented to place, oriented to time, oriented to situation, CN II-XII grossly intact. ABSENT: motor sensory deficit Results Laboratory Results: 06/14/19 06:45 06/14/19 06:45 06/14/19 06/14/19 06:45 06:45 WBC 11.7 H RBC 2.58 L Hgb 7.9 L Hct 23.6 L MCV 92 MCH 30.6 MCHC 33.5 RDW 17.9 H Plt Count 300 Seg Neutrophils % 78.2 H Sodium 132.9 L Potassium 5.1 H Chloride 103 Carbon Dioxide 21 L Anion Gap 9 BUN 20 Creatinine 2.07 H Est GFR ( Amer) 42 L Glucose 127 H Calcium 7.8 L 06/08/19 15:35 Blood Blood Culture (PCR) - Final Streptococcus Species Staphylococcus Aureus 06/08/19 15:35 Blood Blood Culture - Final Staphylococcus Aureus Strep Mitis/Oralis Grp 06/09/19 02:03 Creatine Kinase 36 L Impressions: Foot X-Ray 06/08/19 14:59 IMPRESSION: Soft tissue defect and subcutaneous emphysema in the forefoot. The margins of the amputated 1st and 2nd metatarsals are regular. There are displaced fractures of the distal 3rd and 4th metatarsals. Consider correlation with MRI to exclude a superimposed osteomyelitis. Chest X-Ray 06/08/19 21:34 IMPRESSION: Tip of the central line likely in the cavoatrial junction or proximal right atrium. copyright 2011 [employer]- All Rights Reserved Assessment and Plan - Diagnosis (1) Sepsis Qualifiers: Sepsis type: methicillin resistant Staphylococcus aureus Sepsis acute organ dysfunction status: with acute organ dysfunction Severe sepsis acute organ dysfunction type: acute renal failure Acute renal failure type: with acute renal cortical necrosis Severe sepsis shock status: without septic shock Qualified Code(s): A41.02 - Sepsis due to Methicillin resistant Staphylococcus aureus; R65.20 - Severe sepsis without septic shock; N17.1 - Acute kidney failure with acute cortical necrosis Is this a current diagnosis for this admission?: Yes Plan: Sepsis resolved. Secondary to septic right foot. Status post amputation. First set of blood cultures grew Staphylococcus aureus. Continue clindamycin. Repeat blood cultures pending. (2) Bacteremia Is this a current diagnosis for this admission?: Yes Plan: As per #1. (3) Acute renal failure Qualifiers: Acute renal failure type: unspecified Qualified Code(s): N17.9 - Acute kidney failure, unspecified Is this a current diagnosis for this admission?: Yes Plan: Likely related to septic ATN. Creatinine improving with IV fluids. 06/14: We will give him 1 more day of IV fluids and repeat a BMP tomorrow. See if creatinine continues to improve or if this is now a new baseline for him. 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 (6) Uncontrolled diabetes mellitus with hyperglycemia Qualifiers: Diabetes mellitus type: type 2 Qualified Code(s): E11.65 - Type 2 diabetes mellitus with hyperglycemia Is this a current diagnosis for this admission?: Yes Plan: Hold metformin for now until creatinine recovers. (7) Hypertension Is this a current diagnosis for this admission?: Yes - Plan Summary Summary: 06/11/2019 Patient was admitted from the emergency room to the ICU on 06/08/2019 for apparent sepsis and at first was thought to have a GI bleed. There was no indication that the patient was actively bleeding. Patient was seen by general surgery and felt that the patient was septic due to abscess on his right foot. 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 Now that patient has stabilized he went back to the OR today on June 11 and had a right below the knee amputation. He is currently being seen by the hospitalist service for his diabetes and to assist with his other medical conditions Today is white count is stable at 11,000 H&H is actually up slightly 7.8 and 22.7 Renal function is continuing to improve with hydration Blood cultures are positive for staph aureus, sensitivities so far show that it is sensitive to all antibiotics. He is currently on clindamycin and vancomycin as well as Maxipime. Currently blood cultures are not reporting out MRSA. No wound cultures are pending. I will DC the vancomycin and Maxipime leave him on the IV clindamycin while he is here and then discharge him home on a p.o. dose of clindamycin. Patient was only on Glucophage for his diabetes prior to coming in the hospital, and with a hemoglobin A1c of 6.9 was doing well. Indications to put him on insulin now. We will resume his Glucophage and his nifedipine for his blood p ressure - Time Time Spent with patient: 25-34 minutes
[2019-06-14] MEDS: MORPHINE SULFATE 10 MG/ML INJ IV PRN (20:23)
[2019-06-15] MEDS: THIAMINE HCL 100 MG TABLET PO SCH ×3 (06:49→21:36)
[2019-06-15] MEDS: HYDROCODONE/ACETAMINOPHEN 10-325 MG TABLET PO PRN ×4 (06:49→21:36)
[2019-06-15] MEDS: PANTOPRAZOLE SODIUM 40 MG TABLET.DR PO SCH ×2 (06:49→17:57)
[2019-06-15] MEDS: GABAPENTIN 300 MG CAPSULE PO SCH ×3 (06:49→21:35)
[2019-06-15] MEDS: CLINDAMYCIN 900 MG/D5W RTU 900 MG/50 ML RTUPB IV SCH ×3 (06:50→21:36)
[2019-06-15] MEDS: FOLIC ACID 1 MG TABLET PO SCH (08:23)
[2019-06-15] MEDS: INSULIN REG, HUMAN 100 UNIT/ML 3 ML VIAL (PYX) SUBCUT SCH ×4 (08:26→21:32)
[2019-06-15] MEDS: NIFEDIPINE 30 MG TAB.ER.24 PO SCH (10:38)
[2019-06-15 14:17] LABS: ABSOLUTE EOSINOPHILS # (AUTO) 0.1 10^3/uL (0.0-0.6); ABSOLUTE LYMPHOCYTES (AUTO) 1.2 10^3/uL (0.5-4.7); ABSOLUTE MONOCYTES (AUTO) 0.8 10^3/uL (0.1-1.4); ABSOLUTE NEUT (AUTO) 8.1 10^3/uL (1.7-8.2); BASOPHILS % (AUTO) 0.3 % (0-2); EOSINOPHILS % (AUTO) 1.1 % (0-6); LYMPHOCYTES % (AUTO) 11.6 % (13-45); MEAN CORPUSCULAR HEMOGLOBIN 31.5 pg (27.0-33.4); MEAN CORPUSCULAR HGB CONC 34.3 g/dL (32.0-36.0); MEAN CORPUSCULAR VOLUME 92 fl (80-97); PLATELET COUNT 353 10^3/uL (150-450); RED BLOOD COUNT 2.51 10^6/uL (4.35-5.55); RED CELL DISTRIBUTION WIDTH 18.3 % (11.5-14.0); TOTAL CELLS COUNTED % (AUTO) 100 %; WHITE BLOOD COUNT 10.2 10^3/uL (4.0-10.5)
[2019-06-15 14:23] LABS: HEMOGLOBIN 7.9 g/dL (13.5-17.0)
[2019-06-15 14:27] LABS: ANION GAP 9 (5-19); BLOOD UREA NITROGEN 19 mg/dL (7-20); CALCIUM 7.9 mg/dL (8.4-10.2); CARBON DIOXIDE 20 mmol/L (22-30); CHLORIDE 104 mmol/L (98-107); GLUCOSE 123 mg/dL (75-110); POTASSIUM 5.3 mmol/L (3.6-5.0)
--- NOTE | 2019-06-15 15:52 | PDOC PROGRESS REPORT ---
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 Patient was initially admitted to the ICU as there was suspicion initially for possible upper GI bleed as ER provider witnessed an episode of blood tinged emesis. Patient was evaluated by surgery. He was in the ICU for 3 days for sepsis and was also on Protonix drip. He did receive blood transfusion as well. Surgery and previous medical team later deemed that patient was not having active GI bleeding and he was treated for osteomyelitis. 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 He subsequently underwent formal BKA on 06/08/2019. 06/12: No acute event overnight. Upon encounter, he appears comfortable. Denies acute complaints. Denies chest pain or shortness of breath. No melena, hematochezia or hematemesis. 06/13: No acute issues. He reports mild pain on surgical site this morning. Otherwise denies chest pain or shortness of breath. PT has recommended rehab placement. Surgery is considering possible JOSUÉ drain removal tomorrow if drain output is low. 06/14: No acute event overnight. His hemoglobin did trend down to 7.9 this morning. No gross clinical signs of bleeding so far. Creatinine remains at 2. We will give him 1 more day of IV fluids and repeat a BMP tomorrow. Will recheck another H&H overnight. 06/15: No acute event overnight. Patient denies acute complaints. JOSUÉ drain was removed yesterday by surgery. Hemoglobin has remained stable. Creatinine has plateaued with IV fluids and resolution of sepsis. Patient likely has a new baseline creatinine and has sustained some CKD from his recent acute renal failure. He is medically stable for discharge. 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 He was reevaluated by physical therapy and is having significantly impaired mobility and requires significant assistance. Discussed during CAPP rounds, patient has no medical insurance. Will attempt to work on acute rehab palcement which accepts patients with no insurance including [place] and 2 other acute rehab centers. Reason For Visit: GASTROINTESTINAL BLEEDING, SEPSIS Physical Exam Vital Signs: Temp Pulse Resp BP Pulse Ox 98.2 F 92 18 149/78 H 100 06/15/19 10:45 06/15/19 10:45 06/15/19 10:45 06/15/19 10:45 06/15/19 10:45 Intake & Output 06/14/19 06/15/19 06/16/19 06:59 06:59 06:59 Intake Total 4627.2 4028.2 290 Output Total 2495 2300 Balance 2132.2 1728.2 290 Weight 175 lb 14.862 oz 178 lb 12.718 oz General appearance: PRESENT: no acute distress, well-developed, well-nourished Head exam: PRESENT: atraumatic, normocephalic Eye exam: PRESENT: conjunctiva pink, EOMI, PERRLA. ABSENT: scleral icterus GI/Abdominal exam: PRESENT: normal bowel sounds, soft. ABSENT: distended, guarding, mass, organolmegaly, rebound, tenderness Rectal exam: PRESENT: deferred Neurological exam: PRESENT: alert, awake, oriented to person, oriented to place, oriented to time, oriented to situation, CN II-XII grossly intact. ABSENT: motor sensory deficit Results Laboratory Results: 06/15/19 11:27 06/15/19 11:27 06/15/19 06/15/19 06/15/19 06:57 06:57 11:27 WBC Cancelled RBC Cancelled Hgb Cancelled Hct Cancelled MCV Cancelled MCH Cancelled MCHC Cancelled RDW Cancelled Plt Count Cancelled Seg Neutrophils % Cancelled Sodium Cancelled 133.2 L Potassium Cancelled 5.3 H Chloride Cancelled 104 Carbon Dioxide Cancelled 20 L Anion Gap Cancelled 9 BUN Cancelled 19 Creatinine Cancelled 2.14 H Est GFR ( Amer) Cancelled 40 L Est GFR (Non-Af Amer) Cancelled Glucose Cancelled 123 H Calcium Cancelled 7.9 L 06/15/19 11:27 WBC 10.2 RBC 2.51 L Hgb 7.9 L Hct 23.0 L MCV 92 MCH 31.5 MCHC 34.3 RDW 18.3 H Plt Count 353 Seg Neutrophils % 79.0 H Sodium Potassium Chloride Carbon Dioxide Anion Gap BUN Creatinine Est GFR ( Amer) Est GFR (Non-Af Amer) Glucose Calcium 06/09/19 02:03 Creatine Kinase 36 L Impressions: Foot X-Ray 06/08/19 14:59 IMPRESSION: Soft tissue defect and subcutaneous emphysema in the forefoot. The margins of the amputated 1st and 2nd metatarsals are regular. There are di splaced fractures of the distal 3rd and 4th metatarsals. Consider correlation with MRI to exclude a superimposed osteomyelitis. Chest X-Ray 06/08/19 21:34 IMPRESSION: Tip of the central line likely in the cavoatrial junction or proximal right atrium. copyright 2011 [employer]- All Rights Reserved Assessment and Plan - Diagnosis (1) Sepsis Qualifiers: Sepsis type: methicillin resistant Staphylococcus aureus Sepsis acute organ dysfunction status: with acute organ dysfunction Severe sepsis acute organ dysfunction type: acute renal failure Acute renal failure type: with acute renal cortical necrosis Severe sepsis shock status: without septic shock Qualified Code(s): A41.02 - Sepsis due to Methicillin resistant Staphylococcus aureus; R65.20 - Severe sepsis without septic shock; N17.1 - Acute kidney failure with acute cortical necrosis Is this a current diagnosis for this admission?: Yes Plan: Sepsis resolved. Secondary to septic right foot. Status post amputation. First set of blood cultures grew Staphylococcus aureus. Continue clindamycin. Repeat blood cultures negative. (2) Bacteremia Is this a current diagnosis for this admission?: Yes Plan: As per #1. (3) Acute renal failure Qualifiers: Acute renal failure type: unspecified Qualified Code(s): N17.9 - Acute kidney failure, unspecified Is this a current diagnosis for this admission?: Yes Plan: Likely related to septic ATN. Creatinine improving with IV fluids. 06/14: We will give him 1 more day of IV fluids and repeat a BMP tomorrow. See if creatinine continues to improve or if this is now a new baseline for him. 06/15: Creatinine has plateaued with IV fluids and resolution of sepsis. Patient likely has a new baseline creatinine and has sustained some CKD from his recent acute renal failure. 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 (6) Uncontrolled diabetes mellitus with hyperglycemia Qualifiers: Diabetes mellitus type: type 2 Qualified Code(s): E11.65 - Type 2 diabetes mellitus with hyperglycemia Is this a current diagnosis for this admission?: Yes Plan: Hold metformin for now until creatinine recovers. 06/15: DC metformin due to elevated creatinine. (7) Hypertension Is this a current diagnosis for this admission?: Yes - Plan Summary Summary: 06/11/2019 Patient was admitted from the emergency room to the ICU on 06/08/2019 for apparent sepsis and at first was thought to have a GI bleed. There was no indication that the patient was actively bleeding. Patient was seen by general surgery and felt that the patient was septic due to abscess on his right foot. 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 Now that patient has stabilized he went back to the OR today on June 11 and had a right below the knee amputation. He is currently being seen by the hospitalist service for his diabetes and to assist with his other medical conditions Today is white count is stable at 11,000 H&H is actually up slightly 7.8 and 22.7 Renal function is continuing to improve with hydration Blood cultures are positive for staph aureus, sensitivities so far show that it is sensitive to all antibiotics. He is currently on clindamycin and vancomycin as well as Maxipime. Currently blood cultures are not reporting out MRSA. No wound cultures are pending. I will DC the vancomycin and Maxipime leave him on the IV clindamycin while he is here and then discharge him home on a p.o. dose of clindamycin. Patient was only on Glucophage for his diabetes prior to coming in the hospital, and with a hemoglobin A1c of 6.9 was doing well. Indications to put him on insulin now. We will resume his Glucophage and his nifedipine for his blood pressure - Time Time Spent with patient: 25-34 minutes
[2019-06-15] MEDS: NORMAL SALINE 1000 ML 1,000 ML IV PRN (17:57)
[2019-06-16] MEDS: HYDROCODONE/ACETAMINOPHEN 10-325 MG TABLET PO PRN ×5 (04:02→22:11)
[2019-06-16] MEDS: NORMAL SALINE 1000 ML 1,000 ML IV PRN ×2 (04:02→07:48)
[2019-06-16] MEDS: GABAPENTIN 300 MG CAPSULE PO SCH ×3 (05:24→22:11)
[2019-06-16] MEDS: PANTOPRAZOLE SODIUM 40 MG TABLET.DR PO SCH ×2 (05:24→17:57)
[2019-06-16] MEDS: THIAMINE HCL 100 MG TABLET PO SCH ×3 (05:24→22:11)
[2019-06-16] MEDS: INSULIN REG, HUMAN 100 UNIT/ML 3 ML VIAL (PYX) SUBCUT SCH ×4 (07:36→21:42)
[2019-06-16] MEDS: FOLIC ACID 1 MG TABLET PO SCH (07:47)
[2019-06-16] MEDS: NIFEDIPINE 30 MG TAB.ER.24 PO SCH (09:17)
[2019-06-16] MEDS: METFORMIN HCL 500 MG TABLET PO SCH (09:17)
--- NOTE | 2019-06-16 14:44 | PDOC PROGRESS REPORT ---
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 Patient was initially admitted to the ICU as there was suspicion initially for possible upper GI bleed as ER provider witnessed an episode of blood tinged emesis. Patient was evaluated by surgery. He was in the ICU for 3 days for sepsis and was also on Protonix drip. He did receive blood transfusion as well. Surgery and previous medical team later deemed that patient was not having active GI bleeding and he was treated for osteomyelitis. 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 He subsequently underwent formal BKA on 06/08/2019. 06/12: No acute event overnight. Upon encounter, he appears comfortable. Denies acute complaints. Denies chest pain or shortness of breath. No melena, hematochezia or hematemesis. 06/13: No acute issues. He reports mild pain on surgical site this morning. Otherwise denies chest pain or shortness of breath. PT has recommended rehab placement. Surgery is considering possible JOSUÉ drain removal tomorrow if drain output is low. 06/14: No acute event overnight. His hemoglobin did trend down to 7.9 this morning. No gross clinical signs of bleeding so far. Creatinine remains at 2. We will give him 1 more day of IV fluids and repeat a BMP tomorrow. Will recheck another H&H overnight. 06/15: No acute event overnight. Patient denies acute complaints. JOSUÉ drain was removed yesterday by surgery. Hemoglobin has remained stable. Creatinine has plateaued with IV fluids and resolution of sepsis. Patient likely has a new baseline creatinine and has sustained some CKD from his recent acute renal failure. He is medically stable for discharge. 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 He was reevaluated by physical therapy and is having significantly impaired mobility and requires significant assistance. Discussed during CAPP rounds, patient has no medical insurance. Will attempt to work on acute rehab palcement which accepts patients with no insurance including [place] and 2 other acute rehab centers. 06/16: No acute event overnight. Denies acute complaints. We rediscussed his disposition today. Discussed in length the need for him to go to acute rehab. Patient expressed he is not agreeable to being placed somewhere outside of [place]. Discussed that we have very limited options as he has no insurance and there are only a few acute rehab facilities who can potentially take him being uninsured. Reason For Visit: GASTROINTESTINAL BLEEDING, SEPSIS Physical Exam Vital Signs: Temp Pulse Resp BP Pulse Ox 98.1 F 97 16 153/86 H 99 06/16/19 12:00 06/16/19 12:00 06/16/19 12:00 06/16/19 12:00 06/16/19 12:00 Intake & Output 06/15/19 06/16/19 06/17/19 06:59 06:59 06:59 Intake Total 4028.2 3984 377 Output Total 2300 2875 Balance 1728.2 1109 377 Weight 178 lb 12.718 oz 174 lb 6.17 oz General appearance: PRESENT: no acute distress, well-developed, well-nourished Head exam: PRESENT: atraumatic, normocephalic Eye exam: PRESENT: conjunctiva pink, EOMI, PERRLA. ABSENT: scleral icterus Ear exam: PRESENT: normal external ear exam Mouth exam: PRESENT: moist, tongue midline Neck exam: ABSENT: carotid bruit, JVD, lymphadenopathy, thyromegaly Respiratory exam: PRESENT: clear to auscultation clarke. ABSENT: rales, rhonchi, wheezes Pulses: PRESENT: normal dorsalis pedis pul GI/Abdominal exam: PRESENT: ascites. ABSENT: distended, tenderness Rectal exam: PRESENT: deferred Neurological exam: PRESENT: alert, awake, oriented to person, oriented to place, oriented to time, oriented to situation, CN II-XII grossly intact. ABSENT: mo tor sensory deficit Results Laboratory Results: 06/15/19 11:27 06/15/19 11:27 06/15/19 11:27 Sodium 133.2 L Potassium 5.3 H Chloride 104 Carbon Dioxide 20 L Anion Gap 9 BUN 19 Creatinine 2.14 H Est GFR ( Amer) 40 L Glucose 123 H Calcium 7.9 L 06/09/19 02:03 Creatine Kinase 36 L Impressions: Foot X-Ray 06/08/19 14:59 IMPRESSION: Soft tissue defect and subcutaneous emphysema in the forefoot. The margins of the amputated 1st and 2nd metatarsals are regular. There are displaced fractures of the distal 3rd and 4th metatarsals. Consider correlation with MRI to exclude a superimposed osteomyelitis. Chest X-Ray 06/08/19 21:34 IMPRESSION: Tip of the central line likely in the cavoatrial junction or proximal right atrium. copyright 2011 [employer]- All Rights Reserved Assessment and Plan - Diagnosis (1) Sepsis Qualifiers: Sepsis type: methicillin resistant Staphylococcus aureus Sepsis acute organ dysfunction status: with acute organ dysfunction Severe sepsis acute organ dysfunction type: acute renal failure Acute renal failure type: with acute renal cortical necrosis Severe sepsis shock status: without septic shock Qualified Code(s): A41.02 - Sepsis due to Methicillin resistant Staphylococcus aureus; R65.20 - Severe sepsis without septic shock; N17.1 - Acute kidney failure with acute cortical necrosis Is this a current diagnosis for this admission?: Yes Plan: Sepsis resolved. Secondary to septic right foot. Status post amputation. First set of blood cultures grew Staphylococcus aureus. Continue clindamycin. Repeat blood cultures negative. 06/16: He has received 7 days of IV antibiotics. (2) Bacteremia Is this a current diagnosis for this admission?: Yes Plan: As per #1. (3) Acute renal failure Qualifiers: Acute renal failure type: unspecified Qualified Code(s): N17.9 - Acute kidney failure, unspecified Is this a current diagnosis for this admission?: Yes Plan: Likely related to septic ATN. Creatinine improving with IV fluids. 06/14: We will give him 1 more day of IV fluids and repeat a BMP tomorrow. See if creatinine continues to improve or if this is now a new baseline for him. 06/15: Creatinine has plateaued with IV fluids and resolution of sepsis. Patient likely has a new baseline creatinine and has sustained some CKD from his recent acute renal failure. 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 (6) Uncontrolled diabetes mellitus with hyperglycemia Qualifiers: Diabetes mellitus type: type 2 Qualified Code(s): E11.65 - Type 2 diabetes mellitus with hyperglycemia Is this a current diagnosis for this admission?: Yes Plan: Hold metformin for now until creatinine recovers. 06/15: DC metformin due to elevated creatinine. 06/16: Diabetes fairly controlled now with a recent A1c of 6.9. Switch metformin to glimepiride due to elevated creatinine. (7) Hypertension Is this a current diagnosis for this admission?: Yes - Plan Summary Summary: 06/11/2019 Patient was admitted from the emergency room to the ICU on 06/08/2019 for apparent sepsis and at first was thought to have a GI bleed. There was no indication that the patient was actively bleeding. Patient was seen by general surgery and felt that the patient was septic due to abscess on his right foot. 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 Now that patient has stabilized he went back to [facility] OR today on June 11 and had a right below the knee amputation. He is currently being seen by the hospitalist service for his diabetes and to assist with his other medical conditions Today is white count is stable at 11,000 H&H is actually up slightly 7.8 and 22.7 Renal function is continuing to improve with hydration Blood cultures are positive for staph aureus, sensitivities so far show that it is sensitive to all antibiotics. He is currently on clindamycin and vancomycin as well as Maxipime. Currently blood cultures are not reporting out MRSA. No wound cultures are pending. I will DC the vancomycin and Maxipime leave him on the IV clindamycin while he is here and then discharge him home on a p.o. dose of clindamycin. Patient was only on Glucophage for his diabetes prior to coming in the hospital, and with a hemoglobin A1c of 6.9 was doing well. Indications to put him on ins ulin now. We will resume his Glucophage and his nifedipine for his blood pressure - Time Time Spent with patient: 25-34 minutes
[2019-06-16] MEDS: GLIMEPIRIDE 1 MG TABLET PO SCH (17:56)
[2019-06-16] MEDS: AMOXICILLIN TR/POT CLAVULANATE 500-125 MG TAB PO SCH (22:11)
[2019-06-17] MEDS: PANTOPRAZOLE SODIUM 40 MG TABLET.DR PO SCH ×2 (06:25→16:20)
[2019-06-17] MEDS: HYDROCODONE/ACETAMINOPHEN 10-325 MG TABLET PO PRN ×4 (06:25→20:31)
[2019-06-17] MEDS: GABAPENTIN 300 MG CAPSULE PO SCH ×3 (06:25→22:38)
[2019-06-17] MEDS: THIAMINE HCL 100 MG TABLET PO SCH ×3 (06:25→22:39)
[2019-06-17 07:54] LABS: ANION GAP 8 (5-19); BLOOD UREA NITROGEN 17 mg/dL (7-20); CALCIUM 8.3 mg/dL (8.4-10.2); CARBON DIOXIDE 23 mmol/L (22-30); CHLORIDE 106 mmol/L (98-107); GLUCOSE 102 mg/dL (75-110); POTASSIUM 5.1 mmol/L (3.6-5.0)
[2019-06-17] MEDS: INSULIN REG, HUMAN 100 UNIT/ML 3 ML VIAL (PYX) SUBCUT SCH ×4 (08:13→21:58)
[2019-06-17] MEDS: FOLIC ACID 1 MG TABLET PO SCH (08:16)
[2019-06-17] MEDS: GLIMEPIRIDE 1 MG TABLET PO SCH (08:16)
[2019-06-17] MEDS ORDERED: SODIUM POLYSTYRENE SULFONATE 15 GM/60 ML PO ONE (09:00)
[2019-06-17] MEDS: AMOXICILLIN TR/POT CLAVULANATE 500-125 MG TAB PO SCH ×2 (09:26→22:42)
[2019-06-17] MEDS: NIFEDIPINE 30 MG TAB.ER.24 PO SCH (09:26)
--- NOTE | 2019-06-17 18:22 | PDOC DISCHARGE SUMMARY ---
Impression - Admit/DC Date/PCP Admission Date/Primary Care Provider: 06/08/19 23:07 Discharge Date: 06/17/19 - Discharge Diagnosis (1) Sepsis Is this a current diagnosis for this admission?: Yes (2) Bacteremia Is this a current diagnosis for this admission?: Yes (3) Acute renal failure Is this a current diagnosis for this admission?: Yes (4) Diabetic foot ulcer Is this a current diagnosis for this admission?: Yes (5) Anemia requiring transfusions Is this a current diagnosis for this admission?: Yes (6) Uncontrolled diabetes mellitus with hyperglycemia Is this a current diagnosis for this admission?: Yes (7) Hypertension Is this a current diagnosis for this admission?: Yes - Assessment Summary: 06/11/2019 Patient was admitted from the emergency room to the ICU on 06/08/2019 for apparent sepsis and at first was thought to have a GI bleed. There was no indication that the patient was actively bleeding. Patient was seen by general surgery and felt that the patient was septic due to abscess on his right foot. 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 Now that patient has stabilized he went back to the OR today on June 11 and had a right below the knee amputation. He is currently being seen by the hospitalist service for his diabetes and to assist with his other medical conditions Today is white count is stable at 11,000 H&H is actually up slightly 7.8 and 22.7 Renal function is continuing to improve with hydration Blood cultures are positive for staph aureus, sensitivities so far show that it is sensitive to all antibiotics. He is currently on clindamycin and vancomycin as well as Maxipime. Currently blood cultures are not reporting out MRSA. No wound cultures are pending. I will DC the vancomycin and Maxipime leave him on the IV clindamycin while he is here and then discharge him home on a p.o. dose of clindamycin. Patient was only on Glucophage for his diabetes prior to coming in the hospital, and with a hemoglobin A1c of 6.9 was doing well. Indications to put him on insulin now. We will resume his Glucophage and his nifedipine for his blood pressure - Additional Information Resuscitation Status: Full Code Referrals: [facility] [Provider Group] - 07/02/19 9:15 am () [facility] [Outside] - 06/26/19 10:30 am Prescriptions: Lancing Device/Lancets [Accu-Chek Softclix Lancet Kit] 1 each MC BID #1 kit Amox Tr/Potassium Clavulanate [Augmentin "500" Tablet] 1 tab PO Q12 3 Days #6 tablet Hydrocodone/Acetaminophen [Stafford 5-325 mg Tablet] 1 tab PO Q6HP PRN #12 tablet PRN Reason: For Pain Amlodipine Besylate [Norvasc 5 mg Tablet] 5 mg PO DAILY #60 tablet Pantoprazole Sodium [Protonix [address] Tablet] 40 mg PO QAM #60 tablet.dr Home Medications: Gabapentin [Neurontin 300 mg Capsule] 300 mg PO Q8 06/09/19 Polyethylene Glycol 3350 [Miralax] 17 gm PO DAILYP PRN 06/09/19 Amlodipine Besylate [Norvasc 5 mg Tablet] 5 mg PO DAILY #60 tablet 06/17/19 Amox Tr/Potassium Clavulanate [Augmentin "500" Tablet] 1 tab PO Q12 3 Days #6 tablet 06/17/19 Hydrocodone/Acetaminophen [Stafford 5-325 mg Tablet] 1 tab PO Q6HP PRN #12 tablet 06/17/19 Pantoprazole Sodium [Protonix [address] Tablet] 40 mg PO QAM #60 tablet. 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 Patient presented to [facility] complaining of fever, pain, and malodorous purulent drainage from his right foot wound for which he was referred to the hospital from his wound care clinic today. Patient endorses that he has had nausea with vomiting during the daytime for the past 3 days, denying any bloody or coffee-ground appearance, making it a point to inform me that he was able to sleep at night. He reports he vomits any food or liquids he attempts to drink. He denies dark tarry stools or bright red blood per rectum, also denying a change in bowel habits. To note, patient has a history of alcoholism and reports his last drink being 2 days prior to being seen in the ER overnight. Mr. Hendrix was started on a Protonix infusion in the emergency department as he was witnessed to have an episode of blood-tinged emesis by the ER physician with a positive Gastroccult, as well as being Hemoccult positive. Notable labs indicate leukocytosis with a lactatemia, anemia, and CAROLIN on CKD. Patient will be admitted to the ICU monitoring for ongoing gastrointestinal bleeding, receive a blood transfusion and IV fluids for hydration in attempt to improve CAROLIN, and will likely go for surgery later today for right BKA +/- endoscopy per surgery consultation. 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 Patient was initially admitted to the ICU as there was suspicion initially for possible upper GI bleed as ER provider witnessed an episode of blood tinged emesis. Patient was evaluated by surgery. He was in the ICU for 3 days for sepsis and was also on Protonix drip. He did receive blood transfusions as well. Surgery and previous medical team later deemed that patient was not having active GI bleeding and he was treated for sepsis. 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 He subsequently underwent formal BKA on 06/08/2019. He was also getting IV fluids for his acute renal failure. Patient did improve. His creatinine improved with IV fluids but plateaued at 2.0 with IV fluids and resolution of sepsis. Patient likely has a new baseline creatinine and has sustained some CKD from his recent acute renal failure. His hospitalization was prolonged pending safe placement as he does not have insurance. 06/15: Discussed during CAPP rounds, patient has no medical insurance. Will attempt to work on acute rehab placement which accepts patients with no insurance including one in [place] and 2 other acute rehab centers. However when plan for acute rehab placement was discussed with patient, he expressed he is not agreeable to being placed somewhere outside of [place]. Discussed that we have very limited options as he has no insurance and there are only a few acute rehab facilities who can potentially take him being uninsured. Patient insisted on being discharged home instead as he says that there is no way he would agree to going outside of [place]. He says his boss and his parents will be there to help evaluate his chores and ADLs. Will set up [facility] home health for patient. Will also be given a confirmed follow- up appointment with the surgery clinic to reassess his BKA. His metformin was switched to glimepiride due to his new baseline creatinine. Patient had episodes of hypoglycemia even with the lowest dose of glimepiride with sugars in the 40s. He was asymptomatic during the episodes. He was switched to low-dose 70/30 and also had hypoglycemic episodes as well even nith just 4 u SQ of 70/30. Although patient had uncontrolled diabetes before leading to several complications, his recent A1c was down to 6.9. He cannot be on metformin now due to his new baseline creatinine. At this time I believe the best course would be to continue diet controlling his diabetes and close monitoring of his glycemic control with PCP and later cosnider reinitiation of DM theraopy depending on his subsequent glycemic control. Patient consistently refuses rehab or SNF placement. Proceed with discharge to home with [facility] as planned. Physical Exam Vital Signs: Temp Pulse Resp BP Pulse Ox 98.3 F 94 16 161/77 H 100 06/17/19 11:17 06/17/19 11:17 06/17/19 11:17 06/17/19 11:17 06/17/19 11:17 Intake & Output 06/16/19 06/17/19 06/18/19 06:59 06:59 06:59 Intake Total 398 2560 360 Output Total 1620 3275 1300 Balance 1109 -965 -940 Weight 174 lb 6.17 oz 173 lb 11.588 oz General appearance: PRESENT: no acute distress, well-developed, well-nourished Head exam: PRESENT: atraumatic, normocephalic Eye exam: PRESENT: conjunctiva pink, EOMI, PERRLA. ABSENT: scleral icterus Ear exam: PRESENT: normal external ear exam Mouth exam: PRESENT: moist, tongue midline Neck exam: ABSENT: carotid bruit, JVD, lymphadenopathy, thyromegaly Respiratory exam: PRESENT: clear to auscultation clarke. ABSENT: rales, rhonchi, wheezes Cardiovascular exam: PRESENT: RRR. ABSENT: diastolic murmur, rubs, systolic murmur Pulses: PRESENT: normal dorsalis pedis pul GI/Abdominal exam: PRESENT: normal bowel sounds, soft. ABSENT: distended, guarding, mass, organolmegaly, rebound, tenderness Rectal exam: PRESENT: deferred Extremities exam: PRESENT: other - +BKA stumps Neurological exam: PRESENT: alert, awake, oriented to person, oriented to place, oriented to time, oriented to situation, CN II-XII grossly intact. ABSENT: motor sensory deficit Results Laboratory Results: WBC 10.2 10^3/uL (4.0-10.5) 06/15/19 11:27 RBC 2.51 10^6/uL (4.35-5.55) L 06/15/19 11:27 Hgb 7.9 g/dL (13.5-17.0) L 06/15/19 11:27 Hct 23.0 % (37.9-51.0) L 06/15/19 11:27 MCV 92 fl (80-97) 06/15/19 11:27 MCH 31.5 pg (27.0-33.4) 06/15/19 11:27 MCHC 34.3 g/dL (32.0-36.0) 06/15/19 11:27 RDW 18.3 % (11.5-14.0) H 06/15/19 11:27 Plt Count 353 10^3/uL (150-450) 06/15/19 11:27 Lymph % (Auto) 11.6 % (13-45) L 06/15/19 11:27 Menard % (Auto) 8.0 % (3-13) 06/15/19 11:27 Eos % (Auto) 1.1 % (0-6) 06/15/19 11:27 Baso % (Auto) 0.3 % (0-2) 06/15/19 11:27 Absolute Neuts (auto) 8.1 10^3/uL (1.7-8.2) 06/15/19 11:27 Absolute Lymphs (auto) 1.2 10^3/uL (0.5-4.7) 06/15/19 11:27 Absolute Monos (auto) 0.8 10^3/uL (0.1-1.4) 06/15/19 11:27 Absolute Eos (auto) 0.1 10^3/uL (0.0-0.6) 06/15/19 11:27 Absolute Basos (auto) 0.0 10^3/uL (0.0-0.2) 06/15/19 11:27 Total Counted 100 06/12/19 10:05 Seg Neutrophils % 79.0 % (42-78) H 06/15/19 11:27 Seg Neuts % (Manual) 85 % (42-78) H 06/12/19 10:05 Lymphocytes % (Manual) 8 % (13-45) L 06/12/19 10:05 Atypical Lymphs % 3 % (0) 06/12/19 10:05 Monocytes % (Manual) 3 % (3-13) 06/12/19 10:05 Eosinophils % (Manual) 1 % (0-6) 06/12/19 10:05 Basophils % (Manual) 0 % (0-2) 06/12/19 10:05 Abs Neuts (Manual) 10.2 10^3/uL (1.7-8.2) H 06/12/19 10:05 Abs Lymphs (Manual) 1.3 10^3/uL (0.5-4.7) 06/12/19 10:05 Abs Monocytes (Manual) 0.4 10^3/uL (0.1-1.4) 06/12/19 10:05 Absolute Eos (Manual) 0.1 10^3/uL (0.0-0.6) 06/12/19 10:05 Abs Basophils (Manual) 0.0 10^3/uL (0.0-0.2) 06/12/19 10:05 Toxic Granulation 2+ 06/12/19 10:05 Platelet Estimate Cancelled 06/15/19 06:57 Large Platelets PRESENT 06/12/19 10:05 Platelet Comment ADEQUATE 06/12/19 10:05 Polychromasia SLIGHT 06/12/19 10:05 Anisocytosis 2+ 06/12/19 10:05 RBC Morph Comment NORMO-CYTIC/CHROMIC 06/08/19 19:04 PT 13.8 SEC (11.4-15.4) 06/11/19 11:40 INR 1.06 06/11/19 11:40 APTT 31.8 SEC (23.5-35.8) 06/11/19 11:40 VBG pH 7.42 (7.30-7.42) 06/08/19 15:35 VBG pCO2 38.9 mmHg (35-63) 06/08/19 15:35 VBG HCO3 24.5 mmol/L (20-32) 06/08/19 15:35 VBG Base Excess 0 mmol/L 06/08/19 15:35 Sodium 136.7 mmol/L (137-145) L 06/17/19 06:30 Potassium 4.8 mmol/L (3.6-5.0) 06/17/19 16:30 Chloride 106 mmol/L (98-107) 06/17/19 06:30 Carbon Dioxide 23 mmol/L (22-30) 06/17/19 06:30 Anion Gap 8 (5-19) 06/17/19 06:30 BUN 17 mg/dL (7-20) 06/17/19 06:30 Creatinine 2.08 mg/dL (0.52-1.25) H 06/17/19 06:30 Est GFR ( Amer) 41 (>60) L 06/17/19 06:30 Est GFR (Non-Af Amer) Cancelled 06/15/19 06:57 Est GFR (MDRD) Non-Af 34 (>60) L 06/17/19 06:30 Glucose 102 mg/dL (75-110) 06/17/19 06:30 POC Glucose 77 mg/dL (70-110) 06/17/19 15:58 Hemoglobin A1c % 6.9 % (4.7-6.0) H 06/09/19 02:03 Lactic Acid 1.0 mmol/L (0.7-2.1) 06/08/19 21:05 Calcium 8.3 mg/dL (8.4-10.2) L 06/17/19 06:30 Phosphorus 4.4 mg/dL (2.5-4.5) 06/09/19 02:03 Magnesium 2.2 mg/dL (1.6-2.3) 06/09/19 02:03 Total Bilirubin 0.5 mg/dL (0.2-1.3) 06/08/19 15:35 Direct Bilirubin 0.5 mg/dL (0.0-0.4) H 06/08/19 15:35 Neonat Total Bilirubin Not Reportable 06/08/19 15:35 Neonat Direct Bilirubin Not Reportable 06/08/19 15:35 Neonat Indirect Bili Not Reportable 06/08/19 15:35 AST 35 U/L (17-59) 06/08/19 15:35 ALT 19 U/L (<50) 06/08/19 15:35 Alkaline Phosphatase 174 U/L (38-126) H 06/08/19 15:35 Creatine Kinase 36 U/L (55-170) L 06/09/19 02:03 Total Protein 7.5 g/dL (6.3-8.2) 06/08/19 15:35 Albumin 3.3 g/dL (3.5-5.0) L 06/08/19 15:35 Lipase 113.3 U/L (23-300) 06/08/19 19:54 EGFR Cancelled 06/15/19 06:57 POC Gastric Occult Bld POSITIVE (NEGATIVE) 06/08/19 20:09 Time Trough Drawn 2220 06/10/19 22:20 Vancomycin Trough 16.7 ug/mL (5.0-20.0) 06/10/19 22:20 Serum Alcohol < 10 mg/dL (NONE DETECTED) 06/08/19 19:54 Slides for Path Review Cancelled 06/15/19 06:57 Blood Type O POSITIVE 06/08/19 20:07 Blood Type Confirm O POSITIVE 06/08/19 20:07 Antibody Screen NEGATIVE 06/08/19 20:07 Crossmatch See Detail 06/08/19 20:07 Impressions: Chest X-Ray 06/08/19 14:59 IMPRESSION: Chronic diffuse interstitial opacities without a superimposed acute cardiopulmonary process. Foot X-Ray 06/08/19 14:59 IMPRESSION: Soft tissue defect and subcutaneous emphysema in the forefoot. The margins of the amputated 1st and 2nd metatarsals are regular. There are displaced fractures of the distal 3rd and 4th metatarsals. Consider correlation with MRI to exclude a superimposed osteomyelitis. Chest X-Ray 06/08/19 21:34 IMPRESSION: Tip of the central line likely in the cavoatrial junction or proximal right atrium. copyright 2011 [employer]- All Rights Reserved Stroke Is this a Stroke Patient?: No Acute Heart Failure - Is this a Heart Failure Patient?: No
[2019-06-18] MEDS: HYDROCODONE/ACETAMINOPHEN 10-325 MG TABLET PO PRN ×4 (00:36→15:19)
[2019-06-18] MEDS: PANTOPRAZOLE SODIUM 40 MG TABLET.DR PO SCH ×2 (05:28→16:10)
[2019-06-18] MEDS: GABAPENTIN 300 MG CAPSULE PO SCH ×2 (05:28→13:32)
[2019-06-18] MEDS: THIAMINE HCL 100 MG TABLET PO SCH ×2 (05:28→13:32)
[2019-06-18] MEDS: GLIMEPIRIDE 1 MG TABLET PO SCH (09:11)
[2019-06-18] MEDS: INSULIN REG, HUMAN 100 UNIT/ML 3 ML VIAL (PYX) SUBCUT SCH (09:12)
[2019-06-18] MEDS: NIFEDIPINE 30 MG TAB.ER.24 PO SCH (09:16)
[2019-06-18] MEDS: FOLIC ACID 1 MG TABLET PO SCH (09:16)
[2019-06-18] MEDS: AMOXICILLIN TR/POT CLAVULANATE 500-125 MG TAB PO SCH (09:17)
[2019-06-18] MEDS ORDERED: HUM INSULIN NPH/REG INSULIN HM 100 UNIT/1 ML 3 ML SUBCUT SCH ×2 (09:30→16:00)
[2019-06-18] MEDS: HUM INSULIN NPH/REG INSULIN HM 100 UNIT/1 ML 3 ML SUBCUT SCH ×2 (09:56→16:09)
[2019-06-18 11:04] VITALS: BP 148/85
[2019-06-18] MEDS ORDERED: INFLUENZA QUAD (6MOS+) 2019-20 VAC 0.5 ML SYR IM ONE (12:42)
--- NOTE | 2019-06-18 17:19 | Progress Note ---
Provider Note Provider Note: Patient had episodes of hypoglycemia even with the lowest dose of glimepiride. He was asymptomatic during the episodes. He was switched to low-dose 70/30 and also had hypoglycemic episodes as well evenwnith just 4 u SQ of 70/30. Although patient had uncontrolled diabetes before leading to several complications, his recent A1c was down to 6.9. He cannot be on metformin now due to his new baseline creatinine. At this time I believe the best course would be to continue diet controlling his diabetes and close monitoring of his glycemic control with PCP and later cosnider reinitiation of DM theraopy depending on his subsequent glycemic control. Otherwise, no other acute event overnight. Denies acute complaints. Patient consistently refuses rehab or SNF placement. Proceed with discharge to home with [facility] as planned.
== END 2019-06-18 17:00 | disposition home health service (06) | DRG 854 ==
LOC: ER 14:25 → EH 23:07 → EDBD 23:07 → ICU 06-09 01:15 → 4S 06-10 17:42
PROVIDERS: ADMIT Hospitalist; ATTEND Hospitalist
PROC: 30233N1 Transfusion of Nonautologous Red Blood Cells into Peripheral Vein, Percutaneous Approach (ICD-10-PCS; 2019-06-08)
PROC: 02H633Z Insertion of Infusion Device into Right Atrium, Percutaneous Approach (ICD-10-PCS; 2019-06-08)
PROC: 0Y6N0Z0 Detachment at Left Foot, Complete, Open Approach (ICD-10-PCS; principal; 2019-06-09 10:00)
PROC: 0Y6H0Z1 Detachment at Right Lower Leg, High, Open Approach (ICD-10-PCS; 2019-06-11)
PROC: 3E02340 Introduction of Influenza Vaccine into Muscle, Percutaneous Approach (ICD-10-PCS; 2019-06-18)
DX: A41.02 Sepsis due to Methicillin resistant Staphylococcus aureus (principal); K92.0 Hematemesis; N17.9 Acute kidney failure, unspecified; E87.1 Hypo-osmolality and hyponatremia; M86.671 Other chronic osteomyelitis, right ankle and foot; E11.52 Type 2 diabetes mellitus with diabetic peripheral angiopathy with gangrene; I96 Gangrene, not elsewhere classified; E11.621 Type 2 diabetes mellitus with foot ulcer; E11.69 Type 2 diabetes mellitus with other specified complication; E11.65 Type 2 diabetes mellitus with hyperglycemia; L97.513 Non-pressure chronic ulcer of other part of right foot with necrosis of muscle; R65.20 Severe sepsis without septic shock; I12.9 Hypertensive chronic kidney disease with stage 1 through stage 4 chronic kidney disease, or unspecified chronic kidney disease; E11.22 Type 2 diabetes mellitus with diabetic chronic kidney disease; N18.9 Chronic kidney disease, unspecified; D64.9 Anemia, unspecified; E86.0 Dehydration; E87.8 Other disorders of electrolyte and fluid balance, not elsewhere classified; F10.20 Alcohol dependence, uncomplicated; Z83.3 Family history of diabetes mellitus; Z59.7 Insufficient social insurance and welfare support; Z89.512 Acquired absence of left leg below knee; Z82.49 Family history of ischemic heart disease and other diseases of the circulatory system; Z89.421 Acquired absence of other right toe(s); Z23 Encounter for immunization
CPT/HCPCS: 01482; 36415; 36430; 71045; 71046; 80048; 80053; 80202; 80307; 82550; 82803; 82962; 83036; 83605; 83690; 83735; 84100; 84132; 85025; 85027; 85610; 85730; 86850; 86900; 86901; 86920; 87040; 87077; 87150; 87186; 88307; 88311; 90686; 93005; 93010; 96361; 96365; 96375; 99231; 99291; C1751; C9113; J0131; J0330; J0692; J1200; J1815; J2250; J2270; J2405; J2704; J2765; J3010; J3370; J3411; J3490; J7030; J7050; J7060; J7120; L1830; P9016

== ENCOUNTER → 2019-06-28 | Outpatient (CLI) | payer OTHER ==
[2019-06-28 11:14] LABS: ABSOLUTE BASOPHILS # (AUTO) 0.2 10^3/uL (0.0-0.2); ABSOLUTE EOSINOPHILS # (AUTO) 0.5 10^3/uL (0.0-0.6); ABSOLUTE LYMPHOCYTES (AUTO) 1.7 10^3/uL (0.5-4.7); ABSOLUTE MONOCYTES (AUTO) 0.6 10^3/uL (0.1-1.4); BASOPHILS % (AUTO) 1.6 % (0-2); EOSINOPHILS % (AUTO) 4.7 % (0-6); HEMATOCRIT 29.5 % (37.9-51.0); HEMOGLOBIN 9.9 g/dL (13.5-17.0); LYMPHOCYTES % (AUTO) 17.2 % (13-45); MEAN CORPUSCULAR HEMOGLOBIN 30.6 pg (27.0-33.4); MEAN CORPUSCULAR HGB CONC 33.6 g/dL (32.0-36.0); MEAN CORPUSCULAR VOLUME 91 fl (80-97); MONOCYTES % (AUTO) 6.2 % (3-13); PLATELET COUNT 724 10^3/uL (150-450); RED BLOOD COUNT 3.24 10^6/uL (4.35-5.55); RED CELL DISTRIBUTION WIDTH 16.9 % (11.5-14.0); SEGMENTED NEUTROPHILS % (AUTO) 70.3 % (42-78); TOTAL CELLS COUNTED % (AUTO) 100 %
[2019-06-28 11:32] LABS: ANION GAP 10 (5-19); BLOOD UREA NITROGEN 18 mg/dL (7-20); CALCIUM 9.7 mg/dL (8.4-10.2); CARBON DIOXIDE 23 mmol/L (22-30); CHLORIDE 105 mmol/L (98-107); GLUCOSE 143 mg/dL (75-110); POTASSIUM 5.4 mmol/L (3.6-5.0)
== END ==
LOC: CCC 10:53
DX: E11.8 Type 2 diabetes mellitus with unspecified complications (principal); N17.9 Acute kidney failure, unspecified; D64.9 Anemia, unspecified
CPT/HCPCS: 36415; 80048; 85025

== ENCOUNTER 2019-07-08 13:15 | Inpatient (IN) | payer OTHER ==
--- NOTE | 2019-07-08 14:31 | ER Document Report ---
ED Medical Screen (RME) - General Chief Complaint: Fall Injury Stated Complaint: FALL/RIGHT LEG PAIN/POST AMPUTATION Time Seen by Provider: 07/08/19 14:24 Primary Care Provider: [facility] [Primary Care Provider] - Follow up as needed Notes: Patient is status post a right BKA 1 or 2 months ago. Patient is poor historian. Patient presents stating that he was attempting to transfer from the wheelchair to the couch and then fell hitting his right leg. Patient states that he has had yellow drainage and blood from his stump wound since the fall last night. Patient states that he does have diabetes but he does not check his blood sugar and does not take any medication because her his doctor did not provide him with any prescriptions. Patient will malodorous drainage to dressing to right stump, wound with surrounding erythema. I have greeted and performed a rapid initial assessment of this patient. A comprehensive ED assessment and evaluation of the patient, analysis of test results and completion of the medical decision making process will be conducted by additional ED providers. TRAVEL OUTSIDE OF THE [place] IN LAST 30 DAYS: No - Related Data Allergies/Adverse Reactions: No Known Allergies Allergy (Verified 07/08/19 14:16) Past Medical History - Past Medical History Cardiac Medical History: Reports: Hx Hypertension Denies: Hx Atrial Fibrillation, Hx Congestive Heart Failure, Hx Coronary Artery Disease, Hx Heart Attack, Hx Hypercholesterolemia, Hx Peripheral Vascular Disease, Hx Pulmonary Embolism, Hx Heart Murmur Pulmonary Medical History: Denies: Hx Asthma, Hx Bronchitis, Hx COPD, Hx Pneumonia, Hx Respiratory Fa ilure, Hx Sleep Apnea, Hx Tuberculosis Neurological Medical History: Denies: Hx Cerebrovascular Accident, Hx Seizures, Hx Parkinson's Disease Endocrine Medical History: Reports: Hx Diabetes Mellitus Type 1, Hx Diabetes Mellitus Type 2. Denies: Hx Graves' Disease, Hx Hyperthyroidism, Hx Hypothyroidism Renal/ Medical History: Denies: Hx Benign Prostatic Hyperplasia, Hx End Stage Renal Disease, Hx Kidney Stones, Hx Peritoneal Dialysis Malignancy Medical History: Denies Hx Leukemia, Denies Hx Lung Cancer GI Medical History: Denies: Hx Cirrhosis, Hx Crohn's Disease, Hx Diverticulitis, Hx Gastroesophageal Reflux Disease, Hx Hepatitis, Hx Hiatal Hernia, Hx Irritable Bowel, Hx Liver Failure, Hx Pancreatitis, Hx Ulcer, Hx Ulcerative Colitis Musculoskeltal Medical History: Denies Hx Arthritis, Denies Hx Fibromyalgia, Denies Hx Multiple Sclerosis, Denies Hx Muscular Dystrophy, Denies Hx Systemic Lupus Erythematosus Psychiatric Medical History: Denies: Hx Dementia, Hx Depression Traumatic Medical History: Denies: Hx Fractures Infectious Medical History: Denies: Hx Hepatitis, Hx HIV Past Surgical History: Reports: Other - Left BKA. Right foot debridement with 1st/2nd toe amputation.. Denies: Hx Appendectomy, Hx Bowel Surgery, Hx Cholecystectomy, Hx Colostomy, Hx Coronary Artery Bypass Graft, Hx Gastric Bypass Surgery, Hx Herniorrhaphy, Hx Pacemaker, Hx Tonsillectomy - Immunizations Hx Diphtheria, Pertussis, Tetanus Vaccination: Yes Physical Exam - Vital signs Vitals: Temp Pulse Resp BP Pulse Ox 98.2 F 98 16 147/76 H 100 07/08/19 13:33 07/08/19 13:33 07/08/19 13:33 07/08/19 13:33 07/08/19 13:33 - General General appearance: Alert Notes: Malodorous drainage to the stump on right lower extremity, wound with surrounding erythema Course - Vital Signs Vital signs: Temp Pulse Resp BP Pulse Ox 98.2 F 98 16 147/76 H 100 07/08/19 13:33 07/08/19 13:33 07/08/19 13:33 07/08/19 13:33 07/08/19 13:33 Doctor's Discharge - Discharge Referrals: [facility] [Primary [facility]] - Follow up as needed
[2019-07-08 15:02] LABS: ABSOLUTE BASOPHILS # (AUTO) 0.1 10^3/uL (0.0-0.2); ABSOLUTE NEUT (AUTO) 17.2 10^3/uL (1.7-8.2); BASOPHILS % (AUTO) 0.4 % (0-2); EOSINOPHILS % (AUTO) 0.1 % (0-6); HEMATOCRIT 27.4 % (37.9-51.0); HEMOGLOBIN 9.9 g/dL (13.5-17.0); LYMPHOCYTES % (AUTO) 5.1 % (13-45); MEAN CORPUSCULAR HEMOGLOBIN 32.9 pg (27.0-33.4); MEAN CORPUSCULAR HGB CONC 36.2 g/dL (32.0-36.0); MEAN CORPUSCULAR VOLUME 91 fl (80-97); MONOCYTES % (AUTO) 5.3 % (3-13); PLATELET COUNT 330 10^3/uL (150-450); RED BLOOD COUNT 3.02 10^6/uL (4.35-5.55); RED CELL DISTRIBUTION WIDTH 18.2 % (11.5-14.0); SEGMENTED NEUTROPHILS % (AUTO) 89.1 % (42-78); TOTAL CELLS COUNTED % (AUTO) 100 %; WHITE BLOOD COUNT 19.3 10^3/uL (4.0-10.5)
[2019-07-08 15:18] LABS: ALBUMIN 3.6 g/dL (3.5-5.0); ALKALINE PHOSPHATASE 121 U/L (38-126); ANION GAP 17 (5-19); ASPARTATE AMINO TRANSFERASE 19 U/L (17-59); BILIRUBIN,DIRECT 0.3 mg/dL (0.0-0.4); BILIRUBIN,TOTAL 1.1 mg/dL (0.2-1.3); BLOOD UREA NITROGEN 26 mg/dL (7-20); CALCIUM 9.1 mg/dL (8.4-10.2); CARBON DIOXIDE 19 mmol/L (22-30); CHLORIDE 87 mmol/L (98-107); GLUCOSE 146 mg/dL (75-110); TOTAL PROTEIN 8.1 g/dL (6.3-8.2)
[2019-07-08 15:57] LABS: VENOUS BLOOD BASE EXCESS -3.8 mmol/L; VENOUS BLOOD HCO3 20.8 mmol/L (20-32); VENOUS BLOOD PCO2 35.9 mmHg (35-63); VENOUS BLOOD PH 7.38 (7.30-7.42)
--- NOTE | 2019-07-08 16:40 | ER Document Report ---
ED General - General Chief Complaint: Post Surgical Bleeding Stated Complaint: FALL/RIGHT LEG PAIN/POST AMPUTATION Time Seen by Provider: 07/08/19 14:24 Primary Care Provider: [facility] [Primary Care Provider] - Follow up as needed Notes: Patient is a 48-year-old male noncompliant diabetic with a history of a right BKA done on May 14 who presents emergency department after falling yesterday and breaking open the surgical site. Patient states that he had some purulent drainage come out of that area. Patient states that he is blood pressure and diabetes medications. Patient also has a history of a left BKA. She states that he has had some chills and body aches. Patient has not followed up with surgery in regards to his BKA. TRAVEL OUTSIDE OF THE [place] IN LAST 30 DAYS: No - Related Data Allergies/Adverse Reactions: No Known Allergies Allergy (Verified 07/08/19 14:16) Past Medical History - Social History Smoking Status: Never Smoker Chew tobacco use (# tins/day): No Frequency of alcohol use: Occasional Drug Abuse: None Family History: DM, Hypertension Patient has suicidal ideation: No Patient has homicidal ideation: No - Past Medical History Cardiac Medical History: Reports: Hx Hypertension Denies: Hx Atrial Fibrillation, Hx Congestive Heart Failure, Hx Coronary Artery Disease, Hx Heart Attack, Hx Hypercholesterolemia, Hx Peripheral Vascular Disease, Hx Pulmonary Embolism, Hx Heart Murmur Pulmonary Medical History: Denies: Hx Asthma, Hx Bronchitis, Hx COPD, Hx Pneumonia, Hx Respiratory Failure, Hx Sleep Apnea, Hx Tuberculosis Neurological Medical History: Denies: Hx Cerebrovascular Accident, Hx Seizures, Hx Parkinson's Disease Endocrine Medical History: Reports: Hx Diabetes Mellitus Type 1, Hx Diabetes Mellitus Type 2. Denies: Hx Graves' Disease, Hx Hyperthyroidism, Hx Hypothyroidism Renal/ Medical History: Denies: Hx Benign Prostatic Hyperplasia, Hx End Stage Renal Disease, Hx Kidney Stones, Hx Peritoneal Dialysis Malignancy Medical History: Denies Hx Leukemia, Denies Hx Lung Cancer GI Medical History: Denies: Hx Cirrhosis, Hx Crohn's Disease, Hx Diverticulitis, Hx Gastroesophageal Reflux Disease, Hx Hepatitis, Hx Hiatal Hernia, Hx Irritable Bowel, Hx Liver Failure, Hx Pancreatitis, Hx Ulcer, Hx Ulcerative Colitis Musculoskeletal Medical History: Denies Hx Arthritis, Denies Hx Fibromyalgia, Denies Hx Multiple Sclerosis, Denies Hx Muscular Dystrophy, Denies Hx Systemic Lupus Erythematosus Psychiatric Medical History: Denies: Hx Dementia, Hx Depression Traumatic Medical History: Denies: Hx Fractures Infectious Medical History: Denies: Hx Hepatitis, Hx HIV Past Surgical History: Reports: Other - Left BKA. Right foot debridement with 1st/2nd toe amputation.. Denies: Hx Appendectomy, Hx Bowel Surgery, Hx Cholecystectomy, Hx Colostomy, Hx Coronary Artery Bypass Graft, Hx Gastric Bypass Surgery, Hx Herniorrhaphy, Hx Pacemaker, Hx Tonsillectomy - Immunizations Hx Diphtheria, Pertussis, Tetanus Vaccination: Yes Review of Systems - Review of Systems Notes: REVIEW OF SYSTEMS: CONSTITUTIONAL : See HPI. EENT: Denies eye, ear, throat, or mouth pain, discharge, or symptoms. Denies nasal or sinus congestion. CARDIOVASCULAR: Denies chest pain. RESPIRATORY: Denies shortness of breath, cough, congestion, difficulty breathing, or wheezing. GASTROINTESTINAL: Denies nausea, vomiting, and diarrhea. Denies abdominal pain. Denies constipation. GENITOURINARY: Denies difficulty urinating, burning, blood in urine, urgency or frequency. MUSCULOSKELETAL: Denies neck and back pain. See HPI. SKIN: See HPI. HEMATOLOGIC : Denies easy bruising or bleeding. LYMPHATIC: Denies swollen, painful, enlarged glands. NEUROLOGICAL: Denies no numbness or tingling denies weakness. Denies headache. Denies altered mental status. Denies alteration in speech. PSYCHIATRIC: Denies stress, anxiety, alteration in sleep patterns, or depressi on. All other systems reviewed and negative. Physical Exam - Vital signs Vitals: Temp Pulse Resp BP Pulse Ox 98.2 F 98 16 147/76 H 100 07/08/19 13:33 07/08/19 13:33 07/08/19 13:33 07/08/19 13:33 07/08/19 13:33 - Notes Notes: PHYSICAL EXAMINATION: GENERAL: Appears well, healthy, well-nourished, no acute distress. HEAD: Normocephalic, atraumatic. EYES: PERRL, conjunctiva normal, all extraocular movements intact, sclera nonicteric ENT: Moist mucous membranes. NECK: Supple, no noticeable swelling, redness, rash. Normal range of motion. LUNGS: Equal breath sounds bilaterally and clear to auscultation. No wheezes rales or rhonchi. CARDIOVASCULAR: S1-S2, regular rate, regular rhythm. Radial pulses 2+, normal. ABDOMEN: Normoactive bowel sounds. Soft, nontender, no guarding, no rebound tenderness, and no masses palpated. EXTREMITIES: BKA's noted erythema noted to right BKA. NEUROLOGICAL: Moves all extremities upon command. PSYCH: Normal mood, normal affect. SKIN: Warm, dry. Erythema noted to stump on right BKA. Course - Re-evaluation Re-evalutation: 07/08/19 17:12 Patient has a white blood cell count of 19,300. There is a left shift. Blood gas is normal. Chemistries show hyponatremia with a sodium of 122. BUN and creatinine are elevated, which is normal for him. His blood sugar is 146. 07/08/19 17:[address] Noriega. He will follow up with the patient. 07/08/19 17:[address] Ceron, the hospitalist. Patient will be admitted to the s urgical floor. - Vital Signs Vital signs: Temp Pulse Resp BP Pulse Ox 98.2 F 98 16 147/76 H 100 07/08/19 13:33 07/08/19 13:33 07/08/19 13:33 07/08/19 13:33 07/08/19 13:33 - Laboratory Result Diagrams: 07/08/19 14:51 07/08/19 14:51 Laboratory results interpreted by me: 07/08/19 07/08/19 14:51 14:51 WBC 19.3 H RBC 3.02 L Hgb 9.9 L Hct 27.4 L MCHC 36.2 H RDW 18.2 H Lymph % (Auto) 5.1 L Absolute Neuts (auto) 17.2 H Seg Neutrophils % 89.1 H Sodium 122.8 L Chloride 87 L Carbon Dioxide 19 L BUN 26 H Creatinine 1.74 H Est GFR ( Amer) 51 L Est GFR (MDRD) Non-Af 42 L Glucose 146 H Discharge - Discharge Clinical Impression: Patient noncompliance DM type 2 (diabetes mellitus, type 2) 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
[2019-07-08] MEDS ORDERED: NORMAL SALINE 1000 ML 1,000 ML IV ONE (16:52)
[2019-07-08] MEDS: CEFEPIME 2 GM/D5W RTU 2 GM/50 ML RTUPB IV SCH ×2 (17:34→21:49)
--- NOTE | 2019-07-08 17:38 | RADIOLOGY REPORT (SQ) ---
EXAM DESCRIPTION: KNEE RIGHT 2 VIEWS COMPLETED DATE/TIME: 07/08/2019 4:06 pm REASON FOR STUDY: fall; knee pain; purulent drainage from BKA COMPARISON: None. NUMBER OF VIEWS: Two views. TECHNIQUE: AP and lateral radiographic images acquired of the right knee. LIMITATIONS: None. FINDINGS: MINERALIZATION: Normal. BONES: Amputation of the proximal tibia and fibula. No acute fracture or cortical disruption. Stacey l knee joint alignment. JOINT: No effusion. SOFT TISSUES: Calcifications. Expected postoperative changes in the soft tissues. OTHER: No other significant finding. IMPRESSION: Amputation of the proximal tibia and fibula. Expected postoperative changes in the soft tissues. TECHNICAL DOCUMENTATION: JOB ID: [id number] 2010 [employer]- All Rights Reserved Reading location - IP/workstation name: [email or web address]
[2019-07-08] MEDS ORDERED: MAG HYDROX/AL HYDROX/SIMETH SUSP 30 ML UDCUP PO PRN (18:00)
[2019-07-08] MEDS ORDERED: TEMAZEPAM 15 MG CAPSULE PO PRN (18:00)
[2019-07-08] MEDS ORDERED: ACETAMINOPHEN 325 MG TABLET PO PRN (18:00)
[2019-07-08] MEDS ORDERED: ONDANSETRON 4 MG TAB.RAPDIS PO PRN (18:00)
[2019-07-08] MEDS ORDERED: MAGNESIUM HYDROXIDE SUSP 30 ML UDCUP PO PRN (18:00)
[2019-07-08] MEDS ORDERED: POLYETHYLENE GLYCOL 3350 POWDER 17 GM/1 PACKET PO PRN (18:27)
[2019-07-08] MEDS ORDERED: DEXTROSE 40% GEL 15 GM TUBE PO PRN ×2 (18:29)
[2019-07-08] MEDS ORDERED: GLUCAGON,HUMAN RECOMB 1 MG INJ IM PRN (18:29)
[2019-07-08] MEDS ORDERED: DEXTROSE 50%-WATER 25 GM/50 ML DISP.SYRIN IV PRN ×2 (18:29)
--- NOTE | 2019-07-08 18:32 | Operative Report ---
Operative Report DATE OF SURGERY: 07/08/19 PREOPERATIVE DIAGNOSIS: 1. Noncompliant diabetic. 2. Status post bilateral b elow the knee amputations, right 1 month ago. 3. Recent fall from wheelchair POSTOPERATIVE DIAGNOSIS: Same with nonviable skin and subcutaneous tissue right BKA stump with purulent drainage and cellulitis OPERATION: 1. Staple and suture decompression of right BKA stump. 2. Wound right BKA stump sent for Gram stain culture and sensitivity. 3. Excisional debridement of skin flaps superiorly and inferiorly right BKA stump SURGEON: MARIA GUADALUPE RECINOS ANESTHESIA: Other - None TISSUE REMOVED OR ALTERED: Nonviable skin and subcutaneous tissue disposed of COMPLICATIONS: None INTRAOPERATIVE FINDINGS: See below PROCEDURE: Summary of procedure The right BKA stump was exposed. There was generalized erythema primarily involving the inferior skin flap. All operative hasna from 1 month ago were still in position. There were areas of mild epidermolysis on the medial and lateral aspects of the operative closure. Half of the hansa were removed and these 2 at risk areas. Subcutaneous tissue was opened by dividing the running suture in select areas. Underlying purulent discharge was Gram stain sent for culture and sensitivity. The limited 2 to 4 mm skin edges on the superior and inferior skin flaps were debrided with scissors. There was some tracking with Q-tip but no additional pus expressed. Initial debridement was felt to have been accomplished. Wound irrigated with peroxide, then the 2 open areas packed with Xeroform 4 x 4's and Kerlix. Impression: Limited, infected right BKA stump, status post debridement Recommendations: 1. Agree with admit for intravenous antibiotics, local wound care 2. We will follow-up on wound cultures recommend antibiotic alteration accordingly 3. Keep in bed until right BKA stump deemed stable by surgical team. We will continue to follow with you.
[2019-07-08] MEDS ORDERED: CEFEPIME 2 GM/D5W RTU 2 GM/50 ML RTUPB IV ONE (18:45)
--- NOTE | 2019-07-08 18:49 | PDOC H&P ---
History of Present Illness Admission Date/PCP: 07/08/19 17:40 [facility] Patient complains of: Right stump infection History of Present Illness: NIKHIL SHELL is a 48 year old male with uncontrolled diabetes mellitus and recent right below-knee amputation. The patient's was just discharged on June 17. He was admitted for diabetic foot ulcer and subsequently had a right below-knee amputation. He was supposed to follow-up with surgery last week but evidently missed the appointment. The last evening he fell and landed on his stump. He now is a bilateral amputee and it is not clear if he was wearing his left prosthesis or not. The right stump shows increased swelling and erythema as well as warmth to the touch. Bing remain in place. The patient has a white blood cell count of 19,000. His glucose was 149. His lactic acid is negative and he is afebrile. He does exhibit shaking chills during this encounter. The patient was started on antibiotics. He will be seen by surgery. He will be admitted to the hospitalist service for possible sepsis. Past Medical History Cardiac Medical History: Reports: Hypertension Denies: Atrial Fibrillation, Congestive Heart Failure, Coronary Artery Disease, Myocardial Infarction, Hyperlipidema, Peripheral Vascular Disease, Pulmonary Embolism, Heart Murmur Pulmonary Medical History: Denies: Asthma, Bronchitis, Chronic Obstructive Pulmonary Disease (COPD), Pneumonia, Respiratory Failure, Sleep Apnea, Tuberculosis Neurological Medical History: Denies: Seizures Endocrine Medical History: Reports: Diabetes Mellitus Type 1, Diabetes Mellitus Type 2 Denies: Hyperthyroidism, Hypothyroidism Renal/ Medical History: Denies: End Stage Renal Disease Malignancy Medical History: Denies: Leukemia, Lung Cancer GI Medical History: Denies: Cirrhosis, Crohn's Disease, Diverticulitis, Gastroesophageal Reflux Disease, Hepatitis, Hiatal Hernia, Ulcerative Colitis Musculoskeltal Medical History: Denies: Arthritis, Fibromyalgia Psychiatric Medical History: Denies: Dementia, Depression Hematology: Reports: Anemia Denies: Hemophilia, Sickle Cell Disease Infectious Medical History: Denies: HIV Past Surgical History Past Surgical History: Reports: Other - Left BKA. Right foot debridement with 1st/2nd toe amputation. Denies: Appendectomy, Cholecystectomy, Colostomy, Coronary Artery Bypass Graft, Gastric Bypass Surgery, Herniorrhaphy, Pacemaker, Tonsillectomy Social History Information Source: Patient, [facility] Records Lives with: Alone Smoking Status: Never Smoker Electronic Cigarette use?: No Frequency of Alcohol Use: Heavy - drinks beer daily but somehow thinks he is not an alcoholic given he no longer drinks liquor. Hx Recreational Drug Use: No Drugs: None Hx Prescription Drug Abuse: No - Advance Directive Resuscitation Status: Full Code Family History Family History: DM, Hypertension, Other - Alcoholism Parental Family History Reviewed: Yes Children Family History Reviewed: NA Sibling(s) Family History Reviewed.: NA Medication/Allergy Home Medications: Gabapentin [Neurontin 300 mg Capsule] 300 mg PO Q8 06/09/19 Polyethylene Glycol 3350 [Miralax] 17 gm PO DAILYP PRN 06/09/19 Amlodipine Besylate [Norvasc 5 mg Tablet] 5 mg PO DAILY #60 tablet 06/17/19 Amox Tr/Potassium Clavulanate [Augmentin "500" Tablet] 1 tab PO Q12 3 Days #6 tablet 06/17/19 Hydrocodone/Acetaminophen [Morenci 5-325 mg Tablet] 1 tab PO Q6HP PRN #12 tablet 06/17/19 Pantoprazole Sodium [Protonix [address] Tablet] 40 mg PO QAM #60 tablet.dr 06/17/19 Lancing Device/Lancets [Accu-Chek Softclix Lancet Kit] 1 each MC BID #1 kit 06/18/19 Allergies/Adverse Reactions: No Known Allergies Allergy (Verified 07/08/19 14:16) Review of Systems All systems: reviewed and no additional remarkable complaints except as stated Constitutional: PRESENT: as per HPI Gastrointestinal: PRESENT: nausea, vomiting Musculoskeletal: PRESENT: other - Painful right stump (eschar in the middle of the right below-knee amputation incision. Bing remain in place). Physical Exam Vital Signs: Temp Pulse Resp BP Pulse Ox 98.2 F 98 16 147/76 H 100 07/08/19 13:33 07/08/19 13:33 07/08/19 13:33 07/08/19 13:33 07/08/19 13:33 Intake & Output 07/07/19 07/08/19 07/09/19 06:59 06:59 06:59 Weight 69.9 kg General appearance: PRESENT: cooperative, severe distress, well-developed, other - Reiger's. ABSENT: disheveled Head exam: PRESENT: atraumatic, normocephalic Eye exam: PRESENT: conjunctiva pale, EOMI, PERRLA. ABSENT: scleral icterus Ear exam: PRESENT: normal external ear exam. ABSENT: bleeding, drainage Mouth exam: PRESENT: dry mucosa, tongue midline Neck exam: PRESENT: full ROM. ABSENT: carotid bruit, JVD Respiratory exam: PRESENT: clear to auscultation clarke, symmetrical, unlabored. ABSENT: accessory muscle use, rales, rhonchi, tachypnea, wheezes Cardiovascular exam: PRESENT: tachycardia - Sinus rhythm with tachycardia. ABSENT: +S1, systolic murmur GI/Abdominal exam: PRESENT: normal bowel sounds, soft. ABSENT: distended, mass, tenderness Rectal exam: PRESENT: deferred Gentrourinary exam: ABSENT: indwelling catheter Extremities exam: PRESENT: other - Bilateral below-knee amputations. Right stump with swelling and erythema as well as significant tenderness. Musculoskeletal exam: PRESENT: deformity Neurological exam: PRESENT: alert, awake, oriented to person, oriented to place, oriented to time, oriented to situation, CN II-XII grossly intact. ABSENT: altered, motor sensory deficit Psychiatric exam: PRESENT: flat affect. ABSENT: agitated, anxious Focused psych exam: ABSENT: delusional, restlessness Skin exam: PRESENT: erythema, other - Eschar right stump incision Results Laboratory Results: 07/08/19 14:51 07/08/19 14:51 07/08/19 07/08/19 07/08/19 14:51 14:51 14:51 WBC 19.3 H RBC 3.02 L Hgb 9.9 L Hct 27.4 L MCV 91 MCH 32.9 MCHC 36.2 H RDW 18.2 H Plt Count 330 Seg Neutrophils % 89.1 H VBG pH Cancelled VBG pCO2 Cancelled VBG HCO3 Cancelled VBG Base Excess Cancelled Sodium 122.8 L Potassium 5.0 Chloride 87 L Carbon Dioxide 19 L Anion Gap 17 BUN 26 H Creatinine 1.74 H Est GFR ( Amer) 51 L Glucose 146 H Lactic Acid Calcium 9.1 Total Bilirubin 1.1 AST 19 Alkaline Phosphatase 121 Total Protein 8.1 Albumin 3.6 07/08/19 07/08/19 15:42 17:32 WBC RBC Hgb Hct MCV MCH MCHC RDW Plt Count Seg Neutrophils % VBG pH 7.38 VBG pCO2 35.9 VBG HCO3 20.8 VBG Base Excess -3.8 Sodium Potassium Chloride Carbon Dioxide Anion Gap BUN Creatinine Est GFR ( Amer) Glucose Lactic Acid 0.9 Calcium Total Bilirubin AST Alkaline Phosphatase Total Protein Albumin Impressions: Knee X-Ray 07/08/19 16:50 IMPRESSION: Amputation of the proximal tibia and fibula. Expected postoperativ e changes in the soft tissues. Assessment and Plan - Diagnosis (1) Cellulitis of right leg Is this a current diagnosis for this admission?: Yes (2) Hyponatremia Is this a current diagnosis for this admission?: Yes (3) Leukocytosis Qualifiers: Leukocytosis type: unspecified Qualified Code(s): D72.829 - Elevated white blood cell count, unspecified Is this a current diagnosis for this admission?: Yes (4) Chronic kidney disease, stage III (moderate) Is this a current diagnosis for this admission?: Yes (5) Wound, surgical, nonhealing Qualifiers: Encounter type: initial encounter Qualified Code(s): T81.89XA - Other complications of procedures, not elsewhere classified, initial encounter Is this a current diagnosis for this admission?: Yes (6) Hyperglycemia due to type 2 diabetes mellitus Qualifiers: Diabetes mellitus fpc insulin use: without fpc use Qualified Code(s): E11.65 - Type 2 diabetes mellitus with hyperglycemia Is this a current diagnosis for this admission?: Yes (7) Patient noncompliance Is this a current diagnosis for this admission?: Yes (8) Hypertension Qualifiers: Hypertension type: essential hypertension Qualified Code(s): I10 - Essential (primary) hypertension Is this a current diagnosis for this admission?: Yes (9) Iron deficiency anemia Qualifiers: Iron deficiency anemia type: inadequate dietary iron intake Qualified Code(s): D50.8 - Other iron deficiency anemias Is this a current diagnosis for this admission?: Yes (10) Anemia in stage 3 chronic kidney disease Is this a current diagnosis for this admission?: Yes - Plan Summary Summary: 03/07/2020 The patient does not meet sepsis criteria however he does have a serious infection. Right stump infection-IV antibiotics will be administered. Surgery will debride the wound and follow along. Analgesia will be available. Leukocytosis-secondary to infection. IV antibiotics. Hyperglycemia due to diabetes mellitus type 1-Didd-Sylea and sliding scale coverage Iron deficiency anemia-iron supplement by mouth. No IV iron due to significant infection. Chronic kidney disease stage III with anemia-monitor CBC as well as renal function and electrolytes. Hypertension-continue amlodipine The patient has blood culture submitted. Awaiting a specimen from the infected stump for wound culture. I have ordered a urinalysis with reflex to culture as well. The surgeon will be debriding the stump. Surgery will follow along. The patient may benefit from negative pressure therapy however without insurance he would not be able to get this treatment modality at home. Narcotic analgesia will be available for his pain. He will be on a carbohydrate controlled diet. 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
[2019-07-08] MEDS: DOCUSATE SODIUM 100 MG CAPSULE PO SCH (19:21)
[2019-07-08] MEDS: MORPHINE SULFATE 10 MG/ML INJ IV PRN (19:26)
[2019-07-08] MEDS ORDERED: INFLUENZA QUAD (6MOS+) 2019-20 VAC 0.5 ML SYR IM ONE (20:25)
[2019-07-08] MEDS: RINGERS SOLUTION,LACTATED 1,000 ML IV PRN (21:01)
[2019-07-08] MEDS: INSULIN LISPRO 100 UNIT/ML 3 ML VIAL SUBCUT SCH (21:46)
[2019-07-08] MEDS: HEPARIN SOD (PORCINE) 5,000 UNIT/ML 1 ML VIAL SUBCUT SCH (21:47)
[2019-07-08] MEDS: FAMOTIDINE 20 MG TABLET PO SCH (21:56)
[2019-07-08] MEDS: GABAPENTIN 300 MG CAPSULE PO SCH (21:56)
[2019-07-08] MEDS: HYDROCODONE/ACETAMINOPHEN 7.5-325 MG TABLET PO PRN (21:56)
[2019-07-09] MEDS: HEPARIN SOD (PORCINE) 5,000 UNIT/ML 1 ML VIAL SUBCUT SCH ×3 (05:40→21:15)
[2019-07-09] MEDS: GABAPENTIN 300 MG CAPSULE PO SCH ×3 (05:42→21:19)
[2019-07-09] MEDS: RINGERS SOLUTION,LACTATED 1,000 ML IV PRN (05:43)
[2019-07-09 07:18] LABS: ABSOLUTE BASOPHILS # (AUTO) 0.1 10^3/uL (0.0-0.2); ABSOLUTE EOSINOPHILS # (AUTO) 0.1 10^3/uL (0.0-0.6); ABSOLUTE LYMPHOCYTES (AUTO) 0.6 10^3/uL (0.5-4.7); ABSOLUTE MONOCYTES (AUTO) 0.8 10^3/uL (0.1-1.4); BASOPHILS % (AUTO) 0.6 % (0-2); HEMATOCRIT 24.7 % (37.9-51.0); HEMOGLOBIN 8.7 g/dL (13.5-17.0); MEAN CORPUSCULAR HEMOGLOBIN 32.1 pg (27.0-33.4); MEAN CORPUSCULAR HGB CONC 35.2 g/dL (32.0-36.0); MEAN CORPUSCULAR VOLUME 91 fl (80-97); MONOCYTES % (AUTO) 7.8 % (3-13); PLATELET COUNT 240 10^3/uL (150-450); RED BLOOD COUNT 2.71 10^6/uL (4.35-5.55); RED CELL DISTRIBUTION WIDTH 18.4 % (11.5-14.0); SEGMENTED NEUTROPHILS % (AUTO) 84.6 % (42-78); TOTAL CELLS COUNTED % (AUTO) 100 %; WHITE BLOOD COUNT 10.7 10^3/uL (4.0-10.5)
[2019-07-09 07:48] LABS: ANION GAP 8 (5-19); BLOOD UREA NITROGEN 27 mg/dL (7-20); CALCIUM 8.5 mg/dL (8.4-10.2); CARBON DIOXIDE 20 mmol/L (22-30); CHLORIDE 99 mmol/L (98-107); GLUCOSE 105 mg/dL (75-110); POTASSIUM 4.3 mmol/L (3.6-5.0)
[2019-07-09] MEDS: INSULIN LISPRO 100 UNIT/ML 3 ML VIAL SUBCUT SCH ×4 (09:27→21:42)
[2019-07-09] MEDS: AMLODIPINE BESYLATE 5 MG TABLET PO SCH (09:30)
[2019-07-09] MEDS: FAMOTIDINE 20 MG TABLET PO SCH ×2 (09:30→21:19)
[2019-07-09] MEDS: DOCUSATE SODIUM 100 MG CAPSULE PO SCH ×2 (09:30→17:08)
[2019-07-09] MEDS: FERROUS SULFATE 325 MG TABLET PO SCH ×2 (09:30→17:08)
--- NOTE | 2019-07-09 10:46 | PDOC PROGRESS REPORT ---
Subjective Progress Note for:: 07/09/19 Subjective:: feels ok Reason For Visit: AMPUTATION STUMP INFECTION DM TYPE 2 DIABETES Physical Exam Vital Signs: Temp Pulse Resp BP Pulse Ox 98.6 F 85 16 122/63 100 07/09/19 07:33 07/09/19 07:33 07/09/19 07:33 07/09/19 07:33 07/09/19 07:33 Intake & Output 07/08/19 07/09/19 07/10/19 06:59 06:59 06:59 Intake Total 2350 Output Total 1020 Balance 1330 Weight 67.9 kg General appearance: PRESENT: no acute distress Head exam: PRESENT: normocephalic Eye exam: PRESENT: EOMI Ear exam: PRESENT: normal external ear exam Mouth exam: PRESENT: moist Neck exam: PRESENT: full ROM Respiratory exam: PRESENT: clear to auscultation clarke Cardiovascular exam: PRESENT: RRR Pulses: PRESENT: normal radial pulses, normal femoral pulses GI/Abdominal exam: PRESENT: soft Rectal exam: PRESENT: deferred Extremities exam: PRESENT: other - bilat bka's rt stump open medially and laterally redebrided this am , still with some necrosis debrided Neurological exam: PRESENT: alert Skin exam: PRESENT: dry Results Laboratory Results: 07/09/19 07:03 07/09/19 07:03 07/08/19 07/08/19 07/08/19 14:51 14:51 14:51 WBC 19.3 H RBC 3.02 L Hgb 9.9 L Hct 27.4 L MCV 91 MCH 32.9 MCHC 36.2 H RDW 18.2 H Plt Count 330 Seg Neutrophils % 89.1 H VBG pH Cancelled VBG pCO2 Cancelled VBG HCO3 Cancelled VBG Base Excess Cancelled Sodium 122.8 L Potassium 5.0 Chloride 87 L Carbon Dioxide 19 L Anion Gap 17 BUN 26 H Creatinine 1.74 H Est GFR ( Amer) 51 L Glucose 146 H Lactic Acid Calcium 9.1 Magnesium Total Bilirubin 1.1 AST 19 Alkaline Phosphatase 121 Total Protein 8.1 Albumin 3.6 07/08/19 07/08/19 07/08/19 15:42 17:32 19:07 WBC RBC Hgb Hct MCV MCH MCHC RDW Plt Count Seg Neutrophils % VBG pH 7.38 VBG pCO2 35.9 VBG HCO3 20.8 VBG Base Excess -3.8 Sodium Potassium Chloride Carbon Dioxide Anion Gap BUN Creatinine Est GFR ( Amer) Glucose Lactic Acid 0.9 1.2 Calcium Magnesium Total Bilirubin AST Alkaline Phosphatase Total Protein Albumin 07/08/19 07/09/19 07/09/19 21:18 00:59 03:45 WBC RBC Hgb Hct MCV MCH MCHC RDW Plt Count Seg Neutrophils % VBG pH VBG pCO2 VBG HCO3 VBG Base Excess Sodium Potassium Chloride Carbon Dioxide Anion Gap BUN Creatinine Est GFR ( Amer) Glucose Lactic Acid 0.8 0.6 L 0.9 Calcium Magnesium Total Bilirubin AST Alkaline Phosphatase Total Protein Albumin 07/09/19 07/09/19 07/09/19 07:03 07:03 07:03 WBC 10.7 H RBC 2.71 L Hgb 8.7 L Hct 24.7 L MCV 91 MCH 32.1 MCHC 35.2 RDW 18.4 H Plt Count 240 Seg Neutrophils % 84.6 H VBG pH VBG pCO2 VBG HCO3 VBG Base Excess Sodium 126.9 L Potassium 4.3 Chloride 99 Carbon Dioxide 20 L Anion Gap 8 BUN 27 H Creatinine 1.52 H Est GFR ( Amer) > 60 Glucose 105 Lactic Acid 0.8 Calcium 8.5 Magnesium 2.0 Total Bilirubin AST Alkaline Phosphatase Total Protein Albumin 07/08/19 18:20 Leg - Below Knee Amputation Site Gram Stain - Final Impressions: Knee X-Ray 07/08/19 16:50 IMPRESSION: Amputation of the proximal tibia and fibula. Expected postoperative changes in the soft tissues. Assessment & Plan - Plan Summary Plan Summary: rt bka stump dehiscence due to trauma now with some superficial necrosis debrided plan start tid wet to dry dressing changes.
[2019-07-09] MEDS: HYDROCODONE/ACETAMINOPHEN 7.5-325 MG TABLET PO PRN (14:11)
[2019-07-09] MEDS: CEFEPIME HCL 2 GM in DEXTROSE 5%-WATER 50 ML IV SCH (17:07)
[2019-07-10] MEDS: GABAPENTIN 300 MG CAPSULE PO SCH ×3 (05:20→21:34)
[2019-07-10] MEDS: CEFEPIME HCL 2 GM in DEXTROSE 5%-WATER 50 ML IV SCH ×2 (05:21→17:29)
[2019-07-10] MEDS: HEPARIN SOD (PORCINE) 5,000 UNIT/ML 1 ML VIAL SUBCUT SCH ×3 (05:21→21:37)
[2019-07-10 05:38] LABS: ABSOLUTE EOSINOPHILS # (AUTO) 0.2 10^3/uL (0.0-0.6); ABSOLUTE LYMPHOCYTES (AUTO) 1.1 10^3/uL (0.5-4.7); ABSOLUTE MONOCYTES (AUTO) 0.8 10^3/uL (0.1-1.4); ABSOLUTE NEUT (AUTO) 5.1 10^3/uL (1.7-8.2); BASOPHILS % (AUTO) 0.6 % (0-2); EOSINOPHILS % (AUTO) 2.3 % (0-6); HEMATOCRIT 24.1 % (37.9-51.0); HEMOGLOBIN 8.3 g/dL (13.5-17.0); LYMPHOCYTES % (AUTO) 15.6 % (13-45); MEAN CORPUSCULAR HGB CONC 34.5 g/dL (32.0-36.0); MEAN CORPUSCULAR VOLUME 93 fl (80-97); MONOCYTES % (AUTO) 11.3 % (3-13); PLATELET COUNT 269 10^3/uL (150-450); RED CELL DISTRIBUTION WIDTH 18.4 % (11.5-14.0); SEGMENTED NEUTROPHILS % (AUTO) 70.2 % (42-78); TOTAL CELLS COUNTED % (AUTO) 100 %; WHITE BLOOD COUNT 7.2 10^3/uL (4.0-10.5)
[2019-07-10 06:05] LABS: ANION GAP 8 (5-19); BLOOD UREA NITROGEN 27 mg/dL (7-20); CALCIUM 8.6 mg/dL (8.4-10.2); CARBON DIOXIDE 21 mmol/L (22-30); CHLORIDE 103 mmol/L (98-107); GLUCOSE 155 mg/dL (75-110); POTASSIUM 4.6 mmol/L (3.6-5.0)
--- NOTE | 2019-07-10 09:25 | PDOC PROGRESS REPORT ---
Subjective Progress Note for:: 07/10/19 Subjective:: pains right BKA stump Reason For Visit: AMPUTATION STUMP INFECTION DM TYPE 2 DIABETES Physical Exam Vital Signs: Temp Pulse Resp BP Pulse Ox 98.5 F 93 16 131/73 H 100 07/10/19 07:11 07/10/19 07:11 07/10/19 07:11 07/10/19 07:11 07/10/19 07:11 Intake & Output 07/09/19 07/10/19 07/11/19 06:59 06:59 06:59 Intake Total 2350 1270 Output Total 1020 1695 Balance 1330 -425 Weight 67.9 kg 68.7 kg Exam: open areaslateral and medial areas of stump with minimal drainage and inflammation Results Laboratory Results: 07/10/19 05:24 07/10/19 05:25 07/10/19 07/10/19 05:24 05:25 WBC 7.2 RBC 2.60 L Hgb 8.3 L Hct 24.1 L MCV 93 MCH 32.0 MCHC 34.5 RDW 18.4 H Plt Count 269 Seg Neutrophils % 70.2 Sodium 131.6 L Potassium 4.6 Chloride 103 Carbon Dioxide 21 L Anion Gap 8 BUN 27 H Creatinine 1.80 H Est GFR ( Amer) 49 L Glucose 155 H Calcium 8.6 Magnesium 2.1 07/08/19 18:20 Leg - Below Knee Amputation Site Gram Stain - Final Impressions: Knee X-Ray 07/08/19 16:50 IMPRESSION: Amputation of the proximal tibia and fibula. Expected postoperative changes in the soft tissues. Assessment & Plan - Diagnosis (1) Hyperglycemia due to type 2 diabetes mellitus Qualifiers: Diabetes mellitus meterman insulin use: without halfway use Qualified Code(s): E11.65 - Type 2 diabetes mellitus with hyperglycemia Is this a current diagnosis for this admission?: Yes (2) Patient noncompliance Is this a current diagnosis for this admission?: Yes (3) Wound, surgical, nonhealing Qualifiers: Encounter type: initial encounter Qualified Code(s): T81.89XA - Other complications of procedures, not elsewhere classified, initial encounter Is this a current diagnosis for this admission?: Yes (4) Leukocytosis Qualifiers: Leukocytosis type: unspecified Qualified Code(s): D72.829 - Elevated white blood cell count, unspecified Is this a current diagnosis for this admission?: Yes - Time Critical Time spent with patient: 15-24 minutes - Inpatient Certification Medical Necessity: Need for IV Antibiotics, Risk of Complication if Not Cared For in Hospital - Plan Summary Plan Summary: Cellulitis right BKA stump appears well controlled with afbrile and normal WBC Plans: Start wound vac to right BKA stump Continue IV antibiotics
[2019-07-10] MEDS: INSULIN LISPRO 100 UNIT/ML 3 ML VIAL SUBCUT SCH ×4 (09:36→21:24)
[2019-07-10] MEDS: DOCUSATE SODIUM 100 MG CAPSULE PO SCH ×2 (09:41→17:29)
[2019-07-10] MEDS: FAMOTIDINE 20 MG TABLET PO SCH ×2 (09:41→21:34)
[2019-07-10] MEDS: FERROUS SULFATE 325 MG TABLET PO SCH ×2 (09:41→17:29)
[2019-07-10] MEDS: AMLODIPINE BESYLATE 5 MG TABLET PO SCH (09:41)
[2019-07-10] MEDS: HYDROCODONE/ACETAMINOPHEN 7.5-325 MG TABLET PO PRN ×3 (09:43→19:52)
--- NOTE | 2019-07-10 10:24 | PDOC PROGRESS REPORT ---
Subjective Progress Note for:: 07/09/19 Subjective:: Patient is sitting in bed. His right stump is wrapped. He states that he is feeling much better. Dressing changes are ordered for 2-3 times a day. Reason For Visit: AMPUTATION STUMP INFECTION DM TYPE 2 DIABETES Physical Exam Vital Signs: Temp Pulse Resp BP Pulse Ox 98.5 F 93 16 131/73 H 100 07/10/19 07:11 07/10/19 07:11 07/10/19 07:11 07/10/19 07:11 07/10/19 07:11 Intake & Output 07/09/19 07/10/19 07/11/19 06:59 06:59 06:59 Intake Total 2350 1270 Output Total 1020 1695 Balance 1330 -425 Weight 67.9 kg 68.7 kg General appearance: PRESENT: no acute distress, cooperative, well-developed Head exam: PRESENT: atraumatic, normocephalic Ear exam: PRESENT: normal external ear exam. ABSENT: bleeding, drainage Mouth exam: PRESENT: moist, tongue midline Teeth exam: ABSENT: poor dentation Neck exam: PRESENT: full ROM. ABSENT: carotid bruit, JVD, lymphadenopathy Respiratory exam: PRESENT: clear to auscultation clarke, symmetrical, unlabored. ABSENT: accessory muscle use, prolonged expiratory phas, rales, rhonchi, stridor, tachypnea, wheezes Cardiovascular exam: PRESENT: RRR, +S1, +S2. ABSENT: diastolic murmur, systolic murmur GI/Abdominal exam: PRESENT: normal bowel sounds, soft. ABSENT: distended, guarding, mass, tenderness Rectal exam: PRESENT: deferred Gentrourinary exam: ABSENT: indwelling catheter Extremities exam: PRESENT: other - Bilateral below-knee amputations. Right stump with bulky dressing. Some blood staining noted. Musculoskeletal exam: ABSENT: ambulatory Neurological exam: PRESENT: alert, awake, oriented to person, oriented to place, oriented to time, oriented to situation, CN II-XII grossly intact. ABSENT: motor sensory deficit Psychiatric exam: PRESENT: appropriate affect, normal mood. ABSENT: agitated, anxious Focused psych exam: ABSENT: delusional, restlessness Skin exam: PRESENT: dry, warm, other - Did not take down the dressing to inspect the wound today. ABSENT: rash Results Laboratory Results: 07/10/19 05:24 07/10/19 05:25 07/10/19 07/10/19 05:24 05:25 WBC 7.2 RBC 2.60 L Hgb 8.3 L Hct 24.1 L MCV 93 MCH 32.0 MCHC 34.5 RDW 18.4 H Plt Count 269 Seg Neutrophils % 70.2 Sodium 131.6 L Potassium 4.6 Chloride 103 Carbon Dioxide 21 L Anion Gap 8 BUN 27 H Creatinine 1.80 H Est GFR ( Amer) 49 L Glucose 155 H Calcium 8.6 Magnesium 2.1 07/08/19 18:20 Leg - Below Knee Amputation Site Gram Stain - Final Impressions: Knee X-Ray 07/08/19 16:50 IMPRESSION: Amputation of the proximal tibia and fibula. Expected postoperative changes in the soft tissues. Assessment and Plan - Diagnosis (1) Cellulitis of right leg Is this a current diagnosis for this admission?: Yes (2) Hyponatremia Is this a current diagnosis for this admission?: Yes (3) Leukocytosis Qualifiers: Leukocytosis type: unspecified Qualified Code(s): D72.829 - Elevated white blood cell count, unspecified Is this a current diagnosis for this admission?: Yes (4) Wound, surgical, nonhealing Qualifiers: Encounter type: initial encounter Qualified Code(s): T81.89XA - Other complications of procedures, not elsewhere classified, initial encounter Is this a current diagnosis for this admission?: Yes (5) Hyperglycemia due to type 2 diabetes mellitus Qualifiers: Diabetes mellitus custodial insulin use: without buttermilk drier operator use Qualified Code(s): E11.65 - Type 2 diabetes mellitus with hyperglycemia Is this a current diagnosis for this admission?: Yes (6) Patient noncompliance Is this a current diagnosis for this admission?: Yes (7) Hypertension Qualifiers: Hypertension type: essential hypertension Qualified Code(s): I10 - Essential (primary) hypertension Is this a current diagnosis for this admission?: Yes (8) Iron deficiency anemia Qualifiers: Iron deficiency anemia type: inadequate dietary iron intake Qualified Code(s): D50.8 - Other iron deficiency anemias Is this a current diagnosis for this admission?: Yes (9) Anemia in stage 3 chronic kidney disease Is this a current diagnosis for this admission?: Yes - Plan Summary Summary: 03/07/2020 The patient does not meet sepsis criteria however he does have a serious infection. Right stump infection-IV antibiotics will be administered. Surgery will debride the wound and follow along. Analgesia will be available. Leukocytosis-secondary to infection. IV antibiotics. Hyperglycemia due to diabetes mellitus type [id number] and sliding scale coverage Iron deficiency anemia-iron supplement by mouth. No IV iron due to significant infection. Chronic kidney disease stage III with anemia-monitor CBC as well as renal function and electrolytes. Hypertension-continue amlodipine The patient has blood culture submitted. Awaiting a specimen from the infected stump for wound culture. I have ordered a urinalysis with reflex to culture as well. The surgeon will be debriding the stump. Surgery will follow along. The patient may benefit from negative pressure therapy however without insurance he would not be able to get this treatment modality at home. Narcotic analgesia will be available for his pain. He will be on a carbohydrate controlled diet. 03/08/2020 The patient is feeling much better. On the IV antibiotics his white blood cell count has come down by almost half. He remains afebrile. He has significantly less pain in his leg. Right stump infection-continue cefepime. Gram stain preliminary shows gram- negative bacilli. Leukocytosis improved with IV antibiotics. We will continue to follow the CBC. Acute on chronic kidney failure-with IV fluids and treating the infection in the creatinine has come down some. We will continue to follow blood work. Anemia-contraindicated to give IV iron but will start iron supplement. Diabetes is well controlled. Continue the current medication regimen. - Time Time Spent with patient: Less than 15 minutes Medications reviewed and adjusted accordingly: Yes
--- NOTE | 2019-07-10 16:33 | PDOC PROGRESS REPORT ---
Subjective Progress Note for:: 07/10/19 Subjective:: NIKHIL SHELL is a 48 year old male with uncontrolled diabetes mellitus, HTN, and recent right below-knee amputation who was admitted 07/08/19 for cellulitis of the right BKA stump. Now s/p bedside debrediment by surgery and placement of wound vac. The patient was seen on morning rounds. He was found sitting up in bed, comfortably, on room air. He reports that he is feeling well today; understandably frustrated regarding development of surgical site infection after falling and landing on the BKA stump. He denies fever, chills, chest pain, palpitations, dyspnea, orthopnea, abdominal pain, nausea vomiting and diarrhea. No new questions or concerns. Reason For Visit: AMPUTATION STUMP INFECTION DM TYPE 2 DIABETES Physical Exam Vital Signs: Temp Pulse Resp BP Pulse Ox 97.7 F 94 16 113/96 H 99 07/10/19 11:55 07/10/19 14:00 07/10/19 11:55 07/10/19 11:55 07/10/19 11:55 Intake & Output 07/09/19 07/10/19 07/11/19 06:59 06:59 06:59 Intake Total 2350 1270 240 Output Total 1020 1695 Balance 1330 -425 240 Weight 67.9 kg 68.7 kg General appearance: PRESENT: no acute distress, well-developed, well-nourished Head exam: PRESENT: atraumatic, normocephalic Eye exam: PRESENT: conjunctiva pink, EOMI, PERRLA. ABSENT: scleral icterus Mouth exam: PRESENT: moist, tongue midline Teeth exam: PRESENT: poor dentation Respiratory exam: PRESENT: clear to auscultation clarke, symmetrical, unlabored. ABSENT: rales, rhonchi, wheezes Cardiovascular exam: PRESENT: RRR, +S1, +S2. ABSENT: diastolic murmur, rubs, systolic murmur Vascular exam: PRESENT: normal capillary refill Extremities exam: PRESENT: full ROM, other - bilateral BKAs. ABSENT: calf tenderness, clubbing, pedal edema Neurological exam: PRESENT: alert, awake, oriented to person, oriented to place, oriented to time, oriented to situation, CN II-XII grossly intact. ABSENT: motor sensory deficit Psychiatric exam: PRESENT: appropriate affect, normal mood. ABSENT: homicidal ideation, suicidal ideation Skin exam: PRESENT: dry, warm, other - wound vac to distal Right BKA. ABSENT: cyanosis, intact, rash Results Laboratory Results: 07/10/19 05:24 07/10/19 05:25 07/10/19 07/10/19 05:24 05:25 WBC 7.2 RBC 2.60 L Hgb 8.3 L Hct 24.1 L MCV 93 MCH 32.0 MCHC 34.5 RDW 18.4 H Plt Count 269 Seg Neutrophils % 70.2 Sodium 131.6 L Potassium 4.6 Chloride 103 Carbon Dioxide 21 L Anion Gap 8 BUN 27 H Creatinine 1.80 H Est GFR ( Amer) 49 L Glucose 155 H Calcium 8.6 Magnesium 2.1 07/08/19 18:20 Leg - Below Knee Amputation Site Gram Stain - Final Impressions: Knee X-Ray 07/08/19 16:50 IMPRESSION: Amputation of the proximal tibia and fibula. Expected postoperative changes in the soft tissues. Assessment and Plan - Diagnosis (1) Cellulitis of right leg Is this a current diagnosis for this admission?: Yes Plan: Blood cultures are negative at 48 hours. Leg wound culture with gram-negative rods, gram-positive cocci, and pansensitive Proteus mirabilis Mild cellulitis to distal right BKA stump at surgical incision site related to fall and landing on the stump. Now status post bedside debridement by surgery. Wound VAC in place. Leukocytosis has resolved. Continue IV cefepime. (2) Wound, surgical, nonhealing Qualifiers: Encounter type: initial encounter Qualified Code(s): T81.89XA - Other complications of procedures, not elsewhere classified, initial encounter Is this a current diagnosis for this admission?: Yes Plan: Surgery is consulted; appreciate their assistance. Wound cultures and antibiotics as above. Currently with wound VAC in place. (3) Anemia in stage 3 chronic kidney disease Is this a current diagnosis for this admission?: Yes Plan: Hemoglobin 8.3; slight downward drift since admission related to IV fluids and rehydration. Overall near baseline. No evidence of acute bleeding at this time. Continue daily multivitamin and iron supplementation. (4) Hyperglycemia due to type 2 diabetes mellitus Qualifiers: Diabetes mellitus rodent exterminator insulin use: without halfway use Qualified Code(s): E11.65 - Type 2 diabetes mellitus with hyperglycemia Is this a current diagnosis for this admission?: Yes Plan: Consistent carb diet. Accu-Cheks before meals and at bedtime with Humalog for sliding scale coverage. Hypoglycemia protocol in place. Registered dietitian clinical educator consulted. (5) Hypertension Qualifiers: Hypertension type: essential hypertension Qualified Code(s): I10 - Essential (primary) hypertension Is this a current diagnosis for this admission?: Yes Plan: Slightly elevated blood pressures today. Continue amlodipine 5 mg daily. (6) Hyponatremia Is this a current diagnosis for this admission?: Yes Plan: Improved to 131.6. Patient appears to have chronic hyponatremia; at this level not clinically significant. Have liberalized dietary sodium. (7) Iron deficiency anemia Qualifiers: Iron deficiency anemia type: inadequate dietary iron intake Qualified Code(s): D50.8 - Other iron deficiency anemias Is this a current diagnosis for this admission?: Yes Plan: Iron deficiency and anemia of chronic kidney disease. Continue multivitamin and daily iron supplementation as mentioned above. (8) Leukocytosis Qualifiers: Leukocytosis type: unspecified Qualified Code(s): D72.829 - Elevated white blood cell count, unspecified Is this a current diagnosis for this admission?: Yes Plan: Resolved; secondary to right leg cellulitis. Cultures and antibiotics as above. (9) Patient noncompliance Is this a current diagnosis for this admission?: Yes Plan: Registered dietitian and patient educator are consulted. Reinforce importance of lifestyle, dietary, and medication compliance. (10) Chronic kidney disease, stage III (moderate) Is this a current diagnosis for this admission?: Yes Plan: Creatinine 1.80; at baseline. Encourage p.o. fluids. Avoid nephrotoxic medications as able. Monitor chemistries. - Time Time Spent with patient: 25-34 minutes Medications reviewed and adjusted accordingly: Yes
[2019-07-11] MEDS: HYDROCODONE/ACETAMINOPHEN 7.5-325 MG TABLET PO PRN ×5 (00:31→21:52)
[2019-07-11 05:01] LABS: ABSOLUTE EOSINOPHILS # (AUTO) 0.3 10^3/uL (0.0-0.6); ABSOLUTE LYMPHOCYTES (AUTO) 1.5 10^3/uL (0.5-4.7); ABSOLUTE MONOCYTES (AUTO) 0.9 10^3/uL (0.1-1.4); ABSOLUTE NEUT (AUTO) 4.7 10^3/uL (1.7-8.2); BASOPHILS % (AUTO) 0.6 % (0-2); EOSINOPHILS % (AUTO) 4.3 % (0-6); HEMATOCRIT 25.8 % (37.9-51.0); HEMOGLOBIN 8.9 g/dL (13.5-17.0); LYMPHOCYTES % (AUTO) 20.2 % (13-45); MEAN CORPUSCULAR HEMOGLOBIN 32.1 pg (27.0-33.4); MEAN CORPUSCULAR HGB CONC 34.7 g/dL (32.0-36.0); MEAN CORPUSCULAR VOLUME 93 fl (80-97); MONOCYTES % (AUTO) 11.9 % (3-13); PLATELET COUNT 263 10^3/uL (150-450); RED BLOOD COUNT 2.79 10^6/uL (4.35-5.55); RED CELL DISTRIBUTION WIDTH 17.9 % (11.5-14.0); TOTAL CELLS COUNTED % (AUTO) 100 %; WHITE BLOOD COUNT 7.4 10^3/uL (4.0-10.5)
[2019-07-11 05:23] LABS: ANION GAP 10 (5-19); BLOOD UREA NITROGEN 27 mg/dL (7-20); CALCIUM 8.8 mg/dL (8.4-10.2); CARBON DIOXIDE 21 mmol/L (22-30); CHLORIDE 103 mmol/L (98-107); GLUCOSE 139 mg/dL (75-110); POTASSIUM 4.8 mmol/L (3.6-5.0)
[2019-07-11] MEDS: HEPARIN SOD (PORCINE) 5,000 UNIT/ML 1 ML VIAL SUBCUT SCH ×3 (05:52→21:53)
[2019-07-11] MEDS: GABAPENTIN 300 MG CAPSULE PO SCH ×3 (05:52→21:52)
[2019-07-11] MEDS: CEFEPIME HCL 2 GM in DEXTROSE 5%-WATER 50 ML IV SCH (05:52)
[2019-07-11] MEDS: INSULIN LISPRO 100 UNIT/ML 3 ML VIAL SUBCUT SCH ×3 (08:28→16:56)
[2019-07-11] MEDS: FERROUS SULFATE 325 MG TABLET PO SCH ×2 (09:06→17:25)
[2019-07-11] MEDS: AMLODIPINE BESYLATE 5 MG TABLET PO SCH (09:06)
[2019-07-11] MEDS: MULTIVITAMIN TABLET PO SCH (09:06)
[2019-07-11] MEDS: DOCUSATE SODIUM 100 MG CAPSULE PO SCH ×2 (09:06→17:25)
[2019-07-11] MEDS: FAMOTIDINE 20 MG TABLET PO SCH ×2 (09:06→21:52)
--- NOTE | 2019-07-11 14:51 | PDOC PROGRESS REPORT ---
Subjective Progress Note for:: 07/11/19 Reason For Visit: AMPUTATION STUMP INFECTION DM TYPE 2 DIABETES Physical Exam Vital Signs: Temp Pulse Resp BP Pulse Ox 97.7 F 82 18 123/80 100 07/11/19 12:46 07/11/19 14:00 07/11/19 12:46 07/11/19 12:46 07/11/19 12:46 Intake & Output 07/10/19 07/11/19 07/12/19 06:59 06:59 06:59 Intake Total 1320 1232 530 Output Total 1695 1475 900 Balance -375 -243 -370 Weight 68.7 kg 69.5 kg Results Laboratory Results: 07/11/19 04:33 07/11/19 04:33 07/11/19 07/11/19 04:33 04:33 WBC 7.4 RBC 2.79 L Hgb 8.9 L Hct 25.8 L MCV 93 MCH 32.1 MCHC 34.7 RDW 17.9 H Plt Count 263 Seg Neutrophils % 63.0 Sodium 133.6 L Potassium 4.8 Chloride 103 Carbon Dioxide 21 L Anion Gap 10 BUN 27 H Creatinine 2.21 H Est GFR ( Amer) 39 L Glucose 139 H Calcium 8.8 Magnesium 2.1 07/08/19 18:20 Leg - Below Knee Amputation Site Gram Stain - Final 07/08/19 18:20 Leg - Below Knee Amputation Site Wound Culture - Final Escherichia Coli Esbl Proteus Mirabilis Staphylococcus Aureus Impressions: Knee X-Ray 07/08/19 16:50 IMPRESSION: Amputation of the proximal tibia and fibula. Expected postoperative changes in the soft tissues. Assessment & Plan - Diagnosis (1) Wound, surgical, nonhealing Qualifiers: Encounter type: subsequent encounter Qualified Code(s): T81.89XD - Other complications of procedures, not elsewhere classified, subsequent encounter Is this a current diagnosis for this admission?: Yes (2) Uncontrolled diabetes mellitus Qualifiers: Diabetes mellitus type: type 2 Is this a current diagnosis for this admission?: Yes - Plan Summary Plan Summary: This is a 48-year-old male status post debridement of a nonhealing BKA stump. The patient currently has a wound VAC in place. Plan for visualization of the wound and possible changing of the wound VAC tomorrow. Continue with local wound care. Continue with tight glycemic control. Surgery will follow.
--- NOTE | 2019-07-11 16:59 | PDOC PROGRESS REPORT ---
Subjective Progress Note for:: 07/11/19 Subjective:: NIKHIL SHELL is a 48 year old male with uncontrolled diabetes mellitus, HTN, and recent right below-knee amputation who was admitted 07/08/19 for cellulitis of the right BKA stump. Now s/p bedside debrediment by surgery and placement of wound vac. The patient was seen on afternoon rounds. He was found sitting up in bed, comfortably, on room air. He reports that he is feeling well today; slight increase in pain following application of wound VAC yesterday. He denies fever, chills, chest pain, palpitations, dyspnea, orthopnea, abdominal pain, nausea vomiting and diarrhea. No new questions or concerns. Reason For Visit: AMPUTATION STUMP INFECTION DM TYPE 2 DIABETES Physical Exam Vital Signs: Temp Pulse Resp BP Pulse Ox 97.7 F 82 18 123/80 100 07/11/19 12:46 07/11/19 14:00 07/11/19 12:46 07/11/19 12:46 07/11/19 12:46 Intake & Output 07/10/19 07/11/19 07/12/19 06:59 06:59 06:59 Intake Total 1320 1232 530 Output Total 1695 1475 900 Balance -375 -243 -370 Weight 68.7 kg 69.5 kg General appearance: PRESENT: no acute distress, well-developed, well-nourished Head exam: PRESENT: atraumatic, normocephalic Eye exam: PRESENT: conjunctiva pink, EOMI, PERRLA. ABSENT: scleral icterus Mouth exam: PRESENT: moist, tongue midline Teeth exam: PRESENT: poor dentation Respiratory exam: PRESENT: clear to auscultation clarke. ABSENT: rales, rhonchi, wheezes Cardiovascular exam: PRESENT: RRR, +S1, +S2. ABSENT: diastolic murmur, rubs, systolic murmur Vascular exam: PRESENT: normal capillary refill Extremities exam: PRESENT: full ROM, other - Bilateral BKA. ABSENT: calf tenderness, clubbing, pedal edema Neurological exam: PRESENT: alert, awake, oriented to person, oriented to place, oriented to time, oriented to situation, CN II-XII grossly intact. ABSENT: motor sensory deficit Psychiatric exam: PRESENT: appropriate affect, normal mood. ABSENT: homicidal ideation, suicidal ideation Skin exam: PRESENT: dry, warm, other - Wound VAC to right BKA. ABSENT: cyanosis, rash Results Laboratory Results: 07/11/19 04:33 07/11/19 04:33 07/11/19 07/11/19 04:33 04:33 WBC 7.4 RBC 2.79 L Hgb 8.9 L Hct 25.8 L MCV 93 MCH 32.1 MCHC 34.7 RDW 17.9 H Plt Count 263 Seg Neutrophils % 63.0 Sodium 133.6 L Potassium 4.8 Chloride 103 Carbon Dioxide 21 L Anion Gap 10 BUN 27 H Creatinine 2.21 H Est GFR ( Amer) 39 L Glucose 139 H Calcium 8.8 Magnesium 2.1 07/08/19 18:20 Leg - Below Knee Amputation Site Gram Stain - Final 07/08/19 18:20 Leg - Below Knee Amputation Site Wound Culture - Final Escherichia Coli Esbl Proteus Mirabilis Staphylococcus Aureus Impressions: Knee X-Ray 07/08/19 16:50 IMPRESSION: Amputation of the proximal tibia and fibula. Expected postoperative changes in the soft tissues. Assessment and Plan - Diagnosis (1) Cellulitis of right leg Is this a current diagnosis for this admission?: Yes Plan: Blood cultures are negative at 48 hours. Leg wound culture with E. coli ESBL, MSSA, and pansensitive Proteus mirabilis all sensitive to Levaquin. Mild cellulitis to distal right BKA stump at surgical incision site related to fall and landing on the stump. Now status post bedside debridement by surgery. Wound VAC in place. Leukocytosis has resolved. Change to IV Levaquin. (2) Wound, surgical, nonhealing Qualifiers: Encounter type: subsequent encounter Qualified Code(s): T81.89XD - Other complications of procedures, not elsewhere classified, subsequent encounter Is this a current diagnosis for this admission?: Yes Plan: Surgery is consulted; appreciate their assistance. Wound cultures and antibiotics as above. Currently with wound VAC in place. (3) Anemia in stage 3 chronic kidney disease Is this a current diagnosis for this admission?: Yes Plan: Hemoglobin 8.9 Overall near baseline. No evidence of acute bleeding at this time. Continue daily multivitamin and iron supplementation. (4) Hyperglycemia due to type 2 diabetes mellitus Qualifiers: Diabetes mellitus termite treater helper insulin use: without half-way use Qualified Code(s): E11.65 - Type 2 diabetes mellitus with hyperglycemia Is this a current diagnosis for this admission?: Yes Plan: Consistent carb diet. Accu-Cheks before meals and at bedtime with Humalog for sliding scale coverage. Hypoglycemia protocol in place. Registered dietitian and container packer operator consulted. (5) Hypertension Qualifiers: Hypertension type: essential hypertension Qualified Code(s): I10 - Essential (primary) hypertension Is this a current diagnosis for this admission?: Yes Plan: Appropriate elevated blood pressures today. Continue amlodipine 5 mg daily. (6) Hyponatremia Is this a current diagnosis for this admission?: Yes Plan: Improved to 133.6. Patient appears to have chronic hyponatremia; at this level not clinically significant. Have liberalized dietary sodium. (7) Iron deficiency anemia Qualifiers: Iron deficiency anemia type: inadequate dietary iron intake Qualified Code(s): D50.8 - Other iron deficiency anemias Is this a current diagnosis for this admission?: Yes Plan: Iron deficiency and anemia of chronic kidney disease. Continue multivitamin and daily iron supplementation as mentioned above. (8) Leukocytosis Qualifiers: Leukocytosis type: unspecified Qualified Code(s): D72.829 - Elevated white blood cell count, unspecified Is this a current diagnosis for this admission?: Yes Plan: Resolved; secondary to right leg cellulitis. Cultures and antibiotics as above. (9) Patient noncompliance Is this a current diagnosis for this admission?: Yes Plan: Registered dietitian and patient educator are consulted. Reinforce importance of lifestyle, dietary, and medication compliance. (10) Chronic kidney disease, stage III (moderate) Is this a current diagnosis for this admission?: Yes Plan: Creatinine 2.21; baseline 1.8-2.0 Encourage p.o. fluids. Avoid nephrotoxic medications as able. Monitor chemistries. - Time Time Spent with patient: 25-34 minutes Medications reviewed and adjusted accordingly: Yes Anticipated discharge: Home
[2019-07-11] MEDS: LEVOFLOXACIN 500 MG/D5W RTU 500 MG/100 ML RTUPB IV SCH (17:26)
[2019-07-12] MEDS: INSULIN LISPRO 100 UNIT/ML 3 ML VIAL SUBCUT SCH ×5 (00:13→21:49)
[2019-07-12] MEDS: HYDROCODONE/ACETAMINOPHEN 7.5-325 MG TABLET PO PRN ×4 (04:10→19:24)
[2019-07-12] MEDS: HEPARIN SOD (PORCINE) 5,000 UNIT/ML 1 ML VIAL SUBCUT SCH ×3 (05:53→21:35)
[2019-07-12] MEDS: GABAPENTIN 300 MG CAPSULE PO SCH ×3 (05:53→21:35)
[2019-07-12] MEDS: FERROUS SULFATE 325 MG TABLET PO SCH ×2 (08:40→17:11)
[2019-07-12] MEDS: FAMOTIDINE 20 MG TABLET PO SCH ×2 (09:14→21:35)
[2019-07-12] MEDS: MULTIVITAMIN TABLET PO SCH (09:14)
[2019-07-12] MEDS: DOCUSATE SODIUM 100 MG CAPSULE PO SCH ×2 (09:14→17:11)
[2019-07-12] MEDS: AMLODIPINE BESYLATE 5 MG TABLET PO SCH ×2 (09:14→18:57)
--- NOTE | 2019-07-12 13:54 | Operative Report ---
Operative Report DATE OF SURGERY: 07/12/19 PREOPERATIVE DIAGNOSIS: Necrotic tissue on the lateral aspect of the BKA stump POSTOPERATIVE DIAGNOSIS: Same OPERATION: Sharp debridement of necrotic tissue on the lateral aspect of the BKA stump SURGEON: OLYAINKA MUÑOZ ANESTHESIA: Other TISSUE REMOVED OR ALTERED: Necrotic tissue and appears to be primarily necrotic muscle COMPLICATIONS: None ESTIMATED BLOOD LOSS: 5 cc QUANTITATIVE BLOOD LOSS: 5 INTRAOPERATIVE FINDINGS: After the wound VAC was removed there appears to be necrotic tissue on the lateral aspect of the BKA stump. This appears to be mostly necrotic muscle. PROCEDURE: After the wound VAC was removed the necrotic tissue on the lateral aspect of the BKA stump was then sharply debrided using an 11 blade. Practically all of the necrotic tissue which primarily was appears to be muscle was removed. There was some bleeding noted afterwards and pressure was applied which stopped the bleeding. Following this a new wound VAC was then reapplied. There was some small amount of serous fluid that was sent for PHARM SPEC. Patient tolerated procedure well.
--- NOTE | 2019-07-12 16:50 | PDOC PROGRESS REPORT ---
Subjective Progress Note for:: 07/12/19 Subjective:: NIKHIL SHELL is a 48 year old male with uncontrolled diabetes mellitus, HTN, and recent right below-knee amputation who was admitted 07/08/19 for cellulitis of the right BKA stump. Now s/p bedside debrediment by surgery and placement of wound vac. The patient was seen on afternoon rounds. He was found sitting up in bed, comfortably, on room air. He reports that he is feeling well today. He is frustrated that surgery has informed him that he will require additional IV antibiotics and potentially additional surgical revision of his stump. Otherwise, he denies fever, chills, chest pain, palpitations, dyspnea, orthopnea, abdominal pain, nausea vomiting and diarrhea. No new questions or concerns. No concerns per nursing. Reason For Visit: AMPUTATION STUMP INFECTION DM TYPE 2 DIABETES Physical Exam Vital Signs: Temp Pulse Resp BP Pulse Ox 97.5 F 81 18 153/82 H 100 07/12/19 12:13 07/12/19 14:00 07/12/19 12:13 07/12/19 12:13 07/12/19 12:13 Intake & Output 07/11/19 07/12/19 07/13/19 06:59 06:59 06:59 Intake Total 1232 1590 480 Output Total 1475 2300 600 Balance -243 -710 -120 Weight 69.5 kg 68.1 kg General appearance: PRESENT: no acute distress, cooperative, well-developed, well-nourished Head exam: PRESENT: atraumatic, normocephalic Eye exam: PRESENT: conjunctiva pink, EOMI, PERRLA. ABSENT: scleral icterus Mouth exam: PRESENT: moist, tongue midline Teeth exam: PRESENT: poor dentation Respiratory exam: PRESENT: clear to auscultation clarke, symmetrical, unlabored. ABSENT: rales, rhonchi, wheezes Cardiovascular exam: PRESENT: RRR, +S1, +S2. ABSENT: diastolic murmur, rubs, systolic murmur Vascular exam: PRESENT: normal capillary refill GI/Abdominal exam: PRESENT: normal bowel sounds, soft. ABSENT: distended, guarding, mass, organolmegaly, rebound, tenderness Rectal exam: PRESENT: deferred Extremities exam: PRESENT: other - Bilateral BKA. ABSENT: calf tenderness, clubbing, pedal edema Neurological exam: PRESENT: alert, awake, oriented to person, oriented to place, oriented to time, oriented to situation, CN II-XII grossly intact. ABSENT: motor sensory deficit Psychiatric exam: PRESENT: appropriate affect, normal mood. ABSENT: homicidal ideation, suicidal ideation Skin exam: PRESENT: dry, warm, other - Wound VAC to right BKA. ABSENT: cyanosis, rash Results Laboratory Results: 07/11/19 04:33 07/11/19 04:33 Impressions: Knee X-Ray 07/08/19 16:50 IMPRESSION: Amputation of the proximal tibia and fibula. Expected postoperative changes in the soft tissues. Assessment and Plan - Diagnosis (1) Cellulitis of right leg Is this a current diagnosis for this admission?: Yes Plan: Blood cultures are negative at 4 days Leg wound culture with E. coli ESBL, MSSA, and pansensitive Proteus mirabilis all sensitive to Levaquin.. Leukocytosis has resolved, remains afebrile Mild cellulitis to distal right BKA stump at surgical incision site related to fall and landing on the stump. Now status post bedside debridement by surgery x2. Wound VAC in place. Continue to IV Levaquin. (2) Wound, surgical, nonhealing Qualifiers: Encounter type: subsequent encounter Qualified Code(s): T81.89XD - Other complications of procedures, not elsewhere classified, subsequent encounter Is this a current diagnosis for this admission?: Yes Plan: Surgery is consulted; appreciate their assistance. Wound cultures and antibiotics as above. Currently with wound VAC in place. (3) Anemia in stage 3 chronic kidney disease Is this a current diagnosis for this admission?: Yes Plan: Hemoglobin 8.9 Overall near baseline. No evidence of acute bleeding at this time. Continue daily multivitamin and iron supplementation. (4) Hyperglycemia due to type 2 diabetes mellitus Qualifiers: Diabetes mellitus lobsterman insulin use: without skilled nursing use Qualified Code(s): E11.65 - Type 2 diabetes mellitus with hyperglycemia Is this a current diagnosis for this admission?: Yes Plan: Consistent carb diet. Accu-Cheks before meals and at bedtime with Humalog for sliding scale coverage. Hypoglycemia protocol in place. Registered dietitian and childbirth educator consulted. (5) Hypertension Qualifiers: Hypertension type: essential hypertension Qualified Code(s): I10 - Essential (primary) hypertension Is this a current diagnosis for this admission?: Yes Plan: Elevated blood pressures today. Continue amlodipine 5 mg twice daily. (6) Hyponatremia Is this a current diagnosis for this admission?: Yes Plan: Improved to 133.6. Patient appears to have chronic hyponatremia; at this level not clinically significant. Have liberalized dietary sodium. (7) Iron deficiency anemia Qualifiers: Iron deficiency anemia type: inadequate dietary iron intake Qualified Code(s): D50.8 - Other iron deficiency anemias Is this a current diagnosis for this admission?: Yes Plan: Iron deficiency and anemia of chronic kidney disease. Continue multivitamin and daily iron supplementation as mentioned above. (8) Leukocytosis Qualifiers: Leukocytosis type: unspecified Qualified Code(s): D72.829 - Elevated white blood cell count, unspecified Is this a current diagnosis for this admission?: Yes Plan: Resolved; secondary to right leg cellulitis. Cultures and antibiotics as above. (9) Patient noncompliance Is this a current diagnosis for this admission?: Yes Plan: Registered dietitian and patient educator are consulted. Reinforce importance of lifestyle, dietary, and medication compliance. (10) Chronic kidney disease, stage III (moderate) Is this a current diagnosis for this admission?: Yes Plan: Creatinine 2.21; baseline 1.8-2.0 Encourage p.o. fluids. Avoid nephrotoxic medications as able. Monitor chemistries. - Time Time Spent with patient: 15-24 minutes Medications reviewed and adjusted accordingly: Yes Anticipated discharge: Home
[2019-07-12] MEDS: LEVOFLOXACIN 500 MG/D5W RTU 500 MG/100 ML RTUPB IV SCH (17:15)
[2019-07-12] MEDS: MORPHINE SULFATE 10 MG/ML INJ IV PRN (21:49)
[2019-07-13] MEDS: HYDROCODONE/ACETAMINOPHEN 7.5-325 MG TABLET PO PRN ×4 (02:46→19:56)
[2019-07-13 05:10] LABS: HEMOGLOBIN 8.4 g/dL (13.5-17.0); MEAN CORPUSCULAR HEMOGLOBIN 31.3 pg (27.0-33.4); MEAN CORPUSCULAR HGB CONC 33.8 g/dL (32.0-36.0); MEAN CORPUSCULAR VOLUME 93 fl (80-97); PLATELET COUNT 260 10^3/uL (150-450); RED CELL DISTRIBUTION WIDTH 17.5 % (11.5-14.0)
[2019-07-13 05:32] LABS: ANION GAP 6 (5-19); BLOOD UREA NITROGEN 31 mg/dL (7-20); CARBON DIOXIDE 20 mmol/L (22-30); CHLORIDE 106 mmol/L (98-107); GLUCOSE 133 mg/dL (75-110); POTASSIUM 5.2 mmol/L (3.6-5.0)
[2019-07-13] MEDS: AMLODIPINE BESYLATE 5 MG TABLET PO SCH ×2 (05:35→17:48)
[2019-07-13] MEDS: HEPARIN SOD (PORCINE) 5,000 UNIT/ML 1 ML VIAL SUBCUT SCH ×3 (05:35→21:26)
[2019-07-13] MEDS: GABAPENTIN 300 MG CAPSULE PO SCH ×3 (05:36→21:26)
[2019-07-13] MEDS: INSULIN LISPRO 100 UNIT/ML 3 ML VIAL SUBCUT SCH ×4 (08:50→21:35)
[2019-07-13] MEDS: FERROUS SULFATE 325 MG TABLET PO SCH ×2 (08:51→17:47)
[2019-07-13] MEDS ORDERED: LACTULOSE SYRUP 20 GM/30 ML UDCUP PO ONE (09:00)
[2019-07-13] MEDS: DOCUSATE SODIUM 100 MG CAPSULE PO SCH ×2 (09:44→17:47)
[2019-07-13] MEDS: FAMOTIDINE 20 MG TABLET PO SCH ×2 (09:44→21:26)
[2019-07-13] MEDS: MULTIVITAMIN TABLET PO SCH (09:44)
[2019-07-13] MEDS: MORPHINE SULFATE 10 MG/ML INJ IV PRN ×2 (09:50→21:31)
--- NOTE | 2019-07-13 09:50 | PDOC PROGRESS REPORT ---
Subjective Progress Note for:: 07/13/19 Subjective:: no complaints Reason For Visit: AMPUTATION STUMP INFECTION DM TYPE 2 DIABETES Physical Exam Vital Signs: Temp Pulse Resp BP Pulse Ox 98.2 F 84 18 104/64 99 07/13/19 07:31 07/13/19 07:31 07/13/19 07:31 07/13/19 07:31 07/13/19 07:31 Intake & Output 07/12/19 07/13/19 07/14/19 06:59 06:59 06:59 Intake Total 1590 1775 Output Total 2300 2440 Balance -710 -665 Weight 68.1 kg 69.1 kg General appearance: PRESENT: no acute distress Head exam: PRESENT: normocephalic Eye exam: PRESENT: EOMI Ear exam: PRESENT: TM's normal bilaterally Mouth exam: PRESENT: moist Neck exam: PRESENT: full ROM Respiratory exam: PRESENT: clear to auscultation clarke Cardiovascular exam: PRESENT: RRR Vascular exam: PRESENT: normal capillary refill GI/Abdominal exam: PRESENT: soft Rectal exam: PRESENT: deferred Extremities exam: PRESENT: other - rt stump wound vac removed skin at lat and medial aspect of wound bleeds briskly underlying muscle, pink still some sub cutaneous fibrinous exudate debrided Psychiatric exam: PRESENT: appropriate affect Skin exam: PRESENT: dry Results Laboratory Results: 07/13/19 04:27 07/13/19 04:27 07/13/19 07/13/19 04:27 04:27 WBC 8.0 RBC 2.70 L Hgb 8.4 L Hct 25.0 L MCV 93 MCH 31.3 MCHC 33.8 RDW 17.5 H Plt Count 260 Sodium 132.0 L Potassium 5.2 H Chloride 106 Carbon Dioxide 20 L Anion Gap 6 BUN 31 H Creatinine 2.06 H Est GFR ( Amer) 42 L Glucose 133 H Calcium 9.0 Impressions: Knee X-Ray 07/08/19 16:50 IMPRESSION: Amputation of the proximal tibia and fibula. Expected postoperative changes in the soft tissues. Assessment & Plan - Plan Summary Plan Summary: right bka stump infection plan dc wound vac tid wet to dry dressing changes
--- NOTE | 2019-07-13 13:02 | PDOC PROGRESS REPORT ---
Subjective Progress Note for:: 07/13/19 Subjective:: NIKHIL SHELL is a 48 year old male with uncontrolled diabetes mellitus, HTN, and recent right below-knee amputation who was admitted 07/08/19 for cellulitis of the right BKA stump. Now s/p bedside debrediment by surgery and placement of wound vac. The patient was seen on morning rounds. He was found sitting up in bed, comfortably, on room air. He reports that he is feeling well today. He is frustrated that surgery has discontinued the wound VAC and is now recommending dressing changes 3 times daily. He does report that his pain is well controlled at present. He also confirms decreased edema and erythema. Otherwise, he denies fever, chills, chest pain, palpitations, dyspnea, orthopnea, abdominal pain, nausea vomiting and diarrhea. No new questions or concerns. No concerns per nursing. Reason For Visit: AMPUTATION STUMP INFECTION DM TYPE 2 DIABETES Physical Exam Vital Signs: Temp Pulse Resp BP Pulse Ox 98.2 F 84 18 104/64 99 07/13/19 07:31 07/13/19 07:31 07/13/19 07:31 07/13/19 07:31 07/13/19 07:31 Intake & Output 07/12/19 07/13/19 07/14/19 06:59 06:59 06:59 Intake Total 1590 1775 Output Total 2300 2440 Balance -710 -665 Weight 68.1 kg 69.1 kg General appearance: PRESENT: no acute distress, cooperative, disheveled - Body odor, well-developed, well-nourished Head exam: PRESENT: atraumatic, normocephalic Eye exam: PRESENT: conjunctiva pink, EOMI, PERRLA. ABSENT: scleral icterus Mouth exam: PRESENT: moist, tongue midline Teeth exam: PRESENT: poor dentation Respiratory exam: PRESENT: clear to auscultation clarke, symmetrical, unlabored. ABSENT: rales, rhonchi, wheezes Cardiovascular exam: PRESENT: RRR, +S1, +S2. ABSENT: diastolic murmur, rubs, systolic murmur Vascular exam: PRESENT: normal capillary refill Extremities exam: PRESENT: full ROM, other - Bilateral BKA. ABSENT: calf tenderness, clubbing, pedal edema Neurological exam: PRESENT: alert, awake, oriented to person, oriented to place, oriented to time, oriented to situation, CN II-XII grossly intact. ABSENT: motor sensory deficit Psychiatric exam: PRESENT: appropriate affect, normal mood. ABSENT: homicidal ideation, suicidal ideation Skin exam: PRESENT: dry, warm, other - Dehiscence of surgical incision site to right BKA; wet-to-dry dressing in place. Wound not visualized. ABSENT: cyanosis, intact, rash Results Laboratory Results: 07/13/19 04:27 07/13/19 04:27 07/13/19 07/13/19 04:27 04:27 WBC 8.0 RBC 2.70 L Hgb 8.4 L Hct 25.0 L MCV 93 MCH 31.3 MCHC 33.8 RDW 17.5 H Plt Count 260 Sodium 132.0 L Potassium 5.2 H Chloride 106 Carbon Dioxide 20 L Anion Gap 6 BUN 31 H Creatinine 2.06 H Est GFR ( Amer) 42 L Glucose 133 H Calcium 9.0 Impressions: Knee X-Ray 07/08/19 16:50 IMPRESSION: Amputation of the proximal tibia and fibula. Expected postoperative changes in the soft tissues. Assessment and Plan - Diagnosis (1) Cellulitis of right leg Is this a current diagnosis for this admission?: Yes Plan: Blood cultures are negative at 4 days Leg wound culture with E. coli ESBL, MSSA, and pansensitive Proteus mirabilis a ll sensitive to Levaquin. Repeat blood cultures (07/12/2019) show 2 strains gram-negative rods and 1 gram- positive cocci Leukocytosis has resolved, remains afebrile Mild cellulitis to distal right BKA stump at surgical incision site related to fall and landing on the stump. Now status post bedside debridement by surgery x2. Continue to IV Levaquin. Wound care per surgery's direction. (2) Wound, surgical, nonhealing Qualifiers: Encounter type: subsequent encounter Qualified Code(s): T81.89XD - Other complications of procedures, not elsewhere classified, subsequent encounter Is this a current diagnosis for this admission?: Yes Plan: Surgery is consulted; appreciate their assistance. Wound cultures and antibiotics as above. Currently with wound VAC in place. (3) Anemia in stage 3 chronic kidney disease Is this a current diagnosis for this admission?: Yes Plan: Hemoglobin 8.9 Overall near baseline. No evidence of acute bleeding at this time. Continue daily multivitamin and iron supplementation. (4) Hyperglycemia due to type 2 diabetes mellitus Qualifiers: Diabetes mellitus ferry terminal agent insulin use: without ferry terminal agent use Qualified Co de(s): E11.65 - Type 2 diabetes mellitus with hyperglycemia Is this a current diagnosis for this admission?: Yes Plan: Consistent carb diet. Accu-Cheks before meals and at bedtime with Humalog for sliding scale coverage. Hypoglycemia protocol in place. Registered dietitian and detailer consulted. (5) Hypertension Qualifiers: Hypertension type: essential hypertension Qualified Code(s): I10 - Essential (primary) hypertension Is this a current diagnosis for this admission?: Yes Plan: Elevated blood pressures today. Continue amlodipine 5 mg twice daily. (6) Hyponatremia Is this a current diagnosis for this admission?: Yes Plan: Improved to 132 Patient appears to have chronic hyponatremia; at this level not clinically si gnificant. Have liberalized dietary sodium. (7) Iron deficiency anemia Qualifiers: Iron deficiency anemia type: inadequate dietary iron intake Qualified Code(s): D50.8 - Other iron deficiency anemias Is this a current diagnosis for this admission?: Yes Plan: Iron deficiency and anemia of chronic kidney disease. Continue multivitamin and daily iron supplementation as mentioned above. (8) Leukocytosis Qualifiers: Leukocytosis type: unspecified Qualified Code(s): D72.829 - Elevated white blood cell count, unspecified Is this a current diagnosis for this admission?: Yes Plan: Resolved; secondary to right leg cellulitis. Cultures and antibiotics as above. (9) Patient noncompliance Is this a current diagnosis for this admission?: Yes Plan: Registered dietitian and patient educator are consulted. Reinforce importance of lifestyle, dietary, and medication compliance. (10) Chronic kidney disease, stage III (moderate) Is this a current diagnosis for this admission?: Yes Plan: Creatinine 2.21; baseline 1.8-2.0 Encourage p.o. fluids. Avoid nephrotoxic medications as able. Monitor chemistries. (11) Hyperkalemia Is this a current diagnosis for this admission?: Yes Plan: Lactulose x1 Follow-up chemistries - Time Time Spent with patient: 15-24 minutes Medications reviewed and adjusted accordingly: Yes
[2019-07-13] MEDS: LEVOFLOXACIN 500 MG/D5W RTU 500 MG/100 ML RTUPB IV SCH (17:48)
[2019-07-14] MEDS: GABAPENTIN 300 MG CAPSULE PO SCH ×3 (05:15→21:47)
[2019-07-14] MEDS: AMLODIPINE BESYLATE 5 MG TABLET PO SCH ×2 (05:16→17:57)
[2019-07-14] MEDS: MORPHINE SULFATE 10 MG/ML INJ IV PRN ×2 (05:17→21:52)
[2019-07-14] MEDS: HEPARIN SOD (PORCINE) 5,000 UNIT/ML 1 ML VIAL SUBCUT SCH ×3 (05:19→21:46)
[2019-07-14 05:20] LABS: HEMATOCRIT 24.2 % (37.9-51.0); HEMOGLOBIN 8.4 g/dL (13.5-17.0); MEAN CORPUSCULAR HEMOGLOBIN 32.1 pg (27.0-33.4); MEAN CORPUSCULAR HGB CONC 34.6 g/dL (32.0-36.0); MEAN CORPUSCULAR VOLUME 93 fl (80-97); PLATELET COUNT 287 10^3/uL (150-450); RED BLOOD COUNT 2.62 10^6/uL (4.35-5.55); RED CELL DISTRIBUTION WIDTH 17.1 % (11.5-14.0); WHITE BLOOD COUNT 6.1 10^3/uL (4.0-10.5)
[2019-07-14 05:38] LABS: ANION GAP 8 (5-19); BLOOD UREA NITROGEN 29 mg/dL (7-20); CALCIUM 9.2 mg/dL (8.4-10.2); CARBON DIOXIDE 20 mmol/L (22-30); CHLORIDE 106 mmol/L (98-107); GLUCOSE 100 mg/dL (75-110); POTASSIUM 5.4 mmol/L (3.6-5.0)
[2019-07-14] MEDS: INSULIN LISPRO 100 UNIT/ML 3 ML VIAL SUBCUT SCH ×4 (08:32→21:47)
[2019-07-14] MEDS: FERROUS SULFATE 325 MG TABLET PO SCH ×2 (08:36→17:57)
[2019-07-14] MEDS: HYDROCODONE/ACETAMINOPHEN 7.5-325 MG TABLET PO PRN ×3 (08:36→18:11)
[2019-07-14] MEDS ORDERED: SODIUM POLYSTYRENE SULFONATE 15 GM/60 ML PO ONE (09:00)
[2019-07-14] MEDS: DOCUSATE SODIUM 100 MG CAPSULE PO SCH ×2 (09:13→17:57)
[2019-07-14] MEDS: FAMOTIDINE 20 MG TABLET PO SCH ×2 (09:13→21:47)
[2019-07-14] MEDS: MULTIVITAMIN TABLET PO SCH (09:13)
--- NOTE | 2019-07-14 14:29 | PDOC PROGRESS REPORT ---
Subjective Progress Note for:: 07/14/19 Subjective:: No pains Reason For Visit: AMPUTATION STUMP INFECTION DM TYPE 2 DIABETES Physical Exam Vital Signs: Temp Pulse Resp BP Pulse Ox 98.1 F 89 16 122/82 99 07/14/19 11:13 07/14/19 11:13 07/14/19 11:13 07/14/19 11:13 07/14/19 11:13 Intake & Output 07/13/19 07/14/19 07/15/19 06:59 06:59 06:59 Intake Total 1775 1441 Output Total 2440 1690 Balance -665 -249 Weight 69.1 kg 69.6 kg Exam: The right BKA stump appears to be doing fairly well. Results Laboratory Results: 07/14/19 04:46 07/14/19 04:46 07/14/19 07/14/19 04:46 04:46 WBC 6.1 RBC 2.62 L Hgb 8.4 L Hct 24.2 L MCV 93 MCH 32.1 MCHC 34.6 RDW 17.1 H Plt Count 287 Sodium 133.7 L Potassium 5.4 H Chloride 106 Carbon Dioxide 20 L Anion Gap 8 BUN 29 H Creatinine 1.92 H Est GFR ( Amer) 45 L Glucose 100 Calcium 9.2 07/08/19 15:42 Blood Blood Culture - Final NO GROWTH IN 5 DAYS 07/08/19 14:51 Blood Blood Culture - Final NO GROWTH IN 5 DAYS Impressions: Knee X-Ray 07/08/19 16:50 IMPRESSION: Amputation of the proximal tibia and fibula. Expected postoperative changes in the soft tissues. Assessment & Plan - Diagnosis (1) Hyperglycemia due to type 2 diabetes mellitus Qualifiers: Diabetes mellitus terminologist insulin use: without long-term use Qualified Code(s): E11.65 - Type 2 diabetes mellitus with hyperglycemia Is this a current diagnosis for this admission?: Yes (2) Patient noncompliance Is this a current diagnosis for this admission?: Yes (3) Wound, surgical, nonhealing Qualifiers: Encounter type: subsequent encounter Qualified Code(s): T81.89XD - Other complications of procedures, not elsewhere classified, subsequent encounter Is this a current diagnosis for this admission?: Yes (4) Leukocytosis Qualifiers: Leukocytosis type: unspecified Qualified Code(s): D72.829 - Elevated white blood cell count, unspecified Is this a current diagnosis for this admission?: Yes - Time Critical Time spent with patient: 15-24 minutes - Inpatient Certification Medical Necessity: Need for IV Antibiotics, Risk of Complication if Not Cared For in Hospital - Plan Summary Plan Summary: Continue with wet-to-dry dressing to right BKA stump every 8 hours Continue IV antibiotics
--- NOTE | 2019-07-14 15:52 | PDOC PROGRESS REPORT ---
Subjective Progress Note for:: 07/14/19 Subjective:: NIKHIL SHELL is a 48 year old male with uncontrolled diabetes mellitus, HTN, and recent right below-knee amputation who was admitted 07/08/19 for cellulitis of the right BKA stump. Now s/p bedside debrediment by surgery and placement of wound vac. The patient was seen on afternoon rounds. He was found sitting up in bed, comfortably, on room air. He reports that he is feeling well today. He does report that his pain is well controlled at present. He also confirms decreased edema and erythema. He further denies fever, chest pain, palpitations, dyspnea, orthopnea, abdominal pain, nausea, vomiting and diarrhea. No new questions or concerns. No concerns per nursing. Reason For Visit: AMPUTATION STUMP INFECTION DM TYPE 2 DIABETES Physical Exam Vital Signs: Temp Pulse Resp BP Pulse Ox 98.1 F 89 16 122/82 99 07/14/19 11:13 07/14/19 11:13 07/14/19 11:13 07/14/19 11:13 07/14/19 11:13 Intake & Output 07/13/19 07/14/19 07/15/19 06:59 06:59 06:59 Intake Total 1775 1441 Output Total 2440 1690 Balance -665 -249 Weight 69.1 kg 69.6 kg General appearance: PRESENT: no acute distress, cooperative, disheveled - body odor, well-developed, well-nourished Head exam: PRESENT: atraumatic, normocephalic Eye exam: PRESENT: conjunctiva pink, EOMI, PERRLA. ABSENT: scleral icterus Mouth exam: PRESENT: moist, tongue midline Teeth exam: PRESENT: poor dentation Respiratory exam: PRESENT: clear to auscultation clarke, symmetrical, unlabored. ABSENT: rales, rhonchi, wheezes Cardiovascular exam: PRESENT: RRR, +S1, +S2. ABSENT: diastolic murmur, rubs, systolic murmur Vascular exam: PRESENT: normal capillary refill GI/Abdominal exam: PRESENT: normal bowel sounds, soft. ABSENT: distended, guarding, mass, organolmegaly, rebound, tenderness Rectal exam: PRESENT: deferred Extremities exam: PRESENT: full ROM, other - bilateral BKA. ABSENT: calf tenderness, clubbing, pedal edema Neurological exam: PRESENT: alert, awake, oriented to person, oriented to place, oriented to time, oriented to situation, CN II-XII grossly intact. ABSENT: motor sensory deficit Psychiatric exam: PRESENT: appropriate affect, normal mood. ABSENT: homicidal ideation, suicidal ideation Skin exam: PRESENT: dry, warm, other - Dehiscence of surgical incision site to right BKA; wet-to-dry dressing in place. Wound not visualized. Serous drainage noted on dressing.. ABSENT: cyanosis, rash Results Laboratory Results: 07/14/19 04:46 07/14/19 04:46 07/14/19 07/14/19 04:46 04:46 WBC 6.1 RBC 2.62 L Hgb 8.4 L Hct 24.2 L MCV 93 MCH 32.1 MCHC 34.6 RDW 17.1 H Plt Count 287 Sodium 133.7 L Potassium 5.4 H Chloride 106 Carbon Dioxide 20 L Anion Gap 8 BUN 29 H Creatinine 1.92 H Est GFR ( Amer) 45 L Glucose 100 Calcium 9.2 07/08/19 15:42 Blood Blood Culture - Final NO GROWTH IN 5 DAYS 07/08/19 14:51 Blood Blood Culture - Final NO GROWTH IN 5 DAYS Impressions: Knee X-Ray 07/08/19 16:50 IMPRESSION: Amputation of the proximal tibia and fibula. Expected postoperative changes in the soft tissues. Assessment and Plan - Diagnosis (1) Cellulitis of right leg Is this a current diagnosis for this admission?: Yes Plan: Blood cultures are negative at 4 days Leg wound culture with E. coli ESBL, MSSA, and pansensitive Proteus mirabilis all sensitive to Levaquin. Repeat blood cultures (07/12/2019) show E. coli ESBL, 1 strains gram-negative rods, and 1 gram-positive cocci Leukocytosis has resolved, remains afebrile Mild cellulitis to distal right BKA stump at surgical incision site related to fall and landing on the stump. Now status post bedside debridement by surgery x2. Continue to IV Levaquin. Wound care per surgery's direction. (2) Wound, surgical, nonhealing Qualifiers: Encounter type: subsequent encounter Qualified Code(s): T81.89XD - Other complications of procedures, not elsewhere classified, subsequent encounter Is this a current diagnosis for this admission?: Yes Plan: Surgery is consulted; appreciate their assistance. Wound cultures and antibiotics as above. Wound care per surgery's instructions. (3) Anemia in stage 3 chronic kidney disease Is this a current diagnosis for this admission?: Yes Plan: Hemoglobin 8.4 Overall near baseline. No evidence of acute bleeding at this time. Continue daily multivitamin and iron supplementation. (4) Hyperglycemia due to type 2 diabetes mellitus Qualifiers: Diabetes mellitus quality facilitator insulin use: without fpc use Qualified Code(s): E11.65 - Type 2 diabetes mellitus with hyperglycemia Is this a current diagnosis for this admission?: Yes Plan: Consistent carb diet. Accu-Cheks before meals and at bedtime with Humalog for sliding scale coverage. Hypoglycemia protocol in place. Registered dietitian and hematology nurse educator consulted. (5) Hypertension Qualifiers: Hypertension type: essential hypertension Qualified Code(s): I10 - Essential (primary) hypertension Is this a current diagnosis for this admission?: Yes Plan: Improved blood pressures today. Continue amlodipine 5 mg twice daily. (6) Hyponatremia Is this a current diagnosis for this admission?: Yes Plan: Improved to 133.7 Patient appears to have chronic hyponatremia; at this level not clinically significant. Have liberalized dietary sodium. (7) Iron deficiency anemia Qualifiers: Iron deficiency anemia type: inadequate dietary iron intake Qualified Code(s): D50.8 - Other iron deficiency anemias Is this a current diagnosis for this admission?: Yes Plan: Iron deficiency and anemia of chronic kidney disease. Continue multivitamin and daily iron supplementation as mentioned above. (8) Leukocytosis Qualifiers: Leukocytosis type: unspecified Qualified Code(s): D72.829 - Elevated white blood cell count, unspecified Is this a current diagnosis for this admission?: Yes Plan: Resolved; secondary to right leg cellulitis. Cultures and antibiotics as above. (9) Patient noncompliance Is this a current diagnosis for this admission?: Yes Plan: Registered dietitian and patient educator are consulted. Reinforce importance of lifestyle, dietary, and medication compliance. (10) Chronic kidney disease, stage III (moderate) Is this a current diagnosis for this admission?: Yes Plan: Creatinine 1.92; baseline 1.8-2.0 Encourage p.o. fluids. Avoid nephrotoxic medications as able. Monitor chemistries. (11) Hyperkalemia Is this a current diagnosis for this admission?: Yes Plan: Lactulose x1 yesterday Kayexalate today Monitor on telemetry Follow-up chemistries - Time Time Spent with patient: 25-34 minutes Medications reviewed and adjusted accordingly: Yes
[2019-07-14] MEDS: LEVOFLOXACIN 500 MG/D5W RTU 500 MG/100 ML RTUPB IV SCH (17:57)
[2019-07-15 04:47] LABS: HEMATOCRIT 24.6 % (37.9-51.0); HEMOGLOBIN 8.5 g/dL (13.5-17.0); MEAN CORPUSCULAR HEMOGLOBIN 32.1 pg (27.0-33.4); MEAN CORPUSCULAR HGB CONC 34.6 g/dL (32.0-36.0); MEAN CORPUSCULAR VOLUME 93 fl (80-97); PLATELET COUNT 274 10^3/uL (150-450); RED BLOOD COUNT 2.65 10^6/uL (4.35-5.55); RED CELL DISTRIBUTION WIDTH 17.2 % (11.5-14.0); WHITE BLOOD COUNT 6.3 10^3/uL (4.0-10.5)
[2019-07-15 05:05] LABS: ANION GAP 9 (5-19); BLOOD UREA NITROGEN 30 mg/dL (7-20); CALCIUM 9.1 mg/dL (8.4-10.2); CARBON DIOXIDE 21 mmol/L (22-30); CHLORIDE 106 mmol/L (98-107); GLUCOSE 106 mg/dL (75-110)
[2019-07-15] MEDS: AMLODIPINE BESYLATE 5 MG TABLET PO SCH ×2 (05:20→18:06)
[2019-07-15] MEDS: HYDROCODONE/ACETAMINOPHEN 7.5-325 MG TABLET PO PRN ×4 (05:20→21:56)
[2019-07-15] MEDS: GABAPENTIN 300 MG CAPSULE PO SCH ×3 (05:20→21:45)
[2019-07-15] MEDS: HEPARIN SOD (PORCINE) 5,000 UNIT/ML 1 ML VIAL SUBCUT SCH ×3 (05:21→21:45)
[2019-07-15] MEDS: FERROUS SULFATE 325 MG TABLET PO SCH ×2 (09:34→18:06)
[2019-07-15] MEDS: FAMOTIDINE 20 MG TABLET PO SCH ×2 (09:34→21:45)
[2019-07-15] MEDS: MULTIVITAMIN TABLET PO SCH (09:34)
[2019-07-15] MEDS: INSULIN LISPRO 100 UNIT/ML 3 ML VIAL SUBCUT SCH ×4 (09:34→21:44)
[2019-07-15] MEDS: DOCUSATE SODIUM 100 MG CAPSULE PO SCH ×2 (09:34→18:06)
[2019-07-15] MEDS: NORMAL SALINE 1000 ML 1,000 ML IV PRN ×2 (09:35→18:07)
--- NOTE | 2019-07-15 09:38 | PDOC PROGRESS REPORT ---
Subjective Progress Note for:: 07/15/19 Subjective:: NIKHIL SHELL is a 48 year old male with uncontrolled diabetes mellitus, HTN, and recent right below-knee amputation who was admitted 07/08/19 for cellulitis of the right BKA stump. Now s/p bedside debrediment by surgery and placement of wound vac. The patient was seen on morning rounds. He was found sitting up in bed, comfortably, on room air. He reports that he is feeling well today. He does report that his pain is well controlled at present. He also confirms decreased edema and erythema. Wants to go home. He denies fever, chest pain, palpitations, dyspnea, abdominal pain, nausea, vomiting and diarrhea. Reports good appetite. No new questions or concerns. No concerns per nursing. Reason For Visit: AMPUTATION STUMP INFECTION DM TYPE 2 DIABETES Physical Exam Vital Signs: Temp Pulse Resp BP Pulse Ox 97.4 F 82 16 137/70 H 100 07/15/19 07:17 07/15/19 07:17 07/15/19 07:17 07/15/19 07:17 07/15/19 07:17 Intake & Output 07/14/19 07/15/19 07/16/19 06:59 06:59 06:59 Intake Total 1441 1520 Output Total 1690 1570 Balance -249 -50 Weight 69.6 kg 69.9 kg General appearance: PRESENT: no acute distress, cooperative, disheveled - poor body odor., well-developed, well-nourished Head exam: PRESENT: atraumatic, normocephalic Eye exam: PRESENT: conjunctiva pink, EOMI, PERRLA. ABSENT: scleral icterus Mouth exam: PRESENT: moist, tongue midline Teeth exam: PRESENT: poor dentation Respiratory exam: PRESENT: clear to auscultation clarke, symmetrical, unlabored. A BSENT: rales, rhonchi, wheezes Cardiovascular exam: PRESENT: RRR, +S1, +S2. ABSENT: diastolic murmur, rubs, systolic murmur Vascular exam: PRESENT: normal capillary refill Extremities exam: PRESENT: full ROM, other - bilateral BKA. ABSENT: calf tenderness, clubbing, pedal edema Neurological exam: PRESENT: alert, awake, oriented to person, oriented to place, oriented to time, oriented to situation, CN II-XII grossly intact. ABSENT: motor sensory deficit Psychiatric exam: PRESENT: appropriate affect, normal mood. ABSENT: homicidal ideation, suicidal ideation Skin exam: PRESENT: dry, warm, other - Dehiscence of surgical incision site to right BKA; wet-to-dry dressing in place.. ABSENT: cyanosis, rash Results Laboratory Results: 07/15/19 04:31 07/15/19 04:31 07/15/19 07/15/19 04:31 04:31 WBC 6.3 RBC 2.65 L Hgb 8.5 L Hct 24.6 L MCV 93 MCH 32.1 MCHC 34.6 RDW 17.2 H Plt Count 274 Sodium 136.0 L Potassium 5.0 Chloride 106 Carbon Dioxide 21 L Anion Gap 9 BUN 30 H Creatinine 1.89 H Est GFR ( Amer) 46 L Glucose 106 Calcium 9.1 Impressions: Knee X-Ray 07/08/19 16:50 IMPRESSION: Amputation of the proximal tibia and fibula. Expected postoperative changes in the soft tissues. Assessment and Plan - Diagnosis (1) Cellulitis of right leg Is this a current diagnosis for this admission?: Yes Plan: Blood cultures are negative at 5 days Leg wound culture with E. coli ESBL, MSSA, and pansensitive Proteus mirabilis all sensitive to Levaquin. Repeat blood cultures (07/12/2019) show E. coli ESBL, 1 strains gram-negative rods, and 1 gram-positive cocci Leukocytosis has resolved, remains afebrile Mild cellulitis to distal right BKA stump at surgical incision site related to fall and landing on the stump. Now status post bedside debridement by surgery x2. Continue to IV Levaquin. Wound care per surgery's direction. (2) Wound, surgical, nonhealing Qualifiers: Encounter type: subsequent encounter Qualified Code(s): T81.89XD - Other complications of procedures, not elsewhere classified, subsequent encounter Is this a current diagnosis for this admission?: Yes Plan: Surgery is consulted; appreciate their assistance. Wound cultures and antibiotics as above. Wound care per surgery's instructions. (3) Anemia in stage 3 chronic kidney disease Is this a current diagnosis for this admission?: Yes Plan: Hemoglobin 8.5 Overall near baseline. No evidence of acute bleeding at this time. Continue daily multivitamin and iron supplementation. (4) Hyperglycemia due to type 2 diabetes mellitus Qualifiers: Diabetes mellitus long-term insulin use: without superintendent terminal use Qualified Code(s): E11.65 - Type 2 diabetes mellitus with hyperglycemia Is this a current diagnosis for this admission?: Yes Plan: Consistent carb diet. Accu-Cheks before meals and at bedtime with Humalog for sliding scale coverage. Hypoglycemia protocol in place. Registered dietitian and primary special educator consulted. (5) Hypertension Qualifiers: Hypertension type: essential hypertension Qualified Code(s): I10 - Essential (primary) hypertension Is this a current diagnosis for this admission?: Yes Plan: Improved blood pressures today. Continue amlodipine 5 mg twice daily. (6) Hyponatremia Is this a current diagnosis for this admission?: Yes Plan: Improved to 136 Patient appears to have chronic hyponatremia; at this level not clinically significant. Have liberalized dietary sodium. (7) Iron deficiency anemia Qualifiers: Iron deficiency anemia type: inadequate dietary iron intake Qualified Code(s): D50.8 - Other iron deficiency anemias Is this a current diagnosis for this admission?: Yes Plan: Iron deficiency and anemia of chronic kidney disease. Continue multivitamin and daily iron supplementation as mentioned above. (8) Leukocytosis Qualifiers: Leukocytosis type: unspecified Qualified Code(s): D72.829 - Elevated white blood cell count, unspecified Is this a current diagnosis for this admission?: Yes Plan: Resolved; secondary to right leg cellulitis. Cultures and antibiotics as above. (9) Patient noncompliance Is this a current diagnosis for this admission?: Yes Plan: Registered dietitian and patient educator are consulted. Reinforce importance of lifestyle, dietary, and medication compliance. (10) Chronic kidney disease, stage III (moderate) Is this a current diagnosis for this admission?: Yes Plan: Creatinine 1.89; baseline 1.8-2.0 Encourage p.o. fluids. Avoid nephrotoxic medications as able. Monitor chemistries. (11) Hyperkalemia Is this a current diagnosis for this admission?: Yes Plan: Resolved. Lactulose and Kayexalate x1 each Monitor on telemetry Follow-up chemistries - Time Time Spent with patient: 15-24 minutes Medications reviewed and adjusted accordingly: Yes Anticipated discharge: Home Within: Other - pending surgical clearance
[2019-07-15] MEDS: LEVOFLOXACIN 500 MG/D5W RTU 500 MG/100 ML RTUPB IV SCH (18:07)
[2019-07-15] MEDS ORDERED: TEMAZEPAM 15 MG CAPSULE PO PRN (18:31)
[2019-07-15] MEDS: MORPHINE SULFATE 10 MG/ML INJ IV PRN (20:03)
--- NOTE | 2019-07-15 22:41 | PDOC PROGRESS REPORT ---
Subjective Progress Note for:: 07/15/19 Subjective:: Pains along the right BKA stump Reason For Visit: AMPUTATION STUMP INFECTION DM TYPE 2 DIABETES Physical Exam Vital Signs: Temp Pulse Resp BP Pulse Ox 98.2 F 92 16 128/67 H 98 07/15/19 20:22 07/15/19 20:22 07/15/19 20:22 07/15/19 20:22 07/15/19 20:22 Intake & Output 07/14/19 07/15/19 07/16/19 06:59 06:59 06:59 Intake Total 1441 1520 2342 Output Total 1690 1570 1900 Balance -249 -50 442 Weight 69.6 kg 69.9 kg Exam: The dehisced areas of the right BKA stump appears to gradually improving with wet-to-dry saline dressings. Results Laboratory Results: 07/15/19 04:31 07/15/19 04:31 07/15/19 07/15/19 04:31 04:31 WBC 6.3 RBC 2.65 L Hgb 8.5 L Hct 24.6 L MCV 93 MCH 32.1 MCHC 34.6 RDW 17.2 H Plt Count 274 Sodium 136.0 L Potassium 5.0 Chloride 106 Carbon Dioxide 21 L Anion Gap 9 BUN 30 H Creatinine 1.89 H Est GFR ( Amer) 46 L Glucose 106 Calcium 9.1 Impressions: Knee X-Ray 07/08/19 16:50 IMPRESSION: Amputation of the proximal tibia and fibula. Expected postoperative changes in the soft tissues. Assessment & Plan - Diagnosis (1) Hyperglycemia due to type 2 diabetes mellitus Qualifiers: Diabetes mellitus long term care administrator insulin use: without long term care administrator use Qualified Code(s): E11.65 - Type 2 diabetes mellitus with hyperglycemia Is this a current diagnosis for this admission?: Yes (2) Patient noncompliance Is this a current diagnosis for this admission?: Yes (3) Wound, surgical, nonhealing Qualifiers: Encounter type: subsequent encounter Qualified Code(s): T81.89XD - Other complications of procedures, not elsewhere classified, subsequent encounter Is this a current diagnosis for this admission?: Yes (4) Leukocytosis Qualifiers: Leukocytosis type: unspecified Qualified Code(s): D72.829 - Elevated white blood cell count, unspecified Is this a current diagnosis for this admission?: Yes - Time Critical Time spent with patient: 15-24 minutes - Inpatient Certification Medical Necessity: Need for IV Antibiotics, Risk of Complication if Not Cared Fo r in Hospital - Plan Summary Plan Summary: Plans: Continue IV antibiotics Continue with the saline wet-to-dry dressings to the dehisced areas of the right BKA stump every 8 hour shift. May be amenable to delayed primary closure with better granulation formation along the dehisced areas
[2019-07-16] MEDS: MORPHINE SULFATE 10 MG/ML INJ IV PRN ×2 (02:13→20:04)
[2019-07-16 05:44] LABS: HEMATOCRIT 23.8 % (37.9-51.0); HEMOGLOBIN 8.2 g/dL (13.5-17.0); MEAN CORPUSCULAR HGB CONC 34.5 g/dL (32.0-36.0); MEAN CORPUSCULAR VOLUME 93 fl (80-97); PLATELET COUNT 272 10^3/uL (150-450); RED BLOOD COUNT 2.56 10^6/uL (4.35-5.55); RED CELL DISTRIBUTION WIDTH 17.1 % (11.5-14.0); WHITE BLOOD COUNT 6.3 10^3/uL (4.0-10.5)
[2019-07-16] MEDS: AMLODIPINE BESYLATE 5 MG TABLET PO SCH ×2 (05:45→17:07)
[2019-07-16] MEDS: HYDROCODONE/ACETAMINOPHEN 7.5-325 MG TABLET PO PRN ×4 (05:45→21:33)
[2019-07-16] MEDS: GABAPENTIN 300 MG CAPSULE PO SCH ×3 (05:45→21:33)
[2019-07-16] MEDS: HEPARIN SOD (PORCINE) 5,000 UNIT/ML 1 ML VIAL SUBCUT SCH ×3 (05:46→21:33)
[2019-07-16 06:15] LABS: ANION GAP 5 (5-19); BLOOD UREA NITROGEN 25 mg/dL (7-20); CALCIUM 8.8 mg/dL (8.4-10.2); CARBON DIOXIDE 22 mmol/L (22-30); CHLORIDE 111 mmol/L (98-107); GLUCOSE 100 mg/dL (75-110); POTASSIUM 5.1 mmol/L (3.6-5.0)
[2019-07-16] MEDS ORDERED: NORMAL SALINE 1000 ML 1,000 ML IV PRN (07:49)
[2019-07-16] MEDS: INSULIN LISPRO 100 UNIT/ML 3 ML VIAL SUBCUT SCH ×4 (08:06→21:34)
[2019-07-16] MEDS: FERROUS SULFATE 325 MG TABLET PO SCH ×2 (08:06→17:07)
[2019-07-16] MEDS ORDERED: SODIUM POLYSTYRENE SULFONATE 15 GM/60 ML PO ONE (09:00)
[2019-07-16] MEDS: MULTIVITAMIN TABLET PO SCH (09:03)
[2019-07-16] MEDS: FAMOTIDINE 20 MG TABLET PO SCH ×2 (09:03→21:33)
[2019-07-16] MEDS: DOCUSATE SODIUM 100 MG CAPSULE PO SCH ×2 (09:03→17:07)
--- NOTE | 2019-07-16 09:23 | PDOC PROGRESS REPORT ---
Subjective Progress Note for:: 07/16/19 Reason For Visit: AMPUTATION STUMP INFECTION DM TYPE 2 DIABETES No complaints; patient actively ambulating in the [place]azar with walker, stump wrapped Physical Exam Vital Signs: Temp Pulse Resp BP Pulse Ox 98.0 F 84 16 124/60 99 07/16/19 07:29 07/16/19 07:29 07/16/19 07:29 07/16/19 07:29 07/16/19 07:29 Intake & Output 07/15/19 07/16/19 07/17/19 06:59 06:59 06:59 Intake Total 1520 3782 85 Output Total 1570 3400 Balance -50 382 85 Weight 69.9 kg 70 kg General appearance: PRESENT: no acute distress, other - Relating with walker and physical therapy Musculoskeletal exam: PRESENT: other - Good extension and flexion of right knee Results Laboratory Results: 07/16/19 04:42 07/16/19 04:42 07/16/19 07/16/19 04:42 04:42 WBC 6.3 RBC 2.56 L Hgb 8.2 L Hct 23.8 L MCV 93 MCH 32.0 MCHC 34.5 RDW 17.1 H Plt Count 272 Sodium 137.5 Potassium 5.1 H Chloride 111 H Carbon Dioxide 22 Anion Gap 5 BUN 25 H Creatinine 1.75 H Est GFR ( Amer) 51 L Glucose 100 Calcium 8.8 Impressions: Knee X-Ray 07/08/19 16:50 IMPRESSION: Amputation of the proximal tibia and fibula. Expected postoperative changes in the soft tissues. Assessment & Plan - Diagnosis (1) Cellulitis of right leg Is this a current diagnosis for this admission?: Yes Plan: Impression: Progress being made with brittle diabetic with wound issues to right below the knee amputation, status post serial bedside debridements growing E. coli, Proteus and staph aureus, on Levaquin Plan: 1. Continue local wound care, dressing changes; will reexamine tonight when stump exposed 2. Continue physical therapy. - Time Time Spent: 30 to 50 Minutes Medications reviewed and adjusted accordingly: Yes Anticipated discharge: Home - Inpatient Certification Based on my medical assessment, after consideration of the patient's comorbidities, presenting symptoms, or acuity I expect that the services needed warrant INPATIENT care.: Yes I certify that my determination is in accordance with my understanding of Medicare's requirements for reasonable and necessary INPATIENT services [42 CFR 412.3e].: Yes
[2019-07-16] MEDS: COLLAGENASE CLOSTRIDIUM HIST. OINT 30 GM TOP SCH ×2 (14:16→21:35)
--- NOTE | 2019-07-16 16:43 | PDOC PROGRESS REPORT ---
Subjective Progress Note for:: 07/16/19 Subjective:: NIKHIL SHELL is a 48 year old male with uncontrolled diabetes mellitus, HTN, and recent right below-knee amputation who was admitted 07/08/19 for cellulitis of the right BKA stump. Now s/p bedside debrediment by surgery and placement of wound vac. The patient was seen on morning rounds. He was found sitting up in bed, comfortably, on room air. He reports that he is feeling well today. He does report that his pain is well controlled at present. Wants to go home. He denies fever, chest pain, palpitations, dyspnea, abdominal pain, nausea, vomiting and diarrhea. Reports good appetite. No new questions or concerns. No concerns per nursing. Reason For Visit: AMPUTATION STUMP INFECTION DM TYPE 2 DIABETES Physical Exam Vital Signs: Temp Pulse Resp BP Pulse Ox 97.9 F 85 16 142/79 H 99 07/16/19 11:09 07/16/19 11:09 07/16/19 11:09 07/16/19 11:09 07/16/19 11:09 Intake & Output 07/15/19 07/16/19 07/17/19 06:59 06:59 06:59 Intake Total 1520 3782 1227 Output Total 1570 3400 375 Balance -50 382 852 Weight 69.9 kg 70 kg General appearance: PRESENT: no acute distress, well-developed, well-nourished Head exam: PRESENT: atraumatic, normocephalic Eye exam: PRESENT: conjunctiva pink, EOMI, PERRLA. ABSENT: scleral icterus Mouth exam: PRESENT: moist, tongue midline Teeth exam: PRESENT: poor dentation Respiratory exam: PRESENT: clear to auscultation clarke, tachypnea, unlabored. ABSENT: rales, rhonchi, wheezes Cardiovascular exam: PRESENT: RRR, +S1, +S2. ABSENT: diastolic murmur, rubs, systolic murmur Vascular exam: PRESENT: normal capillary refill Extremities exam: PRESENT: full ROM, other - bilateral BKA.. ABSENT: calf tenderness, clubbing, pedal edema Neurological exam: PRESENT: alert, awake, oriented to person, oriented to place, oriented to time, oriented to situation, CN II-XII grossly intact. ABSENT: motor sensory deficit Psychiatric exam: PRESENT: appropriate affect, normal mood. ABSENT: homicidal ideation, suicidal ideation Skin exam: PRESENT: dry, warm, other. ABSENT: cyanosis, intact - Dehiscence of surgical incision site to right BKA; wet-to-dry dressing in place, rash Results Laboratory Results: 07/16/19 04:42 07/16/19 04:42 07/16/19 07/16/19 04:42 04:42 WBC 6.3 RBC 2.56 L Hgb 8.2 L Hct 23.8 L MCV 93 MCH 32.0 MCHC 34.5 RDW 17.1 H Plt Count 272 Sodium 137.5 Potassium 5.1 H Chloride 111 H Carbon Dioxide 22 Anion Gap 5 BUN 25 H Creatinine 1.75 H Est GFR ( Amer) 51 L Glucose 100 Calcium 8.8 Impressions: Knee X-Ray 07/08/19 16:50 IMPRESSION: Amputation of the proximal tibia and fibula. Expected pos toperative changes in the soft tissues. Assessment and Plan - Diagnosis (1) Cellulitis of right leg Is this a current diagnosis for this admission?: Yes Plan: Blood cultures are negative at 5 days Leg wound culture with E. coli ESBL, MSSA, and pansensitive Proteus mirabilis all sensitive to Levaquin. Repeat blood cultures (07/12/2019) show E. coli ESBL, Proteus mirabilis, and E. faecium VRE Leukocytosis has resolved, remains afebrile Mild cellulitis to distal right BKA stump at surgical incision site related to fall and landing on the stump. Now status post bedside debridement by surgery x2. Discussed with surgery today; cleared for discharge with continued wet-to-dry dressings. Have asked nursing to teach the patient and evaluate the ability of him to be able to do his own wet-to-dry dressings at home. Have transition to p.o. Levaquin. Is the second wound culture now shows VRE; have added in p.o. linezolid. Discharge planning is consulted. (2) Wound, surgical, nonhealing Qualifiers: Encounter type: subsequent encounter Qualified Code(s): T81.89XD - Other complications of procedures, not elsewhere classified, subsequent encounter Is this a current diagnosis for this admission?: Yes Plan: Surgery is consulted; appreciate their assistance. Wound cultures and antibiotics as above. Wound care per surgery's instructions. (3) Anemia in stage 3 chronic kidney disease Is this a current diagnosis for this admission?: Yes Plan: Hemoglobin 8.2 Overall near baseline. No evidence of acute bleeding at this time. Continue daily multivitamin and iron supplementation. (4) Hyperglycemia due to type 2 diabetes mellitus Qualifiers: Diabetes mellitus dog boarder insulin use: without dog boarder use Qualified Code(s): E11.65 - Type 2 diabetes mellitus with hyperglycemia Is this a current diagnosis for this admission?: Yes Plan: Consistent carb diet. Accu-Cheks before meals and at bedtime with Humalog for sliding scale coverage. Hypoglycemia protocol in place. Registered dietitian and coding educator consulted. (5) Hypertension Qualifiers: Hypertension type: essential hypertension Qualified Code(s): I10 - Essential (primary) hypertension Is this a current diagnosis for this admission?: Yes Plan: Improved blood pressures today. Continue amlodipine 5 mg twice daily. (6) Hyponatremia Is this a current diagnosis for this admission?: Yes Plan: Resolved. Patient appears to have chronic hyponatremia; at this level not clinically significant. Have liberalized dietary sodium. (7) Iron deficiency anemia Qualifiers: Iron deficiency anemia type: inadequate dietary iron intake Qualified Code(s): D50.8 - Other iron deficiency anemias Is this a current diagnosis for this admission?: Yes Plan: Iron deficiency and anemia of chronic kidney disease. Continue multivitamin and daily iron supplementation as mentioned above. (8) Leukocytosis Qualifiers: Leukocytosis type: unspecified Qualified Code(s): D72.829 - Elevated white blood cell count, unspecified Is this a current diagnosis for this admission?: Yes Plan: Resolved; secondary to right leg cellulitis. Cultures and antibiotics as above. (9) Patient noncompliance Is this a current diagnosis for this admission?: Yes Plan: Registered dietitian and patient educator are consulted. Reinforce importance of lifestyle, dietary, and medication compliance. (10) Chronic kidney disease, stage III (moderate) Is this a current diagnosis for this admission?: Yes Plan: Creatinine 1.75; baseline 1.8-2.0 Encourage p.o. fluids. Avoid nephrotoxic medications as able. Monitor chemistries. (11) Hyperkalemia Is this a current diagnosis for this admission?: Yes Plan: Mild hyperkalemia; reoccurred. Lactulose and Kayexalate x1 each Start Velt[place] Monitor on telemetry Follow-up chemistries - Time Time Spent with patient: 35 or more minutes Medications reviewed and adjusted accordingly: Yes Anticipated discharge: Home with Homehealth Within: within 48 hours - Once discharge plan for wound care is established.
[2019-07-16] MEDS: PATIROMER 8.4 GM SUSP PACKET PO SCH (17:50)
[2019-07-16] MEDS: LINEZOLID 600 MG TABLET PO SCH (21:33)
[2019-07-17] MEDS: HYDROCODONE/ACETAMINOPHEN 7.5-325 MG TABLET PO PRN ×4 (04:32→17:18)
[2019-07-17] MEDS: MORPHINE SULFATE 10 MG/ML INJ IV PRN ×2 (05:25→19:52)
[2019-07-17] MEDS: AMLODIPINE BESYLATE 5 MG TABLET PO SCH ×2 (05:26→17:16)
[2019-07-17] MEDS: HEPARIN SOD (PORCINE) 5,000 UNIT/ML 1 ML VIAL SUBCUT SCH ×3 (05:26→23:08)
[2019-07-17] MEDS: GABAPENTIN 300 MG CAPSULE PO SCH ×3 (05:26→23:09)
[2019-07-17] MEDS: COLLAGENASE CLOSTRIDIUM HIST. OINT 30 GM TOP SCH ×3 (05:27→22:00)
[2019-07-17 05:38] LABS: ANION GAP 8 (5-19); BLOOD UREA NITROGEN 21 mg/dL (7-20); CARBON DIOXIDE 22 mmol/L (22-30); CHLORIDE 109 mmol/L (98-107); GLUCOSE 119 mg/dL (75-110); POTASSIUM 4.6 mmol/L (3.6-5.0)
[2019-07-17] MEDS: FERROUS SULFATE 325 MG TABLET PO SCH ×2 (08:09→17:16)
[2019-07-17] MEDS: INSULIN LISPRO 100 UNIT/ML 3 ML VIAL SUBCUT SCH ×4 (08:09→23:09)
[2019-07-17] MEDS: MULTIVITAMIN TABLET PO SCH (09:01)
[2019-07-17] MEDS: LINEZOLID 600 MG TABLET PO SCH ×2 (09:01→23:09)
[2019-07-17] MEDS: DOCUSATE SODIUM 100 MG CAPSULE PO SCH ×2 (09:01→17:16)
[2019-07-17] MEDS: FAMOTIDINE 20 MG TABLET PO SCH ×2 (09:01→23:09)
[2019-07-17] MEDS: LEVOFLOXACIN 750 MG TABLET PO SCH (09:03)
--- NOTE | 2019-07-17 10:33 | PDOC PROGRESS REPORT ---
Subjective Progress Note for:: 07/17/19 Subjective:: The patient is in bed resting comfortably. Recent culture results revealed the ESBL E. coli, Proteus mirabilis and vancomycin-resistant enterococci. He is currently on levofloxacin and Zyvox. He states he is feeling better. He is anxious to go home. Reason For Visit: AMPUTATION STUMP INFECTION DM TYPE 2 DIABETES Physical Exam Vital Signs: Temp Pulse Resp BP Pulse Ox 97.4 F 80 16 141/78 H 100 07/17/19 07:27 07/17/19 07:27 07/17/19 07:27 07/17/19 07:27 07/17/19 07:27 Intake & Output 07/16/19 07/17/19 07/18/19 06:59 06:59 06:59 Intake Total 3782 2661 Output Total 3400 1975 Balance 382 686 Weight 70 kg 71.8 kg General appearance: PRESENT: no acute distress, cooperative, well-developed, well-nourished Head exam: PRESENT: atraumatic, normocephalic Eye exam: PRESENT: conjunctiva pink. ABSENT: scleral icterus Ear exam: PRESENT: normal external ear exam. ABSENT: bleeding, drainage Mouth exam: PRESENT: moist, tongue midline Neck exam: PRESENT: full ROM. ABSENT: carotid bruit, JVD, lymphadenopathy Respiratory exam: PRESENT: clear to auscultation clarke, symmetrical, unlabored. ABSENT: rales, rhonchi, tachypnea, wheezes Cardiovascular exam: PRESENT: RRR, +S1, +S2. ABSENT: diastolic murmur, systolic murmur GI/Abdominal exam: PRESENT: normal bowel sounds, soft. ABSENT: distended, guarding, mass, tenderness Rectal exam: PRESENT: deferred Gentrourinary exam: ABSENT: indwelling catheter Extremities exam: PRESENT: other - Bilateral below-knee amputations Musculoskeletal exam: PRESENT: other - Normal musculature on remaining portion of lower limbs Neurological exam: PRESENT: alert, awake, oriented to person, oriented to place, oriented to time, oriented to situation, CN II-XII grossly intact. ABSENT: motor sensory deficit Psychiatric exam: PRESENT: appropriate affect, normal mood. ABSENT: agitated, anxious, unusual affect Focused psych exam: ABSENT: delusional, paranoid, restlessness Skin exam: PRESENT: dry, normal color, warm, other - Bulky dressing on right stump.. ABSENT: rash Results Laboratory Results: 07/16/19 04:42 07/17/19 04:46 07/17/19 04:46 Sodium 139.1 Potassium 4.6 Chloride 109 H Carbon Dioxide 22 Anion Gap 8 BUN 21 H Creatinine 1.85 H Est GFR ( Amer) 47 L Glucose 119 H Calcium 9.0 07/12/19 11:54 Knee - Above Knee Amputation Site Gram Stain - Final 07/12/19 11:54 Knee - Above Knee Amputation Site Wound Culture - Final Escherichia Coli Esbl Proteus Mirabilis E.faecium Vre Impressions: Knee X-Ray 07/08/19 16:50 IMPRESSION: Amputation of the proximal tibia and fibula. Expected postoperative changes in the soft tissues. Assessment and Plan - Diagnosis (1) Cellulitis of right leg Is this a current diagnosis for this admission?: Yes (2) Hyponatremia Is this a current diagnosis for this admission?: Yes (3) Leukocytosis Qualifiers: Leukocytosis type: unspecified Qualified Code(s): D72.829 - Elevated white blood cell count, unspecified Is this a current diagnosis for this admission?: Yes (4) Wound, surgical, nonhealing Qualifiers: Encounter type: subsequent encounter Qualified Code(s): T81.89XD - Other complications of procedures, not elsewhere classified, subsequent encounter Is this a current diagnosis for this admission?: Yes (5) Hyperglycemia due to type 2 diabetes mellitus Qualifiers: Diabetes mellitus termite control servicer insulin use: without jail use Qualified Code(s): E11.65 - Type 2 diabetes mellitus with hyperglycemia Is this a current diagnosis for this admission?: Yes (6) Patient noncompliance Is this a current diagnosis for this admission?: Yes (7) Hypertension Qualifiers: Hypertension type: essential hypertension Qualified Code(s): I10 - Essential (primary) hypertension Is this a current diagnosis for this admission?: Yes (8) Iron deficiency anemia Qualifiers: Iron deficiency anemia type: inadequate dietary iron intake Qualified Code(s): D50.8 - Other iron deficiency anemias Is this a current diagnosis for this admission?: Yes (9) Anemia in stage 3 chronic kidney disease Is this a current diagnosis for this admission?: Yes - Plan Summary Summary: 07/17/2019 The latest culture on the stump wound has ESBL E. coli, Proteus mirabilis and vancomycin-resistant enterococci. The patient is currently on Levaquin and Zyvox. Zyvox has excellent bioavailability by pill or IV as does levofloxacin. The patient would be more than adequately covered with Zyvox and levofloxacin by mouth as an outpatient. We are trying to be cost effective with the patient and discharge planning is working on a disposition plan to try and enable him to get all of his medications. His hypertension is reasonably controlled with the amlodipine. His leukocytosis is resolved. His diabetes is being treated with sliding scale but I will start him on glipizide as he will need a reasonable outpatient regimen. He will need a glucometer. His hyponatremia has resolved. His chronic kidney failure is stable as is his anemia. I have [facility] program to try and ensure compliance. His noncompliance has basically been due to the inability to afford medications. - Time Time Spent with patient: 25-34 minutes Medications reviewed and adjusted accordingly: Yes Anticipated discharge: Home Within: within 24 hours
[2019-07-17] MEDS ORDERED: GLIPIZIDE 10 MG TABLET PO SCH (17:00)
[2019-07-17] MEDS: PATIROMER 8.4 GM SUSP PACKET PO SCH (17:16)
[2019-07-18] MEDS: HEPARIN SOD (PORCINE) 5,000 UNIT/ML 1 ML VIAL SUBCUT SCH (06:07)
[2019-07-18] MEDS: HYDROCODONE/ACETAMINOPHEN 7.5-325 MG TABLET PO PRN ×2 (06:08→10:56)
[2019-07-18] MEDS: AMLODIPINE BESYLATE 5 MG TABLET PO SCH (06:08)
[2019-07-18] MEDS: GABAPENTIN 300 MG CAPSULE PO SCH (06:08)
[2019-07-18] MEDS: COLLAGENASE CLOSTRIDIUM HIST. OINT 30 GM TOP SCH (06:14)
[2019-07-18] MEDS ORDERED: GLIPIZIDE 5 MG TABLET PO SCH (08:00)
[2019-07-18] MEDS: FERROUS SULFATE 325 MG TABLET PO SCH (08:16)
[2019-07-18] MEDS: INSULIN LISPRO 100 UNIT/ML 3 ML VIAL SUBCUT SCH ×2 (08:16→11:59)
[2019-07-18] MEDS: MULTIVITAMIN TABLET PO SCH (09:06)
[2019-07-18] MEDS: FAMOTIDINE 20 MG TABLET PO SCH (09:06)
[2019-07-18] MEDS: DOCUSATE SODIUM 100 MG CAPSULE PO SCH (09:06)
[2019-07-18] MEDS: LINEZOLID 600 MG TABLET PO SCH (09:06)
[2019-07-18] MEDS: LEVOFLOXACIN 750 MG TABLET PO SCH (09:06)
--- NOTE | 2019-07-18 10:26 | PDOC DISCHARGE SUMMARY ---
Impression - Admit/DC Date/PCP Admission Date/Primary Care Provider: 07/08/19 17:40 [facility] Discharge Date: 07/18/19 - Discharge Diagnosis (1) Cellulitis of right leg Is this a current diagnosis for this admission?: Yes (2) Hyponatremia Is this a current diagnosis for this admission?: Yes (3) Leukocytosis Is this a current diagnosis for this admission?: Yes (4) Wound, surgical, nonhealing Is this a current diagnosis for this admission?: Yes (5) Hyperglycemia due to type 2 diabetes mellitus Is this a current diagnosis for this admission?: Yes (6) Patient noncompliance Is this a current diagnosis for this admission?: Yes (7) Hypertension Is this a current diagnosis for this admission?: Yes (8) Iron deficiency anemia Is this a current diagnosis for this admission?: Yes (9) Anemia in stage 3 chronic kidney disease Is this a current diagnosis for this admission?: Yes - Assessment Summary: 07/17/2019 The latest culture on the stump wound has ESBL E. coli, Proteus mirabilis and vancomycin-resistant enterococci. The patient is currently on Levaquin and Zyvox. Zyvox has excellent bioavailability by pill or IV as does levofloxacin. The patient would be more than adequately covered with Zyvox and levofloxacin by mouth as an outpatient. We are trying to be cost effective with the patient and discharge planning is working on a disposition plan to try and enable him to get all of his medications. His hypertension is reasonably controlled with the amlodipine. His leukocytosis is resolved. His diabetes is being treated with sliding scale but I will start him on glipizide as he will need a reasonable outpatient regimen. He will need a glucometer. His hyponatremia has resolved. His chronic kidney failure is stable as is his anemia. I have [facility] the [facility] to wellness program to try and ensure compliance. His noncompliance has basically been due to the inability to afford medications. - Additional Information Resuscitation Status: Full Code Discharge Diet: Diabetic Discharge Activity: Activity As Tolerated, Slowly Increase Activity [facility] - 08/03/19 4:00 pm Prescriptions: Glipizide [Glucotrol 5 mg Tablet] 5 mg PO BIDACBS 30 Days #60 tablet Levofloxacin [Levaquin 750 mg Tablet] 750 mg PO DAILY #6 tablet Gabapentin [Neurontin 300 mg Capsule] 300 mg PO Q8 #90 cap Amlodipine Besylate [Norvasc 10 mg Tablet] 10 mg PO DAILY #30 tablet Transition To Wellness [Transition to Wellness Med Delivery (M-F ONLY)] 1 each ASDIR PRN #1 each PRN Reason: Linezolid [Zyvox 600 mg Tablet] 600 mg PO Q12 14 Days #28 tablet Home Medications: Amlodipine Besylate [Norvasc 10 mg Tablet] 10 mg PO DAILY #30 tablet 07/17/19 Gabapentin [Neurontin 300 mg Capsule] 300 mg PO Q8 #90 cap 07/17/19 Glipizide [Glucotrol 5 mg Tablet] 5 mg PO BIDACBS 30 Days #60 tablet 07/17/19 Levofloxacin [Levaquin 750 mg Tablet] 750 mg PO DAILY #6 tablet 07/17/19 Linezolid [Zyvox 600 mg Tablet] 600 mg PO Q12 14 Days #28 tablet 07/17/19 Transition To Wellness [Transition to Wellness Med Delivery (M-F ONLY)] 1 each ASDIR PRN #1 each 07/17/19 History of Present Illiness History of Present Illness: NIKHIL SHELL is a 48 year old male with uncontrolled diabetes mellitus and recent right below-knee amputation. The patient's was just discharged on June 17. He was admitted for diabetic foot ulcer and subsequently had a right below-knee amputation. He was supposed to follow-up with surgery last week but evidently missed the appointment. The last evening he fell and landed on his stump. He now is a bilateral amputee and it is not clear if he was wearing his left prosthesis or not. The right stump shows increased swelling and erythema as well as warmth to the touch. [place] remain in place. The patient has a white blood cell count of 19,000. His glucose was 149. His lactic acid is negative and he is afebrile. He does exhibit shaking chills during this encounter. The patient was started on antibiotics. He will be seen by surgery. He will be admitted to the hospitalist service for possible sepsis. Hospital Course Hospital Course: The patient's hospital course was complicated by resistant infection in the stump. ESBL E. coli, Proteus mirabilis and vancomycin-resistant enterococci were all cultured from the wound. He is on an effective antibiotic regimen. In addition, he was unable to afford medications and his diabetes and hypertension were out of control. He has reasonable control of his diabetes. His chronic kidney failure is stable. Physical Exam Vital Signs: Temp Pulse Resp BP Pulse Ox 98.5 F 94 16 124/62 99 07/18/19 07:32 07/18/19 07:32 07/18/19 07:32 07/18/19 07:32 07/18/19 07:32 Intake & Output 07/17/19 07/18/19 07/19/19 06:59 06:59 06:59 Intake Total 2661 1872 Output Total 19740 Balance 686 -328 Weight 71.8 kg 72.2 kg General appearance: PRESENT: no acute distress, cooperative, well-developed Head exam: PRESENT: atraumatic, normocephalic Eye exam: PRESENT: conjunctiva pale Ear exam: PRESENT: normal external ear exam. ABSENT: bleeding, drainage Respiratory exam: PRESENT: clear to auscultation clarke, symmetrical, unlabored. ABSENT: prolonged expiratory phas, rales, rhonchi, tachypnea, wheezes Cardiovascular exam: PRESENT: RRR, +S1, +S2. ABSENT: diastolic murmur, systolic murmur GI/Abdominal exam: PRESENT: normal bowel sounds, soft. ABSENT: distended, tenderness Rectal exam: PRESENT: deferred Gentrourinary exam: ABSENT: indwelling catheter Extremities exam: PRESENT: other Neurological exam: PRESENT: alert, awake, oriented to person, oriented to place, oriented to time, oriented to situation, CN II-XII grossly intact Psychiatric exam: PRESENT: appropriate affect. ABSENT: agitated, anxious Focused psych exam: ABSENT: delusional, restlessness Results Laboratory Results: WBC 6.3 10^3/uL (4.0-10.5) 07/16/19 04:42 RBC 2.56 10^6/uL (4.35-5.55) L 07/16/19 04:42 Hgb 8.2 g/dL (13.5-17.0) L 07/16/19 04:42 Hct 23.8 % (37.9-51.0) L 07/16/19 04:42 MCV 93 fl (80-97) 07/16/19 04:42 MCH 32.0 pg (27.0-33.4) 07/16/19 04:42 MCHC 34.5 g/dL (32.0-36.0) 07/16/19 04:42 RDW 17.1 % (11.5-14.0) H 07/16/19 04:42 Plt Count 272 10^3/uL (150-450) 07/16/19 04:42 Lymph % (Auto) 20.2 % (13-45) 07/11/19 04:33 [place] % (Auto) 11.9 % (3-13) 07/11/19 04:33 Eos % (Auto) 4.3 % (0-6) 07/11/19 04:33 Baso % (Auto) 0.6 % (0-2) 07/11/19 04:33 Absolute Neuts (auto) 4.7 10^3/uL (1.7-8.2) 07/11/19 04:33 Absolute Lymphs (auto) 1.5 10^3/uL (0.5-4.7) 07/11/19 04:33 Absolute Monos (auto) 0.9 10^3/uL (0.1-1.4) 07/11/19 04:33 Absolute Eos (auto) 0.3 10^3/uL (0.0-0.6) 07/11/19 04:33 Absolute Basos (auto) 0.0 10^3/uL (0.0-0.2) 07/11/19 04:33 Seg Neutrophils % 63.0 % (42-78) 07/11/19 04:33 VBG pH 7.38 (7.30-7.42) 07/08/19 15:42 VBG pCO2 35.9 mmHg (35-63) 07/08/19 15:42 VBG HCO3 20.8 mmol/L (20-32) 07/08/19 15:42 VBG Base Excess -3.8 mmol/L 07/08/19 15:42 Sodium 139.1 mmol/L (137-145) 07/17/19 04:46 Potassium 4.6 mmol/L (3.6-5.0) 07/17/19 04:46 Chloride 109 mmol/L (98-107) H 07/17/19 04:46 Carbon Dioxide 22 mmol/L (22-30) 07/17/19 04:46 Anion Gap 8 (5-19) 07/17/19 04:46 BUN 21 mg/dL (7-20) H 07/17/19 04:46 Creatinine 1.85 mg/dL (0.52-1.25) H 07/17/19 04:46 Est GFR ( Amer) 47 (>60) L 07/17/19 04:46 Est GFR (MDRD) Non-Af 39 (>60) L 07/17/19 04:46 Glucose 119 mg/dL (75-110) H 07/17/19 04:46 POC Glucose 135 mg/dL (70-110) H 07/18/19 07:33 Lactic Acid 0.8 mmol/L (0.7-2.1) 07/09/19 07:03 Calcium 9.0 mg/dL (8.4-10.2) 07/17/19 04:46 Magnesium 2.1 mg/dL (1.6-2.3) 07/11/19 04:33 Total Bilirubin 1.1 mg/dL (0.2-1.3) 07/08/19 14:51 Direct Bilirubin 0.3 mg/dL (0.0-0.4) 07/08/19 14:51 Neonat Total Bilirubin Not Reportable 07/08/19 14:51 Neonat Direct Bilirubin Not Reportable 07/08/19 14:51 Neonat Indirect Bili Not Reportable 07/08/19 14:51 AST 19 U/L (17-59) 07/08/19 14:51 ALT 9 U/L (<50) 07/08/19 14:51 Alkaline Phosphatase 121 U/L (38-126) 07/08/19 14:51 Total Protein 8.1 g/dL (6.3-8.2) 07/08/19 14:51 Albumin 3.6 g/dL (3.5-5.0) 07/08/19 14:51 Impressions: Knee X-Ray 07/08/19 16:50 IMPRESSION: Amputation of the proximal tibia and fibula. Expected postoperative changes in the soft tissues. Plan Health Concerns: Resistant infection in the right stump Need for chronic medical care due to diabetes, chronic kidney disease and hypertension. Will need follow-up surgical care for the right stump open wound. Plan of Treatment: Medications as above. Follow-up primary care at [facility]. If possible they can refer you to nephrology. Follow-up with general surgery Goals: Complete healing of stump wound including infection. Medication compliance for diabetes and hypertension. Time Spent: Greater than 30 Minutes Stroke Is this a Stroke Patient?: No Acute Heart Failure - Is this a Heart Failure Patient?: No
[2019-07-18 12:05] VITALS: BP 132/74
== END 2019-07-18 14:49 | disposition home or self-care (01) | DRG 464 ==
LOC: ER 13:15 → EH 17:40 → 3W 19:53
PROVIDERS: ADMIT Hospitalist; ATTEND Hospitalist
PROC: 0JBN0ZZ Excision of Right Lower Leg Subcutaneous Tissue and Fascia, Open Approach (ICD-10-PCS; principal; 2019-07-08)
PROC: 0KBS0ZZ Excision of Right Lower Leg Muscle, Open Approach (ICD-10-PCS; 2019-07-12)
PROC: 3E02340 Introduction of Influenza Vaccine into Muscle, Percutaneous Approach (ICD-10-PCS; 2019-07-18)
DX: T87.43 Infection of amputation stump, right lower extremity (principal); Z16.21 Resistance to vancomycin; E87.1 Hypo-osmolality and hyponatremia; L03.115 Cellulitis of right lower limb; N17.9 Acute kidney failure, unspecified; D72.829 Elevated white blood cell count, unspecified; D63.1 Anemia in chronic kidney disease; D50.9 Iron deficiency anemia, unspecified; E11.65 Type 2 diabetes mellitus with hyperglycemia; B96.20 Unspecified Escherichia coli [E. coli] as the cause of diseases classified elsewhere; B95.61 Methicillin susceptible Staphylococcus aureus infection as the cause of diseases classified elsewhere; B96.4 Proteus (mirabilis) (morganii) as the cause of diseases classified elsewhere; I12.9 Hypertensive chronic kidney disease with stage 1 through stage 4 chronic kidney disease, or unspecified chronic kidney disease; N18.3 Chronic kidney disease, stage 3 (moderate); Z89.512 Acquired absence of left leg below knee; Z83.3 Family history of diabetes mellitus; E87.5 Hyperkalemia; Z91.19 Patient's noncompliance with other medical treatment and regimen; W05.0XXA Fall from non-moving wheelchair, initial encounter; Y92.009 Unspecified place in unspecified non-institutional (private) residence as the place of occurrence of the external cause; Z97.14 Presence of artificial left leg (complete) (partial); Z72.89 Other problems related to lifestyle; Z23 Encounter for immunization
CPT/HCPCS: 36415; 80048; 80053; 82803; 82962; 83605; 83735; 85025; 85027; 87040; 87070; 87077; 87186; 87205; 90686; 96374; 99285; J0692; J1644; J1815; J1956; J2270; J3490; J7030; J7060; J7120

== ENCOUNTER 2019-08-02 20:11 | Emergency (ER) | payer OTHER ==
[2019-08-02] MEDS ORDERED: DEXTROSE 50%-WATER 25 GM/50 ML DISP.SYRIN IV ONE ×4 (20:18→21:03)
[2019-08-02 20:57] LABS: ABSOLUTE BASOPHILS # (AUTO) 0.1 10^3/uL (0.0-0.2); ABSOLUTE EOSINOPHILS # (AUTO) 0.1 10^3/uL (0.0-0.6); ABSOLUTE LYMPHOCYTES (AUTO) 1.5 10^3/uL (0.5-4.7); ABSOLUTE MONOCYTES (AUTO) 0.8 10^3/uL (0.1-1.4); ABSOLUTE NEUT (AUTO) 11.2 10^3/uL (1.7-8.2); BASOPHILS % (AUTO) 0.5 % (0-2); EOSINOPHILS % (AUTO) 0.6 % (0-6); HEMATOCRIT 25.1 % (37.9-51.0); HEMOGLOBIN 8.6 g/dL (13.5-17.0); MEAN CORPUSCULAR HEMOGLOBIN 31.8 pg (27.0-33.4); MEAN CORPUSCULAR HGB CONC 34.5 g/dL (32.0-36.0); MEAN CORPUSCULAR VOLUME 92 fl (80-97); MONOCYTES % (AUTO) 6.2 % (3-13); PLATELET COUNT 318 10^3/uL (150-450); RED BLOOD COUNT 2.72 10^6/uL (4.35-5.55); RED CELL DISTRIBUTION WIDTH 16.8 % (11.5-14.0); SEGMENTED NEUTROPHILS % (AUTO) 81.7 % (42-78); TOTAL CELLS COUNTED % (AUTO) 100 %; WHITE BLOOD COUNT 13.7 10^3/uL (4.0-10.5)
[2019-08-02] MEDS ORDERED: DEXTROSE 5%-WATER 1000 ML 1,000 ML IV ONE (21:08)
[2019-08-02 21:15] LABS: ALBUMIN 3.4 g/dL (3.5-5.0); ALKALINE PHOSPHATASE 129 U/L (38-126); ANION GAP 12 (5-19); ASPARTATE AMINO TRANSFERASE 38 U/L (17-59); BILIRUBIN,DIRECT 0.3 mg/dL (0.0-0.4); BILIRUBIN,TOTAL 0.3 mg/dL (0.2-1.3); BLOOD UREA NITROGEN 25 mg/dL (7-20); CALCIUM 8.5 mg/dL (8.4-10.2); CARBON DIOXIDE 19 mmol/L (22-30); CHLORIDE 102 mmol/L (98-107); CREATINE KINASE 105 U/L (55-170); GLUCOSE 193 mg/dL (75-110); TOTAL PROTEIN 7.3 g/dL (6.3-8.2)
--- NOTE | 2019-08-02 21:17 | ER Document Report ---
ED General - General Chief Complaint: Low Blood Sugar Stated Complaint: DIZZY Time Seen by Provider: 08/02/19 20:34 Primary Care Provider: [facility] [Primary Care Provider] - Follow up as needed Mode of Arrival: Medic Information source: Patient Notes: 48-year-old male who calls himself Gabriel arrives with chief complaint of low blood sugar; patient was given D50 1 amp and placed on D5 saline but recheck after our revealed 40 blood sugar and he was given another amp of D50 by Yaya MARTINEZ. Patient reports he has been doing his self dressing to his right lower extremity status post amputation 1 month ago. Patient has been on glipizide 5 twice daily Levaquin 750 Zyvox sore Norvasc Neurontin but has not been eating much because he reports he is too lazy to cook himself any meals. He has been drinking lots of beer. Patient reports his left leg was amputated and peg leg was fitted last year. He reports he has amputations secondary to bad diabetes. He does not use insulin at all. TRAVEL OUTSIDE OF THE [place] IN LAST 30 DAYS: No - HPI Onset: This evening Onset/Duration: Persistent Quality of pain: Achy Severity: Mild Pain Level: 1 Associated symptoms: Weakness Exacerbated by: Movement Relieved by: Denies Similar symptoms previously: No Recently seen / treated by doctor: No - Related Data Allergies/Adverse Reactions: No Known Allergies Allergy (Verified 08/02/19 20:35) Past Medical History - General Information source: Patient - Social History Smoking Status: Former Smoker Cigarette use (# per day): No Chew tobacco use (# tins/day): No Smoking Education Provided: No Frequency of alcohol use: Heavy - Beer drinker any kind of beer Drug Abuse: None Lives with: Alone Family History: DM, Hypertension, Other - Alcoholism Patient has suicidal ideation: No Patient has homicidal ideation: No - Past Medical History Cardiac Medical History: Reports: Hx Hypertension Denies: Hx Atrial Fibrillation, Hx Congestive Heart Failure, Hx Coronary Artery Disease, Hx Heart Attack, Hx Hypercholesterolemia, Hx Peripheral Vascular Disease, Hx Pulmonary Embolism, Hx Heart Murmur Pulmonary Medical History: Denies: Hx Asthma, Hx Bronchitis, Hx COPD, Hx Pneumonia, Hx Respiratory Failure, Hx Sleep Apnea, Hx Tuberculosis Neurological Medical History: Denies: Hx Cerebrovascular Accident, Hx Seizures, Hx Parkinson's Disease Endocrine Medical History: Reports: Hx Diabetes Mellitus Type 1, Hx Diabetes Mellitus Type 2. Denies: Hx Graves' Disease, Hx Hyperthyroidism, Hx Hypothyroidism Renal/ Medical History: Denies: Hx Benign Prostatic Hyperplasia, Hx End Stage Renal Disease, Hx Kidney Stones, Hx Peritoneal Dialysis Malignancy Medical History: Denies Hx Leukemia, Denies Hx Lung Cancer GI Medical History: Denies: Hx Cirrhosis, Hx Crohn's Disease, Hx Diverticulitis, Hx Gastroesophageal Reflux Disease, Hx Hepatitis, Hx Hiatal Hernia, Hx Irritable Bowel, Hx Liver Failure, Hx Pancreatitis, Hx Ulcer, Hx Ulcerative Colitis Musculoskeletal Medical History: Denies Hx Arthritis, Denies Hx Fibromyalgia, Denies Hx Multiple Sclerosis, Denies Hx Muscular Dystrophy, Denies Hx Systemic Lupus Erythematosus Psychiatric Medical History: Denies: Hx Dementia, Hx Depression Traumatic Medical History: Denies: Hx Fractures Infectious Medical History: Denies: Hx Hepatitis, Hx HIV Past Surgical History: Reports: Other - Left BKA. Right foot debridement with 1st/2nd toe amputation.. Denies: Hx Appendectomy, Hx Bowel Surgery, Hx Cholecystectomy, Hx Colostomy, Hx Coronary Artery Bypass Graft, Hx Gastric Bypass Surgery, Hx Herniorrhaphy, Hx Pacemaker, Hx Tonsillectomy - Immunizations Hx Diphtheria, Pertussis, Tetanus Vaccination: Yes Review of Systems - Review of Systems Constitutional: No symptoms reported EENT: No symptoms reported Cardiovascular: No symptoms reported Respiratory: No symptoms reported Gastrointestinal: No symptoms reported Genitourinary: No symptoms reported Male Genitourinary: No symptoms reported Musculoskeletal: No symptoms reported Skin: No symptoms reported Hematologic/Lymphatic: No symptoms reported Neurological/Psychological: No symptoms reported Physical Exam - Vital signs Vitals: Temp Pulse Resp BP Pulse Ox 98.5 F 100 17 136/70 H 100 08/02/19 20:12 08/02/19 20:12 08/02/19 20:12 08/02/19 20:12 08/02/19 20:12 Interpretation: Normal - General General appearance: Alert In distress: None - HEENT Head: Normocephalic Eyes: Normal Conjunctiva: Normal Cornea: Normal Extraocular movements intact: Yes Sinus: Normal Nasal: Normal Mouth/Lips: Normal Mucous membranes: Normal Pharynx: Normal Neck: Normal - Respiratory Respiratory status: No respiratory distress Chest status: Nontender Breath sounds: Normal Chest palpation: Normal - Cardiovascular Rhythm: Regular Heart sounds: Normal auscultation Murmur: No Friction rub: No Georgina's crunch: No - Abdominal Inspection: Normal Distension: No distension Bowel sounds: Normal Tenderness: Nontender Organomegaly: No organomegaly - Back Back: Normal - Extremities General upper extremity: Normal inspection General lower extremity: Other - Patient is status post left AKA 1 year ago with a PEG in place.; Right AKA is 1 month old according to patient and wound is clean after wrapping was removed by staff and inspected by myself as well. Patient reports he does his own wound dressing changing. - Neurological Neuro grossly intact: Yes Cognition: Normal, Other - Patient speaks excellent Romanian and appears to understand what I am saying and interprets Romanian to Kyr[place] Orientation: AAOx4 José Coma Scale Eye Opening: Spontaneous [place] Coma Scale Verbal: Oriented [place] Coma Scale Motor: Obeys Commands José Coma Scale Total: 15 Speech: Normal Cranial nerves: Normal Cerebellar coordination: Normal Motor strength normal: LUE, RUE, LLE, RLE Course - Vital Signs Vital signs: Temp Pulse Resp BP Pulse Ox 98.5 F 100 14 109/66 99 08/02/19 20:12 08/02/19 20:12 08/03/19 00:01 08/03/19 00:01 08/03/19 00:01 - Laboratory Result Diagrams: 08/02/19 20:28 08/02/19 20:28 Laboratory results interpreted by me: 08/02/19 08/02/19 20:28 20:28 WBC 13.7 H RBC 2.72 L Hgb 8.6 L Hct 25.1 L RDW 16.8 H Lymph % (Auto) 11.0 L Absolute Neuts (auto) 11.2 H Seg Neutrophils % 81.7 H Sodium 133.2 L Carbon Dioxide 19 L BUN 25 H Creatinine 1.57 H Est GFR ( Amer) 57 L Est GFR (MDRD) Non-Af 47 L Glucose 193 H Alkaline Phosphatase 129 H Albumin 3.4 L Critical Care Note - Critical Care Note Total time excluding time spent on procedures (mins): 90 Comments: Patient was able to eat and drink and his fingerstick blood sugar was within @ 100 Discharge - Discharge Clinical Impression: Wound reinspection, Hypoglycemia, Status post right AKA DM type 2 (diabetes mellitus, type 2) Qualifiers: Diabetes mellitus shelter insulin use: with system auditor use Diabetes mellitus complication status: with other specified complication Qualified Code(s): E11.69 - Type 2 diabetes mellitus with other specified complication; Z79.4 - group home (current) use of insulin Condition: Good Disposition: HOME, SELF-CARE Additional Instructions: Follow-up with personal doctor keep wound clean and dry try to eat regular meals and consume liquids other than beer return to ER as needed take medicines as directed only take medicines for your sugar if you are going to be eating foods [facility] [[facility]] - Follow up as needed
--- NOTE | 2019-08-02 21:46 | EKG REPORT ---
SEVERITY:- ABNORMAL ECG - ATRIAL FIBRILLATION, V-RATE 104-106 BORDERLINE LEFT AXIS DEVIATION BORDERLINE PROLONGED QT INTERVAL : Confirmed by: Shyanne Almonte MD 02-Aug-2019 21:45:55
--- NOTE | 2019-08-02 22:03 | RADIOLOGY REPORT (SQ) ---
EXAM DESCRIPTION: XR FEMUR 2 VIEWS COMPLETED DATE/TME: 08/02/2019 21:20 CLINICAL HISTORY: 48 years, Male, s/p amp x 1 month COMPARISON: None. NUMBER OF VIEWS: 4 TECHNIQUE: 4 views right femur LIMITATIONS: None. FINDINGS: Patient is status post [id number] amputation. Surrounding soft tissue swelling and vascular calcifications. There are overlying skin hansa with an adjacent soft tissue ulceration along the lateral stump. No radiographic evidence for acute fracture. No definitive acute bony destructive or expansile process IMPRESSION: Status post BKA with soft tissue changes near the distal, lateral stump. No radiographic evidence for acute osseous abnormality copyright 2010 [employer]- All Rights Reserved
--- NOTE | 2019-08-02 22:04 | RADIOLOGY REPORT (SQ) ---
EXAM DESCRIPTION: X-RAY CHEST- One View CLINICAL HISTORY: Cough COMPARISON: June 08, 2019 TECHNIQUE: Single view of the chest. FINDINGS: There are overlying EKG leads. There are mild patchy bibasilar opacities. The pulmonary vascularity is normal. The cardiomediastinal silhouette is normal in size. See structures are stable in appearance. IMPRESSION: Mild patchy bibasilar opacities are nonspecific in nature.
[2019-08-03] MEDS ORDERED: DEXTROSE 50%-WATER 25 GM/50 ML DISP.SYRIN IV ONE ×3 (02:02→02:31)
[2019-08-03] MEDS ORDERED: DEXTROSE 5%-NORMAL SALINE 1,000 ML IV ONE (02:31)
[2019-08-03 07:07] VITALS: BP 142/78
== END 2019-08-03 07:09 | disposition home or self-care (01) ==
LOC: ER 20:11
DX: E11.649 Type 2 diabetes mellitus with hypoglycemia without coma (principal); R53.1 Weakness; I10 Essential (primary) hypertension; Z89.611 Acquired absence of right leg above knee; Z79.84 Long term (current) use of oral hypoglycemic drugs; Z79.899 Other long term (current) drug therapy; Z79.2 Long term (current) use of antibiotics; Z87.891 Personal history of nicotine dependence
CPT/HCPCS: 93005; 96376; 99291; 99292; 96361; 96374; 36415; 82962; 82550; 85025; 80053; 84484; 71045; 73552; 93010; J3490 ×2; J7060; J7042

== ENCOUNTER 2020-02-01 17:07 | Emergency (ER) | payer SELFPAY ==
[2020-02-01 17:29] VITALS: BP 170/62
--- NOTE | 2020-02-01 17:31 | ER Document Report ---
ED Medical Screen (RME) - General Chief Complaint: Leg Injury Stated Complaint: RIGHT LEG PAIN,SWELLING,DRAINAGE Time Seen by Provider: 02/01/20 17:29 [facility]] - Follow up as needed Mode of Arrival: Wheelchair Information source: Patient Notes: HPI; 48-year-old male presents to the emergency room with worsening right knee pain secondary to a right below the knee amputation that was done in May. States that the area has been open for several months. Is now starting to drain some purulent drainage. States work sentiment to be cleared to be able to return to work. Patient is a very poor historian. Has bilateral BKA secondary to uncontrolled diabetes. Patient denies any fevers. Not currently taking any pain medication. PE: Alert and oriented x3. Lungs: Clear to auscultation without rales, rhonchi, wheezes. Heart: Regular rate rhythm without murmurs, rubs, gallops. Right knee with a large area of erythema with exposed tissue. It is warm and tender to palpation. There is some purulent drainage noted. I have greeted and performed a rapid initial assessment of this patient. A co mprehensive ED assessment and evaluation of the patient, analysis of test results and completion of the medical decision making process will be conducted by additional ED providers. I have specifically instructed the patient or family members with the patient to immediately return to any nursing staff should anything change in the patient's condition or with their chief complaint. TRAVEL OUTSIDE OF THE [place] IN LAST 30 DAYS: No - Related Data Allergies/Adverse Reactions: No Known Allergies Allergy (Verified 08/02/19 20:35) Past Medical History - Social History Frequency of alcohol use: Heavy Drug Abuse: None - Past Medical History Cardiac Medical History: Reports: Hx Hypertension Denies: Hx Atrial Fibrillation, Hx Congestive Heart Failure, Hx Coronary Artery Disease, Hx Heart Attack, Hx Hypercholesterolemia, Hx Peripheral Vascular Disease, Hx Pulmonary Embolism, Hx Heart Murmur Pulmonary Medical History: Denies: Hx Asthma, Hx Bronchitis, Hx COPD, Hx Pneumonia, Hx Respiratory Failure, Hx Sleep Apnea, Hx Tuberculosis Neurological Medical History: Denies: Hx Cerebrovascular Accident, Hx Seizures, Hx Parkinson's Disease Endocrine Medical History: Reports: Hx Diabetes Mellitus Type 1, Hx Diabetes Mellitus Type 2. Denies: Hx Graves' Disease, Hx Hyperthyroidism, Hx Hypothyroidism Renal/ Medical History: Denies: Hx Benign Prostatic Hyperplasia, Hx End Stage Renal Disease, Hx Kidney Stones, Hx Peritoneal Dialysis Malignancy Medical History: Denies Hx Leukemia, Denies Hx Lung Cancer GI Medical History: Denies: Hx Cirrhosis, Hx Crohn's Disease, Hx Diverticulitis, Hx Gastroesophageal Reflux Disease, Hx Hepatitis, Hx Hiatal Hernia, Hx Irritable Bowel, Hx Liver Failure, Hx Pancreatitis, Hx Ulcer, Hx Ulcerative Colitis Musculoskeltal Medical History: Denies Hx Arthritis, Denies Hx Fibromyalgia, Denies Hx Multiple Sclerosis, Denies Hx Muscular Dystrophy, Denies Hx Systemic Lupus Erythematosus Psychiatric Medical History: Denies: Hx Dementia, Hx Depression Traumatic Medical History: Denies: Hx Fractures Infectious Medical History: Denies: Hx Hepatitis, Hx HIV Past Surgical History: Reports: Other - Left BKA. Right foot debridement with 1st/2nd toe amputation.. Denies: Hx Appendectomy, Hx Bowel Surgery, Hx Cholecystectomy, Hx Colostomy, Hx Coronary Artery Bypass Graft, Hx Gastric Bypass Surgery, Hx Herniorrhaphy, Hx Pacemaker, Hx Tonsillectomy - Immunizations Hx Diphtheria, Pertussis, Tetanus Vaccination: Yes Physical Exam - Vital signs Vitals: Temp Pulse Resp BP Pulse Ox 97.9 F 89 16 170/62 H 100 02/01/20 17:28 02/01/20 17:28 02/01/20 17:28 02/01/20 17:28 02/01/20 17:28 Course - Vital Signs Vital signs: Temp Pulse Resp BP Pulse Ox 97.9 F 89 16 170/62 H 100 02/01/20 17:28 02/01/20 17:28 02/01/20 17:28 02/01/20 17:28 02/01/20 17:28 Doctor's Discharge - Discharge Referrals: [facility] [Primary Care Provider] - Follow up as needed
--- NOTE | 2020-02-01 18:23 | RADIOLOGY REPORT (SQ) ---
EXAM DESCRIPTION: KNEE RIGHT 4 VIEWS IMAGES COMPLETED DATE/TIME: 02/01/2020 6:10 pm REASON FOR STUDY: pain COMPARISON: None. NUMBER OF VIEWS: Four views. TECHNIQUE: AP, lateral, and both oblique radiographic images acquired of the right knee. LIMITATIONS: None. FINDINGS: MINERALIZATION: Normal. BONES: BKA. No fracture. No joint effusion. JOINT: No effusion. SOFT TISSUES: No soft tissue swelling. No radio-opaque foreign body. OTHER: No other significant finding. IMPRESSION: Right below the knee amputation with no acute finding. TECHNICAL DOCUMENTATION: JOB ID: [id number] 2010 [employer]- All Rights Reserved Reading location - IP/workstation name: [email or web address]
[2020-02-01 18:24] LABS: ABSOLUTE BASOPHILS # (AUTO) 0.1 10^3/uL (0.0-0.2); ABSOLUTE EOSINOPHILS # (AUTO) 0.1 10^3/uL (0.0-0.6); ABSOLUTE LYMPHOCYTES (AUTO) 1.3 10^3/uL (0.5-4.7); ABSOLUTE MONOCYTES (AUTO) 0.5 10^3/uL (0.1-1.4); ABSOLUTE NEUT (AUTO) 3.8 10^3/uL (1.7-8.2); BASOPHILS % (AUTO) 1.1 % (0-2); EOSINOPHILS % (AUTO) 1.2 % (0-6); HEMATOCRIT 28.8 % (37.9-51.0); HEMOGLOBIN 10.1 g/dL (13.5-17.0); LYMPHOCYTES % (AUTO) 22.5 % (13-45); MEAN CORPUSCULAR HEMOGLOBIN 38.9 pg (27.0-33.4); MEAN CORPUSCULAR HGB CONC 35.1 g/dL (32.0-36.0); MONOCYTES % (AUTO) 8.4 % (3-13); PLATELET COUNT 279 10^3/uL (150-450); RED CELL DISTRIBUTION WIDTH 14.5 % (11.5-14.0); SEGMENTED NEUTROPHILS % (AUTO) 66.8 % (42-78); TOTAL CELLS COUNTED % (AUTO) 100 %; WHITE BLOOD COUNT 5.8 10^3/uL (4.0-10.5)
[2020-02-01 18:33] LABS: MEAN CORPUSCULAR VOLUME 111 fl (80-97)
[2020-02-01 18:40] LABS: ALBUMIN 3.1 g/dL (3.5-5.0); ALKALINE PHOSPHATASE 187 U/L (38-126); ANION GAP 8 (5-19); ASPARTATE AMINO TRANSFERASE 74 U/L (17-59); BILIRUBIN,DIRECT 0.4 mg/dL (0.0-0.4); BILIRUBIN,TOTAL 0.6 mg/dL (0.2-1.3); BLOOD UREA NITROGEN 6 mg/dL (7-20); CALCIUM 8.4 mg/dL (8.4-10.2); CARBON DIOXIDE 26 mmol/L (22-30); CHLORIDE 105 mmol/L (98-107); GLUCOSE 130 mg/dL (75-110); POTASSIUM 4.2 mmol/L (3.6-5.0); TOTAL PROTEIN 7.1 g/dL (6.3-8.2)
[2020-02-01 18:51] LABS: ANISOCYTOSIS SLIGHT; PLATELET COMMENT ADEQUATE
[2020-02-01 18:52] LABS: HYPOCHROMASIA 1+; PLATELET CLUMPS PRESENT
[2020-02-01] MEDS ORDERED: LINEZOLID 600 MG TABLET PO ONE (22:27)
[2020-02-01] MEDS ORDERED: HYDROCODONE/ACETAMINOPHEN 5-325 MG (6 TAB/ER DISP) PO PRN (22:28)
[2020-02-01] MEDS ORDERED: BACITRACIN ZINC OINTMENT 15 GM TP ONE (22:31)
--- NOTE | 2020-02-01 22:39 | ER Document Report ---
ED General - General Chief Complaint: Leg Pain Stated Complaint: RIGHT LEG PAIN,SWELLING,DRAINAGE Time Seen by Provider: 02/01/20 17:29 Primary Care Provider: [facility] [NO LOCAL MD] - Follow up as needed Mode of Arrival: Wheelchair TRAVEL OUTSIDE OF THE [place] 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 Patient also has a left BKA which is reportedly well-healed and he is using a prosthetic lower leg with. Patient is mainly [place]-speaking speaks very little Italian. Martti was used for interpretation with the airline security representative's name being Cora via video conference. Patient is concerned because he feels like the wound is not healing. Patient states that he was last seen at the wound clinic 1 to 2 months ago and was told there was "nothing else that could be done" and was discharged from wound clinic care. Patient is complaining of sharp pain in the site of the wound which has a length of approximately 10 cm and a maximum went of approximately 5 cm. Patient states that nothing is alleviating his symptoms and he does not seem to be healing very well. Patient states there are no alleviating factors. Patient states he is unable to work at this time because of his incompletely healed right BKA and lack of prosthetic for that leg. Patient states the pain is a 4 out of 5 and describes the pain as sharp and localizes it to the area of the postsurgical wound. Patient patient states he is unable to work at this time and "has no money." Patient states that when he was discharged from the hospital earlier this year, he was provided with insurance to help him pay for his medications and access to wound clinic appointments. Patient denies fever, chills, chest pain, shortness of breath. Associated symptoms: Other - See HPI Exacerbated by: Other - See HPI Relieved by: Other - See HPI - Related Data Allergies/Adverse Reactions: No Known Allergies Allergy (Verified 08/02/19 20:35) Past Medical History - General Information source: Patient - Social History Smoking Status: Never Smoker Frequency of alcohol use: Heavy Drug Abuse: None Family History: Reviewed & Not Pertinent, DM, Hypertension, Other - Alcoholism Patient has suicidal ideation: No Patient has homicidal ideation: No - Past Medical History Cardiac Medical History: Reports: Hx Hypertension Denies: Hx Atrial Fibrillation, Hx Congestive Heart Failure, Hx Coronary Artery Disease, Hx Heart Attack, Hx Hypercholesterolemia, Hx Peripheral Vascular Disease, Hx Pulmonary Embolism, Hx Heart Murmur Pulmonary Medical History: Denies: Hx Asthma, Hx Bronchitis, Hx COPD, Hx Pneumonia, Hx Respiratory Failure, Hx Sleep Apnea, Hx Tuberculosis Neurological Medical History: Denies: Hx Cerebrovascular Accident, Hx Seizures, Hx Parkinson's Disease Endocrine Medical History: Reports: Hx Diabetes Mellitus Type 1, Hx Diabetes Mellitus Type 2. Denies: Hx Graves' Disease, Hx Hyperthyroidism, Hx Hypothyroidism Renal/ Medical History: Denies: Hx Benign Prostatic Hyperplasia, Hx End Stage Renal Disease, Hx Kidney Stones, Hx Peritoneal Dialysis Malignancy Medical History: Denies Hx Leukemia, Denies Hx Lung Cancer GI Medical History: Denies: Hx Cirrhosis, Hx Crohn's Disease, Hx Diverticulitis, Hx Gastroesophageal Reflux Disease, Hx Hepatitis, Hx Hiatal Hernia, Hx Irritable Bowel, Hx Liver Failure, Hx Pancreatitis, Hx Ulcer, Hx Ulcerative Colitis Musculoskeletal Medical History: Denies Hx Arthritis, Denies Hx Fibromyalgia, Denies Hx Multiple Sclerosis, Denies Hx Muscular Dystrophy, Denies Hx Systemic Lupus Erythematosus Psychiatric Medical History: Denies: Hx Dementia, Hx Depression Traumatic Medical History: Denies: Hx Fractures Infectious Medical History: Denies: Hx Hepatitis, Hx HIV Past Surgical History: Reports: Other - Left BKA. Right foot debridement with 1st/2nd toe amputation.. Denies: Hx Appendectomy, Hx Bowel Surgery, Hx Cholecystectomy, Hx Colostomy, Hx Coronary Artery Bypass Graft, Hx Gastric Bypass Surgery, Hx Herniorrhaphy, Hx Pacemaker, Hx Tonsillectomy - Immunizations Hx Diphtheria, Pertussis, Tetanus Vaccination: Yes Review of Systems - Review of Systems Constitutional: No symptoms reported EENT: No symptoms reported Cardiovascular: No symptoms reported Respiratory: No symptoms reported Gastrointestinal: No symptoms reported Genitourinary: No symptoms reported Male Genitourinary: No symptoms reported Musculoskeletal: See HPI Skin: See HPI Hematologic/Lymphatic: No symptoms reported Neurological/Psychological: No symptoms reported -: Yes All other systems reviewed and negative Physical Exam - Vital signs Vitals: Temp Pulse Resp BP Pulse Ox 97.9 F 89 16 170/62 H 100 02/01/20 17:28 02/01/20 17:28 02/01/20 17:28 02/01/20 17:28 02/01/20 17:28 - Notes Notes: CONSTITUTIONAL [Vital signs reviewed, Patient appears comfortable, Alert and oriented X 3, Normal stature.] HEAD [Atraumatic, Normocephalic.] EYES [Eyes are normal to inspection, No discharge from eyes, Extraocular muscles intact, Sclera are normal, Conjunctiva are normal.] NECK [Normal ROM, No jugular venous distention, No meningeal signs, no carotid bruit.] RESPIRATORY CHEST [Chest is nontender, Breath sounds normal, No respiratory distress.] CARDIOVASCULAR [RRR, No murmurs, Normal S1 S2, No rub, No gallop.] ABDOMEN [Abdomen is nontender, No pulsatile masses, No other masses, Bowel sounds normal, No distension, No peritoneal signs, No hernias.] BACK [There is no CVA Tenderness, There is no tenderness to palpation, Normal inspection.] UPPER EXTREMITY [Inspection normal, No cyanosis, No clubbing, No edema, 2+ radial pulses.] LOWER EXTREMITY Patient is a left below the knee amputation with prosthetic in place. Patient's right lower extremity exam is significant for a postsurgical incision that is gaping and incompletely closed. The wound is approximately 10 cm in length and 5 cm in width at its widest point. There is what appears to be pink granulation tissue present but there is also a small amount of purulent, yellowish discharge also present. There does not appear to be any surrounding erythema on the edges of the wound. There is no crepitus or emphysematous changes noted on examination of the lower extremity on the right side. NEURO [No focal motor deficits, No focal sensory deficits, Speech normal.] SKIN [Skin exam is significant for wound described above in lower extremity section. Otherwise skin exam is grossly unremarkable.] LYMPHATIC [No adenopathy in neck.] PSYCHIATRIC [Normal affect. ] Course - Re-evaluation Re-evalutation: 02/01/20 22:43 Results of ED MSE discussed with patient. Patient was informed by using Danielle is the airline security representative that a social work consult would be ordered to ensure that the patient has help with pain for antibiotics and pain medication and is helped in terms of arranging return to wound clinic for follow-up. This MD is also going to write a referral for the patient to start going back to the wound care clinic as I feel it is prudent that he has close follow-up to ensure optimal healing at this postsurgical wound. All questions were answered prior to discharge. Emergency signs and symptoms, reasons to return to the emergency department discussed with patient. 02/01/20 22:47 Medical decision making: Patient does have a lactic acid of 2 but he does not have a elevated or depressed temperature, his heart rate is not greater than 90, his respiratory rate is less than 20 and his white blood cell count is not greater than 12 or less than 4. He does not appear to have SIRS or sepsis criteria and does not appear to meet criteria for admission. Again using Martti, patient was informed of emergency signs and symptoms and reasons to return to the emergency department if his symptoms fail to improve with medications and follow-up arranged for patient. 02/01/20 22:53 Patient's prior discharge summary and wound cultures were reviewed by this MD. - Vital Signs Vital signs: Temp Pulse Resp BP Pulse Ox 97.9 F 89 16 170/62 H 100 02/01/20 17:28 02/01/20 17:28 02/01/20 17:28 02/01/20 17:28 02/01/20 17:28 - Laboratory Result Diagrams: 02/01/20 17:45 02/01/20 17:45 Laboratory results interpreted by me: 02/01/20 02/01/20 17:45 17:45 RBC 2.60 L Hgb 10.1 L Hct 28.8 L MCV 111 H MCH 38.9 H RDW 14.5 H BUN 6 L Glucose 130 H AST 74 H ALT 53 H Alkaline Phosphatase 187 H Albumin 3.1 L - Diagnostic Test Radiology reviewed: Reports reviewed Discharge - Discharge Clinical Impression: Superficial postoperative wound infection Condition: Stable Disposition: HOME, SELF-CARE Instructions: Dressing Instructions for Open Wounds ([facility]) Additional Instructions: Return to the Emergency Department without delay if any worse. HOME CARE INSTRUCTIONS & INFORMATION: Thank you for choosing us for your medical needs. We hope you're satisfied with the care you received. After you leave, you must properly care for your problem and, at the same time, observe its progress. Any condition can change. Some illnesses can change rapidly over hours or days. If your condition worsens, return to the Emergency Department or see your physician promptly. ABOUT YOUR X-RAYS AND EKG'S: If you had an EKG or X-rays taken, they have been read by the Emergency Physician. The X-rays and EKG's will also be read by a Rad iologist or [employer] Plank Workman within 24 hours. If discrepancies are noted, you will be notified by telephone. Please be certain the ED has a correct telephone number & address where you can be reached. Also, realize that some fractures or abnormalities do not show up on initial X-rays. If your symptoms continue, see your physician. ABOUT YOUR LABORATORY TEST: If you had laboratory tests, the results have been reviewed by the Emergency Physician. Some test results (for example cultures) may not be available for several days. You will be contacted if any test result shows you need additional treatment. Please be certain the ED has a correct telephone number and address where you can be reached. ABOUT YOUR MEDICATIONS: You will receive instructions on how to take your medicine on the prescription label you receive. Additional information may be provided by the Pharmacy. If you have questions afterwards, call the ED for clarification or further instructions. Some prescribed medications may cause drowsiness. Do not perform tasks such as driving a car or operating machinery without consulting your Pharmacist. If you feel you need a refill of pain medication, your condition will need re-evaluation. Please do not call for a refill of any medication. ABOUT YOUR SIGNATURE: Signature of this document acknowledges to followin. Understanding that you received emergency treatment and that you may be released before al medical problems are known or treated. Please be certain the ED has a correct phone number & address where you can be reached. 2. Acknowledgement that you will arrange for follow-up care as recommended. 3. Authorization for the Emergency Physician to provide information to your follow-up Physician in order to maximize your care. AT ANY TIME, IF YOUR SYMPTOMS CHANGE SIGNIFICANTLY OR WORSEN OR YOU DEVELOP NEW SYMPTOMS, RETURN TO THE EMERGENCY DEPARTMENT IMMEDIATELY FOR RE-EVALUATION. OUR GOAL IS TO PROVIDE EXCELLENT MEDICAL CARE! WE HOPE THAT WE HAVE MET YOUR EXPECTATIONS DURING YOUR EMERGENCY DEPARTMENT VISIT AND THAT YOU FEEL YOU HAVE RECEIVED EXCELLENT CARE! Prescriptions: Hydrocodone/Acetaminophen [[place] 5-325 mg Tablet] 1 tab PO Q6HP PRN #10 tablet PRN Reason: pain Levofloxacin [Levaquin 750 mg Tablet] 750 mg PO DAILY 6 Days #6 tablet Linezolid [Zyvox 600 mg Tablet] 600 mg PO Q12 14 Days #28 tablet Referrals: [facility] [NO LOCAL MD] - Follow up as needed MARIA GUADALUPE RECINOS MD [ACTIVE STAFF] - 02/04/20 (call tuesday to arrange follow up appointment at wound clinic)
[2020-02-01] MEDS ORDERED: LINEZOLID 600 MG TABLET ONE (23:04)
[2020-02-04 14:11] LABS: PATH REVIEW PATHOLOGIST REVIEWED
== END 2020-02-01 23:16 | disposition home or self-care (01) ==
LOC: ER 17:07
DX: T81.49XA Infection following a procedure, other surgical site, initial encounter (principal); L08.9 Local infection of the skin and subcutaneous tissue, unspecified; Y83.5 Amputation of limb(s) as the cause of abnormal reaction of the patient, or of later complication, without mention of misadventure at the time of the procedure; E11.9 Type 2 diabetes mellitus without complications; Z89.511 Acquired absence of right leg below knee; Z89.512 Acquired absence of left leg below knee; I10 Essential (primary) hypertension
CPT/HCPCS: 99284; 36415; 87040; 87070; 87205; 83605; 85025; 87077; 80053; 87186; 73564; J3490

== ENCOUNTER 2020-03-21 17:46 | Emergency (ER) | payer SELFPAY ==
[2020-03-21] MEDS ORDERED: OXYCODONE-ACETAMINOPHEN 5-325 MG TABLET PO ONE (18:24)
--- NOTE | 2020-03-21 18:24 | ER Document Report ---
ED Medical Screen (RME) - General Chief Complaint: Fall Injury Stated Complaint: FALL/RIGHT LEG PAIN Time Seen by Provider: 03/21/20 18:17 Mode of Arrival: Ambulatory Information source: Patient Notes: Patient is a 49-year-old male coming in today with injury to his right lower extremity. He has diabetes and had a below the knee amputation on the right side. Patient reports a fall last night where he landed on his right stump and now it is split open. No active bleeding. General exam: No acute distress Musculoskeletal right below the knee amputation. Stump is split open at the end with a large laceration I have greeted and performed a rapid initial assessment of this patient. A comprehensive ED assessment and evaluation of the patient, analysis of test results and completion of the medical decision making process will be conducted by additional ED providers. TRAVEL OUTSIDE OF THE [place] IN LAST 30 DAYS: No - Related Data Allergies/Adverse Reactions: No Known Allergies Allergy (Verified 08/02/19 20:35) Past Medical History - Past Medical History Cardiac Medical History: Reports: Hx Hypertension Denies: Hx Atrial Fibrillation, Hx Congestive Heart Failure, Hx Coronary Artery Disease, Hx Heart Attack, Hx Hypercholesterolemia, Hx Peripheral Vascular Disease, Hx Pulmonary Embolism, Hx Heart Murmur Pulmonary Medical History: Denies: Hx Asthma, Hx Bronchitis, Hx COPD, Hx Pneumonia, Hx Respiratory Failure, Hx Sleep Apnea, Hx Tuberculosis Neurological Medical History: Denies: Hx Cerebrovascular Accident, Hx Seizures, Hx Parkinson's Disease Endocrine Medical History: Reports: Hx Diabetes Mellitus Type 1, Hx Diabetes Mellitus Type 2. Denies: Hx Graves' Disease, Hx Hyperthyroidism, Hx Hypothyroidism Renal/ Medical History: Denies: Hx Benign Prostatic Hyperplasia, Hx End Stage Renal Disease, Hx Kidney Stones, Hx Peritoneal Dialysis Malignancy Medical History: Denies Hx Leukemia, Denies Hx Lung Cancer GI Medical History: Denies: Hx Cirrhosis, Hx Crohn's Disease, Hx Diverticulitis, Hx Gastroesophageal Reflux Disease, Hx Hepatitis, Hx Hiatal Hernia, Hx Irritable Bowel, Hx Liver Failure, Hx Pancreatitis, Hx Ulcer, Hx Ulcerative Colitis Musculoskeltal Medical History: Denies Hx Arthritis, Denies Hx Fibromyalgia, Denies Hx Multiple Sclerosis, Denies Hx Muscular Dystrophy, Denies Hx Systemic Lupus Erythematosus Psychiatric Medical History: Denies: Hx Dementia, Hx Depression Traumatic Medical History: Denies: Hx Fractures Infectious Medical History: Denies: Hx Hepatitis, Hx HIV Past Surgical History: Reports: Other - Left BKA. Right foot debridement with 1st/2nd toe amputation.. Denies: Hx Appendectomy, Hx Bowel Surgery, Hx Cholecystectomy, Hx Colostomy, Hx Coronary Artery Bypass Graft, Hx Gastric Bypass Surgery, Hx Herniorrhaphy, Hx Pacemaker, Hx Tonsillectomy - Immunizations Hx Diphtheria, Pertussis, Tetanus Vaccination: Yes Physical Exam - Vital signs Vitals: Temp Pulse Resp BP Pulse Ox 98.1 F 82 16 134/60 H 100 03/21/20 17:54 03/21/20 17:54 03/21/20 17:54 03/21/20 17:54 03/21/20 17:54 Course - Vital Signs Vital signs: Temp Pulse Resp BP Pulse Ox 98.1 F 82 16 134/60 H 100 03/21/20 17:54 03/21/20 17:54 03/21/20 17:54 03/21/20 17:54 03/21/20 17:54
[2020-03-21] MEDS ORDERED: DIPH/PERTUSS(ACELL)/TETANUS VAC/PF 0.5 ML SYR (>=10YO) IM ONE ×2 (18:25→23:00)
--- NOTE | 2020-03-21 19:04 | RADIOLOGY REPORT (SQ) ---
EXAM DESCRIPTION: TIBIA FIBULA RIGHT IMAGES COMPLETED DATE/TIME: 03/21/2020 6:42 pm REASON FOR STUDY: stump laceration COMPARISON: None. NUMBER OF VIEWS: Two views. TECHNIQUE: Two radiographic images acquired of the right tibia and fibula to include the knee and an kle in at least one projection. LIMITATIONS: None. FINDINGS: MINERALIZATION: Normal. BONES: No acute fracture or dislocation. No worrisome bone lesions. SOFT TISSUES: Stump laceration. OTHER: The is dystrophic calcification around the stump of the proximal tibia. IMPRESSION: No acute osseous finding. Soft tissue laceration. TECHNICAL DOCUMENTATION: JOB ID: [id number] 2010 [employer]- All Rights Reserved Reading location - IP/workstation name: [email or web address]
--- NOTE | 2020-03-21 22:39 | ER Document Report ---
ED Extremity Problem, Lower - General Chief Complaint: Fall Injury Stated Complaint: FALL/RIGHT LEG PAIN Time Seen by Provider: 03/21/20 22:17 Primary Care Provider: [facility] [Provider Group] - 03/24/20 Wound Care [Provider Group] - 03/24/20 Mode of Arrival: Ambulatory Information source: Patient Notes: Patient has a history of diabetes with a previous right BKA. Patient states has had a chronic nonhealing wound to the stump. Patient states he was drinking yesterday and got up late at night to go the bathroom. Patient had his wheelchair but ended up falling landing on his stump. Patient with a laceration to the chronic wound to his right stump. TRAVEL OUTSIDE OF THE [place] IN LAST 30 DAYS: No - HPI Patient complains to provider of: Injury, Pain Location: Leg Occurred: Yesterday Where: Home Onset/Duration: Persistent Quality of pain: Achy Pain Level: 4 Context: Fell Recent injury: Yes Relieved by: Nothing - Related Data Allergies/Adverse Reactions: No Known Allergies Allergy (Verified 08/02/19 20:35) Past Medical History - General Information source: Patient - Social History Smoking Status: Former Smoker Frequency of alcohol use: Heavy Drug Abuse: None Occupation: None Family History: Reviewed & Not Pertinent, DM, Hypertension, Other - Alcoholism - Past Medical History Cardiac Medical History: Reports: Hx Hypertension Neurological Medical History: Denies: Hx Cerebrovascular Accident, Hx Seizures, Hx Parkinson's Disease Endocrine Medical History: Reports: Hx Diabetes Mellitus Type 1, Hx Diabetes Me llitus Type 2 Musculoskeletal Medical History: Denies Hx Arthritis, Denies Hx Fibromyalgia, Denies Hx Multiple Sclerosis, Denies Hx Muscular Dystrophy, Denies Hx Systemic Lupus Erythematosus Psychiatric Medical History: Denies: Hx Dementia, Hx Depression Traumatic Medical History: Denies: Hx Fractures Infectious Medical History: Denies: Hx Hepatitis, Hx HIV Past Surgical History: Reports: Hx Orthopedic Surgery - Right BKA, Other - Left BKA. Right foot debridement with 1st/2nd toe amputation. - Immunizations Hx Diphtheria, Pertussis, Tetanus Vaccination: Yes Review of Systems - Review of Systems Constitutional: No symptoms reported. denies: Fever EENT: No symptoms reported Cardiovascular: No symptoms reported Respiratory: No symptoms reported Gastrointestinal: No symptoms reported. denies: Nausea, Vomiting Genitourinary: No symptoms reported Male Genitourinary: No symptoms reported Musculoskeletal: Other - Right leg pain Skin: Other - Laceration to chronic wound Hematologic/Lymphatic: No symptoms reported Neurological/Psychological: No symptoms reported Physical Exam - Vital signs Vitals: Temp Pulse Resp BP Pulse Ox 98.1 F 82 16 134/60 H 100 03/21/20 17:54 03/21/20 17:54 03/21/20 17:54 03/21/20 17:54 03/21/20 17:54 - Notes Notes: PHYSICAL EXAMINATION: GENERAL: Well-appearing and in no acute distress. HEAD: Atraumatic, normocephalic. EYES: sclera anicteric, conjunctiva are normal. ENT: nares patent. Moist mucous membranes. NECK: Normal range of motion, supple LUNGS: CTAB and equal. No wheezes rales or rhonchi. HEART: Regular rate and rhythm without murmurs ABDOMEN: Soft, nontender, normal bowel sounds, no guarding. 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 No CVA tenderness NEUROLOGICAL: Cranial nerves grossly intact. Normal speech. PSYCH: Normal mood, normal affect. SKIN: Warm, Dry, chronic open wound to right BKA stump, see above Course - Re-evaluation Re-evalutation: 03/21/20 22:39 Patient with laceration to chronic open wound to right BKA stump, no underlying fracture. Consulted with Dr. Gautam, Dr. Gautam to bedside for examination, she agrees with consultation with surgery. Spoke with Dr. Weiss who does agree to come and evaluate patient. 03/21/20 22:59 Dr. Weiss to bedside, advises wet-to-dry dressings and outpatient follow-up with the wound clinic. Does not feel that patient requires antibiotics at this time. Does recommend discharge planning consultation. 03/21/20 23:04 - Vital Signs Vital signs: Temp Pulse Resp BP Pulse Ox 98.1 F 99 16 137/81 H 100 03/21/20 23:49 03/21/20 23:49 03/21/20 23:49 03/21/20 23:49 03/21/20 23:49 - Diagnostic Test Radiology reviewed: Image reviewed, Reports reviewed Discharge - Discharge Clinical Impression: Fall, Laceration Wound, surgical, nonhealing Qualifiers: Encounter type: initial encounter Qualified Code(s): T81.89XA - Other complicat ions of procedures, not elsewhere classified, initial encounter Condition: Stable Disposition: HOME, SELF-CARE Instructions: Tetanus Immunization Given ([facility]) Additional Instructions: Return immediately for any new or worsening symptoms: Fever, purulent drainage, redness, increased pain or any concerning new symptoms Followup with your primary care provider, call Tuesday to make a followup appointment Discharge planning should contact you, if you do not hear from them, call Dylon Gallardo at [phone], she can help you get into see a primary doctor, see the wound clinic and may give you information on obtaining prescriptions at a lower cost Follow-up with the wound clinic, call Tuesday to get an appointment Change dressing daily, apply a wet to dry dressing to your stump wound. Referrals: [facility] [Provider Group] - 03/24/20 Wound Care [Provider Group] - 03/24/20
[2020-03-21] MEDS ORDERED: HYDROCODONE/ACETAMINOPHEN 5-325 MG (6 TAB/ER DISP) PO PRN (23:18)
[2020-03-21 23:50] VITALS: BP 137/81
== END 2020-03-21 23:55 | disposition home or self-care (01) ==
LOC: ER 17:46
DX: S81.811A Laceration without foreign body, right lower leg, initial encounter (principal); W19.XXXA Unspecified fall, initial encounter; Y93.89 Activity, other specified; Y92.002 Bathroom of unspecified non-institutional (private) residence as the place of occurrence of the external cause; T81.89XA Other complications of procedures, not elsewhere classified, initial encounter; Y83.5 Amputation of limb(s) as the cause of abnormal reaction of the patient, or of later complication, without mention of misadventure at the time of the procedure; E11.9 Type 2 diabetes mellitus without complications; I10 Essential (primary) hypertension; Z23 Encounter for immunization; Z87.891 Personal history of nicotine dependence; Z89.511 Acquired absence of right leg below knee; Z89.512 Acquired absence of left leg below knee
CPT/HCPCS: 90471; 90715; 99284